=== PATIENT | male | born 1980 | race Caucasian/White ===

== ENCOUNTER 2017-02-09 19:21 | Emergency (ER) | payer SELFPAY ==
[~2017-02-09] VITALS: Ht 175.3 cm; Wt 74.8 kg
[~2017-02-09 19:21] MED LIST: CEPH500C PO; HYDR1TAB PO
[2017-02-09 20:14] LABS: BASOPHILS % (AUTO) 0 % (0-10); EOSINOPHILS % (AUTO) 0 % (0-10); LYMPHOCYTES # (AUTO) 0.7 X 10^3 (1.0-4.0); LYMPHOCYTES % (AUTO) 4 % (12-44); MEAN CORPUSCULAR HEMOGLOBIN 34 PG (25-34); MEAN CORPUSCULAR HGB CONC 36 G/DL (32-36); MEAN CORPUSCULAR VOLUME 96 FL (80-99); MEAN PLATELET VOLUME 9.2 FL (7.4-10.4); MONOCYTES % (AUTO) 6 % (0-12); NEUTROPHILS # (AUTO) 13.9 X 10^3 (1.8-7.8); NEUTROPHILS % (AUTO) 89 % (42-75); PLATELET COUNT 226 10^3/uL (130-400); RED BLOOD COUNT 4.72 10^6/uL (4.35-5.85); RED CELL DISTRIBUTION WIDTH 12.2 % (10.0-14.5); WHITE BLOOD COUNT 15.6 10^3/uL (4.3-11.0)
[2017-02-09 20:15] LABS: BILIRUBIN,URINE NEGATIVE (NEGATIVE); KETONES,URINE NEGATIVE (NEGATIVE); LEUKOCYTE ESTERASE ,URINE NEGATIVE (NEGATIVE); NITRITE,URINE NEGATIVE (NEGATIVE); PH,URINE 7 (5-9); PROTEIN,URINE NEGATIVE (NEGATIVE); UROBILINOGEN,URINE 1 MG/DL (NORMAL)
[2017-02-09] MEDS ORDERED: ONDANSETRON 4 MG/2 ML (SDV) Z0FRAN IVP PRN (20:15)
[2017-02-09] MEDS ORDERED: NS IV 1000 ML 2,000 ML IV PRN (20:15)
[2017-02-09 20:27] LABS: INR 0.9 (0.8-1.4); PROTHROMBIN TIME PATIENT 12.2 SEC (12.2-14.7); SQUAMOUS EPITHELIAL CELL,UR RARE /HPF
[2017-02-09 20:32] LABS: BAND NEUTROPHILS 9 %; BASOPHILS % (MANUAL) 0 %; EOSINOPHILS % (MANUAL) 2 %; LYMPHOCYTES % (MANUAL) 6 %; NEUTROPHILS % (MANUAL) 81 %
[2017-02-09 20:34] LABS: ALANINE AMINOTRANSFERASE 29 U/L (0-55); ANION GAP 12 MMOL/L (5-14); ASPARTATE AMINO TRANSFERASE 26 U/L (5-34); BILIRUBIN,TOTAL 0.7 MG/DL (0.1-1.0); BLOOD UREA NITROGEN 12 MG/DL (7-18); BUN/CREATININE RATIO 12; CALCIUM 9.4 MG/DL (8.5-10.1); CARBON DIOXIDE 22 MMOL/L (21-32); CHLORIDE 103 MMOL/L (98-107); CREATININE SERUM 0.97 MG/DL (0.60-1.30); GFR ESTIMATED > 60; GLUCOSE 115 MG/DL (70-105); POTASSIUM 3.6 MMOL/L (3.6-5.0); SODIUM 137 MMOL/L (135-145); TOTAL PROTEIN 7.4 G/DL (6.4-8.2)
--- NOTE | 2017-02-09 20:39 | Diagnostic Imaging Report ---
INDICATION: Cough, abdominal pain and bloody stools. FINDINGS: The heart size, mediastinal configuration, and pulmonary vascularity are within normal limits. There is no pleural effusion, pneumothorax, or pneumonia. The osseous structures are unremarkable. IMPRESSION: No acute cardiopulmonary abnormality. Dictated by: Dictated on workstation # [id number]
[2017-02-09] MEDS ORDERED: morphine INJ 10 MG/ML 1ML (SYR OR VIAL) IVP STA (21:24)
[2017-02-09] MEDS ORDERED: ONDANSETRON 4 MG/2 ML (SDV) Z0FRAN IVP ONE (21:30)
[2017-02-09] MEDS ORDERED: NS 100 ML (IVPB) BAG IV ONE (21:30)
[2017-02-09] MEDS ORDERED: IOHEXOL 350 MG/ML 100 ML (OMNIPAQUE 350) VIAL IV ONE (21:30)
[2017-02-09] MEDS ORDERED: PIPERACILLIN SODIUM/TAZOBACTAM 4.5 GM in NS (IVPB) 100 ML IV ONE (21:30)
--- NOTE | 2017-02-09 21:30 | ED GU-Male ---
General Chief Complaint: Abdominal/GI Problems Stated Complaint: ABD/INTESTINAL PAIN/BLOOD IN STOOL/FEVER Nursing Triage Note: LOWER ABDOMINAL PAIN, BLOODY STOOL TODAY. Source: patient, spouse Exam Limitations: no limitations History of Present Illness Time seen by provider: 21:00 Initial Comments 36 her old male patient presents to the emergency department complaints of lower abdominal pain and bloody stool beginning today. Patient reports previous episode similar to this over the last 7-8 yrs, but denies seeing a physician/practitioner for the symptoms. Patient reports nausea and low-grade fever 100-101. Denies vomiting, constipation, diarrhea. Denies taking Tylenol or ibuprofen at home. Timing/Duration: this morning Severity/Quality: cramping Location: other (generalized lower abdominal pain) Radiation: none Activities at Onset: none Prior Genitourinary Problems: similar symptoms Sexual Roberts History: less than 2 months ago, single partner Modifying Factors: Worsens With Defecating, Worsens With Movement, Worsens With Palpation Allergies and Home Medications Allergies Coded Allergies: No Known Drug Allergies (Unverified Allergy, Mild, 01/27/09) Home Medications Ciprofloxacin HCl 500 Mg Tablet, 500 MG PO BID, #20 Ref 0 Prescribed by: ANDREA HAMILTON on 02/09/172228 Metronidazole 500 Mg Tablet, 500 MG PO TID, #30 Ref 0 Prescribed by: ANDREA HAMILTON on 02/09/172228 Ondansetron 8 Mg Tab.rapdis, 8 MG PO Q6H PRN for NAUSEA/VOMITING-1ST LINE, #10 Ref 1 Prescribed by: ANDREA HAMILTON on 02/09/172228 Oxycodone HCl/Acetaminophen 1 Each Tablet, 1-2 EACH PO Q4H PRN for PAIN-MODERATE , #30 Ref 0 Prescribed by: ANDREA HAMILTON on 02/09/172228 Constitutional: see HPI, chills, fever, malaise EENTM: no symptoms reported Respiratory: no symptoms reported Cardiovascular: no symptoms reported Gastrointestinal: see HPI, abdominal pain, constipation, No diarrhea, No hematemesis, loss of appetite, No melena, nausea, No vomiting, other ( hematochezia) Genitourinary: denies burning, denies dysuria, denies frequency, denies flank pain, denies hematuria Musculoskeletal: no symptoms reported Skin: no symptoms reported Psychiatric/Neurological: No Symptoms Reported All Other Systemes Reviewed Negative Unless Noted: Yes (Negative excepted noted.) Past Vcraedo-Iyjgyd-Akflhb Hx Patient Social History Alcohol Use: Occasionally Uses Recreational Drug Use: No Smoking Status: Current Everyday Smoker Type Used: Cigarettes 2nd Hand Smoke Exposure: Yes Recent Foreign Travel: No Contact w/Someone Who Travel: No Recent Infectious Disease Expo: No Recent Hopitalizations: No Immunizations Up To Date Tetanus Booster (TDap): Unknown Seasonal Allergies Seasonal Allergies: No Surgeries HX Surgeries: No Surgeries: Orthopedic Respiratory Hx Respiratory Disorders: No Cardiovascular Hx Cardiac Disorders: Yes (HX SINUS TACHYCARDIA) Neurological Hx Neurological Disorders: No Reproductive System Hx Reproductive Disorders: No Sexually Transmitted Disease: No Genitourinary Hx Genitourinary Disorders: No Gastrointestinal Hx Gastrointestinal Disorders: No Musculoskeletal Hx Musculoskeletal Disorders: No Endocrine Hx Endocrine Disorders: No HEENT HX ENT Disorders: No Blood Transfusions Hx Blood Disorders: No Adverse Reaction to a Blood Tr: No Reviewed Nursing Assessment Reviewed/Agree w Nursing PMH: Yes Family Medical History Significant Family History: No Pertinent Family Hx Physical Exam Vital Signs Vital Sign - Last 12Hours 02/09/17 19:47 Temp 99.5 Pulse 125 Resp 18 B/P (MAP) 125/79 Pulse Ox 96 O2 Delivery Room Air Capillary Refill : Less Than 3 Seconds General Appearance: WD/WN, no apparent distress HEENT: PERRL/EOMI, pharynx normal Neck: supple, normal inspection Cardiovascular: normal peripheral pulses, no edema, no murmur, tachycardia Respiratory: lungs clear, normal breath sounds, no respiratory distress Gastrointestinal: soft, abnormal bowel sounds (hypoactive BS), No distended, guarding (suprapubic and LLQ), No rebound, tenderness (BLQ and suprapubic tenderness.), No mass Back: normal inspection, no CVA tenderness Extremities: no pedal edema, normal capillary refill Neurologic/Psychiatric: alert, normal mood/affect, oriented x 3 Skin: normal color, warm/dry Focused Exam Lactic Acid Level Laboratory Tests Test 02/09/17 20:00 Lactic Acid Level 1.12 MMOL/L (0.50-2.00) Progress/Results/Core Measures Results/Orders Lab Results Laboratory Tests Test 02/09/17 20:00 Range/Units White Blood Count 15.6 H 4.3-11.0 10^3/uL Red Blood Count 4.72 4.35-5.85 10^6/uL Hemoglobin 16.1 13.3-17.7 G/DL Hematocrit 45 40-54 % Mean Corpuscular Volume 96 80-99 FL Mean Corpuscular Hemoglobin 34 25-34 PG Mean Corpuscular Hemoglobin Concent 36 32-36 G/DL Red Cell Distribution Width 12.2 10.0-14.5 % Platelet Count 226 130-400 10^3/uL Mean Platelet Volume 9.2 7.4-10.4 FL Neutrophils (%) (Auto) 89 H 42-75 % Lymphocytes (%) (Auto) 4 L 12-44 % Monocytes (%) (Auto) 6 0-12 % Eosinophils (%) (Auto) 0 0-10 % Basophils (%) (Auto) 0 0-10 % Neutrophils # (Auto) 13.9 H 1.8-7.8 X 10^3 Lymphocytes # (Auto) 0.7 L 1.0-4.0 X 10^3 Monocytes # (Auto) 1.0 0.0-1.0 X 10^3 Eosinophils # (Auto) 0.0 0.0-0.3 10^3/uL Basophils # (Auto) 0.0 0.0-0.1 10^3/uL Neutrophils % (Manual) 81 % Lymphocytes % (Manual) 6 % Monocytes % (Manual) 2 % Eosinophils % (Manual) 2 % Basophils % (Manual) 0 % Band Neutrophils 9 % Blood Morphology Comment NORMAL Prothrombin Time 12.2 12.2-14.7 SEC INR Comment 0.9 0.8-1.4 Activated Partial Thromboplast Time 27 24-35 SEC Urine Color YELLOW Urine Clarity CLEAR Urine pH 7 5-9 Urine Specific [place] 1.010 L 1.016-1.022 Urine Protein NEGATIVE NEGATIVE Urine Glucose (UA) NEGATIVE NEGATIVE Urine Ketones NEGATIVE NEGATIVE Urine Nitrite NEGATIVE NEGATIVE Urine Bilirubin NEGATIVE NEGATIVE Urine Urobilinogen 1 NORMAL MG/DL Urine Leukocyte Esterase NEGATIVE NEGATIVE Urine RBC (Auto) NEGATIVE NEGATIVE Urine RBC NONE /HPF Urine WBC NONE /HPF Urine Squamous Epithelial Cells RARE /HPF Urine Crystals NONE /LPF Urine Bacteria NONE /HPF Urine Casts NONE /LPF Urine Mucus NEGATIVE /LPF Urine Culture Indicated NO Sodium Level 137 135-145 MMOL/L Potassium Level 3.6 3.6-5.0 MMOL/L Chloride Level 103 98-107 MMOL/L Carbon Dioxide Level 22 21-32 MMOL/L Anion Gap 12 5-14 MMOL/L Blood Urea Nitrogen 12 7-18 MG/DL Creatinine 0.97 0.60-1.30 MG/DL Estimat Glomerular Filtration Rate > 60 BUN/Creatinine Ratio 12 Glucose Level 115 H 70-105 MG/DL Lactic Acid Level 1.12 0.50-2.00 MMOL/L Calcium Level 9.4 8.5-10.1 MG/DL Total Bilirubin 0.7 0.1-1.0 MG/DL Aspartate Amino Transf (AST/SGOT) 26 5-34 U/L Alanine Aminotransferase (ALT/SGPT) 29 0-55 U/L Alkaline Phosphatase 68 40-136 U/L Total Protein 7.4 6.4-8.2 G/DL Albumin 4.0 3.2-4.5 G/DL Micro Results Microbiology 02/09/17 Blood Culture - Preliminary, Resulted No growth 02/09/17 Blood Culture, Received Pending My Orders Orders - ANDREA HAMILTON Cbc With Automated Diff (02/09/17 20:07) Comprehensive Metabolic Panel (02/09/17 20:07) Lactic Acid Analyzer (02/09/17 20:07) Blood Culture (02/09/17 20:07) Sputum Culture (02/09/17 20:07) Ua Culture If Indicated (02/09/17 20:07) Protime With Inr (02/09/17 20:07) Partial Thromboplastin Time (02/09/17 20:07) Chest 1 View, Ap/Pa Only (02/09/17 20:07) O2 (02/09/17 20:07) Ondansetron Injection (Zofran Injectio (02/09/17 20:15) Saline Lock/Iv-Start (02/09/17 20:07) Ns Iv 1000 Ml (Sodium Chloride 0.9%) (02/09/17 20:15) Vital Signs Adult Sepsis Patie Q1HR (02/09/17 20:07) Remove Rings In Anticipation O (02/09/17 20:07) Manual Differential (02/09/17 20:00) Morphine Injection (Morphine Injection (02/09/17 21:24) Ondansetron Injection (Zofran Injectio (02/09/17 21:30) Ct Abdomen/Pelvis W (02/09/17 21:24) Piperacillin Sodium/Tazobactam (Zosyn Vi (02/09/17 21:30) Iohexol Injection (Omnipaque 350 Mg/Ml 1 (02/09/17 21:30) Ns (Ivpb) (Sodium Chloride 0.9% Ivpb Bag (02/09/17 21:30) Rx-Oxycodone/Apap 5-325 Mg (Rx-Percocet (02/09/17 22:30) Rx-Ondansetron Po (Rx-Zofran Po) (02/09/17 22:21) Medications Given in ED Vital Signs/I&O Vital Sign - Last 12Hours 02/09/17 02/09/17 02/09/17 02/09/17 19:47 20:00 21:41 22:51 Temp 99.5 99.5 98.0 Pulse 125 95 Resp 18 18 B/P (MAP) 125/79 Pulse Ox 96 96 97 O2 Delivery Room Air Room Air Intake and Output 02/10/17 00:00 Intake Total 2100 ml Balance 2100 ml Blood Pressure Mean: 94 Diagnostic Imaging Diagonstic Imaging: CT Plain Films/CT/US/NM/MRI: abdomen, pelvis Comments FINDINGS: The heart size is normal. The lung bases are essentially clear. The liver is normal in size without focal lesions. The gallbladder is contracted. There is no biliary ductal dilatation. The spleen is normal. The pancreas and adrenal glands are unremarkable. The kidneys are normal. There is no evidence of obstructive uropathy. The abdominal aorta is nonaneurysmal. The appendix is normal. The bowel gas pattern is nonspecific. There is some focal diverticulitis of the sigmoid colon without evidence of abscess. There is no pelvic mass or adenopathy. IMPRESSION: Focal diverticulitis of the proximal sigmoid colon. There is no evidence of abscess or ramsey free air. Dictated by: Dictated on workstation # [id number] Reviewed: Reviewed by Me (radiology report reviewed by me. ) Diagonstic Imaging: Xray Plain Films/CT/US/NM/MRI: chest Comments FINDINGS: The heart size, mediastinal configuration, and pulmonary vascularity are within normal limits. There is no pleural effusion, pneumothorax, or pneumonia. The osseous structures are unremarkable. IMPRESSION: No acute cardiopulmonary abnormality. Dictated by: Dictated on workstation # [id number] Reviewed: Reviewed by Me (radiology report reviewed) Departure Communication Progress Notes all laboratory and diagnostic findings were discussed with the patient. 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 I advised the patient that I will contact Dr. Linares for recommendations. 2220 Patient case discussed with Dr. Linares. States a trial of outpatient antibiotics is appropriate as patient is young, otherwise healthy, and does not have an abscess or perforation. Recommends f/u in his office for recheck this week. I discussed Dr. Linares's recommendations with the patient. Patient agrees to return to the ED tomorrow for recheck. All return precautions were discussed with the patient as described in the [facility] instructions of this report. Patient voices understanding and agrees with the treatment plan. Impression Impression: Primary Impression: Diverticulitis of intestine Qualified Codes: K57.33 - Diverticulitis of large intestine without perforation or abscess with bleeding Disposition: HOME, SELF-CARE Condition: Improved Departure-Patient Inst. Decision time for Depature: 22:24 Referrals: NO,LOCAL PHYSICIAN (PCP) Primary Care Physician MANDI LINARES MD Patient Instructions: Diverticulitis (DC) Add. Discharge Instructions: All discharge instructions reviewed with patient and/or family. Voiced understanding. Medications as directed. Motrin 800 mg by mouth every 8 hours as directed. Clear liquid diet until pain resolves, then increase to a diverticular diet (no seeds, nuts, popcorn kernels, etc...). Follow-up with Dr. Linares for recheck and to schedule an outpatient colonoscopy in the next 3- 5 days. Call for appointment time. Return to the emergency department tomorrow for a recheck. Return to the emergency department for worsened pain, fever, vomiting, rectal bleeding, abdominal swelling, or any other concerns. Scripts Ondansetron (Ondansetron Odt) 8 Mg Tab.rapdis 8 MG PO Q6H Y for NAUSEA/VOMITING-1ST LINE, #10 TAB 1 Refill Prov: ANDREA HAMILTON 02/09/17 Oxycodone HCl/Acetaminophen (Percocet 5-325 mg Tablet) 1 Each Tablet 1-2 EACH PO Q4H Y for PAIN-MODERATE, #30 TAB 0 Refills Prov: ANDREA HAMILTON 02/09/17 Metronidazole (Metronidazole) 500 Mg Tablet 500 MG PO TID, #30 TAB 0 Refills Prov: ANDREA HAMILTON 02/09/17 Ciprofloxacin HCl (Ciprofloxacin HCl) 500 Mg Tablet 500 MG PO BID, #20 TAB 0 Refills Prov: ANDREA HAMILTON 02/09/17 ANDREA HAMILTON February 09, 2017 21:30
--- NOTE | 2017-02-09 21:52 | Diagnostic Imaging Report ---
PROCEDURE: CT abdomen and pelvis with contrast. TECHNIQUE: Multiple contiguous axial images were obtained through the abdomen and pelvis after administration of intravenous contrast. INDICATION: Fever and chills with abdominal pain and bloody stools. FINDINGS: The heart size is normal. The lung bases are essentially clear. The liver is normal in size without focal lesions. The gallbladder is contracted. There is no biliary ductal dilatation. The spleen is normal. The pancreas and adrenal glands are unremarkable. The kidneys are normal. There is no evidence of obstructive uropathy. The abdominal aorta is nonaneurysmal. The appendix is normal. The bowel gas pattern is nonspecific. There is some focal diverticulitis of the sigmoid colon without evidence of abscess. There is no pelvic mass or adenopathy. IMPRESSION: Focal diverticulitis of the proximal sigmoid colon. There is no evidence of abscess or ramsey free air. Dictated by: Dictated on workstation # [id number]
[2017-02-09] MEDS ORDERED: RX-ONDANSETRON 4 MG ODT (ZOFRAN) PPK #4 PO STA (22:21)
[2017-02-09] MEDS ORDERED: ONDA8TAB13 PO (22:29)
[2017-02-09] MEDS ORDERED: CIPR500T4 PO (22:29)
[2017-02-09] MEDS ORDERED: OXYC-197 PO (22:29)
[2017-02-09] MEDS ORDERED: METR500T21 PO (22:29)
[2017-02-09] MEDS ORDERED: RX-OXYCODONE/APAP 5-325 MG #4 TAB PK PO PRN (22:30)
[2017-02-09 22:51] VITALS: BP 132/91
== END 2017-02-09 22:48 | disposition home or self-care (01) ==
LOC: EDUNIT# 19:21 → ER 19:24
DX: K57.32 Diverticulitis of large intestine without perforation or abscess without bleeding (principal); F17.210 Nicotine dependence, cigarettes, uncomplicated
CPT/HCPCS: 36415; 71010; 74177; 80053; 81000; 83605; 85007; 85027; 85610; 85730; 87040; 96361; 96365; 96375; 96376

== ENCOUNTER 2017-02-10 16:27 | Emergency (ER) | payer SELFPAY ==
[~2017-02-10] VITALS: Ht 175.3 cm; Wt 74.8 kg
[~2017-02-10 16:27] MED LIST changes: +CIPR500T4 PO; +METR500T21 PO; +ONDA8TAB13 PO; +OXYC-197 PO
--- NOTE | 2017-02-10 17:12 | ED Suture Removal/Wound Check ---
Suture/Wound Re-check Suture Removal/Wound Recheck : Progress patient presents to the ED as instructed by this examiner yesterday. Patient states he is feeling better today and pain is improved. Denies nausea or vomiting today. Denies bloody stools today. Physical Exam Vital Signs Vital Sign - Last 12Hours 02/10/17 02/10/17 17:00 17:15 Temp 99.2 Pulse 103 Resp 20 B/P (MAP) 117/81 Pulse Ox 96 O2 Delivery Room Air Capillary Refill : General Appearance: WD/WN, no apparent distress Cardiovascular: regular rate, rhythm, no murmur Respiratory: lungs clear, normal breath sounds, no respiratory distress Gastrointestinal: normal bowel sounds, soft, no organomegaly, No distended, guarding (LLQ and suprapubic guarding (improved from yesterday's exam)), No rebound, tenderness (BLQ and suprapubic tenderness (improved from yesterday's exam)) Extremities: normal capillary refill Neurologic/Psychiatric: alert, normal mood/affect, oriented x 3 Skin: normal color, warm/dry Departure Communication Progress Notes Patient seen and evaluated. plan for dsch to home with f/u as an outpatient with Dr. Linares as instructed yesterday. Continue current medications. Impression Impression: Primary Impression: Diverticulitis large intestine Qualified Codes: K57.33 - Diverticulitis of large intestine without perforation or abscess with bleeding Disposition: 01 HOME, SELF-CARE Condition: Improved Departure-Patient Inst. Decision time for Depature: 17:10 Referrals: NO,LOCAL PHYSICIAN (PCP) Primary Care Physician MANDI LINARES MD Patient Instructions: NO INSTRUCTIONS GIVEN Add. Discharge Instructions: All discharge instructions reviewed with patient and/or family. Voiced understanding. Continue current medications. Continue instructions as discussed with the last night in the emergency department. Clear liquid diet until pain is improved, then increase diet slowly to a diverticular diet. Follow-up with Dr. Linares as instructed. Return to the emergency department for worsened symptoms or any other concerns. ANDREA HAMILTON February 10, 2017 17:11
[2017-02-10 17:15] VITALS: BP 117/81
== END 2017-02-10 17:15 | disposition home or self-care (01) ==
LOC: EDUNIT# 16:27 → ER 16:29
DX: K57.33 Diverticulitis of large intestine without perforation or abscess with bleeding (principal)

== ENCOUNTER 2017-03-25 14:02 | Emergency (ER) | payer SELFPAY ==
[~2017-03-25] VITALS: Ht 175.3 cm; Wt 74.8 kg
--- NOTE | 2017-03-25 14:32 | ED Lower Extremity ---
General Chief Complaint: Lower Extremity Stated Complaint: R FOOT BIG TOE INJ Source: patient Exam Limitations: no limitations History of Present Illness Time seen by provider: 14:30 Initial Comments To ER with right great toe injury. He states that several years ago while camping he struck this with a hatchet. Since then he's been unable to dorsiflex the toe. He also has a an erythematous nodule over the first MTP joint that developed after that healed. It is not painful. A few days ago he stubbed his toe and has persistent bruising and worsening pain to the great toe. Onset: just prior to arrival Severity: moderate Pain/Injury Location: right 1st toe Modifying Factors: Worse With Movement Allergies and Home Medications Allergies Coded Allergies: No Known Drug Allergies (Unverified , 01/27/09) Home Medications Ciprofloxacin HCl 500 Mg Tablet, 500 MG PO BID, #20 Ref 0 Prescribed by: ANDREA HAMILTON on 02/09/172228 Metronidazole 500 Mg Tablet, 500 MG PO TID, #30 Ref 0 Prescribed by: ANDREA HAMILTON on 02/09/172228 Ondansetron 8 Mg Tab.rapdis, 8 MG PO Q6H PRN for NAUSEA/VOMITING-1ST LINE, #10 Ref 1 Prescribed by: ANDREA HAMILTON on 02/09/172228 Oxycodone HCl/Acetaminophen 1 Each Tablet, 1-2 EACH PO Q4H PRN for PAIN-MODERATE , #30 Ref 0 Prescribed by: ANDREA HAMILTON on 02/09/172228 Constitutional: see HPI, No chills, No fever EENTM: see HPI Respiratory: no symptoms reported Cardiovascular: no symptoms reported Genitourinary: no symptoms reported Musculoskeletal: no symptoms reported Skin: see HPI Psychiatric/Neurological: No Symptoms Reported Past Fxejchz-Armvyi-Uwojon Hx Patient Social History Alcohol Use: Occasionally Uses Recreational Drug Use: No (SMOKES 1 PACK/DAY) Smoking Status: Current Everyday Smoker Type Used: Cigarettes 2nd Hand Smoke Exposure: Yes Recent Foreign Travel: No Contact w/Someone Who Travel: No Recent Hopitalizations: No Immunizations Up To Date Tetanus Booster (TDap): Unknown Seasonal Allergies Seasonal Allergies: No Surgeries Surgeries: Orthopedic Respiratory Hx Respiratory Disorders: No Cardiovascular Hx Cardiac Disorders: Yes (HX SINUS TACHYCARDIA) Neurological Hx Neurological Disorders: No Reproductive System Hx Reproductive Disorders: No Sexually Transmitted Disease: No Genitourinary Hx Genitourinary Disorders: No Gastrointestinal Hx Gastrointestinal Disorders: No Musculoskeletal Hx Musculoskeletal Disorders: No Endocrine Hx Endocrine Disorders: No HEENT HX ENT Disorders: No Blood Transfusions Hx Blood Disorders: No Adverse Reaction to a Blood Tr: No Physical Exam Vital Signs Vital Sign - Last 12Hours 03/25/17 14:19 Temp 98.8 Pulse 108 Resp 18 B/P (MAP) 166/87 Pulse Ox 98 O2 Delivery Room Air Capillary Refill : General Appearance: WD/WN, no apparent distress HEENT: PERRL/EOMI Neck: non-tender, full range of motion Respiratory: no respiratory distress, no accessory muscle use Gastrointestinal: normal bowel sounds, non tender, soft Hips: bilateral hip non-tender, bilateral hip normal inspection, bilateral hip normal range of motion Legs: bilateral leg non-tender, bilateral leg normal inspection, bilateral leg normal range of motion Knees: bilateral knee non-tender, bilateral knee normal inspection, bilateral knee normal range of motion Ankles: bilateral ankle non-tender, bilateral ankle normal inspection, bilateral ankle normal range of motion Feet: right foot other (there is an erythematous nodule over the dorsal aspect of the foot at the first MTP joint. There is bruising around this as well.) Neurologic/Psychiatric: alert, normal mood/affect, oriented x 3 Skin: normal color, warm/dry Progress/Results/Core Measures Results/Orders My Orders Orders - YOVANY RODRIGUEZ APRN Foot, Right, 3 View (03/25/17 14:25) Vital Signs/I&O Vital Sign - Last 12Hours 03/25/17 14:19 Temp 98.8 Pulse 108 Resp 18 B/P (MAP) 166/87 Pulse Ox 98 O2 Delivery Room Air Departure Impression Impression: Primary Impression: Toe sprain Disposition: 01 HOME, SELF-CARE Condition: Stable Departure-Patient Inst. Decision time for Depature: 14:44 Referrals: JAYLEN CEE DPM NO,LOCAL PHYSICIAN (PCP) Primary Care Physician ALEC LOMAX DPM Patient Instructions: Toe Injury Add. Discharge Instructions: 1. Keep the toe taped to the toe next to it 2. Tylenol and Motrin for pain 3. Follow-up with one of the foot specialists listed or All discharge instructions reviewed with patient and/or family. Voiced understanding. YOVANY RODRIGUEZ APRN Mar 25, 2017 14:32
--- NOTE | 2017-03-25 14:41 | Diagnostic Imaging Report ---
INDICATION: Foot pain. Rolled foot. FINDINGS: Alignment of the foot is normal. There are osteoarthritic changes at the first metatarsophalangeal joint. There is no evidence of an acute fracture or of a dislocation. There is no focal soft tissue abnormality. 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 There is no acute fracture or dislocation. Dictated by: Dictated on workstation # [id number]
[2017-03-25 14:55] VITALS: BP 160/87
== END 2017-03-25 14:56 | disposition home or self-care (01) ==
LOC: EDUNIT# 14:02 → ER 14:03
DX: S93.501A Unspecified sprain of right great toe, initial encounter (principal); F17.210 Nicotine dependence, cigarettes, uncomplicated; W22.8XXA Striking against or struck by other objects, initial encounter; Y92.009 Unspecified place in unspecified non-institutional (private) residence as the place of occurrence of the external cause; Y99.8 Other external cause status
CPT/HCPCS: 73630; 99283

== ENCOUNTER 2018-01-01 19:43 | Inpatient (IN) | payer SELFPAY ==
[~2018-01-01] VITALS: Ht 175.3 cm; Wt 85.3 kg
[2018-01-01 20:41] LABS: BILIRUBIN,URINE NEGATIVE (NEGATIVE); CLARITY,URINE SLIGHTLY CLOUDY; COLOR,URINE BROWN; GLUCOSE, URINE (UA) NEGATIVE (NEGATIVE); KETONES,URINE 1+ (NEGATIVE); LEUKOCYTE ESTERASE ,URINE 1+ (NEGATIVE); NITRITE,URINE NEGATIVE (NEGATIVE); PH,URINE 5 (5-9); PROTEIN,URINE 1+ (NEGATIVE); UROBILINOGEN,URINE 1 MG/DL (NORMAL)
[2018-01-01 20:41] LABS: BASOPHILS % (AUTO) 0 % (0-10); EOSINOPHILS % (AUTO) 0 % (0-10); HEMATOCRIT 46 % (40-54); HEMOGLOBIN 16.7 G/DL (13.3-17.7); LYMPHOCYTES # (AUTO) 1.4 X 10^3 (1.0-4.0); LYMPHOCYTES % (AUTO) 8 % (12-44); MEAN CORPUSCULAR HEMOGLOBIN 36 PG (25-34); MEAN CORPUSCULAR HGB CONC 37 G/DL (32-36); MEAN CORPUSCULAR VOLUME 97 FL (80-99); MEAN PLATELET VOLUME 9.6 FL (7.4-10.4); MONOCYTES # (AUTO) 1.2 X 10^3 (0.0-1.0); MONOCYTES % (AUTO) 6 % (0-12); NEUTROPHILS # (AUTO) 16.5 X 10^3 (1.8-7.8); NEUTROPHILS % (AUTO) 86 % (42-75); PLATELET COUNT 258 10^3/uL (130-400); RED BLOOD COUNT 4.71 10^6/uL (4.35-5.85); WHITE BLOOD COUNT 19.2 10^3/uL (4.3-11.0)
[2018-01-01] MEDS ORDERED: fentaNYL INJECTION 100 MCG/2 ML AMP IVP ONE ×2 (20:45→21:45)
[2018-01-01] MEDS ORDERED: IOHEXOL 350 MG/ML 100 ML (OMNIPAQUE 350) VIAL IV ONE (20:45)
[2018-01-01] MEDS ORDERED: LACTATED RINGERS 1,500 ML IV ONE (20:45)
[2018-01-01] MEDS ORDERED: ONDANSETRON 4 MG/2 ML (SDV) Z0FRAN IVP PRN (20:45)
[2018-01-01] MEDS ORDERED: NS 100 ML (IVPB) BAG IV ONE (20:45)
[2018-01-01 20:47] LABS: INR 0.9 (0.8-1.4); PROTHROMBIN TIME PATIENT 12.7 SEC (12.2-14.7)
--- NOTE | 2018-01-01 20:49 | ED GI ---
General Chief Complaint: Abdominal/GI Problems Stated Complaint: LOWER ABD PAIN Nursing Triage Note: PT PRESENTS TO ER WITH COMPLAINT OF ABD PAIN THAT STARTED AROUND 3AM. STATES THE PAIN HAS PROGRESSIVELY WORSENED THROUGHTOUT THE COURSE OF THE DAY. STATES PAIN IS FROM HIP TO HIP UNDER HIS BELLY BUTTON. STATES HE HAS NOT HAD A BM TODAY. ALSO COMPLAINING OF BURNING IN HIS BLADDER AFTER URINATION. Sepsis Screen: No Definite Risk Source of Information: Patient, Other Exam Limitations: No Limitations History of Present Illness Date Seen by Provider: Jan 01, 2018 Time Seen by Provider: 20:36 Initial Comments Patient presents to ER by private conveyance with a chief complaint that for the last day he has began to feel some progressively worsening stabbing turning to a dull achiness suprapubic periumbilical abdominal pain. He says it radiates to either side. He has no history of recent trauma. Within the last year he was diagnosed with diverticulitis and treated outpatient. Patient says this pain is different on the pain he felt the diverticula colitis. He has some burning on urination. He is sexually active and monogamous relationship with his . No discharge. He felt feverish but has not seen a temperature above 100F however he has been using Motrin for his pain and it has given him a modicum of relief. He is having nausea but has not vomited yet. No one else is sick around him with similar symptoms. He has no other surgical or medical history and does not take any meds routinely. Ever since he was diagnosed with diverticulitis he said he's had blood mixed in his stool occasionally. Allergies and Home Medications Allergies Coded Allergies: No Known Drug Allergies (Unverified , 01/27/09) Home Medications Ciprofloxacin HCl 500 Mg Tablet, 500 MG PO BID Prescribed by: ANDREA HAMILTON on 02/09/172228 Metronidazole 500 Mg Tablet, 500 MG PO TID Prescribed by: ANDREA HAMILTON on 02/09/172228 Ondansetron 8 Mg Tab.rapdis, 8 MG PO Q6H PRN for NAUSEA/VOMITING-1ST LINE Prescribed by: ANDREA HAMILTON on 02/09/172228 Oxycodone HCl/Acetaminophen 1 Each Tablet, 1-2 EACH PO Q4H PRN for PAIN-MODERATE Prescribed by: ANDREA HAMILTON on 02/09/172228 Patient Home Medication List Home Medication List Reviewed: Yes Review of Systems Constitutional: chills, No diaphoresis, fever, malaise EENTM: No Blurred Vision, No Double Vision Respiratory: Denies Cough, Denies Shortness of Air Cardiovascular: Denies Chest Pain, Denies Edema, Denies Palpitations Gastrointestinal: Constipated, Denies Diarrhea, Denies Difficulty Swallowing, Nausea, Denies Vomiting Genitourinary: Burning, Denies Discharge, Denies Frequency Musculoskeletal: back pain (low), No joint pain Skin: No pruritus, No rash Psychiatric/Neurological: Denies Headache, Denies Numbness Past Lmzhxdu-Cwfyqq-Edkjys Hx Patient Social History Alcohol Use: Occasionally Uses Number of Drinks Today: AA Alcohol Beverage of Choice: Beer Recreational Drug Use: Yes Drug of Choice: MARIJUANA Type Used: Cigarettes 2nd Hand Smoke Exposure: Yes Recent Foreign Travel: No Contact w/Someone Who Travel: No Recent Infectious Disease Expo: No Recent Hopitalizations: No Immunizations Up To Date Tetanus Booster (TDap): Unknown Seasonal Allergies Seasonal Allergies: No Surgeries History of Surgeries: Yes Surgeries: Orthopedic Respiratory History of Respiratory Disorde: No Cardiovascular History of Cardiac Disorders: Yes (HX SINUS TACHYCARDIA) Neurological History of Neurological Disord: No Reproductive System Hx Reproductive Disorders: No Sexually Transmitted Disease: No Genitourinary History of Genitourinary Disor: No Gastrointestinal History of Gastrointestinal Di: Yes (DIVIERTICULITIS) Musculoskeletal History of Musculoskeletal Dis: No Endocrine History of Endocrine Disorders: No HEENT History of HEENT Disorders: No Cancer History of Cancer: No Psychosocial History of Psychiatric Problem: No Integumentary History of Skin or Integumenta: No Blood Transfusions History of Blood Disorders: No Adverse Reaction to a Blood Tr: No Physical Exam Vital Signs VS - Last 72 Hours, by Label 01/01/18 20:17 Temp 99.1 Pulse 127 Resp 20 B/P (MAP) 120/74 (89) Pulse Ox 96 O2 Delivery Room Air Capillary Refill : Less Than 3 Seconds General Appearance: WD/WN, no apparent distress HEENT: PERRL/EOMI, normal ENT inspection, pharynx normal (oral mucosa is mildly dry) Neck: non-tender, normal inspection Respiratory: chest non-tender, lungs clear, no respiratory distress, no accessory muscle use Cardiovascular: normal peripheral pulses, regular rate, rhythm Peripheral Pulses: 2+ Radial Pulses (R), 2+ Radial Pulses (L) Gastrointestinal: normal bowel sounds, soft, guarding (bilateral lower quadrants), No rebound, tenderness (especially suprapubic but also left lower quadrant and right lower quadrant), other (negative for Jimenez sign or tenderness over McBurney's point) Rectal: normal exam, normal rectal tone, No blood streaked stool Extremities: no pedal edema, normal capillary refill Back: normal inspection, no vertebral tenderness, CVA tenderness (R) Neurologic/Psychiatric: alert, normal mood/affect, oriented x 3 Skin: normal color, warm/dry Focused Exam Evaluation Lactate Level Laboratory Tests 01/01/18 20:38: Lactic Acid Level 1.15 Lactic Acid Level Laboratory Tests Test 01/01/18 20:38 Lactic Acid Level 1.15 MMOL/L (0.50-2.00) Progress/Results/Core Measures Results/Orders Lab Results Laboratory Tests Test 01/01/18 20:05 01/01/18 20:25 01/01/18 20:38 Range/Units Urine Color BROWN H Urine Clarity SLIGHTLY CLOUDY Urine pH 5 5-9 Urine Specific [place] 1.015 L 1.016-1.022 Urine Protein 1+ H NEGATIVE Urine Glucose (UA) NEGATIVE NEGATIVE Urine Ketones 1+ H NEGATIVE Urine Nitrite NEGATIVE NEGATIVE Urine Bilirubin NEGATIVE NEGATIVE Urine Urobilinogen 1 NORMAL MG/DL Urine Leukocyte Esterase 1+ H NEGATIVE Urine RBC (Auto) 2+ H NEGATIVE Urine RBC 0-2 /HPF Urine WBC 0-2 /HPF Urine Squamous Epithelial Cells RARE /HPF Urine Crystals PRESENT H /LPF Urine Amorphous Sediment FEW JEWELL URATES H /LPF Urine Bacteria NONE /HPF Urine Casts NONE /LPF Urine Mucus SMALL H /LPF Urine Culture Indicated NO White Blood Count 19.2 H 4.3-11.0 10^3/uL Red Blood Count 4.71 4.35-5.85 10^6/uL Hemoglobin 16.7 13.3-17.7 G/DL Hematocrit 46 40-54 % Mean Corpuscular Volume 97 80-99 FL Mean Corpuscular Hemoglobin 36 H 25-34 PG Mean Corpuscular Hemoglobin Concent 37 H 32-36 G/DL Red Cell Distribution Width 12.0 10.0-14.5 % Platelet Count 258 130-400 10^3/uL Mean Platelet Volume 9.6 7.4-10.4 FL Neutrophils (%) (Auto) 86 H 42-75 % Lymphocytes (%) (Auto) 8 L 12-44 % Monocytes (%) (Auto) 6 0-12 % Eosinophils (%) (Auto) 0 0-10 % Basophils (%) (Auto) 0 0-10 % Neutrophils # (Auto) 16.5 H 1.8-7.8 X 10^3 Lymphocytes # (Auto) 1.4 1.0-4.0 X 10^3 Monocytes # (Auto) 1.2 H 0.0-1.0 X 10^3 Eosinophils # (Auto) 0.0 0.0-0.3 10^3/uL Basophils # (Auto) 0.0 0.0-0.1 10^3/uL Neutrophils % (Manual) 73 % Lymphocytes % (Manual) 10 % Monocytes % (Manual) 6 % Eosinophils % (Manual) 0 % Basophils % (Manual) 0 % Band Neutrophils 11 % Blood Morphology Comment NORMAL Prothrombin Time 12.7 12.2-14.7 SEC INR Comment 0.9 0.8-1.4 Activated Partial Thromboplast Time 29 24-35 SEC Sodium Level 134 L 135-145 MMOL/L Potassium Level 3.8 3.6-5.0 MMOL/L Chloride Level 103 98-107 MMOL/L Carbon Dioxide Level 17 L 21-32 MMOL/L Anion Gap 14 5-14 MMOL/L Blood Urea Nitrogen 11 7-18 MG/DL Creatinine 0.85 0.60-1.30 MG/DL Estimat Glomerular Filtration Rate > 60 BUN/Creatinine Ratio 13 Glucose Level 105 70-105 MG/DL Calcium Level 9.9 8.5-10.1 MG/DL Total Bilirubin 1.6 H 0.1-1.0 MG/DL Aspartate Amino Transf (AST/SGOT) 19 5-34 U/L Alanine Aminotransferase (ALT/SGPT) 29 0-55 U/L Alkaline Phosphatase 73 40-136 U/L C-Reactive Protein High Sensitivity 11.68 H 0.00-0.50 MG/DL Total Protein 8.3 H 6.4-8.2 GM/DL Albumin 4.4 3.2-4.5 GM/DL Lactic Acid Level 1.15 0.50-2.00 MMOL/L My Orders Orders - MARTINEZ MUÑOZ Occult Blood Stool (01/01/18 20:36) Ct Abd/Pelv W (Appendicitis) (01/01/18 20:36) Lactated Ringers (Lr 1000 Ml Iv Solution (01/01/18 20:45) Lactic Acid Analyzer (01/01/18 20:36) Blood Culture (01/01/18 20:36) Ua Culture If Indicated (01/01/18 20:36) Protime With Inr (01/01/18 20:36) Partial Thromboplastin Time (01/01/18 20:36) Ondansetron Injection (Zofran Injectio (01/01/18 20:45) Saline Lock/Iv-Start (01/01/18 20:36) Vital Signs Adult Sepsis Patie Q1H (01/01/18 20:36) Remove Rings In Anticipation O (01/01/18 20:36) Fentanyl Injection (Sublimaze Injection (01/01/18 20:45) Iohexol Injection (Omnipaque 350 Mg/Ml 1 (01/01/18 20:45) Ns (Ivpb) (Sodium Chloride 0.9% Ivpb Bag (01/01/18 20:45) Fentanyl Injection (Sublimaze Injection (01/01/18 21:45) Piperacillin Sodium/Tazobactam (Zosyn Vi (01/01/18 21:45) Metronidazole 500mg/100ml Ivpb (Flagyl 5 (01/01/18 21:45) Medications Given in ED Current Medications Medications Dose Ordered Sig/Abbie Route Start Time Stop Time Status Last Admin Dose Admin Fentanyl Citrate 50 mcg ONCE ONCE IVP 01/01/18 20:45 01/01/18 20:46 DC 01/01/18 20:49 50 MCG Iohexol 100 ml ONCE ONCE IV 01/01/18 20:45 01/01/18 21:26 DC 01/01/18 20:54 100 ML Lactated Ringer's 1,500 ml @ 1,500 mls/hr ONCE ONCE IV 01/01/18 20:45 01/01/18 21:44 01/01/18 21:09 1,500 MLS/HR Ondansetron HCl 4 mg ONCE PRN IVP 01/01/18 20:45 01/01/18 20:50 DC 01/01/18 20:49 4 MG Sodium Chloride 100 ml ONCE ONCE IV 01/01/18 20:45 01/01/18 21:26 DC 01/01/18 20:54 100 ML Vital Signs/I&O Vital Sign - Last 12Hours 01/01/18 20:17 Temp 99.1 Pulse 127 Resp 20 B/P (MAP) 120/74 (89) Pulse Ox 96 O2 Delivery Room Air Blood Pressure Mean: 89 Progress Note #1: Time: 20:50 Progress Note We will treat his pain and nausea and get a CT scan thinking about diverticulitis and a urinalysis thinking about UTI. Does not seem to be any abdominal wall tenderness and appendicitis would certainly also be in the distant differential. He is afebrile at this time however he takes Profen and said he felt feverish earlier and has some tachycardia so were going to do a septic workup focused on his abdomen. He does have a history of sinus tachycardia and gives some vague history of possible VSD. No murmur heard on auscultation. We would recommend he follow-up with a primary care provider for these issues outpatient. Progress Note #2: Time: 21:43 Progress Note IV Flagyl and Zosyn will be initiated prior to going to the floor. His pain is improved with fentanyl and his nausea is gone with Zofran. We have discussed the case with internal medicine as well as general surgery and the patient is okay to go up to the floor on IV fluids, antibiotics and repeat labs in the morning and surgeon will evaluate him then. Diagnostic Imaging Diagonstic Imaging: CT (with contrast) Plain Films/CT/US/NM/MRI: abdomen, pelvis Comments Sigmoid diverticulitis with a small amount of free air about 1/2 cm long along the sigmoid colon. There is no obvious abscess. No other acute intra-abdominal processes noted. Reviewed: Reviewed by Me Departure Communication (Admissions) Time/Spoke to Admitting Phy: 21:20 Communication Discussed case lab imaging findings and plan with Dr. Caraballo and he agrees. Time/Spoke to Consulting Phy: 21:15 Communication/Consulting Discussed case lab imaging and findings with Dr. Monzon and he recommends IV Zosyn, Flagyl, nothing by mouth status, IV fluids overnight and to get labs in the morning. He will see the patient. Impression Impression: Primary Impression: Diverticulitis of intestine Qualified Codes: K57.20 - Diverticulitis of large intestine with perforation and abscess without bleeding Additional Impression: Sepsis Qualified Codes: A41.9 - Sepsis, unspecified organism Disposition: ADMITTED INPATIENT Condition: Stable Admissions Decision to Admit Reason: Admit from ER (General) Decision to Admit/Date: Jan 01, 2018 Time/Decision to Admit Time: 21:30 Departure-Patient Inst. Referrals: NO,LOCAL PHYSICIAN (PCP/Family) Primary Care Physician Copy Copies To 1: AARTI MONZON TITUS J Jan 01, 2018 20:49
[2018-01-01 20:50] LABS: AMORPHOUS SEDIMENT,UR FEW AMOR URATES /LPF; RBC,URINE 0-2 /HPF; SQUAMOUS EPITHELIAL CELL,UR RARE /HPF; WBC,URINE 0-2 /HPF
[2018-01-01 20:57] LABS: ALANINE AMINOTRANSFERASE 29 U/L (0-55); ALBUMIN 4.4 GM/DL (3.2-4.5); ALKALINE PHOSPHATASE 73 U/L (40-136); BILIRUBIN,TOTAL 1.6 MG/DL (0.1-1.0); BUN/CREATININE RATIO 13; CALCIUM 9.9 MG/DL (8.5-10.1); CARBON DIOXIDE 17 MMOL/L (21-32); CHLORIDE 103 MMOL/L (98-107); CREATININE SERUM 0.85 MG/DL (0.60-1.30); GFR ESTIMATED > 60; GLUCOSE 105 MG/DL (70-105); POTASSIUM 3.8 MMOL/L (3.6-5.0); SODIUM 134 MMOL/L (135-145); TOTAL PROTEIN 8.3 GM/DL (6.4-8.2)
[2018-01-01 20:58] LABS: BAND NEUTROPHILS 11 %; EOSINOPHILS % (MANUAL) 0 %; LYMPHOCYTES % (MANUAL) 10 %; MONOCYTES % (MANUAL) 6 %; NEUTROPHILS % (MANUAL) 73 %
[2018-01-01 20:59] LABS: BASOPHILS % (MANUAL) 0 %; RBC MORPH NORMAL
--- NOTE | 2018-01-01 21:28 | Diagnostic Imaging Report ---
PROCEDURE: CT abdomen and pelvis with contrast, rule out appendicitis. TECHNIQUE: Multiple contiguous axial images were obtained through the abdomen and pelvis after the administration of intravenous contrast. INDICATION: Lower abdominal pain with nausea. Fever. COMPARISON: CT abdomen and pelvis with IV contrast 02/09/2017. FINDINGS: The lung bases are clear. The liver, gallbladder, pancreas, spleen, adrenals, collecting systems and kidneys are negative. Negative appendix. Moderate diverticulosis. There is a focal segment of bowel wall thickening and surrounding inflammatory change in the sigmoid colon. There are also localized locules of gas within the mesenteric inflammatory change measuring up to 1.5 cm. No other free intraperitoneal air. No evidence of bowel obstruction. No lymphadenopathy. IMPRESSION: CT findings of acute diverticulitis and localized perforation in the sigmoid colon. Findings discussed with Dr. Maury Khanna at 9:18 PM on 01/01/2018. Dictated by: Dictated on workstation # [id number]
[2018-01-01] MEDS ORDERED: PIPERACILLIN SODIUM/TAZOBACTAM 4.5 GM in NS (IVPB) 100 ML IV ONE (21:45)
[2018-01-01] MEDS ORDERED: metroNIDAZOLE 500MG/100ML IVPB 100 ML IV ONE (21:45)
[2018-01-01 23:10] VITALS: BP 115/67
[2018-01-01] MEDS: NS W/KCL 20 MEQ/L 1,000 ML IV SCH (23:29)
[2018-01-01] MEDS ORDERED: fentaNYL INJECTION 100 MCG/2 ML AMP IV PRN ×2 (23:30)
[2018-01-01] MEDS ORDERED: CATHETER FLUSH 10 ML SYR IV PRN (23:30)
[2018-01-01] MEDS: NICOTINE 21 MG (NICODERM) PATCH TD SCH (23:38)
[2018-01-02 01:14] VITALS: BP 116/69
[2018-01-02] MEDS: morphine INJ 4 MG/ML 1 ML (VIAL/SYRINGE) IVP PRN ×8 (01:25→20:35)
[2018-01-02 04:00] VITALS: BP 117/71
[2018-01-02] MEDS: PIPERACILLIN SODIUM/TAZOBACTAM 4.5 GM in NS (IVPB) 100 ML IV SCH ×3 (04:11→20:31)
[2018-01-02] MEDS: NS W/KCL 20 MEQ/L 1,000 ML IV SCH (05:48)
[2018-01-02] MEDS: metroNIDAZOLE 500 MG/100 ML IVPB (PRE-MIX) IV SCH ×3 (05:48→17:54)
[2018-01-02] MEDS: CATHETER FLUSH 10 ML SYR IV SCH ×3 (05:48→22:45)
[2018-01-02 06:37] LABS: BASOPHILS % (AUTO) 0 % (0-10); EOSINOPHILS # (AUTO) 0.1 10^3/uL (0.0-0.3); EOSINOPHILS % (AUTO) 0 % (0-10); HEMATOCRIT 42 % (40-54); HEMOGLOBIN 14.9 G/DL (13.3-17.7); LYMPHOCYTES % (AUTO) 6 % (12-44); MEAN CORPUSCULAR HEMOGLOBIN 36 PG (25-34); MEAN CORPUSCULAR HGB CONC 36 G/DL (32-36); MEAN CORPUSCULAR VOLUME 99 FL (80-99); MEAN PLATELET VOLUME 9.7 FL (7.4-10.4); MONOCYTES # (AUTO) 0.8 X 10^3 (0.0-1.0); MONOCYTES % (AUTO) 5 % (0-12); NEUTROPHILS # (AUTO) 14.8 X 10^3 (1.8-7.8); NEUTROPHILS % (AUTO) 89 % (42-75); PLATELET COUNT 198 10^3/uL (130-400); RED BLOOD COUNT 4.19 10^6/uL (4.35-5.85); RED CELL DISTRIBUTION WIDTH 11.8 % (10.0-14.5); WHITE BLOOD COUNT 16.6 10^3/uL (4.3-11.0)
[2018-01-02] MEDS: ONDANSETRON 4 MG/2 ML (SDV) Z0FRAN IV PRN (06:50)
[2018-01-02 07:08] LABS: BUN/CREATININE RATIO 11; CALCIUM 8.8 MG/DL (8.5-10.1); CARBON DIOXIDE 21 MMOL/L (21-32); CHLORIDE 110 MMOL/L (98-107); GFR ESTIMATED > 60; GLUCOSE 97 MG/DL (70-105); SODIUM 138 MMOL/L (135-145)
[2018-01-02 08:00] VITALS: BP 121/79
[2018-01-02] MEDS: NICOTINE 21 MG (NICODERM) PATCH TD SCH (08:32)
--- NOTE | 2018-01-02 09:40 | History & Physical-Hospitalist ---
History of Present Illness HPI/Chief Complaint Pt is a 37yoCM with a PMH of diverticulitis who presented to the ER with CC of abd pain. He states it started yesterday morning and continued to worsen through out the day. It was a sharp pain in his lower abdomen. Yesterday evening the pain dulled but it spread upwards in his abdomen. He was also having fevers and nausea. He denies vomiting. When his pain started spreading he decided to seek evaluation in the ER. He was found to have diverticulitis with a small amount of free air and decision was made to admit. This morning he states his pain is still present but nausea has improved. His pain is improved with pain medications. Source: patient, RN/MD Exam Limitations: no limitations Date Seen 01/02/18 Time Seen by Provider: 09:20 Attending Physician Francis Caraballo MD PCP No,Local Physician Referring Physician Date of Admission Jan 01, 2018 at 9:50 pm Home Medications & Allergies Home Medications Reviewed patient Home Medication Reconciliation performed by pharmacy medication reconciliations microbiology quality control technician and/or nursing. Patients Allergies have been reviewed. Allergies Allergies Coded Allergies No Known Drug Allergies (Unverified01/27/09) Past Xtbltpc-Eiotyy-Hieloa Hx Past Med/Social Hx: Reviewed and Corrections made Patient Social History Marrital Status: Employed/Student: employed Alcohol Use: Occasionally Uses Number of Drinks Today: AA Alcohol Beverage of Choice: Beer Recreational Drug Use: Yes Drug of Choice: MARIJUANA Smoking Status: Current Everyday Smoker Cigaretts per day: 20 Type Used: Cigarettes 2nd Hand Smoke Exposure: Yes Physical Abuse Screen: No Sexual Abuse: No Recent Foreign Travel: No Contact w/other who traveled: No Recent Hopitalizations: No Recent Infectious Disease Expo: No Immunizations Up To Date Tetanus Booster (TDap): Unknown Pediatric: Yes Seasonal Allergies Seasonal Allergies: No Past Medical History Surgeries: Orthopedic Reproductive: No Sexually Transmitted Disease: No HIV/AIDS: No Gastrointestinal: Diverticulosis History of Blood Disorders: No Adverse Reaction to Blood Black: No Family History Myocardial infarction MATERNAL GRANDFATHER ( FROM MASSIVE HEART ATTACK) Neoplasm 19 FATHER ( last year 2017 from colon cancer) Cancer (colon cancer in dad- diagnoses at 61yo) Review of Systems Constitutional: No chills, fever EENTM: No blurred vision, No double vision, No nose congestion, No throat pain Respiratory: No cough, No dyspnea on exertion, No short of breath Cardiovascular: No chest pain, No edema, palpitations (has history of sinus tachycardia) Gastrointestinal: abdominal pain, constipation, No diarrhea, nausea, No vomiting Genitourinary: no symptoms reported Musculoskeletal: No joint pain, No muscle pain Skin: No lesions, No rash Psychiatric/Neurological: Denies Headache, Denies Numbness, Denies Tingling All Other Systems Reviewed Negative Unless Noted: Yes (Negative excepted noted.) Physical Exam Physical Exam Vital Signs Vital Signs - First Documented 01/01/18 20:17 Temp 99.1 Pulse 127 Resp 20 B/P (MAP) 120/74 (89) Pulse Ox 96 O2 Delivery Room Air Capillary Refill : Less Than 3 Seconds General Appearance: No Apparent Distress, WD/WN HEENT: PERRL/EOMI, Moist Mucous Membranes Neck: Non Tender, Supple, No JVD, No Thyromegaly Respiratory: Lungs Clear, No Respiratory Distress Cardiovascular: Regular Rate, Rhythm, No Murmur, Normal Peripheral Pulses Gastrointestinal: Soft, Abnormal Bowel Sounds (quiet), Guarding, No Rebound, Tenderness (diffuse) Extremity: Normal Capillary Refill, Normal Range of Motion, Non Tender, No Calf Tenderness, No Pedal Edema Neurologic/Psychiatric: Alert, Oriented x3, No Motor/Sensory Deficits, Normal Mood/Affect, No Aphasia, No Facial Droop Skin: Normal Color, Warm/Dry, Tattoos/Piercings Results Results/Procedures Labs Laboratory Tests 01/01/18 20:25 01/02/18 06:12 Patient resulted labs reviewed. Imaging: Reviewed Imaging Films, Reviewed Imaging Report Imaging Date of Exam: 01/01/18 CT ABD/PELV W (APPENDICITIS) PROCEDURE: CT abdomen and pelvis with contrast, rule out appendicitis. TECHNIQUE: Multiple contiguous axial images were obtained through the abdomen and pelvis after the administration of intravenous contrast. INDICATION: Lower abdominal pain with nausea. Fever. COMPARISON: CT abdomen and pelvis with IV contrast 02/09/2017. FINDINGS: The lung bases are clear. The liver, gallbladder, pancreas, spleen, adrenals, collecting systems and kidneys are negative. Negative appendix. Moderate diverticulosis. There is a focal segment of bowel wall thickening and surrounding inflammatory change in the sigmoid colon. There are also localized locules of gas within the mesenteric inflammatory change measuring up to 1.5 cm. No other free intraperitoneal air. No evidence of bowel obstruction. No lymphadenopathy. IMPRESSION: CT findings of acute diverticulitis and localized perforation in the sigmoid colon. Assessment/Plan Admission Diagnosis Diverticulitis with sigmoid colon perforation Admission Status: Inpatient Order (span 2 midnights) Reason for Inpatient Admission: IV abx, colon perforation Diagnosis/Problems Diagnosis/Problems (1) Perforation of sigmoid colon due to diverticulitis Assessment & Plan: Surgery consulted, appreciate recs NPO Continue IV abx (Zosyn and Flagyl) (2) Diverticulitis of intestine Status: Acute Assessment & Plan: Management as above Continue Morphine for pain Zofran for Nausea Qualifiers: Diverticulitis site: large intestine Diverticulitis bleeding: unspecified bleeding status Diverticulitis complication: with perforation and without abscess Qualified Codes: K57.20 - Diverticulitis of large intestine with perforation and abscess without bleeding (3) Sepsis Status: Acute Assessment & Plan: Meeting sepsis criteria for tachycardia and leukocytosis Blood cultures drawn in ER Lactic normal IV abx started in ER- will continue No hypotension- no indication for 30cc/kg bolus Await cultures Qualifiers: Sepsis type: sepsis due to unspecified organism Qualified Codes: A41.9 - Sepsis, unspecified organism (4) Prophylactic measure Assessment & Plan: D5 1/2 NS at 100cc/hr Lovenox NPO Clinical Quality Measures DVT/VTE Risk/Contraindication: Risk Factor Score Per Nursin RFS Level Per Nursing on Admit: 1=Low/No VTE PPX JENNY VIRK MD Jan 02, 2018 9:40 am
[2018-01-02] MEDS: ENOXAPARIN 40 MG/0.4 ML (LOVENOX) SYR SC SCH (10:36)
[2018-01-02] MEDS: D5 1/2 NS 1000 ML IV SOLUTION 1,000 ML IV SCH ×2 (10:36→20:30)
--- NOTE | 2018-01-02 11:48 | Consultation ---
History of Present Illness History of Present Illness Patient Consulted On(andrey/time) 01/02/18 11:43 Date Seen by Provider: Jan 02, 2018 Time Seen by Provider: 08:41 History of Present Illness Consult requested by Dr. Caraballo for Perforated diverticulitis. Patient is a 37 year old male who has had several episodes of diverticulitis he states. Yesterday morning began having sharp pain in the lower abdomen and then worsened. Was having pain that was sharp and about 8-9 out of 10. Pain then moved up some and decided to go to ER for further evaluation. Movement was making pain worse, laying still made slightly better. Overall this morning his pain has improved with some pain medication and his wbc slightly decreased from last night. Was having some nausea which has improved this morning. Patient had a ct scan that i reviewed and has sigmoid diverticulitis with perforation of small amount of air near sigmoid colon. His wbc elevated. Allergies and Home Medications Allergies Coded Allergies: No Known Drug Allergies (Unverified , 01/27/09) Home Medications No Active Prescriptions or Reported Meds Patient Home Medication List Home Medication List Reviewed: Yes Past Dqheepv-Zwdvne-Bflzfw Hx Patient Social History Alcohol Use: Occasionally Uses Number of Drinks Today: AA Recreational Drug Use: Yes Drug of Choice: MARIJUANA Smoking Status: Current Everyday Smoker Cigarettes Per Day: 20 Type Used: Cigarettes 2nd Hand Smoke Exposure: Yes Recent Foreign Travel: No Contact w/Someone Who Travel: No Recent Infectious Disease Expo: No Recent Hopitalizations: No Physical Abuse Screen: No Sexual Abuse: No Immunizations Up To Date Tetanus Booster (TDap): Unknown PED Vaccines UTD: Yes Seasonal Allergies Seasonal Allergies: No Surgeries History of Surgeries: Yes (SEVERAL FRACTURES 16 SCREWS AND PLATE IN FACE/HEAD) Surgeries: Orthopedic Respiratory History of Respiratory Disorde: No Cardiovascular History of Cardiac Disorders: Yes (HX SINUS TACHYCARDIA) Neurological History of Neurological Disord: No Reproductive System Hx Reproductive Disorders: No Sexually Transmitted Disease: No HIV/AIDS: No Genitourinary History of Genitourinary Disor: No Gastrointestinal History of Gastrointestinal Di: Yes (DIVIERTICULITIS) Gastrointestinal Disorders: Diverticulosis Musculoskeletal History of Musculoskeletal Dis: No Endocrine History of Endocrine Disorders: No HEENT History of HEENT Disorders: No Cancer History of Cancer: No Psychosocial History of Psychiatric Problem: No Integumentary History of Skin or Integumenta: No Blood Transfusions History of Blood Disorders: No Adverse Reaction to a Blood Tr: No Family Medical History Significant Family History: Cancer Family Medial History: Myocardial infarction MATERNAL GRANDFATHER ( FROM MASSIVE HEART ATTACK) Neoplasm 19 FATHER ( last year 2016 from colon cancer) Review of Systems-General Constitutional: no symptoms reported EENTM: no symptoms reported Respiratory: no symptoms reported Cardiovascular: no symptoms reported Gastrointestinal: see HPI Genitourinary: no symptoms reported Musculoskeletal: no symptoms reported Skin: no symptoms reported Psychiatric/Neurological: No Symptoms Reported Physical Exam-General Problems Physical Exam Vital Signs Vital Signs - First Documented 01/01/18 20:17 Temp 99.1 Pulse 127 Resp 20 B/P (MAP) 120/74 (89) Pulse Ox 96 O2 Delivery Room Air Capillary Refill : Less Than 3 Seconds General Appearance: no apparent distress (laying in bed) HEENT: PERRL/EOMI, normal ENT inspection Neck: non-tender, full range of motion, supple Respiratory: no respiratory distress, no accessory muscle use Cardiovascular: regular rate, rhythm Gastrointestinal: tenderness (lower abdomen, no guarding or rebounding.) Rectal: deferred Back: normal inspection Extremities: non-tender, normal inspection Neurologic/Psychiatric: alert, normal mood/affect, oriented x 3 Data Review Labs Laboratory Tests 01/01/18 20:05: Urine Color BROWNH, Urine Clarity SLIGHTLY CLOUDY, Urine pH 5, Urine Specific [place] 1.015L, Urine Protein 1+H, Urine Glucose (UA) NEGATIVE, Urine Ketones 1+ H, Urine Nitrite NEGATIVE, Urine Bilirubin NEGATIVE, Urine Urobilinogen 1, Urine Leukocyte Esterase 1+H, Urine RBC (Auto) 2+H, Urine RBC 0-2, Urine WBC 0-2 , Urine Squamous Epithelial Cells RARE, Urine Crystals PRESENTH, Urine Amorphous Sediment FEW JEWELL URATESH, Urine Bacteria NONE, Urine Casts NONE, Urine Mucus SMALLH, Urine Culture Indicated NO 01/01/18 20:25: White Blood Count 19.2H, Red Blood Count 4.71, Hemoglobin 16.7, Hematocrit 46, Mean Corpuscular Volume 97, Mean Corpuscular Hemoglobin 36H, Mean Corpuscular Hemoglobin Concent 37H, Red Cell Distribution Width 12.0, Platelet Count 258, Mean Platelet Volume 9.6, Neutrophils (%) (Auto) 86H, Lymphocytes (%) (Auto) 8L , Monocytes (%) (Auto) 6, Eosinophils (%) (Auto) 0, Basophils (%) (Auto) 0, Neutrophils # (Auto) 16.5H, Lymphocytes # (Auto) 1.4, Monocytes # (Auto) 1.2H, Eosinophils # (Auto) 0.0, Basophils # (Auto) 0.0, Neutrophils % (Manual) 73, Lymphocytes % (Manual) 10, Monocytes % (Manual) 6, Eosinophils % (Manual) 0, Basophils % (Manual) 0, Band Neutrophils 11, Blood Morphology Comment NORMAL, Prothrombin Time 12.7, INR Comment 0.9, Activated Partial Thromboplast Time 29, Sodium Level 134L, Potassium Level 3.8, Chloride Level 103, Carbon Dioxide Level 17L, Anion Gap 14, Blood Urea Nitrogen 11, Creatinine 0.85, Estimat Glomerular Filtration Rate > 60, BUN/Creatinine Ratio 13, Glucose Level 105, Calcium Level 9.9, Total Bilirubin 1.6H, Aspartate Amino Transf (AST/SGOT) 19, Alanine Aminotransferase (ALT/SGPT) 29, Alkaline Phosphatase 73, C-Reactive Protein High Sensitivity 11.68H, Total Protein 8.3H, Albumin 4.4 01/01/18 20:38: Lactic Acid Level 1.15 01/02/18 06:12: White Blood Count 16.6H, Red Blood Count 4.19L, Hemoglobin 14.9, Hematocrit 42, Mean Corpuscular Volume 99, Mean Corpuscular Hemoglobin 36H, Mean Corpuscular Hemoglobin Concent 36, Red Cell Distribution Width 11.8, Platelet Count 198, Mean Platelet Volume 9.7, Neutrophils (%) (Auto) 89H, Lymphocytes (%) (Auto) 6L , Monocytes (%) (Auto) 5, Eosinophils (%) (Auto) 0, Basophils (%) (Auto) 0, Neutrophils # (Auto) 14.8H, Lymphocytes # (Auto) 1.0, Monocytes # (Auto) 0.8, Eosinophils # (Auto) 0.1, Basophils # (Auto) 0.0, Sodium Level 138, Potassium Level 4.0, Chloride Level 110H, Carbon Dioxide Level 21, Anion Gap 7, Blood Urea Nitrogen 8, Creatinine 0.70, Estimat Glomerular Filtration Rate > 60, BUN/ Creatinine Ratio 11, Glucose Level 97, Calcium Level 8.8 Assessment/Plan Assessment/Plan Assessment/Plan diverticulitis sigmoid colon with perforation. sepsis secondary to perforated diverticulitis had tachycardia and elevated wbc patient NPO IV hydration Zosyn/Flagyl Try conservative management, if no improvement will need surgical intervention. I discussed this with patient which he understands. Clinical Quality Measures DVT/VTE Risk/Contraindication: Risk Factor Score Per Nursin RFS Level Per Nursing on Admit: 1=Low/No VTE PPX AARTI MONZON DO Jan 02, 2018 11:48
[2018-01-02 15:25] VITALS: BP 114/62
[2018-01-02 20:17] VITALS: BP 120/71
[2018-01-03] VITALS: BP 120/74
[2018-01-03] MEDS: metroNIDAZOLE 500 MG/100 ML IVPB (PRE-MIX) IV SCH ×5 (00:16→23:22)
[2018-01-03] MEDS: morphine INJ 4 MG/ML 1 ML (VIAL/SYRINGE) IVP PRN ×9 (00:16→23:00)
[2018-01-03] MEDS: D5 1/2 NS 1000 ML IV SOLUTION 1,000 ML IV SCH ×2 (02:15→11:18)
[2018-01-03] MEDS: PIPERACILLIN SODIUM/TAZOBACTAM 4.5 GM in NS (IVPB) 100 ML IV SCH ×3 (04:07→18:49)
[2018-01-03 04:25] VITALS: BP 122/76
[2018-01-03] MEDS: CATHETER FLUSH 10 ML SYR IV SCH ×3 (05:20→18:49)
[2018-01-03 06:21] LABS: BASOPHILS % (AUTO) 0 % (0-10); EOSINOPHILS # (AUTO) 0.1 10^3/uL (0.0-0.3); EOSINOPHILS % (AUTO) 1 % (0-10); HEMATOCRIT 39 % (40-54); HEMOGLOBIN 13.8 G/DL (13.3-17.7); LYMPHOCYTES % (AUTO) 7 % (12-44); MEAN CORPUSCULAR HEMOGLOBIN 36 PG (25-34); MEAN CORPUSCULAR HGB CONC 36 G/DL (32-36); MEAN CORPUSCULAR VOLUME 99 FL (80-99); MEAN PLATELET VOLUME 9.5 FL (7.4-10.4); MONOCYTES # (AUTO) 0.8 X 10^3 (0.0-1.0); MONOCYTES % (AUTO) 6 % (0-12); NEUTROPHILS # (AUTO) 12.3 X 10^3 (1.8-7.8); NEUTROPHILS % (AUTO) 86 % (42-75); PLATELET COUNT 205 10^3/uL (130-400); RED BLOOD COUNT 3.88 10^6/uL (4.35-5.85); RED CELL DISTRIBUTION WIDTH 11.7 % (10.0-14.5); WHITE BLOOD COUNT 14.3 10^3/uL (4.3-11.0)
[2018-01-03 06:39] LABS: BUN/CREATININE RATIO 7; CARBON DIOXIDE 19 MMOL/L (21-32); CHLORIDE 104 MMOL/L (98-107); GFR ESTIMATED > 60; GLUCOSE 122 MG/DL (70-105); POTASSIUM 3.7 MMOL/L (3.6-5.0); SODIUM 132 MMOL/L (135-145)
[2018-01-03 08:00] VITALS: BP 124/75
[2018-01-03] MEDS: NICOTINE 21 MG (NICODERM) PATCH TD SCH (08:32)
[2018-01-03] MEDS: ENOXAPARIN 40 MG/0.4 ML (LOVENOX) SYR SC SCH (08:32)
[2018-01-03] MEDS: ONDANSETRON 4 MG/2 ML (SDV) Z0FRAN IV PRN (08:32)
[2018-01-03 12:00] VITALS: BP 119/78
--- NOTE | 2018-01-03 13:29 | Progress Note-Hospitalist ---
Subjective HPI/CC On Admission Date Seen by Provider: Jan 03, 2018 Time Seen by Provider: 12:30 Pt is a 37yoCM with a PMH of diverticulitis who presented to the ER with CC of abd pain. He states it started yesterday morning and continued to worsen through out the day. It was a sharp pain in his lower abdomen. Yesterday evening the pain dulled but it spread upwards in his abdomen. He was also having fevers and nausea. He denies vomiting. When his pain started spreading he decided to seek evaluation in the ER. He was found to have diverticulitis with a small amount of free air and decision was made to admit. This morning he states his pain is still present but nausea has improved. His pain is improved with pain medications. Subjective/Events-last exam Pt reports doing okay. Still having abd pain and pain. Focused Exam Evaluation Lactate Level Laboratory Tests 01/01/18 20:38: Lactic Acid Level 1.15 Objective Exam Vital Signs Vital Signs Date Time Temp Pulse Resp B/P (MAP) Pulse Ox O2 Delivery O2 Flow Rate FiO2 01/01/18 20:17 99.1 127 20 120/74 (89) 96 Room Air Capillary Refill : Less Than 3 Seconds General Appearance: No Apparent Distress, WD/WN Respiratory: Lungs Clear, No Respiratory Distress Cardiovascular: Regular Rate, Rhythm, No Murmur Gastrointestinal: Normal Bowel Sounds, Tenderness (mild, diffuse) Neurologic/Psychiatric: Alert, Oriented x3, Normal Mood/Affect Results/Procedures Lab Laboratory Tests 01/03/18 06:05 Patient resulted labs reviewed. Imaging: Reviewed Imaging Films, Reviewed Imaging Report Assessment/Plan Assessment and Plan Assess & Plan/Chief Complaint Diverticulitis with sigmoid colon perforation Diagnosis/Problems Diagnosis/Problems (1) Perforation of sigmoid colon due to diverticulitis Assessment & Plan: Surgery consulted, appreciate recs NPO again today Continue IV abx (Zosyn and Flagyl) (2) Diverticulitis of intestine Status: Acute Assessment & Plan: Management as above Continue Morphine for pain Zofran for Nausea Qualifiers: Diverticulitis site: large intestine Diverticulitis bleeding: unspecified bleeding status Diverticulitis complication: with perforation and without abscess Qualified Codes: K57.20 - Diverticulitis of large intestine with perforation and abscess without bleeding (3) Sepsis Status: Resolved Assessment & Plan: Sepsis resolved Continue IV Abx Await cultures Qualifiers: Sepsis type: sepsis due to unspecified organism Qualified Codes: A41.9 - Sepsis, unspecified organism (4) Prophylactic measure Assessment & Plan: D5 1/2 NS at 100cc/hr Lovenox NPO Clinical Quality Measures DVT/VTE Risk/Contraindication: Risk Factor Score Per Nursin RFS Level Per Nursing on Admit: 1=Low/No VTE PPX JENNY VIRK MD Jan 03, 2018 13:29
[2018-01-03 16:00] VITALS: BP 116/79
--- NOTE | 2018-01-03 16:29 | Progress Note ---
Subjective Date Seen by Provider: Jan 03, 2018 Time Seen by Provider: 09:29 Subjective/Events-last exam Patient still with abdominal pain but it feels a little bit more dull. Slightly less severity. Patient started to pass some flatus which she was able to do yesterday. Patient without any recent fever. Patient states his pain is about a 5-6 out of 10 His white blood cell count is trending down. Denies any nausea vomiting fever sweats chills shortness of breath or chest pain. Focused Exam Lactate Level Laboratory Tests 01/01/18 20:38: Lactic Acid Level 1.15 Objective Exam Vital Signs Date Time Temp Pulse Resp B/P (MAP) Pulse Ox O2 Delivery O2 Flow Rate FiO2 01/03/18 12:00 97.7 84 18 119/78 (92) 94 Room Air 01/03/18 08:00 98.6 81 20 124/75 (91) 95 Room Air 01/03/18 04:25 98.5 82 17 122/76 (91) 93 Room Air 01/03/18 00:00 99.4 103 18 120/74 (89) 98 Room Air 01/02/18 20:17 99.9 104 18 120/71 (87) 96 Room Air I & O 01/03/18 07:00 Intake Total 2600 ml Output Total 1275 ml Balance 1325 ml Capillary Refill : Less Than 3 Seconds General Appearance: No Apparent Distress, WD/WN HEENT: PERRL/EOMI, Moist Mucous Membranes Neck: Non Tender, Supple, No JVD, No Thyromegaly Respiratory: No Accessory Muscle Use, No Respiratory Distress Cardiovascular: Regular Rate, Rhythm, No Murmur Peripheral Pulses: 2+ Radial Pulses (R), 2+ Radial Pulses (L) Gastrointestinal: tenderness (lower abdomen, no guarding or rebounding.) Extremity: Normal Capillary Refill, Normal Range of Motion, Non Tender, No Calf Tenderness, No Pedal Edema Neurologic/Psychiatric: Alert, Oriented x3, No Motor/Sensory Deficits, Normal Mood/Affect, 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 Norm as Tested Skin: Normal Color, Warm/Dry, Tattoos/Piercings Lymphatic: No Adenopathy Results Lab Laboratory Tests 01/03/18 06:05: White Blood Count 14.3H, Red Blood Count 3.88L, Hemoglobin 13.8, Hematocrit 39L , Mean Corpuscular Volume 99, Mean Corpuscular Hemoglobin 36H, Mean Corpuscular Hemoglobin Concent 36, Red Cell Distribution Width 11.7, Platelet Count 205, Mean Platelet Volume 9.5, Neutrophils (%) (Auto) 86H, Lymphocytes (%) (Auto) 7L , Monocytes (%) (Auto) 6, Eosinophils (%) (Auto) 1, Basophils (%) (Auto) 0, Neutrophils # (Auto) 12.3H, Lymphocytes # (Auto) 1.0, Monocytes # (Auto) 0.8, Eosinophils # (Auto) 0.1, Basophils # (Auto) 0.0, Sodium Level 132L, Potassium Level 3.7, Chloride Level 104, Carbon Dioxide Level 19L, Anion Gap 9, Blood Urea Nitrogen 5L, Creatinine 0.70, Estimat Glomerular Filtration Rate > 60, BUN/ Creatinine Ratio 7, Glucose Level 122H, Calcium Level 9.0 Microbiology 01/01/18 Blood Culture - Preliminary, Resulted No growth Assessment/Plan Assessment/Plan Assessment/Plan diverticulitis sigmoid colon with perforation. sepsis secondary to perforated diverticulitis had tachycardia and elevated wbc patient NPO IV hydration Zosyn/Flagyl Continue to try conservative management, he is having slightly less pain in WBC trending down, if no improvement will need surgical intervention. I discussed this with patient which he understands and agrees with plan. Clinical Quality Measures DVT/VTE Risk/Contraindication: Risk Factor Score Per Nursin RFS Level Per Nursing on Admit: 1=Low/No VTE PPX AARTI MONZON DO Jan 03, 2018 16:29
[2018-01-03 20:00] VITALS: BP 123/82
[2018-01-04 00:16] VITALS: BP 120/72
[2018-01-04] MEDS: D5 1/2 NS 1000 ML IV SOLUTION 1,000 ML IV SCH ×3 (02:09→17:39)
[2018-01-04] MEDS: PIPERACILLIN SODIUM/TAZOBACTAM 4.5 GM in NS (IVPB) 100 ML IV SCH ×3 (03:38→19:38)
[2018-01-04] MEDS: metroNIDAZOLE 500 MG/100 ML IVPB (PRE-MIX) IV SCH ×4 (05:34→23:29)
[2018-01-04] MEDS: morphine INJ 4 MG/ML 1 ML (VIAL/SYRINGE) IVP PRN ×7 (05:43→23:35)
[2018-01-04] MEDS: CATHETER FLUSH 10 ML SYR IV SCH ×3 (05:43→21:28)
[2018-01-04 05:58] LABS: HEMOGLOBIN 14.1 G/DL (13.3-17.7); MEAN PLATELET VOLUME 9.4 FL (7.4-10.4); RED BLOOD COUNT 4.06 10^6/uL (4.35-5.85); RED CELL DISTRIBUTION WIDTH 11.4 % (10.0-14.5); WHITE BLOOD COUNT 9.8 10^3/uL (4.3-11.0)
[2018-01-04 06:18] LABS: BUN/CREATININE RATIO 6; CALCIUM 8.9 MG/DL (8.5-10.1); CARBON DIOXIDE 22 MMOL/L (21-32); CHLORIDE 107 MMOL/L (98-107); CREATININE SERUM 0.66 MG/DL (0.60-1.30); GFR ESTIMATED > 60; GLUCOSE 121 MG/DL (70-105); POTASSIUM 3.7 MMOL/L (3.6-5.0); SODIUM 137 MMOL/L (135-145)
[2018-01-04 08:00] VITALS: BP 126/72
[2018-01-04] MEDS: ONDANSETRON 4 MG/2 ML (SDV) Z0FRAN IV PRN ×2 (09:36→19:42)
[2018-01-04] MEDS: ENOXAPARIN 40 MG/0.4 ML (LOVENOX) SYR SC SCH (09:37)
[2018-01-04] MEDS: NICOTINE 21 MG (NICODERM) PATCH TD SCH (09:37)
--- NOTE | 2018-01-04 10:35 | Progress Note ---
Subjective Date Seen by Provider: Jan 04, 2018 Time Seen by Provider: 10:28 Subjective/Events-last exam Patient's feeling better today. He has less abdominal pain, but feels some pressure. He is passing some flatus. He has been afebrile. His white blood cell count is down within the normal range. He denies any nausea vomiting fever sweats chills shortness of breath or chest pain. Focused Exam Lactate Level Laboratory Tests 01/01/18 20:38: Lactic Acid Level 1.15 Objective Exam Vital Signs Date Time Temp Pulse Resp B/P (MAP) Pulse Ox O2 Delivery O2 Flow Rate FiO2 01/04/18 08:00 98.1 72 16 126/72 (90) 98 Room Air 01/04/18 00:16 98.3 65 18 120/72 (88) 96 Room Air 01/03/18 20:00 98.5 79 20 123/82 (96) 97 Room Air 01/03/18 16:00 98.6 87 20 116/79 (91) 96 Room Air 01/03/18 12:00 97.7 84 18 119/78 (92) 94 Room Air I & O 01/04/18 07:00 Intake Total 1500 ml Output Total 2750 ml Balance -1250 ml Capillary Refill : Less Than 3 Seconds General Appearance: No Apparent Distress, WD/WN HEENT: PERRL/EOMI, Moist Mucous Membranes Neck: Non Tender, Supple, No JVD, No Thyromegaly Respiratory: No Accessory Muscle Use, No Respiratory Distress Cardiovascular: Regular Rate, Rhythm, No Murmur Peripheral Pulses: 2+ Radial Pulses (R), 2+ Radial Pulses (L) Gastrointestinal: tenderness (less tendwer, lower abdomen, no guarding or rebounding.) Extremity: Normal Capillary Refill, Normal Range of Motion, Non Tender, No Calf Tenderness, No Pedal Edema Neurologic/Psychiatric: Alert, Oriented x3, No Motor/Sensory Deficits, Normal Mood/Affect, motel 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 Norm as Tested Skin: Normal Color, Warm/Dry, Tattoos/Piercings Lymphatic: No Adenopathy Results Lab Laboratory Tests 01/04/18 05:40: White Blood Count 9.8, Red Blood Count 4.06L, Hemoglobin 14.1, Hematocrit 40, Mean Corpuscular Volume 98, Mean Corpuscular Hemoglobin 35H, Mean Corpuscular Hemoglobin Concent 36, Red Cell Distribution Width 11.4, Platelet Count 225, Mean Platelet Volume 9.4, Sodium Level 137, Potassium Level 3.7, Chloride Level 107, Carbon Dioxide Level 22, Anion Gap 8, Blood Urea Nitrogen 4L, Creatinine 0.66, Estimat Glomerular Filtration Rate > 60, BUN/Creatinine Ratio 6, Glucose Level 121H, Calcium Level 8.9 Microbiology 01/01/18 Blood Culture - Preliminary, Resulted No growth Assessment/Plan Assessment/Plan Assessment/Plan diverticulitis sigmoid colon with perforation. sepsis secondary to perforated diverticulitis had tachycardia and elevated wbc patient NPO IV hydration Zosyn/Flagyl Continue conservative management, he is having less pain in WBC in normal range. If doing well start clear liquids tomorrow. Patient understands that still could required surgical intervention, but since has had continue improvement will continue conservative plan, which he understands and agrees with. Needs colonoscopy about 6-8 weeks as outpatient. Clinical Quality Measures DVT/VTE Risk/Contraindication: Risk Factor Score Per Nursin RFS Level Per Nursing on Admit: 1=Low/No VTE PPX AARTI MONZON DO Jan 04, 2018 10:35
--- NOTE | 2018-01-04 13:23 | Progress Note-Hospitalist ---
Subjective HPI/CC On Admission Date Seen by Provider: Jan 04, 2018 Time Seen by Provider: 13:19 Pt is a 37yoCM with a PMH of diverticulitis who presented to the ER with CC of abd pain. He states it started yesterday morning and continued to worsen through out the day. It was a sharp pain in his lower abdomen. Yesterday evening the pain dulled but it spread upwards in his abdomen. He was also having fevers and nausea. He denies vomiting. When his pain started spreading he decided to seek evaluation in the ER. He was found to have diverticulitis with a small amount of free air and decision was made to admit. This morning he states his pain is still present but nausea has improved. His pain is improved with pain medications. Subjective/Events-last exam Reports feeling better. Passed a lot of gas overnight and abd pain improved. Still no BM. Did have some nausea this morning but no vomiting. No other complaints. Focused Exam Lactate Level 01/01/18 20:38: Lactic Acid Level 1.15 Objective Exam Vital Signs Vital Signs Date Time Temp Pulse Resp B/P (MAP) Pulse Ox O2 Delivery O2 Flow Rate FiO2 01/01/18 20:17 99.1 127 20 120/74 (89) 96 Room Air Capillary Refill : Less Than 3 Seconds General Appearance: No Apparent Distress, WD/WN Respiratory: Lungs Clear, No Respiratory Distress Cardiovascular: Regular Rate, Rhythm, No Murmur Gastrointestinal: Normal Bowel Sounds, Non Tender, Soft Neurologic/Psychiatric: Alert, Oriented x3, Normal Mood/Affect Skin: Normal Color, Warm/Dry, Tattoos/Piercings Results/Procedures Lab Laboratory Tests 01/04/18 05:40 Patient resulted labs reviewed. Imaging: Reviewed Imaging Films, Reviewed Imaging Report Assessment/Plan Assessment and Plan Assess & Plan/Chief Complaint Diverticulitis with sigmoid colon perforation Diagnosis/Problems Diagnosis/Problems (1) Perforation of sigmoid colon due to diverticulitis Assessment & Plan: Surgery consulted, appreciate recs NPO again today plan to advance to [facility] tomorrow Continue IV abx (Zosyn and Flagyl) Will transition to oral pain medications as well tomorrow (2) Diverticulitis of intestine Status: Acute Assessment & Plan: Management as above Continue Morphine for pain Zofran for Nausea Qualifiers: Diverticulitis site: large intestine Diverticulitis bleeding: unspecified bleeding status Diverticulitis complication: with perforation and without abscess Qualified Codes: K57.20 - Diverticulitis of large intestine with perforation and abscess without bleeding (3) Sepsis Status: Resolved Assessment & Plan: Sepsis resolved Continue IV Abx Blood cultures NGTD Qualifiers: Sepsis type: sepsis due to unspecified organism Qualified Codes: A41.9 - Sepsis, unspecified organism (4) Prophylactic measure Assessment & Plan: D5 1/2 NS at 100cc/hr Lovenox NPO Clinical Quality Measures DVT/VTE Risk/Contraindication: Risk Factor Score Per Nursin RFS Level Per Nursing on Admit: 1=Low/No VTE PPX JENNY VIRK MD Jan 04, 2018 13:23
[2018-01-04 15:30] VITALS: BP 127/82
[2018-01-04 20:31] VITALS: BP 134/84
[2018-01-05] VITALS: BP 120/72
[2018-01-05] MEDS: D5 1/2 NS 1000 ML IV SOLUTION 1,000 ML IV SCH ×2 (02:51→08:32)
[2018-01-05] MEDS: PIPERACILLIN SODIUM/TAZOBACTAM 4.5 GM in NS (IVPB) 100 ML IV SCH ×3 (04:19→19:41)
[2018-01-05] MEDS: morphine INJ 4 MG/ML 1 ML (VIAL/SYRINGE) IVP PRN (04:22)
[2018-01-05 04:38] LABS: HEMOGLOBIN 13.8 G/DL (13.3-17.7); MEAN PLATELET VOLUME 9.4 FL (7.4-10.4); RED BLOOD COUNT 3.96 10^6/uL (4.35-5.85); RED CELL DISTRIBUTION WIDTH 11.6 % (10.0-14.5); WHITE BLOOD COUNT 7.7 10^3/uL (4.3-11.0)
[2018-01-05 04:52] LABS: BUN/CREATININE RATIO 6; CALCIUM 8.9 MG/DL (8.5-10.1); CARBON DIOXIDE 21 MMOL/L (21-32); CHLORIDE 108 MMOL/L (98-107); CREATININE SERUM 0.66 MG/DL (0.60-1.30); GFR ESTIMATED > 60; GLUCOSE 111 MG/DL (70-105); POTASSIUM 3.3 MMOL/L (3.6-5.0); SODIUM 138 MMOL/L (135-145)
[2018-01-05] MEDS: metroNIDAZOLE 500 MG/100 ML IVPB (PRE-MIX) IV SCH ×3 (05:34→16:55)
[2018-01-05] MEDS: CATHETER FLUSH 10 ML SYR IV SCH ×3 (05:35→22:15)
[2018-01-05 08:00] VITALS: BP 121/77
[2018-01-05] MEDS: POTASSIUM CL 10MEQ/50ML IVPB 50 ML IV SCH ×2 (08:30→08:34)
[2018-01-05] MEDS: ENOXAPARIN 40 MG/0.4 ML (LOVENOX) SYR SC SCH (08:33)
[2018-01-05] MEDS: NICOTINE 21 MG (NICODERM) PATCH TD SCH (08:33)
[2018-01-05] MEDS: ONDANSETRON 4 MG/2 ML (SDV) Z0FRAN IV PRN ×2 (08:41→16:56)
--- NOTE | 2018-01-05 08:56 | Progress Note ---
Subjective Date Seen by Provider: Jan 05, 2018 Time Seen by Provider: 08:54 Subjective/Events-last exam feeling better. less pain and not feeling "like an old man". Patient afebrile. WBC down. passing flatus. denies n/v fever sweats chills shortness of breath or chest pain. Objective Exam Vital Signs Date Time Temp Pulse Resp B/P (MAP) Pulse Ox O2 Delivery O2 Flow Rate FiO2 01/05/18 00:00 98.2 67 18 120/72 (88) 98 Room Air 01/04/18 20:31 98.2 72 18 134/84 (101) 96 Room Air 01/04/18 15:30 97.7 67 18 127/82 (97) 96 Room Air 01/04/18 15:20 98.1 I & O 01/05/18 07:00 Intake Total 2600 ml Output Total 2875 ml Balance -275 ml Capillary Refill : Less Than 3 Seconds General Appearance: No Apparent Distress, WD/WN HEENT: PERRL/EOMI, Moist Mucous Membranes Neck: Non Tender, Supple, No JVD, No Thyromegaly Respiratory: Lungs Clear, No Respiratory Distress Cardiovascular: Regular Rate, Rhythm, No Murmur Peripheral Pulses: 2+ Radial Pulses (R), 2+ Radial Pulses (L) Gastrointestinal: tenderness (suprapubic area better than yesterday.) Extremity: Normal Capillary Refill, Normal Range of Motion, Non Tender, No Calf Tenderness, No Pedal Edema Neurologic/Psychiatric: Alert, Oriented x3, Normal Mood/Affect Skin: Normal Color, Warm/Dry, Tattoos/Piercings Lymphatic: No Adenopathy Results Lab Laboratory Tests 01/05/18 04:05: White Blood Count 7.7, Red Blood Count 3.96L, Hemoglobin 13.8, Hematocrit 39L, Mean Corpuscular Volume 99, Mean Corpuscular Hemoglobin 35H, Mean Corpuscular Hemoglobin Concent 35, Red Cell Distribution Width 11.6, Platelet Count 264, Mean Platelet Volume 9.4, Sodium Level 138, Potassium Level 3.3L, Chloride Level 108H, Carbon Dioxide Level 21, Anion Gap 9, Blood Urea Nitrogen 4L, Creatinine 0.66, Estimat Glomerular Filtration Rate > 60, BUN/Creatinine Ratio 6 , Glucose Level 111H, Calcium Level 8.9 Microbiology 01/01/18 Blood Culture - Preliminary, Resulted No growth Assessment/Plan Assessment/Plan Assessment/Plan diverticulitis sigmoid colon with perforation. sepsis secondary to perforated diverticulitis had tachycardia and elevated wbc- improved patient started on clears IV hydration Zosyn/Flagyl Continue conservative management, he is having less pain in WBC in normal range. Patient understands that still could required surgical intervention, but since has had continue improvement will continue conservative plan, which he understands and agrees with. Needs colonoscopy about 6-8 weeks as outpatient. Clinical Quality Measures DVT/VTE Risk/Contraindication: Risk Factor Score Per Nursin RFS Level Per Nursing on Admit: 1=Low/No VTE PPX AARTI MONZON DO Jan 05, 2018 08:56
[2018-01-05] MEDS: FAMOTIDINE 20 MG (PEPCID) TABLET PO SCH ×2 (09:27→20:14)
[2018-01-05] MEDS: HYDROcodone/APAP 7.5 MG/325 MG (LORTAB, LORCET PLUS) TABLET PO PRN ×3 (09:27→21:18)
--- NOTE | 2018-01-05 12:17 | Progress Note-Hospitalist ---
Subjective HPI/CC On Admission Date Seen by Provider: Jan 05, 2018 Time Seen by Provider: 12:15 Pt is a 37yoCM with a PMH of diverticulitis who presented to the ER with CC of abd pain. He states it started yesterday morning and continued to worsen through out the day. It was a sharp pain in his lower abdomen. Yesterday evening the pain dulled but it spread upwards in his abdomen. He was also having fevers and nausea. He denies vomiting. When his pain started spreading he decided to seek evaluation in the ER. He was found to have diverticulitis with a small amount of free air and decision was made to admit. This morning he states his pain is still present but nausea has improved. His pain is improved with pain medications. Subjective/Events-last exam Doing well. Tolerating CLD well. No complaints. Had BM. Requesting DC tomorrow. Objective Exam Vital Signs Vital Signs Date Time Temp Pulse Resp B/P (MAP) Pulse Ox O2 Delivery O2 Flow Rate FiO2 01/01/18 20:17 99.1 127 20 120/74 (89) 96 Room Air Capillary Refill : Less Than 3 Seconds General Appearance: No Apparent Distress, WD/WN Respiratory: Lungs Clear, No Respiratory Distress Cardiovascular: Regular Rate, Rhythm, No Murmur Gastrointestinal: Normal Bowel Sounds, Non Tender, Soft Extremity: No Calf Tenderness, No Pedal Edema Neurologic/Psychiatric: Alert, Oriented x3, Normal Mood/Affect Results/Procedures Lab Laboratory Tests 01/05/18 04:05 Patient resulted labs reviewed. Imaging: Reviewed Imaging Films, Reviewed Imaging Report Assessment/Plan Assessment and Plan Assess & Plan/Chief Complaint Diverticulitis with sigmoid colon perforation Diagnosis/Problems Diagnosis/Problems (1) Perforation of sigmoid colon due to diverticulitis Assessment & Plan: Surgery consulted, appreciate recs CLD Continue IV abx (Zosyn and Flagyl) Start Hydrocodone, limit IV narcotics as able (2) Diverticulitis of intestine Status: Acute Assessment & Plan: Management as above Zofran for Nausea Hydrocodone for pain Qualifiers: Diverticulitis site: large intestine Diverticulitis bleeding: unspecified bleeding status Diverticulitis complication: with perforation and without abscess Qualified Codes: K57.20 - Diverticulitis of large intestine with perforation and abscess without bleeding (3) Sepsis Status: Resolved Assessment & Plan: Sepsis resolved Continue IV Abx Blood cultures NGTD Qualifiers: Sepsis type: sepsis due to unspecified organism Qualified Codes: A41.9 - Sepsis, unspecified organism (4) Hypokalemia Status: Acute Assessment & Plan: IV Supplementation ordered (5) Prophylactic measure Assessment & Plan: Lovenox CLd Saline Lock Clinical Quality Measures DVT/VTE Risk/Contraindication: Risk Factor Score Per Nursin RFS Level Per Nursing on Admit: 1=Low/No VTE PPX JENNY VIRK MD Jan 05, 2018 12:17 pm
[2018-01-05 16:20] VITALS: BP 136/84
[2018-01-06] VITALS: BP 132/83
[2018-01-06] MEDS: metroNIDAZOLE 500 MG/100 ML IVPB (PRE-MIX) IV SCH ×3 (00:33→11:44)
[2018-01-06] MEDS: HYDROcodone/APAP 7.5 MG/325 MG (LORTAB, LORCET PLUS) TABLET PO PRN ×3 (01:36→11:43)
[2018-01-06] MEDS: PIPERACILLIN SODIUM/TAZOBACTAM 4.5 GM in NS (IVPB) 100 ML IV SCH ×2 (03:55→11:44)
[2018-01-06] MEDS: CATHETER FLUSH 10 ML SYR IV SCH ×2 (05:47→11:44)
[2018-01-06 08:00] VITALS: BP 124/71
[2018-01-06] MEDS: FAMOTIDINE 20 MG (PEPCID) TABLET PO SCH (08:36)
[2018-01-06] MEDS: NICOTINE 21 MG (NICODERM) PATCH TD SCH (08:36)
[2018-01-06] MEDS: ENOXAPARIN 40 MG/0.4 ML (LOVENOX) SYR SC SCH (08:36)
[2018-01-06] MEDS ORDERED: CIPR-225 PO (11:52)
[2018-01-06] MEDS ORDERED: METR500T PO (11:52)
[2018-01-06] MEDS ORDERED: HYDR-34 PO (11:52)
[2018-01-06] MEDS ORDERED: FAMO20TA5 PO (11:52)
--- NOTE | 2018-01-06 11:55 | Discharge Inst-Simple/Standard ---
Discharge Inst-Standard Discharge Medications New, Converted or Re-Newed RX: Call to Patients Pharmacy Patient Instructions/Follow Up Plan of Care/Instructions/FU: Please continue to take your medications as written. Please follow up with Dr Saha in 2 weeks. Please continue on a clear diet for the next 2-3 days and then slowing reintroduce solids foods starting with bland foods. Activity as Tolerated: Yes Discharge Diet: Soft Diet Return to The Hospital For: Pain, fever, feeling as if you are getting worse. JENNY VIRK MD Jan 06, 2018 11:55
[2018-01-06] MEDS ORDERED: AMOX-358 PO (12:03)
--- NOTE | 2018-01-06 14:14 | Discharge Summary-Hospitalist ---
Diagnosis/Chief Complaint Date of Admission Jan 01, 2018 at 9:50 pm Date of Discharge Discharge Date: Jan 06, 2018 Admission Diagnosis Diverticulitis with sigmoid colon perforation Discharge Diagnosis Diverticulitis with sigmoid colon perforation (1) Perforation of sigmoid colon due to diverticulitis Assessment & Plan: Surgery consulted, appreciate recs CLD Continue IV abx (Zosyn and Flagyl) Doing well. Will transition to Augmentin and Flagyl at DC Discussed with Dr Saha who will follow up in 2 weeks (2) Diverticulitis of intestine Status: Acute Assessment & Plan: Management as above Zofran for Nausea Hydrocodone for pain (3) Sepsis Status: Resolved Assessment & Plan: Sepsis resolved Continue IV Abx Blood cultures NGTD (4) Hypokalemia Status: Resolved Assessment & Plan: IV Supplementation ordered (5) Prophylactic measure Assessment & Plan: Lovenox CLd Saline Lock Discharge Summary Procedures/Consulations Dr Saha, Surgery Discharge Physical Exam Allergies: Coded Allergies: No Known Drug Allergies (Unverified , 01/27/09) Vitals & I&Os Vital Signs Date Time Temp Pulse Resp B/P (MAP) Pulse Ox O2 Delivery O2 Flow Rate FiO2 01/06/18 08:00 98.9 72 16 124/71 (88) 95 Room Air General Appearance: Alert, Oriented X3 Respiratory: Clear to Auscultation Cardiovascular: Regular Rate Abdominal: Normal Bowel Sounds, Soft, No Tenderness Psych/Mental Status: Mental Status NL Hospital Course Pt is a 37yoCM who presented for abd pain and was found to have diverticulitis with sigmoid colon perforation. He was managed conservatively and improved. He was passing gas and BMs and tolerating a CLD well. He is to complete his antibiotic prescription and follow up with Dr Saha in 2 weeks for further management. Labs (last 24 hrs) Microbiology 01/01/18 Blood Culture - Preliminary, Resulted No growth Patient resulted labs reviewed. Imaging: Reviewed Imaging Films, Reviewed Imaging Report Discussion & Recommendations Discharge Planning: >30 minutes discharge planning Discharge Home Medications: Active Scripts Active Augmentin 875-125 Tablet (Amoxicillin/Potassium Clav) 1 Each Tablet 1 Each PO BID Flagyl (Metronidazole) 500 Mg Tablet 500 Mg PO BID Famotidine 20 Mg Tablet 20 Mg PO BID Lortab 7.5 Mg Tablet (Acetaminophen/Hydrocodone Bitart) 1 Ea Tablet 1 Ea PO Q4H PRN Instructions to patient/family Please see electronic discharge instructions given to patient. Clinical Quality Measures DVT/VTE Risk/Contraindication: Risk Factor Score Per Nursin RFS Level Per Nursing on Admit: 1=Low/No VTE PPX Problem Qualifiers (1) Diverticulitis of intestine: Diverticulitis site: large intestine Diverticulitis bleeding: unspecified bleeding status Diverticulitis complication: with perforation and without abscess Qualified Codes: K57.20 - Diverticulitis of large intestine with perforation and abscess without bleeding (2) Sepsis: Sepsis type: sepsis due to unspecified organism Qualified Codes: A41.9 - Sepsis, unspecified organism JENNY VIRK MD Jan 06, 2018 2:14 pm
== END 2018-01-06 14:31 | disposition home or self-care (01) | DRG 872 ==
LOC: EDUNIT# 19:43 → ER 19:46 → 4TH 21:50
PROVIDERS: ADMIT Internal Medicine; ATTEND Internal Medicine
DX: A41.9 Sepsis, unspecified organism (principal); K57.20 Diverticulitis of large intestine with perforation and abscess without bleeding; F17.210 Nicotine dependence, cigarettes, uncomplicated; E87.6 Hypokalemia
CPT/HCPCS: 36415; 74177; 80048; 80053; 81000; 83605; 85007; 85025; 85027; 85610; 85730; 86141; 87040; 96361; 96365; 96367; 96375; 96376

== ENCOUNTER 2018-01-29 08:34 | Inpatient (IN) | payer MEDICAID, OTHER ==
[~2018-01-29] VITALS: Ht 175.3 cm; Wt 75.7 kg
[~2018-01-29 08:34] MED LIST changes: +AMOX-358 PO; +CIPR-225 PO; +FAMO20TA5 PO; +HYDR-34 PO; +METR500T PO
[2018-01-29] MEDS ORDERED: ONDANSETRON 4 MG/2 ML (SDV) Z0FRAN IVP ONE (08:45)
[2018-01-29] MEDS ORDERED: raNItidine 50 MG/2 ML INJ (ZANTAC) IM/IV ONE (08:45)
[2018-01-29] MEDS ORDERED: morphine INJ 10 MG/ML 1ML (SYR OR VIAL) IVP ONE (08:45)
[2018-01-29 08:46] LABS: BASOPHILS % (AUTO) 0 % (0-10); EOSINOPHILS # (AUTO) 0.1 10^3/uL (0.0-0.3); EOSINOPHILS % (AUTO) 0 % (0-10); HEMATOCRIT 42 % (40-54); HEMOGLOBIN 15.1 G/DL (13.3-17.7); LYMPHOCYTES # (AUTO) 2.3 X 10^3 (1.0-4.0); LYMPHOCYTES % (AUTO) 13 % (12-44); MEAN CORPUSCULAR HEMOGLOBIN 34 PG (25-34); MEAN CORPUSCULAR HGB CONC 36 G/DL (32-36); MEAN CORPUSCULAR VOLUME 96 FL (80-99); MEAN PLATELET VOLUME 9.5 FL (7.4-10.4); MONOCYTES # (AUTO) 1.4 X 10^3 (0.0-1.0); MONOCYTES % (AUTO) 8 % (0-12); NEUTROPHILS % (AUTO) 79 % (42-75); PLATELET COUNT 297 10^3/uL (130-400); RED BLOOD COUNT 4.39 10^6/uL (4.35-5.85); RED CELL DISTRIBUTION WIDTH 12.1 % (10.0-14.5); WHITE BLOOD COUNT 17.8 10^3/uL (4.3-11.0)
--- NOTE | 2018-01-29 08:57 | ED Abdominal Pain ---
General Chief Complaint: Abdominal/GI Problems Stated Complaint: ABD PAIN Nursing Triage Note: PAIN OFF AND ON FOR TWO DAYS THAT IS WORSE THIS AM. WAS HERE SEVERAL WEEKS AGO WITH DIVERTICULITIS AND A PERFED BOWEL AND ADMITTED TO ICU ET NO SURGERY REQUIRED AT THAT TIME. Sepsis Screen: No Definite Risk Source of Information: Patient, EMS, Old Records Exam Limitations: No Limitations History of Present Illness Date Seen by Provider: January 29, 2018 Time Seen by Provider: 08:34 Initial Comments This 37-year-old gentleman presents to the emergency room via EMS with severe acute onset of generalized abdominal pain with associated nausea. He was dismissed from from the hospital January 06 after being treated for diverticulitis with sigmoid perforation. Conservative therapy with antibiotics was pursued and surgery was considered pending patient's progress. Patient states his pain flared up on January 27 and it was fairly constant at a mild to moderate level until this morning around 07:30 when it became very severe. He received morphine 5 mg and Zofran 4 mg by EMS. He is still nauseated and rates his pain still at 10. Allergies and Home Medications Allergies Coded Allergies: No Known Drug Allergies (Unverified , 01/27/09) Home Medications Amoxicillin/Potassium Clav 1 Each Tablet, 1 EACH PO BID Prescribed by: JENNY VIRK on 01/06/18 1203 Famotidine 20 Mg Tablet, 20 MG PO BID Prescribed by: JENNY VIRK on 01/06/18 1152 Hydrocodone Bit/Acetaminophen 1 Ea Tablet, 1 EA PO Q4H PRN for PAIN-MODERATE Prescribed by: JENNY VIRK on 01/06/18 1152 Metronidazole 500 Mg Tablet, 500 MG PO BID Prescribed by: JENNY VIRK on 01/06/18 1152 Patient Home Medication List Home Medication List Reviewed: Yes Review of Systems Constitutional: no symptoms reported EENTM: No Symptoms Reported Respiratory: No Symptoms Reported Cardiovascular: No Symptoms Reported Gastrointestinal: See HPI Genitourinary: No Symptoms Reported Musculoskeletal: no symptoms reported Skin: no symptoms reported Psychiatric/Neurological: No Symptoms Reported Endocrine: No Symptoms Reported Hematologic/Lymphatic: No Symptoms Reported Past Bctxjka-Guojpm-Fbgzrf Hx Patient Social History Alcohol Use: Occasionally Uses Alcohol Beverage of Choice: Beer Recreational Drug Use: Yes Drug of Choice: POT Smoking Status: Current Everyday Smoker Type Used: Cigarettes 2nd Hand Smoke Exposure: Yes Recent Foreign Travel: No Contact w/Someone Who Travel: No Recent Infectious Disease Expo: No Recent Hopitalizations: No Immunizations Up To Date Tetanus Booster (TDap): Unknown PED Vaccines UTD: Yes Seasonal Allergies Seasonal Allergies: No Past Medical History Surgeries: Yes (SEVERAL FRACTURES 16 SCREWS AND PLATE IN FACE/HEAD) Orthopedic Respiratory: No Cardiac: Yes (HX SINUS TACHYCARDIA) Neurological: No Reproductive Disorders: No Sexually Transmitted Disease: No HIV/AIDS: No Genitourinary: No Gastrointestinal: Yes (DIVIERTICULITIS) Diverticulosis Musculoskeletal: No Endocrine: No HEENT: No Cancer: No Psychosocial: No Integumentary: No Blood Disorders: No Adverse Reaction/Blood Tranf: No Family Medical History Myocardial infarction MATERNAL GRANDFATHER ( FROM MASSIVE HEART ATTACK) Neoplasm 19 FATHER ( last year 2016 from colon cancer) Cancer Physical Exam Vital Signs Vital Signs - First Documented 01/29/18 08:36 Temp 97.7 Pulse 91 Resp 18 B/P (MAP) 117/84 (95) Pulse Ox 100 O2 Delivery Room Air Capillary Refill : Less Than 3 Seconds General Appearance: WD/WN, moderate distress HEENT: PERRL/EOMI, normal ENT inspection Neck: normal inspection Respiratory: lungs clear, normal breath sounds, no respiratory distress, no accessory muscle use Cardiovascular: regular rate, rhythm, no edema, no murmur Gastrointestinal: abnormal bowel sounds (decreased), guarding, tenderness, other (patient has guarding and is severe tenderness even to light palpation diffusely throughout the abdomen) Extremities: normal inspection, no pedal edema Neurologic/Psychiatric: terrazzo helper II-XII nml as tested, no motor/sensory deficits, alert, normal mood/affect, oriented x 3 Skin: normal color, warm/dry Focused Exam Lactate Level 01/29/18 09:30: Lactic Acid Level 1.41 Lactic Acid Level Laboratory Tests Test 01/29/18 09:30 Lactic Acid Level 1.41 MMOL/L (0.50-2.00) Progress/Results/Core Measures Lab Results Laboratory Tests Test 01/29/18 08:36 01/29/18 09:30 Range/Units White Blood Count 17.8 H 4.3-11.0 10^3/uL Red Blood Count 4.39 4.35-5.85 10^6/uL Hemoglobin 15.1 13.3-17.7 G/DL Hematocrit 42 40-54 % Mean Corpuscular Volume 96 80-99 FL Mean Corpuscular Hemoglobin 34 25-34 PG Mean Corpuscular Hemoglobin Concent 36 32-36 G/DL Red Cell Distribution Width 12.1 10.0-14.5 % Platelet Count 297 130-400 10^3/uL Mean Platelet Volume 9.5 7.4-10.4 FL Neutrophils (%) (Auto) 79 H 42-75 % Lymphocytes (%) (Auto) 13 12-44 % Monocytes (%) (Auto) 8 0-12 % Eosinophils (%) (Auto) 0 0-10 % Basophils (%) (Auto) 0 0-10 % Neutrophils # (Auto) 14.0 H 1.8-7.8 X 10^3 Lymphocytes # (Auto) 2.3 1.0-4.0 X 10^3 Monocytes # (Auto) 1.4 H 0.0-1.0 X 10^3 Eosinophils # (Auto) 0.1 0.0-0.3 10^3/uL Basophils # (Auto) 0.0 0.0-0.1 10^3/uL Neutrophils % (Manual) 79 % Lymphocytes % (Manual) 12 % Monocytes % (Manual) 5 % Eosinophils % (Manual) 0 % Basophils % (Manual) 0 % Band Neutrophils 4 % Blood Morphology Comment NORMAL Sodium Level 135 135-145 MMOL/L Potassium Level 3.8 3.6-5.0 MMOL/L Chloride Level 103 98-107 MMOL/L Carbon Dioxide Level 16 L 21-32 MMOL/L Anion Gap 16 H 5-14 MMOL/L Blood Urea Nitrogen 8 7-18 MG/DL Creatinine 0.79 0.60-1.30 MG/DL Estimat Glomerular Filtration Rate > 60 BUN/Creatinine Ratio 10 Glucose Level 143 H 70-105 MG/DL Calcium Level 9.7 8.5-10.1 MG/DL Total Bilirubin 1.5 H 0.1-1.0 MG/DL Aspartate Amino Transf (AST/SGOT) 13 5-34 U/L Alanine Aminotransferase (ALT/SGPT) 13 0-55 U/L Alkaline Phosphatase 68 40-136 U/L C-Reactive Protein High Sensitivity 26.58 H 0.00-0.50 MG/DL Total Protein 8.2 6.4-8.2 GM/DL Albumin 3.8 3.2-4.5 GM/DL Lipase 5 L 8-78 U/L Serum Alcohol < 10 <10 MG/DL Lactic Acid Level 1.41 0.50-2.00 MMOL/L My Orders Orders - SHIRLEY MALLORY MD Cbc With Automated Diff (01/29/18 08:40) Comprehensive Metabolic Panel (01/29/18 08:40) Lipase (01/29/18 08:40) Ua Culture If Indicated (01/29/18 08:40) Saline Lock/Iv-Start (01/29/18 08:40) Ondansetron Injection (Zofran Injectio (01/29/18 08:45) Ranitidine Injection (Zantac Injection) (01/29/18 08:45) Morphine Injection (Morphine Injection (01/29/18 08:45) Hs C Reactive Protein (01/29/18 08:41) Manual Differential (01/29/18 08:36) Ct Abd/Pelv W (Appendicitis) (01/29/18 08:47) Alcohol (01/29/18 09:00) Drug Screen Stat (Urine) (01/29/18 09:00) Hydromorphone Injection (Dilaudid Inject (01/29/18 09:21) Blood Culture (01/29/18 09:27) Lactic Acid Analyzer (01/29/18 09:27) Piperacillin Sodium/Tazobactam (Zosyn Vi (01/29/18 09:30) Iohexol Injection (Omnipaque 350 Mg/Ml 1 (01/29/18 09:45) Ns (Ivpb) (Sodium Chloride 0.9%) (01/29/18 09:45) Hydromorphone Injection (Dilaudid Inject (01/29/18 10:21) Medications Given in ED Current Medications Medications Dose Ordered Sig/Abbie Route Start Time Stop Time Status Last Admin Dose Admin Iohexol 100 ml ONCE ONCE IV 01/29/18 09:45 01/29/18 09:46 DC 01/29/18 09:46 100 ML Morphine Sulfate 5 mg ONCE ONCE IVP 01/29/18 08:45 01/29/18 08:46 DC 01/29/18 08:52 5 MG Ondansetron HCl 4 mg ONCE ONCE IVP 01/29/18 08:45 01/29/18 08:46 DC 01/29/18 08:53 4 MG Piperacillin Sod/ Tazobactam Sod 4.5 gm/Sodium Chloride 100 ml @ 200 mls/hr ONCE ONCE IV 01/29/18 09:30 01/29/18 09:59 DC 01/29/18 09:46 200 MLS/HR Ranitidine HCl 50 mg ONCE ONCE IM/IV 01/29/18 08:45 01/29/18 08:46 DC 01/29/18 09:16 50 MG Sodium Chloride 250 ml ONCE ONCE IV 01/29/18 09:45 01/29/18 09:46 DC 01/29/18 09:47 80 ML Vital Signs/I&O 01/29/18 08:36 Temp 97.7 Pulse 91 Resp 18 B/P (MAP) 117/84 (95) Pulse Ox 100 O2 Delivery Room Air Blood Pressure Mean: 95 Progress Note #1: Time: 09:50 Progress Note Patient received morphine 5 mg by EMS and an additional 5 mg of morphine in the ER. Pain was still on tolerable. Dilaudid 1 mg IV was given which improved his pain significantly. CT demonstrated free air scattered throughout the abdomen and marketed inflammatory changes around the sigmoid colon. These findings in the context of having an acute abdomen on exam prompted phone call to Dr. Saha and blood cultures along with administration of Zosyn. Dr. Saha will present to the emergency room shortly to assess the patient in person. A liter of IV fluids started by EMS was infused. Progress Note #2: Time: 10:45 Progress Note Patient has been seen and examined by Dr. Saha who plans to take him directly to surgery from the ER. Patient has received an additional 2 mg of Dilaudid for further pain control. Diagonstic Imaging: CT Plain Films/CT/US/NM/MRI: abdomen, pelvis Comments CT abdomen and pelvis viewed by me and report reviewed. Discussed with the radiologist. See report below: NAME: SHIRLEY AG MED REC#: [id number] PT STATUS: REG ER : 1980 PHYSICIAN: SHIRLEY MALLORY MD ADMIT DATE: 01/29/18/ER Draft Date of Exam:01/29/18 CT ABD/PELV W (APPENDICITIS) PROCEDURE: CT abdomen and pelvis with contrast, rule out appendicitis. TECHNIQUE: Multiple contiguous axial images were obtained through the abdomen and pelvis after the administration of intravenous contrast. INDICATION: Intermittent pain 2 days duration, worsening in severity. The patient has had previous episodes of perforated diverticulitis. COMPARISON: Exam compared with study 01/01/2018. FINDINGS: There has been increased mesenteric extraluminal gas and free intraperitoneal air when compared to the previous study. Perisigmoidal inflammatory changes in the left lower quadrant redemonstrated regional perisigmoidal edema however has improved. Likely secondary enteritis to pelvic small bowel however has progressed and some tethering and distortion of the subtending mesenteric fat has increased. Peritonitis could not be excluded in this patient. There is a tiny interloop fluid collection within the mesenteric sleeves measuring 12 mm x 10 mm. This is not accessible to percutaneous drainage and is believed to reflect a small contained abscess. There is nonloculated free fluid along the mesentery as well. No drainable fluid collection. There is no bowel obstruction. There is a small hiatal hernia. The liver, spleen, adrenals and pancreas unremarkable. The gallbladder unremarkable. IMPRESSION: 1. While the immediate perisigmoidal inflammatory changes have improved from the prior, pneumoperitoneum and extraluminal gas are progressed in the interim and there is the development of likely secondary inflammatory changes to the adjacent pelvic bowel loops and some tethering and distortion of the subtending mesentery and a small interloop fluid collection believed abscess. This collection again would not be amenable to percutaneous drainage given its size and location. 2. Liver, spleen, adrenals, pancreas and unobstructed kidneys as well as urinary bladder remain unremarkable. Pertinent results discussed by phone with the ER physician. Dictated on workstation # [id number] Dict: 01/29/18 0949 Trans: 01/29/18 1009 CV [id number] Interpreted by: MOISES BHAT Departure Communication (Admissions) Time/Spoke to Admitting Phy: 09:45 Dr. Saha Impression Primary Impression: Perforated bowel Additional Impressions: Diverticulitis Sepsis Qualified Codes: A41.9 - Sepsis, unspecified organism Disposition: ADMITTED INPATIENT Condition: Improved Admissions Decision to Admit Reason: Admit from ER (General) Decision to Admit/Date: January 29, 2018 Time/Decision to Admit Time: 09:25 Departure-Patient Inst. Referrals: NO,LOCAL PHYSICIAN (PCP/Family) Primary Care Physician SHIRLEY MALLORY MD January 29, 2018 08:57
[2018-01-29 09:03] LABS: ALANINE AMINOTRANSFERASE 13 U/L (0-55); ALBUMIN 3.8 GM/DL (3.2-4.5); ALKALINE PHOSPHATASE 68 U/L (40-136); BILIRUBIN,TOTAL 1.5 MG/DL (0.1-1.0); BUN/CREATININE RATIO 10; CALCIUM 9.7 MG/DL (8.5-10.1); CARBON DIOXIDE 16 MMOL/L (21-32); CHLORIDE 103 MMOL/L (98-107); CREATININE SERUM 0.79 MG/DL (0.60-1.30); GFR ESTIMATED > 60; GLUCOSE 143 MG/DL (70-105); LIPASE 5 U/L (8-78); POTASSIUM 3.8 MMOL/L (3.6-5.0); SODIUM 135 MMOL/L (135-145); TOTAL PROTEIN 8.2 GM/DL (6.4-8.2)
[2018-01-29 09:09] LABS: BAND NEUTROPHILS 4 %; BASOPHILS % (MANUAL) 0 %; EOSINOPHILS % (MANUAL) 0 %; LYMPHOCYTES % (MANUAL) 12 %; MONOCYTES % (MANUAL) 5 %; NEUTROPHILS % (MANUAL) 79 %; RBC MORPH NORMAL
[2018-01-29] MEDS ORDERED: HYDROmorphone 2 MG/ML VIAL (DILAUDID) IVP STA ×2 (09:21→10:21)
[2018-01-29] MEDS ORDERED: PIPERACILLIN SODIUM/TAZOBACTAM 4.5 GM in NS (IVPB) 100 ML IV ONE (09:30)
[2018-01-29] MEDS ORDERED: IOHEXOL 350 MG/ML 100 ML (OMNIPAQUE 350) VIAL IV ONE (09:45)
[2018-01-29] MEDS ORDERED: NS 250 ML (IVPB) BAG IV ONE (09:45)
--- NOTE | 2018-01-29 10:10 | Diagnostic Imaging Report ---
PROCEDURE: CT abdomen and pelvis with contrast, rule out appendicitis. TECHNIQUE: Multiple contiguous axial images were obtained through the abdomen and pelvis after the administration of intravenous contrast. INDICATION: Intermittent pain 2 days duration, worsening in severity. The patient has had previous episodes of perforated diverticulitis. COMPARISON: Exam compared with study 01/01/2018. FINDINGS: There has been increased mesenteric extraluminal gas and free intraperitoneal air when compared to the previous study. Perisigmoidal inflammatory changes in the left lower quadrant redemonstrated regional perisigmoidal edema however has improved. Likely secondary enteritis to pelvic small bowel however has progressed and some tethering and distortion of the subtending mesenteric fat has increased. Peritonitis could not be excluded in this patient. There is a tiny interloop fluid collection within the mesenteric sleeves measuring 12 mm x 10 mm. This is not accessible to percutaneous drainage and is believed to reflect a small contained abscess. There is nonloculated free fluid along the mesentery as well. No drainable fluid collection. There is no bowel obstruction. There is a small hiatal hernia. The liver, spleen, adrenals and pancreas unremarkable. The gallbladder unremarkable. IMPRESSION: 1. While the immediate perisigmoidal inflammatory changes have improved from the prior, pneumoperitoneum and extraluminal gas are progressed in the interim and there is the development of likely secondary inflammatory changes to the adjacent pelvic bowel loops and some tethering and distortion of the subtending mesentery and a small interloop fluid collection believed abscess. This collection again would not be amenable to percutaneous drainage given its size and location. 2. Liver, spleen, adrenals, pancreas and unobstructed kidneys as well as urinary bladder remain unremarkable. Pertinent results discussed by phone with the ER physician. Dictated by: Dictated on workstation # [id number]
--- NOTE | 2018-01-29 11:35 | History & Physical-Surgical ---
History of Present Illness History of Present Illness Reason for visit/HPI seen and evaluated in emergency dept. CC: severe abdominal pain patient is a 37 year old male recently admitted with micorperforation of sigmoid. Patient was sent home on antibiotics and was improving until Sunday. Patient began having increasing pain since Sunday and having severe sharp pain all over abdomen after bowel movement this morning. Pain all over. Has nausea no emesis. Was brought by ems. Movement makes the pain worse and nothing making it better. He has had 10mg of morphine and 1 mg Dilaudid with no significant improvement of pain. His ct scan i reviewed and had increased free air compared to last CT and changes consistent with diverticulitis. Patient wbc elevated at 17.8. Not having any appetite. Date of Admission Date Seen by Provider: January 29, 2018 Time Seen by Provider: 11:00 I consulted on this patient on 01/29/18 11:28 Attending Physician Aarti Saha DO Admitting Physician No,Local Physician Consult Allergies and Home Medications Allergies Coded Allergies: No Known Drug Allergies (Unverified , 01/27/09) Home Medications Amoxicillin/Potassium Clav 1 Each Tablet, 1 EACH PO BID Prescribed by: JENNY VIRK on 01/06/18 1203 Famotidine 20 Mg Tablet, 20 MG PO BID Prescribed by: JENNY VIRK on 01/06/18 1152 Hydrocodone Bit/Acetaminophen 1 Ea Tablet, 1 EA PO Q4H PRN for PAIN-MODERATE Prescribed by: JENNY VIRK on 01/06/18 1152 Metronidazole 500 Mg Tablet, 500 MG PO BID Prescribed by: JENNY VIRK on 01/06/18 1152 Patient Home Medication List Home Medication List Reviewed: Yes Past Apcryqu-Jowqct-Qorujb Hx Patient Social History Alcohol Use: Occasionally Uses Recreational Drug Use: Yes Drug of Choice: POT Smoking Status: Current Everyday Smoker Type Used: Cigarettes 2nd Hand Smoke Exposure: Yes Recent Foreign Travel: No Contact w/Someone Who Travel: No Recent Infectious Disease Expo: No Recent Hopitalizations: No Immunizations Up To Date Tetanus Booster (TDap): Unknown PED Vaccines UTD: Yes Seasonal Allergies Seasonal Allergies: No Surgeries History of Surgeries: Yes (SEVERAL FRACTURES 16 SCREWS AND PLATE IN FACE/HEAD) Surgeries: Orthopedic Respiratory History of Respiratory Disorde: No Cardiovascular History of Cardiac Disorders: Yes (HX SINUS TACHYCARDIA) Neurological History of Neurological Disord: No Reproductive System Hx Reproductive Disorders: No Sexually Transmitted Disease: No HIV/AIDS: No Genitourinary History of Genitourinary Disor: No Gastrointestinal History of Gastrointestinal Di: Yes (DIVIERTICULITIS) Gastrointestinal Disorders: Diverticulosis Musculoskeletal History of Musculoskeletal Dis: No Endocrine History of Endocrine Disorders: No HEENT History of HEENT Disorders: No Cancer History of Cancer: No Psychosocial History of Psychiatric Problem: No Integumentary History of Skin or Integumenta: No Blood Transfusions History of Blood Disorders: No Adverse Reaction to a Blood Tr: No Family Medical History Significant Family History: Cancer Family Medial History: Myocardial infarction MATERNAL GRANDFATHER ( FROM MASSIVE HEART ATTACK) Neoplasm 19 FATHER ( last year 2016 from colon cancer) Constitutional: see HPI EENTM: no symptoms reported Respiratory: no symptoms reported Cardiovascular: no symptoms reported Gastrointestinal: see HPI Genitourinary: no symptoms reported Musculoskeletal: no symptoms reported Skin: no symptoms reported Psychiatric/Neurological: No Symptoms Reported Physical Exam Vital Signs Vital Signs - First Documented 01/29/18 08:36 Temp 97.7 Pulse 91 Resp 18 B/P (MAP) 117/84 (95) Pulse Ox 100 O2 Delivery Room Air Capillary Refill : Less Than 3 Seconds General Appearance: Mild Distress HEENT: PERRL/EOMI Neck: Non Tender, Supple Respiratory: No Accessory Muscle Use, No Respiratory Distress Cardiovascular: Tachycardia Gastrointestinal: Guarding, Tenderness (peritoneal) Rectal: Deferred Back: Normal Inspection Extremity: Normal Inspection, Normal Range of Motion, Non Tender Neurologic/Psychiatric: Alert, Oriented x3, No Motor/Sensory Deficits, Normal Mood/Affect, macadam raker II-XII Norm as Tested Skin: Normal Color, Warm/Dry Lymphatic: No Adenopathy Data Review Labs Laboratory Tests 01/29/18 08:36: White Blood Count 17.8H, Red Blood Count 4.39, Hemoglobin 15.1, Hematocrit 42, Mean Corpuscular Volume 96, Mean Corpuscular Hemoglobin 34, Mean Corpuscular Hemoglobin Concent 36, Red Cell Distribution Width 12.1, Platelet Count 297, Mean Platelet Volume 9.5, Neutrophils (%) (Auto) 79H, Lymphocytes (%) (Auto) 13 , Monocytes (%) (Auto) 8, Eosinophils (%) (Auto) 0, Basophils (%) (Auto) 0, Neutrophils # (Auto) 14.0H, Lymphocytes # (Auto) 2.3, Monocytes # (Auto) 1.4H, Eosinophils # (Auto) 0.1, Basophils # (Auto) 0.0, Neutrophils % (Manual) 79, Lymphocytes % (Manual) 12, Monocytes % (Manual) 5, Eosinophils % (Manual) 0, Basophils % (Manual) 0, Band Neutrophils 4, Blood Morphology Comment NORMAL, Sodium Level 135, Potassium Level 3.8, Chloride Level 103, Carbon Dioxide Level 16L, Anion Gap 16H, Blood Urea Nitrogen 8, Creatinine 0.79, Estimat Glomerular Filtration Rate > 60, BUN/Creatinine Ratio 10, Glucose Level 143H, Calcium Level 9.7, Total Bilirubin 1.5H, Aspartate Amino Transf (AST/SGOT) 13, Alanine Aminotransferase (ALT/SGPT) 13, Alkaline Phosphatase 68, C-Reactive Protein High Sensitivity 26.58H, Total Protein 8.2, Albumin 3.8, Lipase 5L, Serum Alcohol < 10 01/29/18 09:30: Lactic Acid Level 1.41 Assessment/Plan Assessment/Plan Admission Diagonsis perforated diverticulitis sepsis Admission Status: Inpatient Order (span 2 midnights) Reason for Inpatient Admission: patient will need IV antibiotics and postoperative care Assessment/Plan perforated diverticulitis sepsis secondary to perforated diverticulitis patient is peritoneal on exam and free extraluminal air that has increased since last ct scan, because of this we discussed risks and benefits of exploratory laparotomy possible colon resection , possible colostomy all other indicated procedures he and his understand risks and benefits and wish to proceed. Patient on IV fluids Started on Zosyn by ED. Plan to go to OR AARTI SAHA DO January 29, 2018 11:35
[2018-01-29] MEDS: LACTATED RINGERS 1,000 ML IV SCH ×2 (11:53→19:46)
[2018-01-29] MEDS ORDERED: LIDOCAINE PF 2% 5 ML (XYLOCAINE) VIAL ONE (11:55)
[2018-01-29] MEDS ORDERED: DEXAMETHASONE 10 MG/ML (DECADRON) 1 ML VIAL ONE (11:55)
[2018-01-29] MEDS ORDERED: proPOfol 200 MG/20 ML (DIPRIVAN) VIAL IV ONE (11:55)
[2018-01-29] MEDS ORDERED: ONDANSETRON 4 MG/2 ML (SDV) Z0FRAN ONE (11:55)
[2018-01-29] MEDS ORDERED: ROCURONIUM 10 MG/ML 5 ML SYRINGE IV ONE (11:55)
[2018-01-29] MEDS ORDERED: fentaNYL INJECTION 100 MCG/2 ML AMP ONE ×3 (11:56→13:20)
[2018-01-29] MEDS ORDERED: MIDAZOLAM 2 MG/2 ML (VERSED) VIAL ONE ×2 (11:56)
[2018-01-29] MEDS ORDERED: SEVOFLURANE (ULTANE) 15 ML INHAL SOLN ONE ×6 (12:05→13:41)
[2018-01-29] MEDS ORDERED: ceFAZolin 1,000 MG (ANCEF) VIAL ONE (12:14)
[2018-01-29] MEDS ORDERED: metroNIDAZOLE 500MG/100ML IVPB 100 ML ONE (12:14)
[2018-01-29] MEDS ORDERED: ceFAZolin 1,000 MG (ANCEF) VIAL IV ONE (12:15)
[2018-01-29] MEDS ORDERED: metroNIDAZOLE 500MG/100ML IVPB 100 ML IV ONE (12:15)
[2018-01-29] MEDS ORDERED: NEOSTIGMINE 1 MG/ML 5 ML SYRINGE ONE (14:03)
[2018-01-29] MEDS ORDERED: GLYCOPYRROLATE 0.2 MG/ML (ROBINUL) 2 ML VIAL ONE (14:03)
[2018-01-29] MEDS ORDERED: PHENYLEPHRINE 100 MCG/ML 10 ML (ANESTHESIA) SYR ONE (14:07)
--- NOTE | 2018-01-29 14:08 | Progress Note-Post Operative ---
Post-Operative Progess Note Surgeon (s)/Bone Tender (s) Surgeon AARTI MONZON DO Bone Tender: Dr. Ramsey Pre-Operative Diagnosis perforated diverticulitis Post-Operative Diagnosis same Procedure & Operative Findings Date of Procedure 01/29/18 Procedure Performed/Findings exploratory laparotomy, Larry's procedure Anesthesia Type general Estimated Blood Loss Estimated blood loss (mL): 50 mL Specimens/Packing Specimens Removed sigmoid colon, stitch proximal AARTI MONZON DO January 29, 2018 14:08
[2018-01-29] MEDS ORDERED: ONDANSETRON 4 MG/2 ML (SDV) Z0FRAN IVP PRN ×2 (14:15→14:30)
[2018-01-29] MEDS ORDERED: HYDROmorphone 2 MG/ML VIAL (DILAUDID) ONE (14:29)
[2018-01-29] MEDS ORDERED: morphine INJ 10 MG/ML 1ML (SYR OR VIAL) IVP PRN (14:30)
[2018-01-29] MEDS: HYDROmorphone 2 MG/ML VIAL (DILAUDID) IVP PRN ×2 (14:45→14:55)
[2018-01-29] MEDS: morphine INJ 10 MG/ML 1ML (SYR OR VIAL) IVP PRN ×3 (15:52→19:46)
[2018-01-29] MEDS: PIPERACILLIN SODIUM/TAZOBACTAM 4.5 GM in NS (IVPB) 100 ML IV SCH (15:52)
[2018-01-29 16:05] VITALS: BP 115/79
[2018-01-29] MEDS ORDERED: ACET-168 PO (16:34)
[2018-01-29] MEDS: NICOTINE 21 MG (NICODERM) PATCH TD SCH (18:16)
[2018-01-29 19:20] VITALS: BP 120/66
[2018-01-29] MEDS: metroNIDAZOLE 500MG/100ML IVPB 100 ML IV SCH (21:03)
[2018-01-29] MEDS: morphine PCA 30 MG/30 ML VIAL IV PRN (21:12)
[2018-01-30] MEDS: PIPERACILLIN SODIUM/TAZOBACTAM 4.5 GM in NS (IVPB) 100 ML IV SCH ×3 (00:06→15:25)
[2018-01-30 00:10] VITALS: BP 133/80
--- NOTE | 2018-01-30 03:20 | OPERATIVE REPORT ---
DATE OF SERVICE: 01/29/2018 PREOPERATIVE DIAGNOSIS: Perforated diverticulitis. POSTOPERATIVE DIAGNOSIS: Perforated diverticulitis. PROCEDURE: Exploratory laparotomy with Larry procedure. SURGEON: James Saha DO MANAGER CREATIVE: Dr. Ramsey, assisted in retraction, dissection and closure. ANESTHESIA: General. ESTIMATED BLOOD LOSS: 50 mL. COMPLICATIONS: None. SPECIMEN: Sigmoid colon with a stitch in the proximal portion. INDICATIONS: The patient is a 37-year-old male with recent history of diverticulitis with microperforation. He was conservatively managed. The patient 2 days ago began having increasing pain and then this morning, went to have a bowel movement and then had significant pain that was severe. He was brought by EMS. Further evaluation revealed that he had increasing pneumoperitoneum. His physical exam was demonstrated to the patient to be peritoneal. He was explained risks and benefits of procedure and wished to proceed with procedure. Consent was signed in the chart. DESCRIPTION OF PROCEDURE: The patient was taken to the operating suite, was prepped and draped in sterile fashion. Surgical pause was performed. A midline incision was made and the abdomen was entered. Once entered, a lot of purulent material erupted, culture was obtained. The small bowel was then ran. There was a large portion that had phlegmon within the mesentery and was attached to the left pelvic abdominal wall. This was able to be mobilized without difficulty with blunt finger dissection. At this time, the abdomen was irrigated and suctioned with copious amounts of irrigation. The sigmoid colon perforated and extremely inflamed and distally at the rectosigmoid junction, had normal appearing bowel. Proximally, on the sigmoid, there was normal bowel as well. Using blunt dissection, the sigmoid colon was then dissected around with blunt finger dissection. KAI blue load was then fired across the colon. LigaSure was used to begin dissecting the mesentery to the sigmoid colon. The sigmoid colon was also further mobilized along the white line of Toldt giving more retraction. The distal portion of the sigmoid colon was then dissected around with blunt finger dissection. A contour stapler was then fired across the distal portion at the rectosigmoid junction. LigaSure was used to complete the dissection removing the sigmoid colon from the mesoderm. Copious amounts of irrigation were used to irrigate the abdomen. The colon was further mobilized up the left gutter from the white line of Toldt to assist in creating the colostomy. Again, the abdomen was irrigated with copious amounts of irrigation. In the left lower quadrant, a chilkoot of skin was removed and dissection was taken down to the fascia, which was then scored and the muscle fibers were divided and the posterior sheath was then opened as well and the end-colostomy was grasped with Babcocks and brought out through the incision. At this time, all counts were correct. The fascia was then closed using 1-0 looped PDS at the midline incision. A sterile drape was then placed over the incision for colostomy creation. The staple line was then removed with scissors. The colostomy was then matured using 3-0 Vicryl sutures. Ostomy appliance was applied and the midline wound was packed wet to dry. The patient tolerated the procedure well without any complications. He was taken to the recovery room in stable condition. Job ID: [id number] DocumentID: [id number] Dictated Date: 01/29/2018 16:46:46 Digital Hardware Design Engineer Date: 01/30/2018 03:19:34 Dictated By: DO MANUEL KIRKPATRICK
[2018-01-30] MEDS: morphine PCA 30 MG/30 ML VIAL IV PRN ×2 (03:46→17:10)
[2018-01-30 03:59] VITALS: BP 115/77
[2018-01-30] MEDS: metroNIDAZOLE 500MG/100ML IVPB 100 ML IV SCH ×2 (05:17→13:02)
[2018-01-30 05:21] LABS: HEMOGLOBIN 13.4 G/DL (13.3-17.7); MEAN PLATELET VOLUME 9.1 FL (7.4-10.4); RED BLOOD COUNT 3.94 10^6/uL (4.35-5.85); RED CELL DISTRIBUTION WIDTH 12.4 % (10.0-14.5); WHITE BLOOD COUNT 16.9 10^3/uL (4.3-11.0)
[2018-01-30] MEDS: LACTATED RINGERS 1,000 ML IV SCH (05:25)
[2018-01-30 05:48] LABS: ALANINE AMINOTRANSFERASE 8 U/L (0-55); ALBUMIN 3.1 GM/DL (3.2-4.5); ALKALINE PHOSPHATASE 57 U/L (40-136); BILIRUBIN,TOTAL 0.6 MG/DL (0.1-1.0); BUN/CREATININE RATIO 12; CALCIUM 9.5 MG/DL (8.5-10.1); CARBON DIOXIDE 23 MMOL/L (21-32); CHLORIDE 105 MMOL/L (98-107); CREATININE SERUM 0.68 MG/DL (0.60-1.30); GFR ESTIMATED > 60; GLUCOSE 137 MG/DL (70-105); PHOSPHORUS 3.4 MG/DL (2.3-4.7); POTASSIUM 4.5 MMOL/L (3.6-5.0); SODIUM 136 MMOL/L (135-145); TOTAL PROTEIN 7.3 GM/DL (6.4-8.2)
[2018-01-30 08:00] VITALS: BP 117/73
[2018-01-30] MEDS: NICOTINE PATCH REMOVAL TP SCH (08:10)
[2018-01-30] MEDS: NICOTINE 21 MG (NICODERM) PATCH TD SCH (08:11)
[2018-01-30] MEDS: PANTOPRAZOLE 40 MG/10 ML (PROTONIX) VIAL IVP SCH (08:11)
--- NOTE | 2018-01-30 10:43 | Anesthesia-General Post-Op ---
General Patient Condition Mental Status/LOC: Same as Preop Cardiovascular: Satisfactory Nausea/Vomiting: Absent Respiratory: Satisfactory Pain: Controlled Complications: Absent Post Op Complications Complications None Follow Up Care/Instructions Patient Instructions None needed. Anesthesia/Patient Condition Patient Condition Patient is doing well, no complaints, stable vital signs, no apparent adverse anesthesia problems. No complications reported per nursing. ZITA DE ANDA CRNA January 30, 2018 10:43
--- NOTE | 2018-01-30 11:31 | Physical Therapy Progress Note ---
Therapy Progress Note PT observed patient with nursing performing independent bed mobility, transfers and ambulation in hallway without difficulty. With this observation, no PT indicated indicated at this time. 1 visit TRAE TREVINO PT January 30, 2018 11:31
[2018-01-30 12:00] VITALS: BP 119/86
[2018-01-30] MEDS: NS IV 500 ML 500 ML IV SCH (15:25)
--- NOTE | 2018-01-30 15:37 | Consultation-Hospitalist ---
HPI History of Present Illness: HPI/Chief Complaint The patient is a 37-year-old white male who was admitted by Dr. Saha with recurrent diverticulitis problems. On this occasion it was determined that he had peritonitis and surgery was required. He reports that he is doing relatively well at this time however he has the hiccups at with every hiccup Causing him some discomfort. He reported that he had been hospitalized here last week and discharged in seemingly improved condition. He began to have symptoms began on Sunday. He was somewhat better and worked on Sunday. He also reports that the he reached for a cup in the back corner of a crib for his 1-year-old daughter. This caused him to put pressure on his belly and the pain got much worse at that point. He ultimately called the ambulance yesterday because of the severity of pain. No one was at home to drive him. Source: patient Exam Limitations: no limitations Date Seen 01/30/18 Attending Physician James Saha DO PCP No,Local Physician Referring Physician Date of Admission January 29, 2018 at 14:08 Home Medications & Allergies Home Medications Reviewed patient Home Medication Reconciliation performed by pharmacy medication reconciliations pm technician and/or nursing. Patients Allergies have been reviewed. Allergies Allergies Coded Allergies No Known Drug Allergies (Unverified01/27/09) Past Wygahnh-Dltsut-Trctlv Hx Past Med/Social Hx: Reviewed Nursing Past Med/Soc Hx Patient Social History Alcohol Use: Occasionally Uses Number of Drinks Today: 0 Alcohol Beverage of Choice: Beer Recreational Drug Use: Yes Drug of Choice: POT Smoking Status: Current Everyday Smoker Type Used: Cigarettes 2nd Hand Smoke Exposure: Yes Physical Abuse Screen: No Sexual Abuse: No Recent Foreign Travel: No Contact w/other who traveled: No Recent Hopitalizations: No Recent Infectious Disease Expo: No Immunizations Up To Date Tetanus Booster (TDap): Unknown Pediatric: Yes Seasonal Allergies Seasonal Allergies: No Past Medical History Surgeries: Orthopedic Currently Using CPAP: No Currently Using BIPAP: No Reproductive: No Sexually Transmitted Disease: No HIV/AIDS: No Gastrointestinal: Diverticulosis History of Blood Disorders: No Adverse Reaction to Blood Black: No Family History Myocardial infarction MATERNAL GRANDFATHER ( FROM MASSIVE HEART ATTACK) Neoplasm 19 FATHER ( last year 2017 from colon cancer) Cancer Review of Systems Constitutional: see HPI EENTM: no symptoms reported Respiratory: no symptoms reported Cardiovascular: no symptoms reported Gastrointestinal: see HPI Genitourinary: no symptoms reported Musculoskeletal: no symptoms reported Skin: no symptoms reported Psychiatric/Neurological: No Symptoms Reported Physical Exam Physical Exam Vital Signs Vital Signs - First Documented 01/29/18 01/29/18 08:36 15:25 Temp 97.7 Pulse 91 Resp 18 B/P (MAP) 117/84 (95) Pulse Ox 100 O2 Delivery Room Air O2 Flow Rate 2.00 Capillary Refill : Less Than 3 Seconds General Appearance: Mild Distress Eyes: Bilateral Eye Normal Inspection HEENT: Normal ENT Inspection Neck: Full Range of Motion, Normal Inspection, Non Tender, Supple, Carotid Bruit Respiratory: Chest Non Tender, Lungs Clear, Normal Breath Sounds, No Accessory Muscle Use, No Respiratory Distress Cardiovascular: Regular Rate, Rhythm, No Edema, No Gallop, No JVD, No Murmur, Normal Peripheral Pulses Gastrointestinal: Tenderness, Other (surgical dressing) Extremity: Normal Capillary Refill Neurologic/Psychiatric: Alert, Oriented x3, No Motor/Sensory Deficits, Normal Mood/Affect Skin: Normal Color, Warm/Dry Lymphatic: No Adenopathy Results Results/Procedures Labs Laboratory Tests 01/29/18 08:36 01/30/18 05:07 Patient resulted labs reviewed. Assessment/Plan Assessment and Plan Assess & Plan/Chief Complaint Recurrent diverticulitis with perforation. 2.saman's Clinical Quality Measures DVT/VTE Risk/Contraindication: Risk Factor Score Per Nursin RFS Level Per Nursing on Admit: 4+=Very High RASHIDA NÚÑEZ MD January 30, 2018 15:37
[2018-01-30 15:40] VITALS: BP 124/86
[2018-01-30] MEDS ORDERED: chlorproMAZINE 10 MG (THORAZINE) TAB PO NR (15:45)
[2018-01-30] MEDS ORDERED: chlorproMAZINE 10 MG (THORAZINE) TAB PO ONE (15:45)
--- NOTE | 2018-01-30 16:33 | Progress Note ---
Subjective Date Seen by Provider: January 30, 2018 Time Seen by Provider: 08:42 Subjective/Events-last exam Patient pain control. Patient without any nausea or vomiting. Tolerating some liquids. Denies any fever sweats chills shortness of breath or chest pain. Feeling better than yesterday. Focused Exam Lactate Level 01/29/18 09:30: Lactic Acid Level 1.41 Objective Exam Vital Signs Date Time Temp Pulse Resp B/P (MAP) Pulse Ox O2 Delivery O2 Flow Rate FiO2 01/30/18 15:40 98.2 116 20 124/86 (99) 93 Nasal Cannula 2.00 01/30/18 12:00 98.9 106 20 119/86 (97) 93 Nasal Cannula 2.00 01/30/18 10:00 1.00 01/30/18 08:00 98.5 97 20 117/73 (88) 95 Nasal Cannula 2.00 01/30/18 08:00 98 Nasal Cannula 1.00 01/30/18 03:59 97.9 105 20 115/77 (90) 96 Nasal Cannula 2.00 01/30/18 03:46 19 01/30/18 03:46 18 01/30/18 00:10 97.5 117 19 133/80 (97) 96 Nasal Cannula 2.00 01/29/18 21:12 18 01/29/18 21:12 18 01/29/18 20:50 2.00 01/29/18 20:00 98 Nasal Cannula 2.00 01/29/18 19:20 97.8 119 20 120/66 (84) 98 Nasal Cannula 2.00 I & O 01/30/18 07:00 Intake Total 5900 ml Output Total 2440 ml Balance 3460 ml Capillary Refill : Less Than 3 Seconds General Appearance: No Apparent Distress HEENT: Normal ENT Inspection Neck: Full Range of Motion, Normal Inspection, Non Tender Respiratory: No Accessory Muscle Use, No Respiratory Distress Cardiovascular: Regular Rate, Rhythm Gastrointestinal: tenderness (Incisional tenderness, colostomy no output purplish pink in color), other (patient has guarding and is severe tenderness even to light palpation diffusely throughout the abdomen) Extremity: Normal Capillary Refill Neurologic/Psychiatric: Alert, Oriented x3, No Motor/Sensory Deficits, Normal Mood/Affect Skin: Normal Color, Warm/Dry Lymphatic: No Adenopathy Results Lab Laboratory Tests 01/30/18 05:07: White Blood Count 16.9H, Red Blood Count 3.94L, Hemoglobin 13.4, Hematocrit 39L , Mean Corpuscular Volume 100H, Mean Corpuscular Hemoglobin 34, Mean Corpuscular Hemoglobin Concent 34, Red Cell Distribution Width 12.4, Platelet Count 248, Mean Platelet Volume 9.1, Sodium Level 136, Potassium Level 4.5, Chloride Level 105, Carbon Dioxide Level 23, Anion Gap 8, Blood Urea Nitrogen 8 , Creatinine 0.68, Estimat Glomerular Filtration Rate > 60, BUN/Creatinine Ratio 12, Glucose Level 137H, Calcium Level 9.5, Phosphorus Level 3.4, Magnesium Level 2.0, Total Bilirubin 0.6, Aspartate Amino Transf (AST/SGOT) 13, Alanine Aminotransferase (ALT/SGPT) 8, Alkaline Phosphatase 57, Total Protein 7.3, Albumin 3.1L Microbiology 01/29/18 Blood Culture - Preliminary, Resulted No growth 01/29/18 MRSA Screen - Final, Complete MRSA not isolated 01/29/18 Gram Stain - Final, Resulted 01/29/18 Anaerobic Culture, Resulted Pending 01/29/18 Surgical Culture - Preliminary, Resulted Escherichia coli Assessment/Plan Assessment/Plan Assessment/Plan perforated diverticulitis sepsis secondary to perforated diverticulitis Status post exploratory laparotomy Larry procedure On clear liquids at this time. Wound changes and ostomy care Continue IV antibiotics and IV hydration. Increase activity slowly SCDs and ambulation for DVT prophylaxis at this point Repeat labs in the morning. Clinical Quality Measures DVT/VTE Risk/Contraindication: Risk Factor Score Per Nursin RFS Level Per Nursing on Admit: 4+=Very High AARTI MONZON DO January 30, 2018 16:33
[2018-01-30] MEDS: MEROPENEM 500 MG in NS (IVPB) 100 ML IV SCH ×2 (17:10→23:18)
[2018-01-30 19:35] VITALS: BP 130/84
[2018-01-31 00:10] VITALS: BP 120/80
[2018-01-31] MEDS: MEROPENEM 500 MG in NS (IVPB) 100 ML IV SCH ×4 (05:31→23:39)
[2018-01-31 05:55] VITALS: BP 111/74
[2018-01-31] MEDS: NS IV 500 ML 500 ML IV SCH ×2 (06:00→09:20)
[2018-01-31 06:28] LABS: HEMOGLOBIN 14.3 G/DL (13.3-17.7); MEAN PLATELET VOLUME 9.4 FL (7.4-10.4); RED BLOOD COUNT 4.2 10^6/uL (4.35-5.85); WHITE BLOOD COUNT 15.2 10^3/uL (4.3-11.0)
[2018-01-31] MEDS: PANTOPRAZOLE 40 MG/10 ML (PROTONIX) VIAL IVP SCH (06:44)
[2018-01-31 06:56] LABS: BUN/CREATININE RATIO 13; CALCIUM 9.1 MG/DL (8.5-10.1); CARBON DIOXIDE 21 MMOL/L (21-32); CHLORIDE 101 MMOL/L (98-107); CREATININE SERUM 0.62 MG/DL (0.60-1.30); GFR ESTIMATED > 60; GLUCOSE 111 MG/DL (70-105); POTASSIUM 3.5 MMOL/L (3.6-5.0); SODIUM 136 MMOL/L (135-145)
--- NOTE | 2018-01-31 07:34 | Progress Note-Hospitalist ---
Subjective HPI/CC On Admission Date Seen by Provider: January 31, 2018 Time Seen by Provider: 07:20 The patient is a 37-year-old white male who was admitted by Dr. Saha with recurrent diverticulitis problems. On this occasion it was determined that he had peritonitis and surgery was required. He reports that he is doing relatively well at this time however he has the hiccups at with every hiccup Causing him some discomfort. He reported that he had been hospitalized here last week and discharged in seemingly improved condition. He began to have symptoms began on Sunday. He was somewhat better and worked on Sunday. He also reports that the he reached for a cup in the back corner of a crib for his 1-year-old daughter. This caused him to put pressure on his belly and the pain got much worse at that point. He ultimately called the ambulance yesterday because of the severity of pain. No one was at home to drive him. Subjective/Events-last exam Called to bedside over new onset a-fib. Patient felt heart racing this AM after coughing very hard and was mildly SOB. EKG ordered by electronics technician physician and pt in a-fib. He denies symptoms at this time. Has no known history of a-fib but does feel his heart racing often. Focused Exam Lactate Level 01/29/18 09:30: Lactic Acid Level 1.41 Objective Exam Vital Signs Vital Signs Date Time Temp Pulse Resp B/P (MAP) Pulse Ox O2 Delivery O2 Flow Rate FiO2 01/31/18 06:00 20 01/31/18 05:55 98.3 150 111/74 (86) 91 Nasal Cannula 2.00 Capillary Refill : Less Than 3 Seconds General Appearance: No Apparent Distress, WD/WN Respiratory: Lungs Clear, No Respiratory Distress Cardiovascular: Irregularly Irregular, Tachycardia Gastrointestinal: Soft, Distended (mild), Other (ostomy in place, abd pad over wound) Extremity: No Calf Tenderness, No Pedal Edema Neurologic/Psychiatric: Alert, Oriented x3, Normal Mood/Affect Results/Procedures Lab Laboratory Tests 01/31/18 06:01 Patient resulted labs reviewed. Assessment/Plan Assessment and Plan Assess & Plan/Chief Complaint new on set a-fib Diagnosis/Problems Diagnosis/Problems (1) Atrial fibrillation Assessment & Plan: New onset Will place on tele Rate when I arrived to bedside in the 90s Will start on Metoprolol Discussed with Dr Saha and ok for therapeutic anticoagulation Lovenox ordered Cardiology consulted Echo ordered Qualifiers: Atrial fibrillation type: unspecified Qualified Codes: I48.91 - Unspecified atrial fibrillation (2) Perforation of sigmoid colon due to diverticulitis Assessment & Plan: s/p resection and ostomy Management by primary Dr Saha CLD ESBL in wound (3) Sepsis Status: Acute Assessment & Plan: due to sigmoid perforation Continue on Merrem leukocytosis resolved Qualifiers: Sepsis type: Escherichia coli Qualified Codes: A41.51 - Sepsis due to Escherichia coli [e. coli] (4) Prophylactic measure Assessment & Plan: Therapeutic lovenox CLD NS TKO Clinical Quality Measures DVT/VTE Risk/Contraindication: Risk Factor Score Per Nursin RFS Level Per Nursing on Admit: 4+=Very High JENNY VIRK MD January 31, 2018 7:34 am
[2018-01-31 08:00] VITALS: BP 104/77
[2018-01-31] MEDS ORDERED: PANTOPRAZOLE 40 MG/10 ML (PROTONIX) VIAL IV SCH (09:00)
[2018-01-31] MEDS ORDERED: meTOprolol TARTRATE 25 MG (LOPRESSOR) TABLET PO SCH (09:00)
[2018-01-31] MEDS: NICOTINE PATCH REMOVAL TP SCH (09:19)
[2018-01-31] MEDS: ENOXAPARIN 80 MG/0.8 ML (LOVENOX) SYR SC SCH ×2 (09:19→20:21)
[2018-01-31] MEDS: NICOTINE 21 MG (NICODERM) PATCH TD SCH (09:19)
[2018-01-31] MEDS ORDERED: meTOprolol TARTRATE 50 MG (LOPRESSOR) TAB PO NR (10:38)
[2018-01-31 12:00] VITALS: BP 117/77
--- NOTE | 2018-01-31 12:50 | Consultation-Cardiology ---
HPI-Cardiology Cardiology Consultation: Date of Consultation 01/31/18 Date of Admission Attending Physician James Saha DO Admitting Physician No,Local Physician Consulting Physician Kitty MANZANARES MD HPI: Time Seen by Provider: 10:00 Chief Complaint: Palpitations This is a 37-year-old gentleman who presented with large bowel perforation and underwent abdominal surgery with colostomy couple of days ago. His only cardiac history is history of sinus tachycardia. He complained of palpitation and shortness of breath this morning and was found to be tachycardic. EKG showed atrial fibrillation with RVR. Patient denied previous history of any arrhythmias except sinus tachycardia. He denied significant palpitations, syncope and near syncope. He was given Lovenox and metoprolol. Review of Systems-Cardiology Review of Systems Constitutional: As described under HPI; No As described under HPI, No no symptoms reported, No chills, No fever, No lightheadedness Eyes: No As described under HPI, No no symptoms reported, No blindness, No blurred vision, No contact lenses, No drainage, No decreased acuity, No foreign body sensation, No pain, No vision change Ears/Nose/Throat: No As described under HPI, No no symptoms reported, No chronic hearing loss, No ear discharge, No ear pain, No nasal drainage, No ulcerations Respiratory: No no symptoms reported; As described under HPI; No As described under HPI, No cough, No orthopnea; shortness of breath; No SOB with excertion Cardiovascular: No no symptoms reported; As described under HPI; No As described under HPI, No chest pain, No edema; irregular heart rate; No lightheadedness; palpitations Gastrointestinal: No no symptoms reported, No As described under HPI, No abdomen distended; abdominal pain; No blood streaked bowels, No constipation, No diarrhea, No nausea, No vomiting, No stool coloration changes Genitourinary: No As described under HPI, No burning, No dysuria, No discharge , No frequency, No flank pain, No hematuria, No urgency Musculoskeletal: No no symptoms reported, No As describe under HPI, No back pain, No gout, No joint pain, No joint swelling, No muscle pain, No muscle stiffness, No neck pain, No other Skin: No no symptoms reported, No As described under HPI, No change in color, No change in hair/nails, No dryness, No lesions, No lumps, No rash, No other, No skin related problems, No ulcerations, No rash on exposed areas, No ulcerations on exposed areas Psychiatric/Neurological: No anxiety, No depression, No seizure, No focal weakness, No syncope Hematologic: No bleeding abnormalities GWB-[id number]-Nnbrhr Hx Patient Social History Alcohol Use: Occasionally Uses Recreational Drug Use: Yes Drug of Choice: POT Smoking Status: Current Everyday Smoker Type Used: Cigarettes 2nd Hand Smoke Exposure: Yes Recent Foreign Travel: No Recent Infectious Disease Expo: No Physical Abuse Screen: No Sexual Abuse: No Immunizations Up To Date Tetanus Booster (TDap): Unknown Past Medical History PMH As described under Assessment. Family Medical History Family History: Myocardial infarction MATERNAL GRANDFATHER ( FROM MASSIVE HEART ATTACK) Neoplasm 19 FATHER ( last year 2016 from colon cancer) Allergies and Home Medications Allergies Coded Allergies: No Known Drug Allergies (Unverified , 01/27/09) Home Medications Acetaminophen 500 Mg Tablet, 1,000 MG PO Q4H PRN for PAIN-MILD, (Reported) TAKES 2 (500 MG) TABLETS Patient Home Medication List Home Medication List Reviewed: Yes Physical Exam-Cardiology Physical Exam Vital Signs/I&O 01/31/18 01/31/18 01/31/18 01/31/18 05:55 06:00 08:00 08:00 Temp 98.3 96.9 Pulse 150 134 Resp 20 20 20 B/P (MAP) 111/74 (86) 104/77 (86) Pulse Ox 91 94 92 O2 Delivery Nasal Cannula Nasal Cannula Nasal Cannula O2 Flow Rate 2.00 2.00 2.00 01/31/18 01/31/18 08:31 11:38 Pulse 134 Pulse Ox 94 O2 Delivery Nasal Cannula O2 Flow Rate 2.00 01/31/18 00:00 Intake Total 5970 ml Output Total 2275 ml Balance 3695 ml Capillary Refill : Less Than 3 Seconds Constitutional: appears stated age, AAO x 3; No apparent distress; well- developed, well-nourished HEENT: PERRL; No normal ENT inspection, No TMs normal, No pharynx normal, No scleral icterus (R), No scleral icterus (L), No pale conjunctivae (R), No pale conjunctivae (L), No photophobia, No TM abnormal (R), No TM abnormal (L), No pharyngeal erythema, No tonsillar exudate, No other, No discharge, No EOMI; hearing is well preserved; No hard of hearing; oral hygience is good; No ulceration, No xanthelasmas are seen Neck: No non-tender, No full range of motion, No supple, No normal inspection, No carotid bruit, No limited range of motion, No lymphadenopathy (R), No lymphadenopathy (L), No tender lateral, No tender midline, No thyromegaly, No other; carotid pulses are 2 + bilaterally; No with good upstrokes Respiratory: No accessory muscle use, No respiratory distress, No chest tender , No chest expansion is symmetric; chest is bilaterally symmetric; No lungs clear to percussion; lungs clear to auscultation; No crackles, No rhonchi, No rales, No stridor, No wheezing, No pleural rub, No other Cardiovascular: regular rate-rhythm; No irregularly irregular, No extra beats, No parasternal heave is noted, No JVD, No edema, No bradycardia; tachycardia; No point of maximal impulse, No cardiac thrills are palpable; S1 and S2; No gallop/S3, No gallop/S4, No diastolic murmur, No systolic murmur, No friction rub, No click, No other Gastrointestinal: No tender, No soft, No round, No distended, No pulsatile mass , No organomegaly, No guarding, No rebound; tenderness; No hernia, No mass, No audible bowel sounds, No abnormal bowel sounds, No abdominal bruits, No spleenomegaly, No other Rectal: deferred Extremities: No normal range of motion, No non-tender, No normal inspection, No pedal edema, No calf tenderness, No normal capillary refill, No pelvis stable , No calf tenderness, No inflammation, No pedal edema, No slow capillary refill , No swelling, No other, No abrasion, No clubbing, No cyanosis, No ecchymosis, No laceration, No no lower extremity edema bilateral, No significant edema, No tenderness, No wound Neurologic/Psychiatric: No melangeur operator II-XII nml as tested; no motor/sensory deficits , alert, normal mood/affect, oriented x 3; No abnormal cerebellar tests, No abnormal melangeur operator II-XII, No abnormal gait, No aphasia, No EOM palsy, No facial droop , No motor weakness, No sensory deficit, No depressed affect, No disoriented x 3 , No other, No grossly intact; power is 5/5 both on sides Skin: No normal color, No warm/dry, No cyanosis, No cool, No diaphoresis, No damp, No ecchymosis, No jaundice, No mottled, No pallor, No rash, No tattoos/ piercings, No ulcerations, No rash on exposed areas, No ulcerations on exposed areas, No other Data Review Labs Laboratory Tests 01/31/18 06:01: White Blood Count 15.2H, Red Blood Count 4.20L, Hemoglobin 14.3, Hematocrit 41, Mean Corpuscular Volume 98, Mean Corpuscular Hemoglobin 34, Mean Corpuscular Hemoglobin Concent 35, Red Cell Distribution Width 12.0, Platelet Count 260, Mean Platelet Volume 9.4, Sodium Level 136, Potassium Level 3.5L, Chloride Level 101, Carbon Dioxide Level 21, Anion Gap 14, Blood Urea Nitrogen 8, Creatinine 0.62, Estimat Glomerular Filtration Rate > 60, BUN/Creatinine Ratio 13, Glucose Level 111H, Calcium Level 9.1 Microbiology 01/29/18 Blood Culture - Preliminary, Resulted No growth 01/29/18 MRSA Screen - Final, Complete MRSA not isolated 01/29/18 Gram Stain - Final, Resulted 01/29/18 Anaerobic Culture - Preliminary, Resulted Prob Anaerobic Gram Neg Jake 01/29/18 Surgical Culture - Preliminary, Resulted Escherichia coli ECG Impression ECG Initial ECG Impression: Atrial Fibrillation w/RVR A/P-Cardiology Assessment/Admission Diagnosis Atrial fibrillation with rapid ventricular rate, Sinus tachycardia, Large bowel perforation, status post surgery, Hypokalemia Plan Atrial fibrillation with rapid ventricular rate, telemetry shows sinus tachycardia. Spontaneous cardioversion. Patient was on metoprolol and Lovenox. Continue metoprolol. Lovenox for DVT prophylaxis. CHADSVASC score 0. Therefore full aspirin is recommended as an outpatient. Recommend echocardiogram. Sinus tachycardia, likely secondary to pain. Large bowel perforation, status post surgery, Hypokalemia, replace potassium repletion. Keep potassium over 4.0. Thank you for your consultation. Please call me if you have any questions. Temo Manzanares MD, FACP, FACC, FSCAI, FHRS, CCDS Interventional Cardiology Cardiac Electrophysiology Vascular Medicine and Endovascular Interventions Clinical Quality Measures DVT/VTE Risk/Contraindication: Risk Factor Score Per Nursin RFS Level Per Nursing on Admit: 4+=Very High Kitty MANZANARES MD January 31, 2018 12:50 pm
[2018-01-31 16:05] VITALS: BP 135/90
[2018-01-31 20:10] VITALS: BP 133/83
[2018-01-31] MEDS: meTOprolol TARTRATE 50 MG (LOPRESSOR) TAB PO SCH (20:21)
[2018-01-31] MEDS: morphine PCA 30 MG/30 ML VIAL IV PRN (20:40)
--- NOTE | 2018-01-31 21:15 | Progress Note ---
Subjective Date Seen by Provider: January 31, 2018 Time Seen by Provider: 13:42 Subjective/Events-last exam Patient pain controlled. Tolerating liquids. No flatus or bm yet. WBC trending down. Culture ESBL+ on Meropenem and Sensitive Ambulating. Had AFIB, and started on Lovenox. Denies n/v fever sweats chills shortness of breath or chest pain. Focused Exam Lactate Level 01/29/18 09:30: Lactic Acid Level 1.41 Objective Exam Vital Signs Date Time Temp Pulse Resp B/P (MAP) Pulse Ox O2 Delivery O2 Flow Rate FiO2 01/31/18 20:40 18 01/31/18 20:10 99.5 88 20 133/83 (100) 97 Nasal Cannula 2.00 01/31/18 19:00 88 01/31/18 18:25 20 01/31/18 16:05 97.7 102 20 135/90 (105) 96 Room Air 01/31/18 13:00 109 01/31/18 12:00 98.5 110 18 117/77 (90) 97 Nasal Cannula 2.00 01/31/18 11:38 94 Nasal Cannula 2.00 01/31/18 08:31 134 01/31/18 08:00 92 Nasal Cannula 2.00 01/31/18 08:00 96.9 134 20 104/77 (86) 94 Nasal Cannula 2.00 01/31/18 06:00 20 01/31/18 05:55 98.3 150 20 111/74 (86) 91 Nasal Cannula 2.00 01/31/18 00:10 98.8 119 18 120/80 (93) 92 Room Air I & O 01/31/18 06:59 Intake Total 8320 ml Output Total 2275 ml Balance 6045 ml Capillary Refill : Less Than 3 Seconds General Appearance: No Apparent Distress, WD/WN HEENT: Normal ENT Inspection Neck: Full Range of Motion, Normal Inspection, Non Tender Respiratory: Lungs Clear, No Respiratory Distress Cardiovascular: Irregularly Irregular, Tachycardia Gastrointestinal: tenderness (Incisional tenderness, colostomy no output purplish pink in color, wounds clean dry), other Extremity: No Calf Tenderness, No Pedal Edema Neurologic/Psychiatric: Alert, Oriented x3, Normal Mood/Affect Skin: Normal Color, Warm/Dry Lymphatic: No Adenopathy Results Lab Laboratory Tests 01/31/18 06:01: White Blood Count 15.2H, Red Blood Count 4.20L, Hemoglobin 14.3, Hematocrit 41, Mean Corpuscular Volume 98, Mean Corpuscular Hemoglobin 34, Mean Corpuscular Hemoglobin Concent 35, Red Cell Distribution Width 12.0, Platelet Count 260, Mean Platelet Volume 9.4, Sodium Level 136, Potassium Level 3.5L, Chloride Level 101, Carbon Dioxide Level 21, Anion Gap 14, Blood Urea Nitrogen 8, Creatinine 0.62, Estimat Glomerular Filtration Rate > 60, BUN/Creatinine Ratio 13, Glucose Level 111H, Calcium Level 9.1 Microbiology 01/29/18 Blood Culture - Preliminary, Resulted No growth 01/29/18 MRSA Screen - Final, Complete MRSA not isolated 01/29/18 Gram Stain - Final, Resulted 01/29/18 Anaerobic Culture - Preliminary, Resulted Prob Anaerobic Gram Neg Jake 01/29/18 Surgical Culture - Preliminary, Resulted Escherichia coli Assessment/Plan Assessment/Plan Assessment/Plan perforated diverticulitis sepsis secondary to perforated diverticulitis Status post exploratory laparotomy Larry procedure Afib Hypokalemia ESBL+ sensitive to Meropenem On clear liquids at this time. Wound changes and ostomy care Continue IV antibiotics and IV hydration. Increase activity slowly SCDs and ambulation for DVT prophylaxis on Lovenox Repeat labs in the morning. Replace potassium Clinical Quality Measures DVT/VTE Risk/Contraindication: Risk Factor Score Per Nursin RFS Level Per Nursing on Admit: 4+=Very High AARTI MONZON DO January 31, 2018 21:15
[2018-01-31] MEDS: POTASSIUM CL 10MEQ/50ML IVPB 50 ML IV SCH ×2 (21:44→22:43)
[2018-01-31] MEDS: NS IV 1000 ML 1,000 ML IV SCH (22:43)
[2018-02-01] VITALS: BP 139/84
[2018-02-01 04:00] VITALS: BP 121/81
[2018-02-01] MEDS: MEROPENEM 500 MG in NS (IVPB) 100 ML IV SCH ×4 (05:56→23:34)
[2018-02-01 07:06] LABS: HEMOGLOBIN 12.9 G/DL (13.3-17.7); MEAN PLATELET VOLUME 9.2 FL (7.4-10.4); RED BLOOD COUNT 3.77 10^6/uL (4.35-5.85); RED CELL DISTRIBUTION WIDTH 12.4 % (10.0-14.5); WHITE BLOOD COUNT 10.6 10^3/uL (4.3-11.0)
[2018-02-01 07:18] LABS: BUN/CREATININE RATIO 15; CALCIUM 8.6 MG/DL (8.5-10.1); CARBON DIOXIDE 22 MMOL/L (21-32); CHLORIDE 103 MMOL/L (98-107); CREATININE SERUM 0.54 MG/DL (0.60-1.30); GFR ESTIMATED > 60; GLUCOSE 88 MG/DL (70-105); POTASSIUM 3.8 MMOL/L (3.6-5.0); SODIUM 135 MMOL/L (135-145)
[2018-02-01] MEDS: NS IV 1000 ML 1,000 ML IV SCH ×3 (07:37→23:35)
[2018-02-01 08:00] VITALS: BP 135/86
[2018-02-01] MEDS: ENOXAPARIN 80 MG/0.8 ML (LOVENOX) SYR SC SCH (08:02)
[2018-02-01] MEDS: NICOTINE PATCH REMOVAL TP SCH (08:12)
[2018-02-01] MEDS: PANTOPRAZOLE 40 MG/10 ML (PROTONIX) VIAL IVP SCH (08:12)
[2018-02-01] MEDS: NICOTINE 21 MG (NICODERM) PATCH TD SCH (08:13)
[2018-02-01] MEDS: meTOprolol TARTRATE 50 MG (LOPRESSOR) TAB PO SCH ×2 (08:13→20:59)
--- NOTE | 2018-02-01 10:44 | Progress Note ---
Subjective Date Seen by Provider: February 01, 2018 Time Seen by Provider: 10:42 Subjective/Events-last exam wbc down, hgb stable. no output from colostomy. Pain controlled. Tolerating liquids. Denies n/v fever sweats chills shortness of breath or chest pain. Objective Exam Vital Signs Date Time Temp Pulse Resp B/P (MAP) Pulse Ox O2 Delivery O2 Flow Rate FiO2 02/01/18 08:00 98.9 80 20 135/86 (102) 95 Room Air 02/01/18 05:57 18 02/01/18 04:00 98.8 76 18 121/81 (94) 97 Nasal Cannula 2.00 02/01/18 01:00 82 02/01/18 00:00 99.0 85 17 139/84 (102) 95 Room Air 01/31/18 22:00 99.4 01/31/18 20:40 18 01/31/18 20:10 99.5 88 20 133/83 (100) 97 Nasal Cannula 2.00 01/31/18 19:00 88 01/31/18 18:25 20 01/31/18 16:05 97.7 102 20 135/90 (105) 96 Room Air 01/31/18 13:00 109 01/31/18 12:00 98.5 110 18 117/77 (90) 97 Nasal Cannula 2.00 01/31/18 11:38 94 Nasal Cannula 2.00 I & O 02/01/18 07:00 Intake Total 6020 ml Balance 6020 ml Capillary Refill : Less Than 3 Seconds General Appearance: No Apparent Distress, WD/WN HEENT: Normal ENT Inspection Neck: Full Range of Motion, Normal Inspection, Non Tender Respiratory: Lungs Clear, No Respiratory Distress Cardiovascular: Irregularly Irregular, Tachycardia Gastrointestinal: tenderness (Incisional tenderness, colostomy no output purplish pink in color, wounds clean dry), other Extremity: No Calf Tenderness, No Pedal Edema Neurologic/Psychiatric: Alert, Oriented x3, Normal Mood/Affect Skin: Normal Color, Warm/Dry Lymphatic: No Adenopathy Results Lab Laboratory Tests 02/01/18 06:30: White Blood Count 10.6, Red Blood Count 3.77L, Hemoglobin 12.9L, Hematocrit 37L , Mean Corpuscular Volume 99, Mean Corpuscular Hemoglobin 34, Mean Corpuscular Hemoglobin Concent 35, Red Cell Distribution Width 12.4, Platelet Count 277, Mean Platelet Volume 9.2, Sodium Level 135, Potassium Level 3.8, Chloride Level 103, Carbon Dioxide Level 22, Anion Gap 10, Blood Urea Nitrogen 8, Creatinine 0.54L, Estimat Glomerular Filtration Rate > 60, BUN/Creatinine Ratio 15, Glucose Level 88, Calcium Level 8.6 Microbiology 01/29/18 Blood Culture - Preliminary, Resulted No growth 01/29/18 MRSA Screen - Final, Complete MRSA not isolated 01/29/18 Gram Stain - Final, Resulted 01/29/18 Anaerobic Culture - Preliminary, Resulted Prob Anaerobic Gram Neg Jake 01/29/18 Surgical Culture - Preliminary, Resulted Escherichia coli Assessment/Plan Assessment/Plan Assessment/Plan perforated diverticulitis sepsis secondary to perforated diverticulitis Status post exploratory laparotomy Larry procedure Afib Hypokalemia-improved ESBL+ sensitive to Meropenem On clear liquids at this time. Wound changes and ostomy care Continue IV antibiotics and IV hydration. Increase activity slowly SCDs and ambulation for DVT prophylaxis on Lovenox Repeat labs in the morning. Clinical Quality Measures DVT/VTE Risk/Contraindication: Risk Factor Score Per Nursin RFS Level Per Nursing on Admit: 4+=Very High AARTI MONZON DO February 01, 2018 10:44
--- NOTE | 2018-02-01 10:54 | Cardiology Progress Note ---
Cardiology SOAP Progress Note Subjective: No cardiac complaints. Mild abdominal pain. No tachycardia. Objective: I&O/Vital Signs 02/01/18 02/01/18 02/01/18 02/01/18 00:00 01:00 04:00 05:57 Temp 99.0 98.8 Pulse 85 82 76 Resp 17 18 18 B/P (MAP) 139/84 (102) 121/81 (94) Pulse Ox 95 97 O2 Delivery Room Air Nasal Cannula O2 Flow Rate 2.00 02/01/18 08:00 Temp 98.9 Pulse 80 Resp 20 B/P (MAP) 135/86 (102) Pulse Ox 95 O2 Delivery Room Air 02/01/18 00:00 Intake Total 3020 ml Balance 3020 ml Weight (Pounds): 167 Weight (Ounces): 0.0 Weight (Calculated Kilograms): 75.952400 Constitutional: appears stated age, AAO x 3; No apparent distress; well- developed, well-nourished Respiratory: No accessory muscle use, No respiratory distress, No chest tender , No chest expansion is symmetric; chest is bilaterally symmetric; No lungs clear to percussion; lungs clear to auscultation; No crackles, No rhonchi, No rales, No stridor, No wheezing, No pleural rub, No other Cardiovascular: regular rate-rhythm; No irregularly irregular, No extra beats, No parasternal heave is noted, No JVD, No edema, No bradycardia, No tachycardia , No point of maximal impulse, No cardiac thrills are palpable; S1 and S2; No gallop/S3, No gallop/S4, No diastolic murmur, No systolic murmur, No friction rub, No click, No other Gastrointestional: No tender, No soft, No round, No distended, No pulsatile mass, No organomegaly, No guarding, No rebound; tenderness; No hernia, No mass, No audible bowel sounds, No abnormal bowel sounds, No abdominal bruits, No spleenomegaly, No other Extremities: No normal range of motion, No non-tender, No normal inspection, No pedal edema, No calf tenderness, No normal capillary refill, No pelvis stable , No calf tenderness, No inflammation, No pedal edema, No slow capillary refill , No swelling, No other, No abrasion, No clubbing, No cyanosis, No ecchymosis, No laceration, No no lower extremity edema bilateral, No significant edema, No tenderness, No wound Neurologic/Psychiatric: No medical economics consultant II-XII nml as tested; no motor/sensory deficits , alert, normal mood/affect, oriented x 3; No abnormal cerebellar tests, No abnormal medical economics consultant II-XII, No abnormal gait, No aphasia, No EOM palsy, No facial droop , No motor weakness, No sensory deficit, No depressed affect, No disoriented x 3 , No other, No grossly intact; power is 5/5 both on sides Skin: No normal color, No warm/dry, No cyanosis, No cool, No diaphoresis, No damp, No ecchymosis, No jaundice, No mottled, No pallor, No rash, No tattoos/ piercings, No ulcerations, No rash on exposed areas, No ulcerations on exposed areas, No other Results/Procedures: Labs Laboratory Tests 02/01/18 06:30: White Blood Count 10.6, Red Blood Count 3.77L, Hemoglobin 12.9L, Hematocrit 37L , Mean Corpuscular Volume 99, Mean Corpuscular Hemoglobin 34, Mean Corpuscular Hemoglobin Concent 35, Red Cell Distribution Width 12.4, Platelet Count 277, Mean Platelet Volume 9.2, Sodium Level 135, Potassium Level 3.8, Chloride Level 103, Carbon Dioxide Level 22, Anion Gap 10, Blood Urea Nitrogen 8, Creatinine 0.54L, Estimat Glomerular Filtration Rate > 60, BUN/Creatinine Ratio 15, Glucose Level 88, Calcium Level 8.6 Microbiology 01/29/18 Blood Culture - Preliminary, Resulted No growth 01/29/18 MRSA Screen - Final, Complete MRSA not isolated 01/29/18 Gram Stain - Final, Resulted 01/29/18 Anaerobic Culture - Preliminary, Resulted Prob Anaerobic Gram Neg Jake 01/29/18 Surgical Culture - Preliminary, Resulted Escherichia coli A/P: Assessment/Dx: Atrial fibrillation with rapid ventricular rate, Sinus tachycardia, Large bowel perforation, status post surgery, Hypokalemia Plan: Atrial fibrillation with rapid ventricular rate, telemetry shows sinus rhythm. Spontaneous cardioversion to sinus rhythm.. Patient was on metoprolol and Lovenox. Continue metoprolol. Lovenox for DVT prophylaxis. CHADSVASC score 0. Therefore full aspirin is recommended as an outpatient. Echocardiogram showed normal LVEF with no valvular heart disease. Sinus tachycardia, improved. Large bowel perforation, status post surgery, Hypokalemia, replace potassium repletion. Keep potassium over 4.0. Thank you for your consultation. Please call me if you have any questions. Temo Manzanares MD, FACP, FACC, FSCAI, FHRS, CCDS Interventional Cardiology Cardiac Electrophysiology Vascular Medicine and Endovascular Interventions Kitty MANZANARES MD February 01, 2018 10:54
--- NOTE | 2018-02-01 11:38 | Progress Note-Hospitalist ---
Subjective HPI/CC On Admission Date Seen by Provider: February 01, 2018 Time Seen by Provider: 11:35 The patient is a 37-year-old white male who was admitted by Dr. Saha with recurrent diverticulitis problems. On this occasion it was determined that he had peritonitis and surgery was required. He reports that he is doing relatively well at this time however he has the hiccups at with every hiccup Causing him some discomfort. He reported that he had been hospitalized here last week and discharged in seemingly improved condition. He began to have symptoms began on Sunday. He was somewhat better and worked on Sunday. He also reports that the he reached for a cup in the back corner of a crib for his 1-year-old daughter. This caused him to put pressure on his belly and the pain got much worse at that point. He ultimately called the ambulance yesterday because of the severity of pain. No one was at home to drive him. Subjective/Events-last exam Pt reports feeling better today. But having hiccups. Symptoms improved with Thorazine a few days ago and would like to try it again. Objective Exam Vital Signs Vital Signs Date Time Temp Pulse Resp B/P (MAP) Pulse Ox O2 Delivery O2 Flow Rate FiO2 02/01/18 08:00 98.9 80 20 135/86 (102) 95 Room Air 02/01/18 04:00 2.00 Capillary Refill : Less Than 3 Seconds General Appearance: No Apparent Distress, WD/WN Respiratory: Lungs Clear, No Respiratory Distress Cardiovascular: Regular Rate, Rhythm, No Murmur Gastrointestinal: Normal Bowel Sounds, Soft, Other (ostomy in place) Neurologic/Psychiatric: Alert, Oriented x3, Normal Mood/Affect Results/Procedures Lab Laboratory Tests 02/01/18 06:30 Patient resulted labs reviewed. Assessment/Plan Assessment and Plan Assess & Plan/Chief Complaint new on set a-fib Diagnosis/Problems Diagnosis/Problems (1) Atrial fibrillation Status: Acute Assessment & Plan: Self converted Continue on metoprolol Monitor on telemetry Cardiology consulted, appreciate martha GALINDO 0- will need ASA only at DC Qualifiers: Atrial fibrillation type: unspecified Qualified Codes: I48.91 - Unspecified atrial fibrillation (2) Perforation of sigmoid colon due to diverticulitis Status: Acute Assessment & Plan: s/p resection and ostomy Management by primary Dr Saha CLD ESBL in wound Continue on Merrem (3) Sepsis Status: Resolved Assessment & Plan: due to sigmoid perforation Continue on Merrem leukocytosis resolved Qualifiers: Sepsis type: Escherichia coli Qualified Codes: A41.51 - Sepsis due to Escherichia coli [e. coli] (4) Prophylactic measure Assessment & Plan: Lovenox CLD NS TKO Clinical Quality Measures DVT/VTE Risk/Contraindication: Risk Factor Score Per Nursin RFS Level Per Nursing on Admit: 4+=Very High JENNY VIRK MD February 01, 2018 11:38 am
[2018-02-01 12:00] VITALS: BP 132/85
[2018-02-01] MEDS ORDERED: chlorproMAZINE 10 MG (THORAZINE) TAB PO NR (13:30)
[2018-02-01] MEDS: morphine PCA 30 MG/30 ML VIAL IV PRN (15:33)
[2018-02-01 15:35] VITALS: BP 136/87
[2018-02-01 20:25] VITALS: BP 135/90
[2018-02-02 00:42] VITALS: BP 128/85
[2018-02-02 04:25] VITALS: BP 130/83
[2018-02-02] MEDS: MEROPENEM 500 MG in NS (IVPB) 100 ML IV SCH ×4 (05:52→23:56)
[2018-02-02 06:05] LABS: HEMOGLOBIN 13.3 G/DL (13.3-17.7); MEAN PLATELET VOLUME 8.9 FL (7.4-10.4); RED BLOOD COUNT 3.88 10^6/uL (4.35-5.85); RED CELL DISTRIBUTION WIDTH 11.8 % (10.0-14.5); WHITE BLOOD COUNT 11.1 10^3/uL (4.3-11.0)
[2018-02-02] MEDS: morphine PCA 30 MG/30 ML VIAL IV PRN ×2 (06:27→22:13)
[2018-02-02 06:31] LABS: BUN/CREATININE RATIO 13; CALCIUM 8.6 MG/DL (8.5-10.1); CARBON DIOXIDE 20 MMOL/L (21-32); CHLORIDE 104 MMOL/L (98-107); CREATININE SERUM 0.52 MG/DL (0.60-1.30); GFR ESTIMATED > 60; GLUCOSE 91 MG/DL (70-105); POTASSIUM 3.7 MMOL/L (3.6-5.0); SODIUM 135 MMOL/L (135-145)
[2018-02-02 08:30] VITALS: BP 133/83
[2018-02-02] MEDS: PANTOPRAZOLE 40 MG/10 ML (PROTONIX) VIAL IVP SCH (10:17)
[2018-02-02] MEDS: NICOTINE PATCH REMOVAL TP SCH (10:18)
[2018-02-02] MEDS: NICOTINE 21 MG (NICODERM) PATCH TD SCH (10:18)
[2018-02-02] MEDS: meTOprolol TARTRATE 50 MG (LOPRESSOR) TAB PO SCH ×2 (10:18→20:59)
[2018-02-02] MEDS: NS IV 1000 ML 1,000 ML IV SCH ×2 (10:28→20:59)
--- NOTE | 2018-02-02 10:48 | Progress Note-Hospitalist ---
Subjective HPI/CC On Admission Date Seen by Provider: February 02, 2018 (n) Time Seen by Provider: 09:45 The patient is a 37-year-old white male who was admitted by Dr. Saha with recurrent diverticulitis problems. On this occasion it was determined that he had peritonitis and surgery was required. He reports that he is doing relatively well at this time however he has the hiccups at with every hiccup Causing him some discomfort. He reported that he had been hospitalized here last week and discharged in seemingly improved condition. He began to have symptoms began on Sunday. He was somewhat better and worked on Sunday. He also reports that the he reached for a cup in the back corner of a crib for his 1-year-old daughter. This caused him to put pressure on his belly and the pain got much worse at that point. He ultimately called the ambulance yesterday because of the severity of pain. No one was at home to drive him. Subjective/Events-last exam Pt reports feeling well with the exception of having hiccups. Tried thorazine without relief. No other complaints. Objective Exam Vital Signs Vital Signs Date Time Temp Pulse Resp B/P (MAP) Pulse Ox O2 Delivery O2 Flow Rate FiO2 02/02/18 08:30 97.8 91 20 133/83 (100) 95 Room Air 02/01/18 04:00 2.00 Capillary Refill : Less Than 3 Seconds General Appearance: No Apparent Distress, WD/WN Respiratory: Lungs Clear, No Respiratory Distress Cardiovascular: Regular Rate, Rhythm, No Murmur Gastrointestinal: Soft, Other (ostomy in place) Extremity: No Calf Tenderness, No Pedal Edema Neurologic/Psychiatric: Alert, Oriented x3, Normal Mood/Affect Results/Procedures Lab Laboratory Tests 02/02/18 05:45 Patient resulted labs reviewed. Assessment/Plan Assessment and Plan Assess & Plan/Chief Complaint new on set a-fib Diagnosis/Problems Diagnosis/Problems (1) Atrial fibrillation Status: Acute Assessment & Plan: Self converted Continue on metoprolol Monitor on telemetry Cardiology consulted, appreciate martha GALINDO 0- will need ASA only at DC Qualifiers: Atrial fibrillation type: unspecified Qualified Codes: I48.91 - Unspecified atrial fibrillation (2) Perforation of sigmoid colon due to diverticulitis Status: Acute Assessment & Plan: s/p resection and ostomy Management by primary Dr Saha CLD ESBL in wound Continue on Merrem Will need at least 10 total days of antibiotics, discussed with Dr Saha this AM PICC placed SW consulted for arrangement of outpatient antibiotics, appreciate assistance (3) Sepsis Status: Resolved Assessment & Plan: due to sigmoid perforation Continue on Merrem leukocytosis resolved Qualifiers: Sepsis type: Escherichia coli Qualified Codes: A41.51 - Sepsis due to Escherichia coli [e. coli] (4) Prophylactic measure Assessment & Plan: Lovenox CLD NS 100ml/hr Clinical Quality Measures DVT/VTE Risk/Contraindication: Risk Factor Score Per Nursin RFS Level Per Nursing on Admit: 4+=Very High JENNY VIRK MD February 02, 2018 10:48 am
[2018-02-02 11:43] VITALS: BP 146/96
[2018-02-02] MEDS: ENOXAPARIN 40 MG/0.4 ML (LOVENOX) SYR SC SCH (11:46)
--- NOTE | 2018-02-02 15:08 | Progress Note ---
Subjective Date Seen by Provider: February 02, 2018 Time Seen by Provider: 08:15 Subjective/Events-last exam Patient pain controlled. Tolerating liquids. Denies any nausea or emesis. No bowel function yet. Urinating without difficulty. Denies fever sweats chills shortness of breath or chest pain. Objective Exam Vital Signs Date Time Temp Pulse Resp B/P (MAP) Pulse Ox O2 Delivery O2 Flow Rate FiO2 02/02/18 11:43 98.1 82 20 146/96 (113) 96 Room Air 02/02/18 08:30 97.8 91 20 133/83 (100) 95 Room Air 02/02/18 07:54 Room Air 02/02/18 07:53 20 02/02/18 06:00 20 02/02/18 04:25 98.8 78 20 130/83 (99) 95 Room Air 02/02/18 01:00 85 02/02/18 00:42 99.5 74 20 128/85 (99) 94 Room Air 02/01/18 21:00 Room Air 02/01/18 20:25 99.1 78 18 135/90 (105) 94 Room Air 02/01/18 19:00 95 02/01/18 16:00 20 02/01/18 15:35 97.7 84 18 136/87 (103) 95 Room Air 02/01/18 15:33 20 I & O 02/02/18 07:00 Intake Total 4300 ml Output Total 30 ml Balance 4270 ml Capillary Refill : Less Than 3 Seconds General Appearance: No Apparent Distress, WD/WN HEENT: PERRL/EOMI, Normal ENT Inspection Neck: Full Range of Motion, Normal Inspection, Non Tender Respiratory: Lungs Clear, No Respiratory Distress Cardiovascular: Regular Rate, Rhythm, No Murmur Gastrointestinal: tenderness (Incisional tenderness, colostomy no output purplish pink in color, wounds clean dry) Extremity: No Calf Tenderness, No Pedal Edema Neurologic/Psychiatric: Alert, Oriented x3, Normal Mood/Affect Skin: Normal Color, Warm/Dry Lymphatic: No Adenopathy Results Lab Laboratory Tests 02/02/18 05:45: White Blood Count 11.1H, Red Blood Count 3.88L, Hemoglobin 13.3, Hematocrit 38L , Mean Corpuscular Volume 98, Mean Corpuscular Hemoglobin 34, Mean Corpuscular Hemoglobin Concent 35, Red Cell Distribution Width 11.8, Platelet Count 263, Mean Platelet Volume 8.9, Sodium Level 135, Potassium Level 3.7, Chloride Level 104, Carbon Dioxide Level 20L, Anion Gap 11, Blood Urea Nitrogen 7, Creatinine 0.52L, Estimat Glomerular Filtration Rate > 60, BUN/Creatinine Ratio 13, Glucose Level 91, Calcium Level 8.6 Microbiology 01/29/18 Blood Culture - Preliminary, Resulted No growth 01/29/18 MRSA Screen - Final, Complete MRSA not isolated 01/29/18 Gram Stain - Final, Resulted 01/29/18 Anaerobic Culture - Preliminary, Resulted Bacteroides fragilis group 01/29/18 Surgical Culture - Preliminary, Resulted Escherichia coli Assessment/Plan Assessment/Plan Assessment/Plan perforated diverticulitis sepsis secondary to perforated diverticulitis Status post exploratory laparotomy Larry procedure Afib Hypokalemia-improved ESBL+ sensitive to Meropenem On clear liquids at this time. Wound changes and ostomy care Continue IV antibiotics and IV hydration. Increase activity slowly SCDs and ambulation for DVT prophylaxis on Lovenox Repeat labs in the morning. Clinical Quality Measures DVT/VTE Risk/Contraindication: Risk Factor Score Per Nursin RFS Level Per Nursing on Admit: 4+=Very High AARTI MONZON DO February 02, 2018 15:08
--- NOTE | 2018-02-02 15:44 | Cardiology Progress Note ---
Cardiology SOAP Progress Note Subjective: No palpitations Objective: I&O/Vital Signs 02/02/18 02/02/18 02/02/18 02/02/18 04:25 06:00 07:53 07:54 Temp 98.8 Pulse 78 Resp 20 20 20 B/P (MAP) 130/83 (99) Pulse Ox 95 O2 Delivery Room Air Room Air 02/02/18 02/02/18 08:30 11:43 Temp 97.8 98.1 Pulse 91 82 Resp 20 20 B/P (MAP) 133/83 (100) 146/96 (113) Pulse Ox 95 96 O2 Delivery Room Air Room Air 02/02/18 00:00 Intake Total 2800 ml Balance 2800 ml Weight (Pounds): 167 Weight (Ounces): 0.0 Weight (Calculated Kilograms): 75.304165 Constitutional: appears stated age, AAO x 3; No apparent distress; well- developed, well-nourished Respiratory: No accessory muscle use, No respiratory distress, No chest tender , No chest expansion is symmetric; chest is bilaterally symmetric; No lungs clear to percussion; lungs clear to auscultation; No crackles, No rhonchi, No rales, No stridor, No wheezing, No pleural rub, No other Cardiovascular: regular rate-rhythm; No irregularly irregular, No extra beats, No parasternal heave is noted, No JVD, No edema, No bradycardia, No tachycardia , No point of maximal impulse, No cardiac thrills are palpable; S1 and S2; No gallop/S3, No gallop/S4, No diastolic murmur, No systolic murmur, No friction rub, No click, No other Gastrointestional: No tender, No soft, No round, No distended, No pulsatile mass, No organomegaly, No guarding, No rebound; tenderness; No hernia, No mass, No audible bowel sounds, No abnormal bowel sounds, No abdominal bruits, No spleenomegaly, No other Extremities: No normal range of motion, No non-tender, No normal inspection, No pedal edema, No calf tenderness, No normal capillary refill, No pelvis stable , No calf tenderness, No inflammation, No pedal edema, No slow capillary refill , No swelling, No other, No abrasion, No clubbing, No cyanosis, No ecchymosis, No laceration, No no lower extremity edema bilateral, No significant edema, No tenderness, No wound Neurologic/Psychiatric: No medical legal investigator II-XII nml as tested; no motor/sensory deficits , alert, normal mood/affect, oriented x 3; No abnormal cerebellar tests, No abnormal medical legal investigator II-XII, No abnormal gait, No aphasia, No EOM palsy, No facial droop , No motor weakness, No sensory deficit, No depressed affect, No disoriented x 3 , No other, No grossly intact; power is 5/5 both on sides Skin: No normal color, No warm/dry, No cyanosis, No cool, No diaphoresis, No damp, No ecchymosis, No jaundice, No mottled, No pallor, No rash, No tattoos/ piercings, No ulcerations, No rash on exposed areas, No ulcerations on exposed areas, No other Results/Procedures: Labs Laboratory Tests 02/02/18 05:45: White Blood Count 11.1H, Red Blood Count 3.88L, Hemoglobin 13.3, Hematocrit 38L , Mean Corpuscular Volume 98, Mean Corpuscular Hemoglobin 34, Mean Corpuscular Hemoglobin Concent 35, Red Cell Distribution Width 11.8, Platelet Count 263, Mean Platelet Volume 8.9, Sodium Level 135, Potassium Level 3.7, Chloride Level 104, Carbon Dioxide Level 20L, Anion Gap 11, Blood Urea Nitrogen 7, Creatinine 0.52L, Estimat Glomerular Filtration Rate > 60, BUN/Creatinine Ratio 13, Glucose Level 91, Calcium Level 8.6 Microbiology 01/29/18 Blood Culture - Preliminary, Resulted No growth 01/29/18 MRSA Screen - Final, Complete MRSA not isolated 01/29/18 Gram Stain - Final, Resulted 01/29/18 Anaerobic Culture - Preliminary, Resulted Bacteroides fragilis group 01/29/18 Surgical Culture - Preliminary, Resulted Escherichia coli A/P: Assessment/Dx: Atrial fibrillation with rapid ventricular rate, Sinus tachycardia, Large bowel perforation, status post surgery, Hypokalemia Plan: Atrial fibrillation with rapid ventricular rate, telemetry shows sinus rhythm. Spontaneous cardioversion to sinus rhythm.. Patient was on metoprolol and Lovenox. Continue metoprolol. Lovenox for DVT prophylaxis. CHADSVASC score 0. Therefore full aspirin is recommended as an outpatient. Echocardiogram showed normal LVEF with no valvular heart disease. Discontinue telemetry. Atrial fibrillation likely due to major surgery and abdominal pain. I discussed at length with the patient and educated him that it was likely due to severe systemic stress. However these patients are at increased risk for developing atrial fibrillation in the future. Sinus tachycardia, improved. Large bowel perforation, status post surgery, Hypokalemia, replace potassium repletion. Keep potassium over 4.0. Thank you for your consultation. Please call me if you have any questions. Temo Manzanares MD, FACP, FACC, FSCAI, FHRS, CCDS Interventional Cardiology Cardiac Electrophysiology Vascular Medicine and Endovascular Interventions Kitty MANZANARES MD February 02, 2018 3:44 pm
[2018-02-02 16:00] VITALS: BP 141/91
[2018-02-02 20:00] VITALS: BP 140/82
[2018-02-03] VITALS: BP 123/76
[2018-02-03 04:00] VITALS: BP 118/75
[2018-02-03] MEDS: MEROPENEM 500 MG in NS (IVPB) 100 ML IV SCH ×4 (05:52→23:54)
[2018-02-03 05:58] LABS: HEMOGLOBIN 12.7 G/DL (13.3-17.7); MEAN PLATELET VOLUME 8.6 FL (7.4-10.4); RED BLOOD COUNT 3.73 10^6/uL (4.35-5.85); RED CELL DISTRIBUTION WIDTH 12.3 % (10.0-14.5); WHITE BLOOD COUNT 13.1 10^3/uL (4.3-11.0)
[2018-02-03 06:11] LABS: BUN/CREATININE RATIO 9; CALCIUM 8.3 MG/DL (8.5-10.1); CARBON DIOXIDE 23 MMOL/L (21-32); CHLORIDE 103 MMOL/L (98-107); CREATININE SERUM 0.56 MG/DL (0.60-1.30); GFR ESTIMATED > 60; GLUCOSE 108 MG/DL (70-105); POTASSIUM 3.6 MMOL/L (3.6-5.0); SODIUM 136 MMOL/L (135-145)
--- NOTE | 2018-02-03 07:44 | Progress Note ---
Subjective Date Seen by Provider: February 03, 2018 Time Seen by Provider: 07:40 Subjective/Events-last exam Feeling good. Flatus from ostomy. WBC slightly up. Using incentive spirometry. Tolerating liquids. Denies n/v fever sweats chills shortness of breath or chest pain. Objective Exam Vital Signs Date Time Temp Pulse Resp B/P (MAP) Pulse Ox O2 Delivery O2 Flow Rate FiO2 02/03/18 06:00 18 02/03/18 04:00 98.0 72 18 118/75 (89) 96 Room Air 02/03/18 01:00 79 02/03/18 00:00 97.2 76 18 123/76 (92) 95 Room Air 02/02/18 20:00 99.2 96 20 140/82 (101) 96 Room Air 02/02/18 20:00 Room Air 02/02/18 19:00 95 02/02/18 18:01 20 02/02/18 16:00 99.0 87 20 141/91 (108) 95 Room Air 02/02/18 16:00 Room Air 02/02/18 11:43 98.1 82 20 146/96 (113) 96 Room Air 02/02/18 08:30 97.8 91 20 133/83 (100) 95 Room Air 02/02/18 07:54 Room Air 02/02/18 07:53 20 I & O 02/03/18 07:00 Intake Total 4360 ml Output Total 10 ml Balance 4350 ml Capillary Refill : Less Than 3 Seconds General Appearance: No Apparent Distress, WD/WN HEENT: PERRL/EOMI, Normal ENT Inspection Neck: Full Range of Motion, Normal Inspection, Non Tender Respiratory: Lungs Clear, No Respiratory Distress Cardiovascular: Regular Rate, Rhythm, No Murmur Gastrointestinal: tenderness (midline wound open and clean, ostomy pink/ minimal purple with air coming out) Extremity: No Calf Tenderness, No Pedal Edema Neurologic/Psychiatric: Alert, Oriented x3, Normal Mood/Affect Skin: Normal Color, Warm/Dry Lymphatic: No Adenopathy Results Lab Laboratory Tests 02/03/18 05:30: White Blood Count 13.1H, Red Blood Count 3.73L, Hemoglobin 12.7L, Hematocrit 36L , Mean Corpuscular Volume 97, Mean Corpuscular Hemoglobin 34, Mean Corpuscular Hemoglobin Concent 35, Red Cell Distribution Width 12.3, Platelet Count 299, Mean Platelet Volume 8.6, Sodium Level 136, Potassium Level 3.6, Chloride Level 103, Carbon Dioxide Level 23, Anion Gap 10, Blood Urea Nitrogen 5L, Creatinine 0.56L, Estimat Glomerular Filtration Rate > 60, BUN/Creatinine Ratio 9, Glucose Level 108H, Calcium Level 8.3L Microbiology 01/29/18 Blood Culture - Preliminary, Resulted No growth 01/29/18 MRSA Screen - Final, Complete MRSA not isolated 01/29/18 Gram Stain - Final, Complete 01/29/18 Anaerobic Culture - Final, Complete Bacteroides fragilis group 01/29/18 Surgical Culture - Final, Complete Escherichia coli See Comments Assessment/Plan Assessment/Plan Assessment/Plan perforated diverticulitis sepsis secondary to perforated diverticulitis Status post exploratory laparotomy Larry procedure Afib Hypokalemia-improved ESBL+ sensitive to Meropenem On clear liquids at this time. Wound changes and ostomy care Continue IV antibiotics and IV hydration. Increase activity slowly SCDs and ambulation for DVT prophylaxis on Lovenox Repeat labs in the morning. If wbc continues to increase would consider repeat ct Clinical Quality Measures DVT/VTE Risk/Contraindication: Risk Factor Score Per Nursin RFS Level Per Nursing on Admit: 4+=Very High AARTI MONZON DO February 03, 2018 07:44
[2018-02-03] MEDS: NICOTINE PATCH REMOVAL TP SCH (08:13)
[2018-02-03] MEDS: meTOprolol TARTRATE 50 MG (LOPRESSOR) TAB PO SCH ×2 (08:13→20:27)
[2018-02-03] MEDS: PANTOPRAZOLE 40 MG/10 ML (PROTONIX) VIAL IVP SCH (08:13)
[2018-02-03] MEDS: NICOTINE 21 MG (NICODERM) PATCH TD SCH ×2 (08:14→23:54)
[2018-02-03] MEDS: NS IV 1000 ML 1,000 ML IV SCH ×2 (08:14→20:27)
[2018-02-03 08:30] VITALS: BP 132/85
[2018-02-03] MEDS: POTASSIUM CL 10MEQ/50ML IVPB 50 ML IV SCH ×3 (08:30→10:43)
[2018-02-03] MEDS: ENOXAPARIN 40 MG/0.4 ML (LOVENOX) SYR SC SCH (10:43)
--- NOTE | 2018-02-03 13:56 | Progress Note-Hospitalist ---
Subjective HPI/CC On Admission Date Seen by Provider: February 03, 2018 Time Seen by Provider: 10:30 The patient is a 37-year-old white male who was admitted by Dr. Saha with recurrent diverticulitis problems. On this occasion it was determined that he had peritonitis and surgery was required. He reports that he is doing relatively well at this time however he has the hiccups at with every hiccup Causing him some discomfort. He reported that he had been hospitalized here last week and discharged in seemingly improved condition. He began to have symptoms began on Sunday. He was somewhat better and worked on Sunday. He also reports that the he reached for a cup in the back corner of a crib for his 1-year-old daughter. This caused him to put pressure on his belly and the pain got much worse at that point. He ultimately called the ambulance yesterday because of the severity of pain. No one was at home to drive him. Subjective/Events-last exam pt reports doing well. Hiccups resolved. No other complaints. Objective Exam Vital Signs Vital Signs Date Time Temp Pulse Resp B/P (MAP) Pulse Ox O2 Delivery O2 Flow Rate FiO2 02/03/18 08:30 97.3 86 20 132/85 (101) 97 Room Air 02/01/18 04:00 2.00 Capillary Refill : Less Than 3 Seconds General Appearance: No Apparent Distress, WD/WN Respiratory: Lungs Clear, No Respiratory Distress Cardiovascular: Regular Rate, Rhythm, No Murmur Gastrointestinal: Non Tender, Soft, Other (ostomy) Neurologic/Psychiatric: Alert, Oriented x3, Normal Mood/Affect Results/Procedures Lab Laboratory Tests 02/03/18 05:30 Patient resulted labs reviewed. Assessment/Plan Assessment and Plan Assess & Plan/Chief Complaint new on set a-fib Diagnosis/Problems Diagnosis/Problems (1) Atrial fibrillation Status: Acute Assessment & Plan: Self converted Continue on metoprolol DC telemetry Cardiology consulted, appreciate recmaurice GALINDO 0- will need ASA only at DC Qualifiers: Atrial fibrillation type: unspecified Qualified Codes: I48.91 - Unspecified atrial fibrillation (2) Perforation of sigmoid colon due to diverticulitis Status: Acute Assessment & Plan: s/p resection and ostomy Management by primary Dr Saha CLD ESBL in wound Continue on Merrem Will need at least 10 total days of antibiotics, discussed with Dr Saha this AM PICC ordered SW consulted for arrangement of outpatient antibiotics, appreciate assistance (3) Sepsis Status: Resolved Assessment & Plan: due to sigmoid perforation Continue on Merrem leukocytosis resolved PICC line placement Qualifiers: Sepsis type: Escherichia coli Qualified Codes: A41.51 - Sepsis due to Escherichia coli [e. coli] (4) Prophylactic measure Assessment & Plan: Lovenox CLD NS 100ml/hr Clinical Quality Measures DVT/VTE Risk/Contraindication: Risk Factor Score Per Nursin RFS Level Per Nursing on Admit: 4+=Very High JENNY VIRK MD February 03, 2018 1:56 pm
--- NOTE | 2018-02-03 14:55 | Cardiology Progress Note ---
Cardiology SOAP Progress Note Subjective: Stable. No palpitations. Objective: I&O/Vital Signs 02/03/18 02/03/18 02/03/18 02/03/18 04:00 06:00 07:00 08:00 Temp 98.0 Pulse 72 78 Resp 18 18 B/P (MAP) 118/75 (89) Pulse Ox 96 O2 Delivery Room Air Room Air 02/03/18 08:30 Temp 97.3 Pulse 86 Resp 20 B/P (MAP) 132/85 (101) Pulse Ox 97 O2 Delivery Room Air 02/03/18 00:00 Intake Total 1960 ml Balance 1960 ml Weight (Pounds): 167 Weight (Ounces): 0.0 Weight (Calculated Kilograms): 75.989539 Constitutional: appears stated age, AAO x 3; No apparent distress; well- developed, well-nourished Respiratory: No accessory muscle use, No respiratory distress, No chest tender , No chest expansion is symmetric; chest is bilaterally symmetric; No lungs clear to percussion; lungs clear to auscultation; No crackles, No rhonchi, No rales, No stridor, No wheezing, No pleural rub, No other Cardiovascular: regular rate-rhythm; No irregularly irregular, No extra beats, No parasternal heave is noted, No JVD, No edema, No bradycardia, No tachycardia , No point of maximal impulse, No cardiac thrills are palpable; S1 and S2; No gallop/S3, No gallop/S4, No diastolic murmur, No systolic murmur, No friction rub, No click, No other Gastrointestional: No tender, No soft, No round, No distended, No pulsatile mass, No organomegaly, No guarding, No rebound; tenderness; No hernia, No mass, No audible bowel sounds, No abnormal bowel sounds, No abdominal bruits, No spleenomegaly, No other Extremities: No normal range of motion, No non-tender, No normal inspection, No pedal edema, No calf tenderness, No normal capillary refill, No pelvis stable , No calf tenderness, No inflammation, No pedal edema, No slow capillary refill , No swelling, No other, No abrasion, No clubbing, No cyanosis, No ecchymosis, No laceration, No no lower extremity edema bilateral, No significant edema, No tenderness, No wound Neurologic/Psychiatric: No grain and yeast plants supervisor II-XII nml as tested; no motor/sensory deficits , alert, normal mood/affect, oriented x 3; No abnormal cerebellar tests, No abnormal grain and yeast plants supervisor II-XII, No abnormal gait, No aphasia, No EOM palsy, No facial droop , No motor weakness, No sensory deficit, No depressed affect, No disoriented x 3 , No other, No grossly intact; power is 5/5 both on sides Skin: No normal color, No warm/dry, No cyanosis, No cool, No diaphoresis, No damp, No ecchymosis, No jaundice, No mottled, No pallor, No rash, No tattoos/ piercings, No ulcerations, No rash on exposed areas, No ulcerations on exposed areas, No other Results/Procedures: Labs Laboratory Tests 02/03/18 05:30: White Blood Count 13.1H, Red Blood Count 3.73L, Hemoglobin 12.7L, Hematocrit 36L , Mean Corpuscular Volume 97, Mean Corpuscular Hemoglobin 34, Mean Corpuscular Hemoglobin Concent 35, Red Cell Distribution Width 12.3, Platelet Count 299, Mean Platelet Volume 8.6, Sodium Level 136, Potassium Level 3.6, Chloride Level 103, Carbon Dioxide Level 23, Anion Gap 10, Blood Urea Nitrogen 5L, Creatinine 0.56L, Estimat Glomerular Filtration Rate > 60, BUN/Creatinine Ratio 9, Glucose Level 108H, Calcium Level 8.3L Microbiology 01/29/18 Blood Culture - Preliminary, Resulted No growth 01/29/18 MRSA Screen - Final, Complete MRSA not isolated 01/29/18 Gram Stain - Final, Complete 01/29/18 Anaerobic Culture - Final, Complete Bacteroides fragilis group 01/29/18 Surgical Culture - Final, Complete Escherichia coli See Comments A/P: Assessment/Dx: Atrial fibrillation with rapid ventricular rate, Sinus tachycardia, Large bowel perforation, status post surgery, Hypokalemia Plan: Atrial fibrillation with rapid ventricular rate, telemetry shows sinus rhythm. Spontaneous cardioversion to sinus rhythm.. Patient was on metoprolol and Lovenox. Continue metoprolol. Lovenox for DVT prophylaxis. CHADSVASC score 0. Therefore full aspirin is recommended as an outpatient. Echocardiogram showed normal LVEF with no valvular heart disease. Discontinue telemetry. Atrial fibrillation likely due to major surgery and abdominal pain. I discussed at length with the patient and educated him that it was likely due to severe systemic stress. However these patients are at increased risk for developing atrial fibrillation in the future. Sinus tachycardia, improved. Large bowel perforation, status post surgery, requires IV antibiotics via PICC line. Hypokalemia, replace potassium repletion. Keep potassium over 4.0. Thank you for your consultation. Please call me if you have any questions. Temo Manzanares MD, FACP, FACC, FSCAI, FHRS, CCDS Interventional Cardiology Cardiac Electrophysiology Vascular Medicine and Endovascular Interventions Kitty MANZANARES MD February 03, 2018 2:55 pm
[2018-02-03] MEDS: morphine PCA 30 MG/30 ML VIAL IV PRN (16:02)
[2018-02-03 16:30] VITALS: BP 137/78
[2018-02-03 20:00] VITALS: BP 135/88
[2018-02-04 00:50] VITALS: BP 113/72
[2018-02-04 04:35] VITALS: BP 116/71
[2018-02-04] MEDS: MEROPENEM 500 MG in NS (IVPB) 100 ML IV SCH ×4 (05:36→23:42)
[2018-02-04] MEDS: NS IV 1000 ML 1,000 ML IV SCH ×2 (05:36→17:04)
[2018-02-04 06:05] LABS: HEMOGLOBIN 12.3 G/DL (13.3-17.7); MEAN PLATELET VOLUME 9.2 FL (7.4-10.4); RED BLOOD COUNT 3.6 10^6/uL (4.35-5.85); WHITE BLOOD COUNT 10.9 10^3/uL (4.3-11.0)
[2018-02-04 06:23] LABS: BUN/CREATININE RATIO 9; CALCIUM 8.4 MG/DL (8.5-10.1); CARBON DIOXIDE 25 MMOL/L (21-32); CHLORIDE 104 MMOL/L (98-107); CREATININE SERUM 0.54 MG/DL (0.60-1.30); GFR ESTIMATED > 60; GLUCOSE 105 MG/DL (70-105); POTASSIUM 3.6 MMOL/L (3.6-5.0); SODIUM 137 MMOL/L (135-145)
[2018-02-04 08:30] VITALS: BP 115/83
[2018-02-04] MEDS: meTOprolol TARTRATE 50 MG (LOPRESSOR) TAB PO SCH ×2 (09:05→20:16)
[2018-02-04] MEDS: NICOTINE 21 MG (NICODERM) PATCH TD SCH (09:05)
[2018-02-04] MEDS: NICOTINE PATCH REMOVAL TP SCH (09:05)
[2018-02-04] MEDS: PANTOPRAZOLE 40 MG/10 ML (PROTONIX) VIAL IVP SCH (09:05)
[2018-02-04] MEDS: morphine PCA 30 MG/30 ML VIAL IV PRN (09:24)
--- NOTE | 2018-02-04 10:03 | Progress Note ---
Subjective Time Seen by Provider: 09:46 Subjective/Events-last exam Pt seen and examined. States pain is minimal and he is getting gas out of ostomy. Denies SOB or N/V. Review of Systems General: No Chills, No Night Sweats Pulmonary: No Cough Cardiovascular: No: Chest Pain Objective Exam Vital Signs Date Time Temp Pulse Resp B/P (MAP) Pulse Ox O2 Delivery O2 Flow Rate FiO2 02/04/18 09:24 18 02/04/18 06:00 18 02/04/18 04:35 97.6 70 18 116/71 (86) 97 Room Air 02/04/18 00:50 99.8 67 18 113/72 (86) 98 Room Air 02/03/18 20:00 99.5 98 18 135/88 (104) 96 Room Air 02/03/18 20:00 Room Air 02/03/18 17:29 20 02/03/18 16:30 97.5 80 20 137/78 (97) 96 Room Air 02/03/18 16:02 20 I & O 02/04/18 07:00 Intake Total 5990 ml Output Total 10 ml Balance 5980 ml Capillary Refill : Less Than 3 Seconds General Appearance: No Apparent Distress, WD/WN HEENT: PERRL/EOMI Respiratory: Lungs Clear, No Respiratory Distress Cardiovascular: Regular Rate, Rhythm, No Murmur Gastrointestinal: soft, distended (mild), tenderness (midline wound open and clean, ostomy pink/minimal purple with air coming out) Extremity: No Calf Tenderness, No Pedal Edema Results Lab Laboratory Tests 02/04/18 05:20: White Blood Count 10.9, Red Blood Count 3.60L, Hemoglobin 12.3L, Hematocrit 35L , Mean Corpuscular Volume 98, Mean Corpuscular Hemoglobin 34, Mean Corpuscular Hemoglobin Concent 35, Red Cell Distribution Width 12.0, Platelet Count 327, Mean Platelet Volume 9.2, Sodium Level 137, Potassium Level 3.6, Chloride Level 104, Carbon Dioxide Level 25, Anion Gap 8, Blood Urea Nitrogen 5L, Creatinine 0.54L, Estimat Glomerular Filtration Rate > 60, BUN/Creatinine Ratio 9, Glucose Level 105, Calcium Level 8.4L Microbiology 01/29/18 Blood Culture - Final, Complete No growth 01/29/18 MRSA Screen - Final, Complete MRSA not isolated 01/29/18 Gram Stain - Final, Complete 01/29/18 Anaerobic Culture - Final, Complete Bacteroides fragilis group 01/29/18 Surgical Culture - Final, Complete Escherichia coli See Comments Assessment/Plan Assessment/Plan Assessment/Plan perforated diverticulitis sepsis secondary to perforated diverticulitis Status post exploratory laparotomy Larry procedure Afib Hypokalemia-improved ESBL+ sensitive to Meropenem Increase to clear liquids, wound changes and ostomy care and will attempt to get Wound VAC Continue IV antibiotics and IV hydration. Encourage IS use and ambulation. Will switch to oral pain meds. Clinical Quality Measures DVT/VTE Risk/Contraindication: Risk Factor Score Per Nursin RFS Level Per Nursing on Admit: 4+=Very High LUIS F MCDONALD DO February 04, 2018 10:03
--- NOTE | 2018-02-04 10:05 | Cardiology Progress Note ---
Cardiology SOAP Progress Note Subjective: No palpitations. Objective: I&O/Vital Signs 02/04/18 02/04/18 02/04/18 02/04/18 00:50 04:35 06:00 09:24 Temp 99.8 97.6 Pulse 67 70 Resp B/P (MAP) 113/72 (86) 116/71 (86) Pulse Ox 98 97 O2 Delivery Room Air Room Air 02/04/18 00:00 Intake Total 3540 ml Output Total 10 ml Balance 3530 ml Weight (Pounds): 167 Weight (Ounces): 0.0 Weight (Calculated Kilograms): 75.842258 Constitutional: appears stated age, AAO x 3; No apparent distress; well- developed, well-nourished Respiratory: No accessory muscle use, No respiratory distress, No chest tender , No chest expansion is symmetric; chest is bilaterally symmetric; No lungs clear to percussion; lungs clear to auscultation; No crackles, No rhonchi, No rales, No stridor, No wheezing, No pleural rub, No other Cardiovascular: regular rate-rhythm; No irregularly irregular, No extra beats, No parasternal heave is noted, No JVD, No edema, No bradycardia, No tachycardia , No point of maximal impulse, No cardiac thrills are palpable; S1 and S2; No gallop/S3, No gallop/S4, No diastolic murmur, No systolic murmur, No friction rub, No click, No other Gastrointestional: No tender, No soft, No round, No distended, No pulsatile mass, No organomegaly, No guarding, No rebound; tenderness; No hernia, No mass, No audible bowel sounds, No abnormal bowel sounds, No abdominal bruits, No spleenomegaly, No other Extremities: No normal range of motion, No non-tender, No normal inspection, No pedal edema, No calf tenderness, No normal capillary refill, No pelvis stable , No calf tenderness, No inflammation, No pedal edema, No slow capillary refill , No swelling, No other, No abrasion, No clubbing, No cyanosis, No ecchymosis, No laceration, No no lower extremity edema bilateral, No significant edema, No tenderness, No wound Neurologic/Psychiatric: No pharmacy scheduler II-XII nml as tested; no motor/sensory deficits , alert, normal mood/affect, oriented x 3; No abnormal cerebellar tests, No abnormal pharmacy scheduler II-XII, No abnormal gait, No aphasia, No EOM palsy, No facial droop , No motor weakness, No sensory deficit, No depressed affect, No disoriented x 3 , No other, No grossly intact; power is 5/5 both on sides Skin: No normal color, No warm/dry, No cyanosis, No cool, No diaphoresis, No damp, No ecchymosis, No jaundice, No mottled, No pallor, No rash, No tattoos/ piercings, No ulcerations, No rash on exposed areas, No ulcerations on exposed areas, No other Results/Procedures: Labs Laboratory Tests 02/04/18 05:20: White Blood Count 10.9, Red Blood Count 3.60L, Hemoglobin 12.3L, Hematocrit 35L , Mean Corpuscular Volume 98, Mean Corpuscular Hemoglobin 34, Mean Corpuscular Hemoglobin Concent 35, Red Cell Distribution Width 12.0, Platelet Count 327, Mean Platelet Volume 9.2, Sodium Level 137, Potassium Level 3.6, Chloride Level 104, Carbon Dioxide Level 25, Anion Gap 8, Blood Urea Nitrogen 5L, Creatinine 0.54L, Estimat Glomerular Filtration Rate > 60, BUN/Creatinine Ratio 9, Glucose Level 105, Calcium Level 8.4L Microbiology 01/29/18 Blood Culture - Final, Complete No growth 01/29/18 MRSA Screen - Final, Complete MRSA not isolated 01/29/18 Gram Stain - Final, Complete 01/29/18 Anaerobic Culture - Final, Complete Bacteroides fragilis group 01/29/18 Surgical Culture - Final, Complete Escherichia coli See Comments A/P: Assessment/Dx: Atrial fibrillation with rapid ventricular rate, Sinus tachycardia, Large bowel perforation, status post surgery, Hypokalemia Plan: Atrial fibrillation with rapid ventricular rate, telemetry shows sinus rhythm. Spontaneous cardioversion to sinus rhythm.. Patient was on metoprolol and Lovenox. Continue metoprolol. Lovenox for DVT prophylaxis. CHADSVASC score 0. Therefore full aspirin is recommended as an outpatient. Echocardiogram showed normal LVEF with no valvular heart disease. Discontinue telemetry. Atrial fibrillation likely due to major surgery and abdominal pain. I discussed at length with the patient and educated him that it was likely due to severe systemic stress. However these patients are at increased risk for developing atrial fibrillation in the future. Sinus tachycardia, improved. Large bowel perforation, status post surgery, requires IV antibiotics via PICC line. Hypokalemia, replace potassium repletion. Keep potassium over 4.0. Thank you for your consultation. Please call me if you have any questions. Temo Manzanares MD, FACP, FACC, FSCAI, FHRS, CCDS Interventional Cardiology Cardiac Electrophysiology Vascular Medicine and Endovascular Interventions Kitty MANZANRAES MD February 04, 2018 10:05 am
[2018-02-04] MEDS: ENOXAPARIN 40 MG/0.4 ML (LOVENOX) SYR SC SCH (11:33)
[2018-02-04 12:30] VITALS: BP 120/75
--- NOTE | 2018-02-04 13:43 | Progress Note-Hospitalist ---
Progress Note Progress Notes/Assess & Plan Date Seen 02/04/18 Time Seen by Provider: 13:37 Assessment & Plan The patient is seen walking briskly in the hallways. He reports that he still has some abdominal pain but is passing gas and has been allowed to take simple oral solids. Physical exam: He is alert, upbeat, and lively. Lungs are clear to auscultation. CV is regular without murmur. Abdomen shows a colostomy in the left mid abdomen. There is no guarding or rebound noted to palpation. Bowel sounds are hypoactive. Impression: Perforated diverticulum with intraperitoneal soiling. 2.subsequent laparotomy with placement of DIVERTING colostomy Plan: Continue activity. Goal is discharge soon RASHIDA NÚÑEZ MD February 04, 2018 13:43
--- NOTE | 2018-02-04 15:23 | Diagnostic Imaging Report ---
INDICATION: PICC line placement. Frontal chest obtained at 02:36 p.m. and is compared to 02/09/2017. Heart and mediastinal silhouette are normal in appearance. The lungs are clear. There is no pneumothorax or pleural fluid. New right-sided PICC line tip overlies the mid SVC. IMPRESSION: New right-sided PICC line tip overlies mid SVC. Otherwise negative chest. Dictated by: Dictated on workstation # [id number]
[2018-02-04 16:20] VITALS: BP 128/85
[2018-02-04] MEDS: HYDROcodone/APAP 10 MG/325 MG (LORTAB) TAB PO PRN ×2 (16:59→20:57)
[2018-02-04 19:00] VITALS: BP 127/80
[2018-02-05] VITALS: BP 131/86
[2018-02-05] MEDS: NS IV 1000 ML 1,000 ML IV SCH ×2 (02:04→12:58)
[2018-02-05] MEDS: HYDROcodone/APAP 10 MG/325 MG (LORTAB) TAB PO PRN ×4 (02:04→14:51)
[2018-02-05 04:59] LABS: HEMOGLOBIN 11.8 G/DL (13.3-17.7); MEAN PLATELET VOLUME 8.5 FL (7.4-10.4); RED BLOOD COUNT 3.47 10^6/uL (4.35-5.85); RED CELL DISTRIBUTION WIDTH 12.1 % (10.0-14.5); WHITE BLOOD COUNT 8.9 10^3/uL (4.3-11.0)
[2018-02-05 05:17] LABS: BUN/CREATININE RATIO 8; CALCIUM 8.3 MG/DL (8.5-10.1); CARBON DIOXIDE 24 MMOL/L (21-32); CHLORIDE 104 MMOL/L (98-107); CREATININE SERUM 0.51 MG/DL (0.60-1.30); GFR ESTIMATED > 60; GLUCOSE 109 MG/DL (70-105); POTASSIUM 3.5 MMOL/L (3.6-5.0); SODIUM 136 MMOL/L (135-145)
[2018-02-05] MEDS: MEROPENEM 500 MG in NS (IVPB) 100 ML IV SCH (06:28)
[2018-02-05 08:30] VITALS: BP 130/89
[2018-02-05] MEDS ORDERED: ASPIRIN E.C. 325 MG (ECOTRIN) TABLET PO SCH (09:00)
[2018-02-05] MEDS: PANTOPRAZOLE 40 MG/10 ML (PROTONIX) VIAL IVP SCH (09:11)
[2018-02-05] MEDS: meTOprolol TARTRATE 50 MG (LOPRESSOR) TAB PO SCH (09:11)
[2018-02-05] MEDS: NICOTINE 21 MG (NICODERM) PATCH TD SCH (09:13)
[2018-02-05] MEDS: NICOTINE PATCH REMOVAL TP SCH (09:13)
[2018-02-05] MEDS: ENOXAPARIN 40 MG/0.4 ML (LOVENOX) SYR SC SCH (10:32)
[2018-02-05] MEDS ORDERED: ERTAPENEM 1 GM/NS 100 ML IVPB IV SCH ×2 (12:00)
--- NOTE | 2018-02-05 13:00 | Progress Note-Hospitalist ---
Progress Note Progress Notes/Assess & Plan Date Seen 02/05/18 Time Seen by Provider: 12:56 Assessment & Plan The patient continues to improve. He is up and about. Arrangements have been made for him to be discharged and to complete his IV antibiotics as an outpatient. This will continue through 02/08. A wound VAC has also been arranged for home use. Physical exam: He is alert and lively. He has tolerated oral feedings. Lungs are clear to auscultation. CV is regular. Abdomen is soft to palpation. Impression: 1.diverticulitis. 2.perforation and peritonitis. 3.status postop laparotomy and diverting colostomy. Plan: Discharge with outpatient completion of IV therapy. See discharge sequence for details. Copy Copies To 1: AARTI MONZON RODNEY K MD February 05, 2018 13:00
[2018-02-05] MEDS ORDERED: METO50TA15 PO (13:06)
[2018-02-05] MEDS ORDERED: HYDR-3820 PO (13:06)
[2018-02-05] MEDS ORDERED: ERTA1VIA IJ (13:06)
--- NOTE | 2018-02-05 13:22 | Discharge Instructions ---
Discharge Instructions Patient Instructions Patient Instructions: Report daily@stated time for outpatient antibiotic infusion beginning Sunday and ending Sunday. Advance diet as tolerated Continue walking. Follow-up appointment with Dr. Saha [facility]: Declining condition. Activity & Diet Discharge Diet: Eat Small Frequent Meals Activity as Tolerated: Yes RASHIDA NÚÑEZ MD February 05, 2018 13:21
--- NOTE | 2018-02-05 14:02 | Progress Note ---
Subjective Date Seen by Provider: February 05, 2018 Time Seen by Provider: 13:59 Subjective/Events-last exam patient feeling well. ostomy productive, wound vac in place. set up for outpatient wound care and antibiotics. tolerating diet denies n/v fever sweats chills shortness of breath or chest pain. Objective Exam Vital Signs Date Time Temp Pulse Resp B/P (MAP) Pulse Ox O2 Delivery O2 Flow Rate FiO2 02/05/18 08:30 98.8 80 20 130/89 (103) 98 Room Air 02/05/18 00:00 97.8 76 18 131/86 (101) 98 Room Air 02/04/18 19:00 98.4 93 18 127/80 (96) 95 Room Air 02/04/18 17:45 18 02/04/18 16:20 98.1 82 18 128/85 (99) 95 Room Air I & O 02/05/18 07:00 Intake Total 5140 ml Balance 5140 ml Capillary Refill : Less Than 3 Seconds General Appearance: No Apparent Distress, WD/WN HEENT: PERRL/EOMI Respiratory: Lungs Clear, No Respiratory Distress Cardiovascular: Regular Rate, Rhythm, No Murmur Gastrointestinal: soft, distended (minimal), tenderness (woundvac midline, ostomy pink/minimal purple with stool and flatus) Extremity: No Calf Tenderness, No Pedal Edema Neurologic/Psychiatric: Alert, Oriented x3 Skin: Normal Color, Warm/Dry Results Lab Laboratory Tests 02/05/18 04:50: White Blood Count 8.9, Red Blood Count 3.47L, Hemoglobin 11.8L, Hematocrit 34L, Mean Corpuscular Volume 97, Mean Corpuscular Hemoglobin 34, Mean Corpuscular Hemoglobin Concent 35, Red Cell Distribution Width 12.1, Platelet Count 369, Mean Platelet Volume 8.5, Sodium Level 136, Potassium Level 3.5L, Chloride Level 104, Carbon Dioxide Level 24, Anion Gap 8, Blood Urea Nitrogen 4L, Creatinine 0.51L, Estimat Glomerular Filtration Rate > 60, BUN/Creatinine Ratio 8, Glucose Level 109H, Calcium Level 8.3L Microbiology 01/29/18 Blood Culture - Final, Complete No growth 01/29/18 MRSA Screen - Final, Complete MRSA not isolated 01/29/18 Gram Stain - Final, Complete 01/29/18 Anaerobic Culture - Final, Complete Bacteroides fragilis group 01/29/18 Surgical Culture - Final, Complete Escherichia coli See Comments Assessment/Plan Assessment/Plan Assessment/Plan perforated diverticulitis sepsis secondary to perforated diverticulitis Status post exploratory laparotomy Larry procedure Afib Hypokalemia-improved ESBL+ sensitive to Meropenem wound care for vac [facility]wf home health and ostomy care weekly antibiotics set up for outpatient okay to nc home Clinical Quality Measures DVT/VTE Risk/Contraindication: Risk Factor Score Per Nursin RFS Level Per Nursing on Admit: 4+=Very High AARTI MONZON DO February 05, 2018 14:02
--- NOTE | 2018-02-05 14:34 | Cardiology Progress Note ---
Cardiology SOAP Progress Note Subjective: No cardiac symptoms. Objective: I&O/Vital Signs 02/05/18 02/05/18 08:30 16:10 Temp 98.8 Pulse 80 80 Resp 20 20 B/P (MAP) 130/89 (103) 130/89 Pulse Ox 98 98 O2 Delivery Room Air Room Air 02/05/18 00:00 Intake Total 2640 ml Balance 2640 ml Weight (Pounds): 167 Weight (Ounces): 0.0 Weight (Calculated Kilograms): 75.251027 Constitutional: appears stated age, AAO x 3; No apparent distress; well- developed, well-nourished Respiratory: No accessory muscle use, No respiratory distress, No chest tender , No chest expansion is symmetric; chest is bilaterally symmetric; No lungs clear to percussion; lungs clear to auscultation; No crackles, No rhonchi, No rales, No stridor, No wheezing, No pleural rub, No other Cardiovascular: regular rate-rhythm; No irregularly irregular, No extra beats, No parasternal heave is noted, No JVD, No edema, No bradycardia, No tachycardia , No point of maximal impulse, No cardiac thrills are palpable; S1 and S2; No gallop/S3, No gallop/S4, No diastolic murmur, No systolic murmur, No friction rub, No click, No other Gastrointestional: No tender, No soft, No round, No distended, No pulsatile mass, No organomegaly, No guarding, No rebound, No tenderness, No hernia, No mass, No audible bowel sounds, No abnormal bowel sounds, No abdominal bruits, No spleenomegaly, No other Extremities: No normal range of motion, No non-tender, No normal inspection, No pedal edema, No calf tenderness, No normal capillary refill, No pelvis stable , No calf tenderness, No inflammation, No pedal edema, No slow capillary refill , No swelling, No other, No abrasion, No clubbing, No cyanosis, No ecchymosis, No laceration, No no lower extremity edema bilateral, No significant edema, No tenderness, No wound Neurologic/Psychiatric: No regional sales engineer II-XII nml as tested; no motor/sensory deficits , alert, normal mood/affect, oriented x 3; No abnormal cerebellar tests, No abnormal regional sales engineer II-XII, No abnormal gait, No aphasia, No EOM palsy, No facial droop , No motor weakness, No sensory deficit, No depressed affect, No disoriented x 3 , No other, No grossly intact; power is 5/5 both on sides Skin: No normal color, No warm/dry, No cyanosis, No cool, No diaphoresis, No damp, No ecchymosis, No jaundice, No mottled, No pallor, No rash, No tattoos/ piercings, No ulcerations, No rash on exposed areas, No ulcerations on exposed areas, No other Results/Procedures: Labs Laboratory Tests 02/05/18 04:50: White Blood Count 8.9, Red Blood Count 3.47L, Hemoglobin 11.8L, Hematocrit 34L, Mean Corpuscular Volume 97, Mean Corpuscular Hemoglobin 34, Mean Corpuscular Hemoglobin Concent 35, Red Cell Distribution Width 12.1, Platelet Count 369, Mean Platelet Volume 8.5, Sodium Level 136, Potassium Level 3.5L, Chloride Level 104, Carbon Dioxide Level 24, Anion Gap 8, Blood Urea Nitrogen 4L, Creatinine 0.51L, Estimat Glomerular Filtration Rate > 60, BUN/Creatinine Ratio 8, Glucose Level 109H, Calcium Level 8.3L Microbiology 01/29/18 Blood Culture - Final, Complete No growth 01/29/18 MRSA Screen - Final, Complete MRSA not isolated 01/29/18 Gram Stain - Final, Complete 01/29/18 Anaerobic Culture - Final, Complete Bacteroides fragilis group 01/29/18 Surgical Culture - Final, Complete Escherichia coli See Comments A/P: Assessment/Dx: Atrial fibrillation with rapid ventricular rate, Sinus tachycardia, Large bowel perforation, status post surgery, Hypokalemia Plan: Atrial fibrillation with rapid ventricular rate, telemetry shows sinus rhythm. Spontaneous cardioversion to sinus rhythm. Patient to continue metoprolol as an outpatient. CHADSVASC score 0. Therefore full aspirin is recommended as an outpatient. Echocardiogram showed normal LVEF with no valvular heart disease. Discontinue telemetry. Atrial fibrillation likely due to major surgery and abdominal pain. I discussed at length with the patient and educated him that it was likely due to severe systemic stress. However these patients are at increased risk for developing atrial fibrillation in the future. Sinus tachycardia, improved. Large bowel perforation, status post surgery, requires IV antibiotics via PICC line. Hypokalemia, replaced. Thank you for your consultation. Please call me if you have any questions. Temo Manzanares MD, FACP, FACC, FSCAI, FHRS, CCDS Interventional Cardiology Cardiac Electrophysiology Vascular Medicine and Endovascular Interventions Kitty MANZANARES MD February 05, 2018 14:34
[2018-02-05 16:10] VITALS: BP 130/89
[2018-02-06] MEDS ORDERED: PANTOPRAZOLE 40 MG (PROTONIX) TAB PO SCH (07:00)
--- NOTE | 2018-02-27 00:43 | DISCHARGE SUMMARY ---
DATE OF SERVICE: ADMITTING DIAGNOSES: Perforated diverticulitis, sepsis secondary to perforated diverticulitis. DISCHARGE DIAGNOSES: Perforated diverticulitis, status post exploratory laparotomy with Larry procedure with end colostomy, sepsis secondary to perforated diverticulitis, atrial fibrillation, hypokalemia, extended spectrum beta-lactamases positive Escherichia coli. ADMITTING PHYSICIAN: Aarti Saha DO. CONSULTANTS: 1. Francis Caraballo MD. 2. Юлия Manzanares MD. HOSPITAL COURSE: The patient is a 37-year-old male who had previously had a microperforation of diverticulitis. He is able to be discharged with conservative management. The patient had return of abdominal pain and was reevaluated in the Emergency Department and found to have perforated diverticulitis and was peritoneal. He was taken to the operating room for exploratory laparotomy and Larry's procedure. The patient postoperatively was doing well. He is continued on antibiotics. His cultures grew ESBL positive E. coli. His antibiotics were adjusted appropriately. The patient over the hospital course had return of bowel function, was tolerating diet. He did have a run of AFib, which returned normal by Dr. Manzanares who was consulted and managed. The patient once on oral pain control had bowel function, was able to be discharged and set up for outpatient antibiotics. Please see discharge instructions for further instructions that were provided. Job ID: [id number] DocumentID: [id number] Dictated Date: 02/26/2018 16:37:43 [employer] And [employer] Supervisor Date: 02/27/2018 00:43:25 Dictated By: AARTI SAHA DO MTDD
== END 2018-02-05 16:10 | disposition home health service (06) | DRG 854 ==
LOC: EDUNIT# 08:34 → ER 08:35 → SDC 10:28 → 4TH 14:08
PROVIDERS: ADMIT Surgery; ATTEND Surgery
PROC: 0D1N0Z4 Bypass Sigmoid Colon to Cutaneous, Open Approach (ICD-10-PCS; 2018-01-29)
PROC: 0DBN0ZZ Excision of Sigmoid Colon, Open Approach (ICD-10-PCS; principal; 2018-01-29 12:27)
DX: A41.51 Sepsis due to Escherichia coli [E. coli] (principal); K57.20 Diverticulitis of large intestine with perforation and abscess without bleeding; I48.0 Paroxysmal atrial fibrillation; E87.6 Hypokalemia; R00.0 Tachycardia, unspecified; R06.6 Hiccough; F17.210 Nicotine dependence, cigarettes, uncomplicated
CPT/HCPCS: 36415; 36569; 71045; 74177; 76937; 80048; 80053; 80320; 83605; 83690; 83735; 84100; 85007; 85027; 86141; 86850; 86900; 86901; 87040; 87070; 87075; 87077; 87081; 87186; 87205; 88307; 93005; 93306; 94664; 94760; 96365; 96372; 96375; 96376

== ENCOUNTER 2018-02-08 13:00 | Outpatient (RCR) | payer MEDICAID, OTHER ==
[2018-02-06 14:07] VITALS: BP 129/92
[2018-02-07 13:35] VITALS: BP 119/84
--- NOTE | 2018-02-07 15:38 | Physician Query-Final Dx ---
HOLDNE PUTNAM 02/07/18 1538: Clinic Account Progress/Dx Physician Query: Please give a diagnosis for the Invanz treatment thank you Date of Service February 07, 2018 at 13:06 RASHIDA NÚÑEZ MD 02/20/18 1414: Clinic Account Progress/Dx Physician Query: Please give diagnosis Saha DIAGNOSIS: Diagnosis Perforated diverticulum with peritonitis Progress Note: Review Prescribed in order to complete required days for DX of peritonitis. Ertapenem dosage allowed for this as an outpatient HOLDEN PUTNAM February 07, 2018 15:38 RASHIDA NÚÑEZ MD February 20, 2018 14:14
[~2018-02-08] VITALS: Ht 175.3 cm; Wt 75.7 kg
[~2018-02-08 13:00] MED LIST changes: +ACET-168 PO; +ERTA1VIA IJ; +ERTAPENEM 1 GM/NS 100 ML IVPB IV SCH; +ERTAPENEM 1 GM/NS 50 ML IVPB IV SCH; +HYDR-3820 PO; +METO50TA15 PO
[2018-02-08] MEDS ORDERED: NS (IVPB) 50 ML ONE (13:02)
[2018-02-08] MEDS ORDERED: ERTAPENEM 1000 MG (INVanz) VIAL ONE ×2 (13:02→13:14)
[2018-02-08] MEDS ORDERED: NS (IVPB) 100 ML ONE (13:14)
[2018-02-08 13:26] VITALS: BP 115/82
== END 2018-05-07 | disposition home or self-care (01) ==
LOC: SDC 13:00
PROVIDERS: ATTEND Internal Medicine
DX: K57.80 Diverticulitis of intestine, part unspecified, with perforation and abscess without bleeding (principal)
CPT/HCPCS: 96365; 99212

== ENCOUNTER → 2018-02-11 | Outpatient (CLI) | payer MEDICAID, OTHER ==
[~2018-02-11] MED LIST changes: -ERTAPENEM 1 GM/NS 100 ML IVPB IV SCH; -ERTAPENEM 1 GM/NS 50 ML IVPB IV SCH
== END ==
LOC: WOUNDCARE 13:44
PROVIDERS: ATTEND Surgery
DX: L98.492 Non-pressure chronic ulcer of skin of other sites with fat layer exposed (principal); K57.20 Diverticulitis of large intestine with perforation and abscess without bleeding
CPT/HCPCS: 11042; 11045; 87070; 87075; 87186; 87205; 97606

== ENCOUNTER → 2018-02-18 | Outpatient (CLI) | payer MEDICAID, OTHER | LOC: WOUNDCARE 14:14 | PROVIDERS: ATTEND Surgery | DX: L98.492 Non-pressure chronic ulcer of skin of other sites with fat layer exposed (principal); K57.20 Diverticulitis of large intestine with perforation and abscess without bleeding | CPT/HCPCS: 11042; 11045; 97606 ==

== ENCOUNTER → 2018-02-27 | Outpatient (CLI) | payer MEDICAID, OTHER | LOC: WOUNDCARE 11:16 | PROVIDERS: ATTEND Surgery | DX: T81.89XA Other complications of procedures, not elsewhere classified, initial encounter (principal); L98.492 Non-pressure chronic ulcer of skin of other sites with fat layer exposed; K57.20 Diverticulitis of large intestine with perforation and abscess without bleeding | CPT/HCPCS: 11042; 11045; 97605 ==

== ENCOUNTER → 2018-03-06 | Outpatient (CLI) | payer MEDICAID | LOC: WOUNDCARE 13:03 | PROVIDERS: ATTEND Surgery | DX: L98.492 Non-pressure chronic ulcer of skin of other sites with fat layer exposed (principal); K57.20 Diverticulitis of large intestine with perforation and abscess without bleeding | CPT/HCPCS: 11042; 11045; 97605 ==

== ENCOUNTER → 2018-03-11 | Outpatient (CLI) | payer MEDICAID | LOC: WOUNDCARE 14:06 | PROVIDERS: ATTEND Surgery | DX: L98.492 Non-pressure chronic ulcer of skin of other sites with fat layer exposed (principal); K57.20 Diverticulitis of large intestine with perforation and abscess without bleeding; T65.222A Toxic effect of tobacco cigarettes, intentional self-harm, initial encounter | CPT/HCPCS: 11042; 11045; 97605 ==

== ENCOUNTER → 2018-03-18 | Outpatient (CLI) | payer MEDICAID | LOC: WOUNDCARE 14:07 | PROVIDERS: ATTEND Surgery | DX: L98.492 Non-pressure chronic ulcer of skin of other sites with fat layer exposed (principal); K57.20 Diverticulitis of large intestine with perforation and abscess without bleeding; T65.222A Toxic effect of tobacco cigarettes, intentional self-harm, initial encounter | CPT/HCPCS: 11042 ==

== ENCOUNTER → 2018-04-01 | Outpatient (CLI) | payer MEDICAID | LOC: WOUNDCARE 14:08 | PROVIDERS: ATTEND Surgery | DX: L98.492 Non-pressure chronic ulcer of skin of other sites with fat layer exposed (principal); K57.20 Diverticulitis of large intestine with perforation and abscess without bleeding; T65.222A Toxic effect of tobacco cigarettes, intentional self-harm, initial encounter | CPT/HCPCS: 11042 ==

== ENCOUNTER → 2018-04-08 | Outpatient (CLI) | payer MEDICAID | LOC: WOUNDCARE 14:06 | PROVIDERS: ATTEND Surgery | DX: L98.492 Non-pressure chronic ulcer of skin of other sites with fat layer exposed (principal); K57.20 Diverticulitis of large intestine with perforation and abscess without bleeding; T65.222A Toxic effect of tobacco cigarettes, intentional self-harm, initial encounter | CPT/HCPCS: 99212 ==

== ENCOUNTER 2018-05-14 05:38 | Outpatient (CLI) | payer MEDICAID ==
[~2018-05-14] VITALS: Ht 175.3 cm; Wt 81.6 kg
== END 2018-05-14 11:48 | disposition home or self-care (01) ==
LOC: PREOP 05:38
PROVIDERS: ATTEND Surgery
DX: Z01.818 Encounter for other preprocedural examination (principal)

== ENCOUNTER 2018-06-12 08:00 | Outpatient (CLI) | payer MEDICAID ==
[~2018-06-12] VITALS: Ht 175.3 cm; Wt 81.6 kg
[~2018-06-12 08:00] MED LIST changes: -OXYC-197 PO; +OXYC1TAB87 PO
[2018-06-12] MEDS ORDERED: METO-370 PO (08:54)
== END 2018-06-12 09:08 | disposition home or self-care (01) ==
LOC: PREOP 08:00
PROVIDERS: ATTEND Surgery
DX: Z01.818 Encounter for other preprocedural examination (principal)

== ENCOUNTER 2018-06-13 07:25 | Inpatient (IN) | payer MEDICAID ==
[~2018-06-13] VITALS: Ht 175.3 cm; Wt 81.6 kg
[~2018-06-13 07:25] MED LIST changes: +METO-370 PO
[2018-06-13] MEDS: LACTATED RINGERS 1,000 ML IV PRN ×3 (07:25→11:10)
[2018-06-13] MEDS ORDERED: BUPIVACAINE 0.5% 30 ML (SENSORCAINE) VIAL ONE (07:35)
[2018-06-13] MEDS ORDERED: LIDOCAINE 1% INJ 20 ML 20 ML VIAL ONE (07:35)
[2018-06-13 07:45] VITALS: BP 134/96
[2018-06-13] MEDS ORDERED: metroNIDAZOLE 500MG/100ML IVPB 100 ML IV ONE (07:45)
[2018-06-13] MEDS ORDERED: CATHETER FLUSH 10 ML SYR IV PRN (07:45)
[2018-06-13] MEDS ORDERED: ceFAZolin 2 GM IV Premixed 50 ML IV ONE (07:45)
[2018-06-13 07:59] LABS: BASOPHILS # (AUTO) 0.1 10^3/uL (0.0-0.1); BASOPHILS % (AUTO) 1 % (0-10); EOSINOPHILS # (AUTO) 0.2 10^3/uL (0.0-0.3); EOSINOPHILS % (AUTO) 3 % (0-10); HEMATOCRIT 52 % (40-54); HEMOGLOBIN 19.4 G/DL (13.3-17.7); LYMPHOCYTES # (AUTO) 1.9 X 10^3 (1.0-4.0); LYMPHOCYTES % (AUTO) 25 % (12-44); MEAN CORPUSCULAR HEMOGLOBIN 37 PG (25-34); MEAN CORPUSCULAR HGB CONC 37 G/DL (32-36); MEAN CORPUSCULAR VOLUME 99 FL (80-99); MEAN PLATELET VOLUME 9.1 FL (7.4-10.4); MONOCYTES # (AUTO) 0.8 X 10^3 (0.0-1.0); MONOCYTES % (AUTO) 10 % (0-12); NEUTROPHILS # (AUTO) 4.6 X 10^3 (1.8-7.8); NEUTROPHILS % (AUTO) 61 % (42-75); PLATELET COUNT 275 10^3/uL (130-400); RED BLOOD COUNT 5.28 10^6/uL (4.35-5.85); WHITE BLOOD COUNT 7.5 10^3/uL (4.3-11.0)
--- NOTE | 2018-06-13 09:02 | Progress Note-Pre Operative ---
Pre-Operative Progress Note H&P Reviewed The H&P was reviewed, patient examined and no changes noted. Date Seen by Provider: Jun 13, 2018 Time Seen by Provider: 09:01 Date H&P Reviewed: Jun 13, 2018 Time H&P Reviewed: 09:02 Pre-Operative Diagnosis: HISTORY PERFORATED DIVERTICULITIS, S/P AARTI TAYLOR DO Jun 13, 2018 09:02
[2018-06-13] MEDS ORDERED: MEROPENEM 500 MG in NS (IVPB) 100 ML IV ONE (09:15)
[2018-06-13] MEDS ORDERED: LIDOCAINE PF 2% 2 ML (XYLOCAINE) VIAL ONE (09:20)
[2018-06-13] MEDS ORDERED: ONDANSETRON 4 MG/2 ML (SDV) Z0FRAN ONE (09:20)
[2018-06-13] MEDS ORDERED: ROCURONIUM 10 MG/ML 5 ML SYRINGE IV ONE ×2 (09:20→12:29)
[2018-06-13] MEDS ORDERED: DEXAMETHASONE 10 MG/ML (DECADRON) 1 ML VIAL ONE (09:20)
[2018-06-13] MEDS ORDERED: SEVOFLURANE (ULTANE) 15 ML INHAL SOLN ONE ×10 (09:20→12:50)
[2018-06-13] MEDS ORDERED: proPOfol 200 MG/20 ML (DIPRIVAN) VIAL IV ONE (09:20)
[2018-06-13] MEDS ORDERED: MIDAZOLAM 2 MG/2 ML (VERSED) VIAL ONE (09:21)
[2018-06-13] MEDS ORDERED: fentaNYL INJECTION 100 MCG/2 ML AMP ONE (09:21)
[2018-06-13] MEDS ORDERED: ESMOLOL 100 MG/10 ML (BREVIBLOC) VIAL ONE (10:25)
[2018-06-13] MEDS ORDERED: PHENYLEPHRINE 100 MCG/ML 10 ML (ANESTHESIA) SYR ONE (11:20)
[2018-06-13] MEDS ORDERED: LACTATED RINGERS 2,000 ML IV ONE (11:21)
[2018-06-13] MEDS ORDERED: NEOSTIGMINE 1 MG/ML 5 ML SYRINGE ONE (12:56)
[2018-06-13] MEDS ORDERED: GLYCOPYRROLATE 0.2 MG/ML (ROBINUL) 2 ML VIAL ONE (12:57)
[2018-06-13] MEDS ORDERED: morphine INJ 10 MG/ML 1ML (SYR OR VIAL) ONE (13:14)
[2018-06-13] MEDS ORDERED: HYDROmorphone 2 MG/ML VIAL (DILAUDID) IV ONE (13:30)
[2018-06-13] MEDS ORDERED: ONDANSETRON 4 MG/2 ML (SDV) Z0FRAN IVP PRN ×2 (13:30→14:15)
[2018-06-13] MEDS ORDERED: MEPERIDINE (DEMEROL) INJ 50 MG/ML IVP ONE (13:30)
[2018-06-13] MEDS ORDERED: PROMETHAZINE INJ 25 MG/ML (PHENERGAN) AMP IVP ONE (13:30)
[2018-06-13] MEDS ORDERED: morphine INJ 10 MG/ML 1ML (SYR OR VIAL) IVP ONE (13:30)
--- NOTE | 2018-06-13 14:07 | Progress Note-Post Operative ---
Post-Operative Progess Note Surgeon (s)/Custom Feed Mill Operator (s) Surgeon AARTI MONZON DO Custom Feed Mill Operator: Dr. Ramsey Pre-Operative Diagnosis HISTORY PERFORATED DIVERTICULITIS, S/P MCGOVERN Post-Operative Diagnosis same Procedure & Operative Findings Date of Procedure 06/13/18 Procedure Performed/Findings laparoscopic colostomy reversal Anesthesia Type general Estimated Blood Loss Estimated blood loss (mL): minimal Specimens/Packing Specimens Removed anastomotic rings AARTI MONZON DO Jun 13, 2018 14:07
[2018-06-13 14:10] VITALS: BP 132/83
[2018-06-13] MEDS: morphine INJ 10 MG/ML 1ML (SYR OR VIAL) IVP PRN ×4 (14:42→22:16)
[2018-06-13] MEDS: LACTATED RINGERS 1,000 ML IV SCH ×2 (14:42→22:16)
--- NOTE | 2018-06-13 15:10 | Consultation-Hospitalist ---
KATY RODRIGUEZ MEDICAL STUDENT 06/13/18 1509: HPI History of Present Illness: HPI/Chief Complaint CC: Colostomy reversal HPI: Patient is a 37 year old male with history afib and of diverticulitis with sigmoid perforation s/p colostomy placement in January 2018 that presented for colostomy reversal. He underwent surgery today and is admitted for recovery. He currently has a sore pain, 8/10, at his colostomy site, but his pain medication has been helpful. He is not yet passing any gas. Otherwise, he has no questions or concerns at this time. Source: patient Exam Limitations: no limitations Date Seen 06/13/18 Attending Physician James Saha DO [facility] Referring Physician James Saha DO Date of Admission Jun 13, 2018 at 07:25 Home Medications & Allergies Home Medications Reviewed patient Home Medication Reconciliation performed by pharmacy medication reconciliations photographic technician and/or nursing. Patients Allergies have been reviewed. Allergies Allergies Coded Allergies No Known Drug Allergies (Verified06/13/18) Past Qdtolmh-Dbzzih-Pvcqav Hx Patient Social History Marrital Status: single Employed/Student: employed (Employed by [employer] in [place]) Alcohol Use: Regular Use (15 beers/week) Number of Drinks Today: AA Alcohol Beverage of Choice: Beer Recreational Drug Use: Yes Drug of Choice: POT Smoking Status: Current Everyday Smoker Type Used: Cigarettes 2nd Hand Smoke Exposure: Yes Physical Abuse Screen: No Sexual Abuse: No Recent Foreign Travel: No Contact w/other who traveled: No Recent Hopitalizations: No Recent Infectious Disease Expo: No Immunizations Up To Date Tetanus Booster (TDap): Unknown Pediatric: Yes Seasonal Allergies Seasonal Allergies: Yes Past Medical History Surgeries: Orthopedic (Previous surgery on right fractured metacarpals, surgery on fracture orbit/maxilla) Currently Using CPAP: No Currently Using BIPAP: No Cardiac: Hypertension Reproductive: No Sexually Transmitted Disease: No HIV/AIDS: No Gastrointestinal: Diverticulosis Loss of Vision: Denies Hearing Impairment: Denies History of Blood Disorders: No Adverse Reaction to Blood Black: No (N/A) Family History Myocardial infarction MATERNAL GRANDFATHER ( FROM MASSIVE HEART ATTACK) Neoplasm 19 FATHER ( last year 2017 from colon cancer) Cancer Review of Systems Constitutional: No chills, No fever, No weight loss EENTM: nose congestion; No mouth pain Respiratory: cough; No dyspnea on exertion Cardiovascular: No chest pain Gastrointestinal: abdominal pain; No nausea, No vomiting Genitourinary: no symptoms reported Musculoskeletal: no symptoms reported Skin: no symptoms reported Psychiatric/Neurological: No Symptoms Reported Physical Exam Physical Exam Vital Signs Vital Signs - First Documented 06/13/18 07:45 Temp 97.0 Pulse 112 Resp 16 B/P (MAP) 134/96 (109) Pulse Ox 96 O2 Delivery Room Air Capillary Refill : Height, Weight, BMI Height: 5'9.00" Weight: 180lbs. 0.0oz. 81.978259mq; 26.6 BMI Method:Stated General Appearance: No Apparent Distress, WD/WN HEENT: Pharynx Normal; No Moist Mucous Membranes (Dry pharynx) Respiratory: Normal Breath Sounds, No Accessory Muscle Use, No Respiratory Distress Cardiovascular: Regular Rate, Rhythm, No Edema, No Murmur Gastrointestinal: Soft, Abnormal Bowel Sounds (Hypoactive), Other (Dressing over old ostomy site is clean, dry, intact.) Extremity: No Pedal Edema Neurologic/Psychiatric: Alert, Oriented x3 Skin: Normal Color, Warm/Dry Results Results/Procedures Labs Laboratory Tests 06/13/18 07:48 Patient resulted labs reviewed. Assessment/Plan Assessment and Plan Assess & Plan/Chief Complaint 37 year old with history of Afib and diverticulitis with sigmoid perforation s/ p colostomy placement admitted after colostomy reversal. 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 Polycythemia -Will continue to monitor, though not an acute problem Diagnosis/Problems Diagnosis/Problems (1) Polycythemia Status: Chronic (2) History of colostomy reversal Status: Acute (3) Atrial fibrillation with controlled ventricular rate Status: Chronic (4) Tobacco abuse Status: Chronic Clinical Quality Measures DVT/VTE Risk/Contraindication: Risk Factor Score Per Nursin RFS Level Per Nursing on Admit: 4+=Very High KING ANDRADE DO 06/14/18 1045: HPI History of Present Illness: HPI/Chief Complaint CC: medical management following colostomy take-down POD # 1 HPI: This is a 37yo s/p colostomy take-down yesterday in an uncomplicated manner by Dr Saha. Pt is having some urinary retention so will order Urecholine and overall he has no other issues. AF occurred post op last hospital stay and no evidence of this to have recurred. Source: patient, RN/MD Exam Limitations: no limitations Date Seen 06/14/18 Referring Physician Maria A Home Medications & Allergies Home Medications Reviewed Past Ebzdjld-Csnoqy-Ppobhr Hx Past Med/Social Hx: Reviewed Nursing Past Med/Soc Hx, Reviewed and Corrections made Patient Social History Marrital Status: single Employed/Student: employed (Employed by [employer] in [place]) Alcohol Use: Regular Use (15 beers/week) Alcohol Beverage of Choice: Beer Type Used: Cigarettes Seasonal Allergies Seasonal Allergies: Yes Past Medical History Surgeries: Abdominal, Orthopedic (Previous surgery on right fractured metacarpals, surgery on fracture orbit/maxilla) Cardiac: Hypertension Gastrointestinal: Diverticulosis Hearing Impairment: Denies Family History Myocardial infarction MATERNAL GRANDFATHER ( FROM MASSIVE HEART ATTACK) Neoplasm 19 FATHER ( last year 2016 from colon cancer) Review of Systems Constitutional: no symptoms reported EENTM: no symptoms reported Respiratory: no symptoms reported Cardiovascular: no symptoms reported Gastrointestinal: abdominal pain (RLQ) Genitourinary: hesitancy Musculoskeletal: no symptoms reported Skin: no symptoms reported Psychiatric/Neurological: No Symptoms Reported All Other Systems Reviewed Negative Unless Noted: Yes Physical Exam Physical Exam General Appearance: No Apparent Distress, WD/WN Eyes: Bilateral Eye Normal Inspection, Bilateral Eye PERRL HEENT: PERRL/EOMI, TMs Normal, Normal ENT Inspection, Pharynx Normal Neck: Full Range of Motion, Normal Inspection, Non Tender, Supple, Carotid Bruit Respiratory: Chest Non Tender, Lungs Clear, Normal Breath Sounds, No Accessory Muscle Use, No Respiratory Distress Cardiovascular: Regular Rate, Rhythm, No Edema, No Gallop, No JVD, No Murmur, Normal Peripheral Pulses Gastrointestinal: Normal Bowel Sounds, No Organomegaly, No Pulsatile Mass, Soft , Abnormal Bowel Sounds (Hypoactive), Other (Dressing over old ostomy site is clean, dry, intact.) Back: Normal Inspection, No CVA Tenderness, No Vertebral Tenderness Extremity: Normal Capillary Refill, Normal Inspection, Normal Range of Motion, Non Tender, No Calf Tenderness, No Pedal Edema Neurologic/Psychiatric: Alert, Oriented x3, No Motor/Sensory Deficits, Normal Mood/Affect Skin: Normal Color, Warm/Dry Lymphatic: No Adenopathy Assessment/Plan Assessment and Plan Assess & Plan/Chief Complaint Monitor for AF Ambulate Urecholine for urinary retention Diagnosis/Problems Diagnosis/Problems (1) History of colostomy reversal Status: Acute (2) Polycythemia Status: Chronic (3) Atrial fibrillation with controlled ventricular rate Status: Chronic (4) Tobacco abuse Status: Chronic (5) Urinary retention Status: Acute KATY RODRIGUEZ MEDICAL STUDENT Jun 13, 2018 15:09 KING ANDRADE DO Jun 14, 2018 10:45
--- NOTE | 2018-06-13 15:56 | OPERATIVE REPORT ---
DATE OF SERVICE: 06/13/2018 PREOPERATIVE DIAGNOSIS: History of perforated diverticulitis, status post Larry. POSTOPERATIVE DIAGNOSIS: History of perforated diverticulitis status post Larry. PROCEDURE: Laparoscopic colostomy reversal with end-to-end anastomosis. ANESTHESIA: General. SURGEON: Aarti Saha DO TELEGRAPHIC TYPEWRITER INSTALLER: Dr. Ramsey, assisted in retraction, dissection and closure. ESTIMATED BLOOD LOSS: Minimal. COMPLICATIONS: None. SPECIMENS: Anastomotic rings. INDICATIONS: The patient is a 37-year-old male with history of perforated diverticulitis with Larry procedure. He understands risks and benefits of reversal of colostomy and wishes to proceed. Consent was signed in the chart. PROCEDURE IN DETAIL: The patient was taken to the operating suite, was prepped and draped in sterile fashion. Timeout was performed. Local anesthetic was used to infiltrate the left upper quadrant. A 12 mm incision was made and cautery was used to dissect down the fascia, which was then scored and opened. The muscle was divided and the posterior fascia and peritoneum were entered and a balloon trocar was inserted into the abdomen. Pneumoperitoneum was achieved. There were multiple adhesions and a port was placed. A 5 mm trocar was placed in the right upper quadrant under direct visualization of the laparoscope. A LigaSure was then used to start taking down the adhesions. A second 5 mm trocar was placed in the right lower quadrant. Once all the adhesions were taken down, attention was then placed to the colostomy site. All the adhesions were dissected mobilizing the colostomy. Once no further dissection could be performed, an elliptical incision was made around the colostomy site and cautery was used to dissect down through subcutaneous tissues until the colostomy was completely freed. Once freed, it was brought out through the incision and assured proper length for reanastomosis. A 29 EEA anvil was then inserted into the colon and a KAI 55 blue load was then fired across the distal portion of the colon. The anvil was then brought out through the end of the colostomy in preparation for the end-to-end anastomosis. The distal portion of the colon was a skeletonized for better approximation. This was then dropped down back into the abdomen. The peritoneum was then closed with 0 Vicryl. The muscles were then closed with 3-0 Vicryls. The fascia was then closed using 1-0 looped PDS. The abdomen was then reinsufflated. Dr. Ramsey went down below to help create the EEA. There was a fairly significant amount of fat on the rectal stump, which was removed using the LigaSure. The rectum was dilated serially and the EEA handle was then inserted into the rectum and deployed. Anvil was then brought to the handle and clicked into place. The stapler was then fired. The handle was then removed, which had good rings. The pelvis had lots of irrigation placed in it and air leak test was then performed. No bubbles were present. The pelvis was then irrigated with copious amounts of irrigation and suction. The abdomen was reinspected noting no other pathology. The defect was closed for the colostomy. The abdomen was then desufflated. The trocars were removed. The fascial defect at the 12 mm trocar site was then closed using 0 Vicryl in a [id number] fashion. The skin was then washed and dried. All wounds were irrigated and washed and dried and josh were used to close the skin. The patient tolerated the procedure well without any complications and taken to recovery room in stable condition. Job ID: [id number] DocumentID: [id number] Dictated Date: 06/13/2018 14:43:18 Round Up Ring Hand Date: 06/13/2018 15:55:41 Dictated By: AARTI SAHA DO
[2018-06-13 16:00] VITALS: BP 132/83
[2018-06-13] MEDS: MEROPENEM 500 MG in NS (IVPB) 100 ML IV SCH ×2 (17:08→23:52)
[2018-06-13 19:30] VITALS: BP 124/58
[2018-06-14] MEDS: morphine INJ 10 MG/ML 1ML (SYR OR VIAL) IVP PRN ×9 (00:16→23:52)
[2018-06-14 00:46] VITALS: BP 120/74
[2018-06-14 04:10] VITALS: BP 116/64
[2018-06-14 05:15] LABS: HEMOGLOBIN 16.1 G/DL (13.3-17.7); MEAN PLATELET VOLUME 9.7 FL (7.4-10.4); RED BLOOD COUNT 4.39 10^6/uL (4.35-5.85); RED CELL DISTRIBUTION WIDTH 11.4 % (10.0-14.5); WHITE BLOOD COUNT 17.7 10^3/uL (4.3-11.0)
[2018-06-14] MEDS: MEROPENEM 500 MG in NS (IVPB) 100 ML IV SCH (05:35)
[2018-06-14] MEDS: LACTATED RINGERS 1,000 ML IV SCH ×3 (05:39→22:19)
[2018-06-14 06:12] LABS: BUN/CREATININE RATIO 10; CALCIUM 9.5 MG/DL (8.5-10.1); CARBON DIOXIDE 20 MMOL/L (21-32); CHLORIDE 104 MMOL/L (98-107); CREATININE SERUM 0.73 MG/DL (0.60-1.30); GFR ESTIMATED > 60; GLUCOSE 127 MG/DL (70-105); POTASSIUM 4.3 MMOL/L (3.6-5.0); SODIUM 134 MMOL/L (135-145)
--- NOTE | 2018-06-14 06:51 | Anesthesia-General Post-Op ---
General Patient Condition Mental Status/LOC: Same as Preop Cardiovascular: Satisfactory Nausea/Vomiting: Absent Respiratory: Satisfactory Pain: Controlled Complications: Absent Post Op Complications Complications None Follow Up Care/Instructions Patient Instructions None needed. Anesthesia/Patient Condition Patient Condition Patient is doing well, no complaints, stable vital signs, no apparent adverse anesthesia problems. No complications reported per nursing. SHANE FIGUEROA CRNA Jun 14, 2018 06:51
[2018-06-14 08:08] VITALS: BP 120/76
--- NOTE | 2018-06-14 09:07 | Progress Note-Hospitalist ---
KATY RODRIGUEZ MEDICAL STUDENT 06/14/18 0907: Subjective HPI/CC On Admission Date Seen by Provider: Jun 14, 2018 Time Seen by Provider: 08:15 CC: Colostomy reversal HPI: Patient is a 37 year old male with history afib and of diverticulitis with sigmoid perforation s/p colostomy placement in January 2018 that presented for colostomy reversal. He underwent surgery today and is admitted for recovery. Subjective/Events-last exam Pt did not sleep well overnight due to getting pain meds Q2H. He also had to get up to attempt to urinate overnight, with difficulty going - starting and stopping and incomplete emptying. No burning with urination. He is not yet passing gas. Pain is 6 or 7/10 today at his previous ostomy site. Pt is using IS. Focused Exam Respiratory: Chest Non Tender, Lungs Clear, Normal Breath Sounds Objective Exam Vital Signs Vital Signs Date Time Temp Pulse Resp B/P (MAP) Pulse Ox O2 Delivery O2 Flow Rate FiO2 06/14/18 08:08 98.4 80 18 120/76 (91) 93 Room Air Capillary Refill : Results/Procedures Lab Laboratory Tests 06/14/18 04:30 Patient resulted labs reviewed. Assessment/Plan Assessment and Plan Assess & Plan/Chief Complaint 37 year old with history of Afib and diverticulitis with sigmoid perforation s/ p colostomy placement admitted after colostomy reversal. Colostomy reversal -Will monitor pain control Difficulty urinating -Bladder scan to be obtained. 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 Polycythemia: Resolved Diagnosis/Problems Diagnosis/Problems (1) Polycythemia Status: Chronic (2) History of colostomy reversal Status: Acute (3) Atrial fibrillation with controlled ventricular rate Status: Chronic (4) Tobacco abuse Status: Chronic Clinical Quality Measures DVT/VTE Risk/Contraindication: Risk Factor Score Per Nursin RFS Level Per Nursing on Admit: 4+=Very High KING ANDRADE DO 06/14/18 1048: Subjective Subjective/Events-last exam Patient is ambulating well in the halls Urecholine added for urinary retention Review of Systems Gastrointestinal: Abdominal Pain Genitourinary: Retention Objective Exam General Appearance: No Apparent Distress, WD/WN Respiratory: Chest Non Tender, Lungs Clear, Normal Breath Sounds, No Accessory Muscle Use, No Respiratory Distress Cardiovascular: Regular Rate, Rhythm, No Edema, No Gallop, No JVD, No Murmur, Normal Peripheral Pulses Neurologic/Psychiatric: Alert, Oriented x3, No Motor/Sensory Deficits, Normal Mood/Affect Assessment/Plan Assessment and Plan Assess & Plan/Chief Complaint Urinary retention so start Urecholine Diagnosis/Problems Diagnosis/Problems (1) History of colostomy reversal Status: Acute (2) Urinary retention Status: Acute (3) Atrial fibrillation with controlled ventricular rate Status: Chronic (4) Tobacco abuse Status: Chronic (5) Polycythemia Status: Chronic KATY RODRIGUEZ MEDICAL STUDENT Jun 14, 2018 09:07 KING ANDRADE DO Jun 14, 2018 10:48
[2018-06-14] MEDS: NICOTINE 14 MG (NICODERM) PATCH TD SCH (09:40)
[2018-06-14] MEDS ORDERED: BETHANECHOL 10 MG (URECHOLINE) TAB PO ONE (09:45)
[2018-06-14] MEDS: BETHANECHOL 10 MG (URECHOLINE) TAB PO SCH ×3 (11:08→20:43)
[2018-06-14 12:38] VITALS: BP 128/91
--- NOTE | 2018-06-14 14:27 | Progress Note ---
Subjective Date Seen by Provider: Jun 14, 2018 Time Seen by Provider: 14:24 Subjective/Events-last exam patient pain controlled he states. ambulating. tolerating liquids. no n/v fever sweats chills shortness of breath or chest pain. using IS. no flatus or bm Objective Exam Vital Signs Date Time Temp Pulse Resp B/P (MAP) Pulse Ox O2 Delivery O2 Flow Rate FiO2 06/14/18 12:38 98.4 74 20 128/91 (103) 96 Room Air 06/14/18 08:08 98.4 80 18 120/76 (91) 93 Room Air 06/14/18 08:00 93 Room Air 06/14/18 04:10 97.4 107 16 116/64 (81) 96 Room Air 06/14/18 00:46 98.0 99 18 120/74 (89) 95 Room Air 06/13/18 19:30 98.0 102 18 124/58 (80) 96 Room Air 06/13/18 16:00 73 132/83 (99) 98 Room Air I & O 06/14/18 07:00 Intake Total 6890 ml Output Total 50 ml Balance 6840 ml Capillary Refill : General Appearance: No Apparent Distress, WD/WN HEENT: PERRL/EOMI, TMs Normal, Normal ENT Inspection, Pharynx Normal Neck: Full Range of Motion, Normal Inspection, Non Tender, Supple, Carotid Bruit Respiratory: Chest Non Tender, No Accessory Muscle Use, No Respiratory Distress Cardiovascular: Regular Rate, Rhythm, No Edema Gastrointestinal: soft, tenderness (incisional, no signs of infection) Extremity: Normal Capillary Refill, Normal Inspection, Normal Range of Motion, Non Tender, No Calf Tenderness, No Pedal Edema Neurologic/Psychiatric: Alert, Oriented x3, No Motor/Sensory Deficits, Normal Mood/Affect Skin: Normal Color, Warm/Dry Lymphatic: No Adenopathy Results Lab Laboratory Tests 06/14/18 04:30: White Blood Count 17.7H, Red Blood Count 4.39, Hemoglobin 16.1, Hematocrit 44, Mean Corpuscular Volume 101H, Mean Corpuscular Hemoglobin 37H, Mean Corpuscular Hemoglobin Concent 36, Red Cell Distribution Width 11.4, Platelet Count 228, Mean Platelet Volume 9.7, Sodium Level 134L, Potassium Level 4.3, Chloride Level 104, Carbon Dioxide Level 20L, Anion Gap 10, Blood Urea Nitrogen 7, Creatinine 0.73, Estimat Glomerular Filtration Rate > 60, BUN/Creatinine Ratio 10, Glucose Level 127H, Calcium Level 9.5 Microbiology 06/13/18 MRSA Screen - Final, Complete MRSA not isolated Assessment/Plan Assessment/Plan Assessment/Plan s/p colostomy reversal. pain control liquid diet ambulate scd's repeat labs in am Clinical Quality Measures DVT/VTE Risk/Contraindication: Risk Factor Score Per Nursin RFS Level Per Nursing on Admit: 4+=Very High AARTI MONZON DO Jun 14, 2018 14:27
[2018-06-14] MEDS: HYDROcodone/APAP 5 MG/325 MG (LORTAB) TAB PO PRN ×2 (14:29→20:43)
[2018-06-14 16:30] VITALS: BP 117/75
[2018-06-14 20:00] VITALS: BP 137/93
[2018-06-15] VITALS: BP 147/91
[2018-06-15] MEDS: HYDROcodone/APAP 5 MG/325 MG (LORTAB) TAB PO PRN ×4 (02:35→19:56)
[2018-06-15] MEDS: LACTATED RINGERS 1,000 ML IV SCH ×3 (06:12→22:32)
[2018-06-15] MEDS: BETHANECHOL 10 MG (URECHOLINE) TAB PO SCH ×4 (06:15→19:39)
[2018-06-15 06:58] LABS: HEMOGLOBIN 15.8 G/DL (13.3-17.7); MEAN PLATELET VOLUME 9.1 FL (7.4-10.4); RED BLOOD COUNT 4.34 10^6/uL (4.35-5.85); RED CELL DISTRIBUTION WIDTH 11.7 % (10.0-14.5)
[2018-06-15 07:33] LABS: BUN/CREATININE RATIO 8; CALCIUM 8.9 MG/DL (8.5-10.1); CARBON DIOXIDE 21 MMOL/L (21-32); CHLORIDE 104 MMOL/L (98-107); CREATININE SERUM 0.71 MG/DL (0.60-1.30); GFR ESTIMATED > 60; GLUCOSE 89 MG/DL (70-105); POTASSIUM 3.6 MMOL/L (3.6-5.0); SODIUM 137 MMOL/L (135-145)
[2018-06-15 08:00] VITALS: BP 125/87
[2018-06-15] MEDS: NICOTINE 14 MG (NICODERM) PATCH TD SCH (08:21)
[2018-06-15] MEDS: NICOTINE PATCH REMOVAL TP SCH (08:21)
[2018-06-15] MEDS ORDERED: ENOXAPARIN 40 MG/0.4 ML (LOVENOX) SYR SC SCH (13:30)
--- NOTE | 2018-06-15 14:03 | Progress Note-Hospitalist ---
Subjective HPI/CC On Admission Date Seen by Provider: Jun 15, 2018 Time Seen by Provider: 13:00 CC: medical management following colostomy take-down POD # 1 HPI: This is a 37yo s/p colostomy take-down yesterday in an uncomplicated manner by Dr Saha. Pt is having some urinary retention so will order Urecholine and overall he has no other issues. AF occurred post op last hospital stay and no evidence of this to have recurred. Subjective/Events-last exam patient is doing well and passing flatus. Seems to be urinating as well without a problem. No change in abdominal pain. White count is down to normal. Review of Systems Gastrointestinal: Abdominal Pain Objective Exam Vital Signs Vital Signs Date Time Temp Pulse Resp B/P (MAP) Pulse Ox O2 Delivery O2 Flow Rate FiO2 06/15/18 08:00 96.6 70 20 125/87 (100) 97 Room Air Capillary Refill : General Appearance: No Apparent Distress, WD/WN HEENT: Normal ENT Inspection Neck: Normal Inspection, Non Tender, Supple Respiratory: Lungs Clear, Normal Breath Sounds, No Accessory Muscle Use, No Respiratory Distress Cardiovascular: Regular Rate, Rhythm, No Gallop, No Murmur Gastrointestinal: Normal Bowel Sounds, No Organomegaly, No Pulsatile Mass, Soft , Other (postop) Rectal: Deferred Back: Normal Inspection Extremity: Normal Inspection, Normal Range of Motion, Non Tender, No Calf Tenderness Neurologic/Psychiatric: Alert, Oriented x3, No Motor/Sensory Deficits, Normal Mood/Affect Results/Procedures Lab Laboratory Tests 06/15/18 06:38 Patient resulted labs reviewed. Assessment/Plan Assessment and Plan Assess & Plan/Chief Complaint 1. postop day number 3 status post colostomy reversal doing well 2. Ileus resolving buzz to advance diet as tolerated Clinical Quality Measures DVT/VTE Risk/Contraindication: Risk Factor Score Per Nursin RFS Level Per Nursing on Admit: 4+=Very High CATHIE SHRESTHA MD Jun 15, 2018 14:03
[2018-06-15 17:15] VITALS: BP 130/83
--- NOTE | 2018-06-15 22:08 | Progress Note ---
Subjective Date Seen by Provider: Jun 15, 2018 Time Seen by Provider: 14:07 Subjective/Events-last exam ambulating. passing flatus. tolerating liquids. pain controlled. denies n/v fever sweats chills shortness of breath or chest pain. using IS. Urinating better today without difficulty. Objective Exam Vital Signs Date Time Temp Pulse Resp B/P (MAP) Pulse Ox O2 Delivery O2 Flow Rate FiO2 06/15/18 19:38 Room Air 06/15/18 17:15 98.2 96 20 130/83 (99) 96 Room Air 06/15/18 08:00 96.6 70 20 125/87 (100) 97 Room Air 06/15/18 00:00 98.1 82 20 147/91 (109) 96 Room Air I & O 06/15/18 07:00 Intake Total 4070 ml Output Total 600 ml Balance 3470 ml Capillary Refill : General Appearance: No Apparent Distress, WD/WN HEENT: Normal ENT Inspection Neck: Normal Inspection, Non Tender, Supple Respiratory: Lungs Clear, Normal Breath Sounds, No Accessory Muscle Use, No Respiratory Distress Cardiovascular: Regular Rate, Rhythm, No Gallop, No Murmur Gastrointestinal: soft, tenderness (incisional, no signs of infection) Extremity: Normal Inspection, Normal Range of Motion, Non Tender, No Calf Tenderness Neurologic/Psychiatric: Alert, Oriented x3, No Motor/Sensory Deficits, Normal Mood/Affect Skin: Normal Color, Warm/Dry Lymphatic: No Adenopathy Results Lab Laboratory Tests 06/15/18 06:38: White Blood Count 11.0, Red Blood Count 4.34L, Hemoglobin 15.8, Hematocrit 44, Mean Corpuscular Volume 102H, Mean Corpuscular Hemoglobin 36H, Mean Corpuscular Hemoglobin Concent 36, Red Cell Distribution Width 11.7, Platelet Count 212, Mean Platelet Volume 9.1, Sodium Level 137, Potassium Level 3.6, Chloride Level 104, Carbon Dioxide Level 21, Anion Gap 12, Blood Urea Nitrogen 6L, Creatinine 0.71, Estimat Glomerular Filtration Rate > 60, BUN/Creatinine Ratio 8, Glucose Level 89, Calcium Level 8.9 Microbiology 06/13/18 MRSA Screen - Final, Complete MRSA not isolated Assessment/Plan Assessment/Plan Assessment/Plan s/p colostomy reversal. pain control advance diet ambulate scd's Lovenox/scd's for dvt prophylaxis repeat labs in am Clinical Quality Measures DVT/VTE Risk/Contraindication: Risk Factor Score Per Nursin RFS Level Per Nursing on Admit: 4+=Very High AARTI MONZON DO Jun 15, 2018 22:08
[2018-06-16] VITALS: BP 133/84
[2018-06-16] MEDS: HYDROcodone/APAP 5 MG/325 MG (LORTAB) TAB PO PRN (04:34)
[2018-06-16] MEDS ORDERED: ACHD5005 PO (04:42)
[2018-06-16] MEDS ORDERED: DOCU-143 PO (04:42)
[2018-06-16] MEDS ORDERED: BETH10TA PO (04:42)
--- NOTE | 2018-06-16 04:44 | Discharge Inst-Simple/Standard ---
Discharge Inst-Standard Discharge Medications New, Converted or Re-Newed RX: RX on Chart Patient Instructions/Follow Up Plan of Care/Instructions/FU: 2 weeks Maria A Activity as Tolerated: No Discharge Diet: Soft Diet Other Inst to Patient Follow up Appt: Make appointment for 2 week. Instructions: No lifting greater than 10 pounds. No strenuous activity. May shower in 24 hours, no tub bath or soaking. Use incentive spirometer at home as directed. No Smoking Skin/Wound Care: Keep incisions clean and dry. Symptoms to Report: Appetite Changes, Extremity Discoloration, Numbness/Tingling, Swelling Increased , Bleeding Excessive, Eyesight Changes, Pain Increased, Urine Color Change, Constipation(Persistent), Fever over 101 degree F, Pain/Pressure in chest, Urinating Difficulty, Cough Up/Vomit Blood, Heart Beat Irreg/Pounding, Pain/ Pressure in jaw, Vaginal Bleeding Increase, Cramps in feet or legs, Lightheadedness, Pain/Pressure in shoulder, Diarrhea(Persistent), Memory Changes Suddenly, Questions/Concerns, Weight gain consecutive days, Dizziness/ Fainting, Nausea/Vomiting, Shortness of Breath, Weight gain over 2 pounds If questions or concerns contact your physician Or seek help at emergency department. AARTI MONZON DO Jun 16, 2018 04:44
--- NOTE | 2018-06-16 04:46 | Progress Note ---
Subjective Date Seen by Provider: Jun 16, 2018 Time Seen by Provider: 04:44 Subjective/Events-last exam feeling good. pain controlled. passing flatus. denies fever sweats chills shortness of breath or chest pain. ambulating and using is Objective Exam Vital Signs Date Time Temp Pulse Resp B/P (MAP) Pulse Ox O2 Delivery O2 Flow Rate FiO2 06/16/18 00:00 99.1 88 20 133/84 (100) 97 Room Air 06/15/18 19:38 Room Air 06/15/18 17:15 98.2 96 20 130/83 (99) 96 Room Air 06/15/18 08:00 96.6 70 20 125/87 (100) 97 Room Air I & O 06/16/18 07:00 Intake Total 3010 ml Balance 3010 ml Capillary Refill : General Appearance: No Apparent Distress, WD/WN HEENT: Normal ENT Inspection Neck: Normal Inspection, Non Tender, Supple Respiratory: Lungs Clear, Normal Breath Sounds, No Accessory Muscle Use, No Respiratory Distress Cardiovascular: Regular Rate, Rhythm, No Gallop, No Murmur Gastrointestinal: soft, tenderness (incisional, no signs of infection) Extremity: Normal Inspection, Normal Range of Motion, Non Tender, No Calf Tenderness Neurologic/Psychiatric: Alert, Oriented x3, No Motor/Sensory Deficits, Normal Mood/Affect Skin: Normal Color, Warm/Dry Lymphatic: No Adenopathy Results Lab Laboratory Tests 06/15/18 06:38: White Blood Count 11.0, Red Blood Count 4.34L, Hemoglobin 15.8, Hematocrit 44, Mean Corpuscular Volume 102H, Mean Corpuscular Hemoglobin 36H, Mean Corpuscular Hemoglobin Concent 36, Red Cell Distribution Width 11.7, Platelet Count 212, Mean Platelet Volume 9.1, Sodium Level 137, Potassium Level 3.6, Chloride Level 104, Carbon Dioxide Level 21, Anion Gap 12, Blood Urea Nitrogen 6L, Creatinine 0.71, Estimat Glomerular Filtration Rate > 60, BUN/Creatinine Ratio 8, Glucose Level 89, Calcium Level 8.9 Microbiology 06/13/18 MRSA Screen - Final, Complete MRSA not isolated Assessment/Plan Assessment/Plan Assessment/Plan s/p colostomy reversal. pain control soft diet ambulate scd's Lovenox/scd's for dvt prophylaxis labs pending. has bowel function possible home today/tomorrow Clinical Quality Measures DVT/VTE Risk/Contraindication: Risk Factor Score Per Nursin RFS Level Per Nursing on Admit: 4+=Very High AARTI MONZON DO Jun 16, 2018 04:46
[2018-06-16] MEDS: BETHANECHOL 10 MG (URECHOLINE) TAB PO SCH ×2 (05:50→11:09)
[2018-06-16 06:09] LABS: HEMOGLOBIN 16.2 G/DL (13.3-17.7); MEAN PLATELET VOLUME 9.1 FL (7.4-10.4); RED BLOOD COUNT 4.4 10^6/uL (4.35-5.85); RED CELL DISTRIBUTION WIDTH 11.4 % (10.0-14.5); WHITE BLOOD COUNT 7.8 10^3/uL (4.3-11.0)
[2018-06-16 06:25] LABS: BUN/CREATININE RATIO 9; CALCIUM 9.4 MG/DL (8.5-10.1); CARBON DIOXIDE 19 MMOL/L (21-32); CHLORIDE 102 MMOL/L (98-107); CREATININE SERUM 0.69 MG/DL (0.60-1.30); GFR ESTIMATED > 60; GLUCOSE 95 MG/DL (70-105); POTASSIUM 3.6 MMOL/L (3.6-5.0); SODIUM 133 MMOL/L (135-145)
[2018-06-16] MEDS: LACTATED RINGERS 1,000 ML IV SCH (07:40)
[2018-06-16 08:00] VITALS: BP 112/80
[2018-06-16] MEDS: NICOTINE PATCH REMOVAL TP SCH (09:10)
[2018-06-16] MEDS: NICOTINE 14 MG (NICODERM) PATCH TD SCH (09:10)
--- NOTE | 2018-07-02 00:25 | DISCHARGE SUMMARY ---
DATE OF SERVICE: ADMITTING PHYSICIAN: Aarti Saha DO CONSULTING PHYSICIAN: Alexa Gonzales DO HOSPITAL COURSE: The patient is a 37-year-old male who has history of perforated diverticulitis, status post Larry with end colostomy. He underwent laparoscopic colostomy reversal. The patient was admitted postoperatively and provided pain control. He developed a postoperative ileus which resolved. He began having bowel funtion. He continued to have his diet advanced. The patient was able to be discharged home on 06/16/2018. The patient understands all discharge instructions. Please see computer for further discharge instructions. ADMITTING DIAGNOSIS: History of perforated diverticulitis, status post Larry with end colostomy. DISCHARGE DIAGNOSES: Status post laparoscopic colostomy reversal, status post history of perforated diverticulitis with Larry procedure, end colostomy, ileus. Job ID: [id number] DocumentID: [id number] Dictated Date: 07/01/2018 19:40:34 Petrophysical Engineer Date: 07/02/2018 00:25:16 Dictated By: AARTI SAHA DO MTDD
== END 2018-06-16 11:00 | disposition home or self-care (01) | DRG 346 ==
LOC: 4TH 07:25 → SURG 07:26 → 4TH 14:05
PROVIDERS: ADMIT Surgery; ATTEND Surgery
PROC: 0DSM4ZZ Reposition Descending Colon, Percutaneous Endoscopic Approach (ICD-10-PCS; principal; 2018-06-13 10:10)
DX: Z43.3 Encounter for attention to colostomy (principal); Z87.19 Personal history of other diseases of the digestive system; R33.9 Retention of urine, unspecified; I48.91 Unspecified atrial fibrillation; D75.1 Secondary polycythemia; F17.210 Nicotine dependence, cigarettes, uncomplicated; I10 Essential (primary) hypertension; Z80.0 Family history of malignant neoplasm of digestive organs; Z86.010 Personal history of colon polyps
CPT/HCPCS: 36415; 80048; 85025; 85027; 86850; 86900; 86901; 87081

== ENCOUNTER 2019-05-07 05:36 | Outpatient (CLI) | payer MEDICAID ==
[~2019-05-07] VITALS: Ht 175.3 cm; Wt 81.6 kg
[~2019-05-07 05:36] MED LIST changes: +ACHD5005 PO; +BETH10TA PO; +DOCU-143 PO; +METR-145 PO; -METR500T21 PO
== END 2019-05-07 13:06 | disposition home or self-care (01) ==
LOC: PREOP 05:36
PROVIDERS: ATTEND Surgery
DX: Z01.818 Encounter for other preprocedural examination (principal)

== ENCOUNTER 2019-05-15 09:33 | Day surgery (SDC) | payer MEDICAID ==
[2019-05-15] VITALS (12 sets, daily range): BP systolic 125–143; BP diastolic 83–103
[~2019-05-15] VITALS: Ht 175.3 cm; Wt 81.6 kg
[2019-05-15] MEDS ORDERED: ceFAZolin 2 GM/50 ML NS 50 ML IV ONE (10:15)
--- NOTE | 2019-05-15 10:25 | Progress Note-Pre Operative ---
Pre-Operative Progress Note H&P Reviewed The H&P was reviewed, patient examined and no changes noted. Date Seen by Provider: May 15, 2019 Time Seen by Provider: 10:25 Date H&P Reviewed: May 15, 2019 Time H&P Reviewed: 10:25 Pre-Operative Diagnosis: INCISIONAL HERNIA AARTI MONZON DO May 15, 2019 10:25
[2019-05-15] MEDS: LACTATED RINGERS 1,000 ML IV PRN ×2 (11:18→13:03)
[2019-05-15] MEDS ORDERED: BUP/EPI 0.5% 1:200,000 (MARCAINE) 10ML VIAL IJ ONE (11:19)
[2019-05-15] MEDS ORDERED: fentaNYL INJECTION 100 MCG/2 ML AMP ONE ×2 (11:55→13:43)
[2019-05-15] MEDS ORDERED: MIDAZOLAM 2 MG/2 ML (VERSED) VIAL ONE (11:56)
[2019-05-15] MEDS ORDERED: DEXAMETHASONE 10 MG/ML (DECADRON) 1 ML VIAL ONE (11:58)
[2019-05-15] MEDS ORDERED: ROCURONIUM 10 MG/ML 5 ML SYRINGE IV ONE ×2 (11:58→13:30)
[2019-05-15] MEDS ORDERED: GLYCOPYRROLATE 0.2 MG/ML (ROBINUL) 2 ML VIAL ONE (11:58)
[2019-05-15] MEDS ORDERED: ONDANSETRON 4 MG/2 ML (SDV) Z0FRAN ONE (11:58)
[2019-05-15] MEDS ORDERED: NEOSTIGMINE 3 MG/3 ML VIAL ONE (11:58)
[2019-05-15] MEDS ORDERED: SEVOFLURANE (ULTANE) 15 ML INHAL SOLN ONE ×6 (11:58→13:33)
[2019-05-15] MEDS ORDERED: HYDROmorphone 2 MG/ML VIAL (DILAUDID) ONE (12:21)
[2019-05-15] MEDS ORDERED: LIDOCAINE PF 2% 5 ML (XYLOCAINE) VIAL ONE (13:19)
[2019-05-15] MEDS ORDERED: proPOfol 200 MG/20 ML (DIPRIVAN) VIAL IV ONE (13:19)
[2019-05-15] MEDS ORDERED: KETOROLAC 30 MG/ML VIAL ONE (13:29)
--- NOTE | 2019-05-15 13:57 | Progress Note-Post Operative ---
Post-Operative Progess Note Surgeon (s)/Credit Rating Checker (s) Surgeon AARTI MONZON DO Credit Rating Checker: Dr. Ramsey Pre-Operative Diagnosis INCISIONAL HERNIA Post-Operative Diagnosis incarcerated incisional hernia x2 Procedure & Operative Findings Date of Procedure 05/15/19 Procedure Performed/Findings laparoscopic incarcerated incisional hernia repair x 2 Anesthesia Type general Estimated Blood Loss Estimated blood loss (mL): min Specimens/Packing Specimens Removed na AARTI MONZON DO May 15, 2019 13:57
[2019-05-15] MEDS ORDERED: ACHD5005 PO (13:58)
[2019-05-15] MEDS ORDERED: DOCU-143 PO (13:58)
[2019-05-15] MEDS ORDERED: ONDANSETRON 4 MG/2 ML (SDV) Z0FRAN IVP PRN (14:00)
--- NOTE | 2019-05-15 14:00 | Discharge Inst-Simple/Standard ---
Discharge Inst-Standard Discharge Medications New, Converted or Re-Newed RX: RX on Chart Patient Instructions/Follow Up Plan of Care/Instructions/FU: 3 weeks Maria A Activity as Tolerated: No Discharge Diet: Regular Diet Other Inst to Patient Follow up Appt: Make appointment for 3 weeks. Instructions: No lifting greater than 10 pounds. No strenuous activity. May shower in 24 hours, no tub bath or soaking. Use incentive spirometer at home as directed. No Smoking Skin/Wound Care: You have special glue over incisions it will fall off on its own. Symptoms to Report: Appetite Changes, Extremity Discoloration, Numbness/Tingling, Swelling Increased, Bleeding Excessive, Eyesight Changes, Pain Increased, Urine Color Change, Constipation(Persistent), Fever over 101 degree F, Pain/Pressure in ches t, Urinating Difficulty, Cough Up/Vomit Blood, Heart Beat Irreg/Pounding, Pain/Pressure in jaw, Vaginal Bleeding Increase, Cramps in feet or legs, Lightheadedness, Pain/Pressure in shoulder, Diarrhea(Persistent), Memory Changes Suddenly, Questions/Concerns, Weight gain consecutive days, Dizziness/Fainting, Nausea/Vomiting, Shortness of Breath, Weight gain over 2 pounds If questions or concerns contact your physician Or seek help at emergency department. AARTI MONZON DO May 15, 2019 14:00
--- NOTE | 2019-05-15 14:22 | Anesthesia-General Post-Op ---
General Patient Condition Mental Status/LOC: Same as Preop Cardiovascular: Satisfactory Nausea/Vomiting: Absent Respiratory: Satisfactory Pain: Controlled Complications: Absent Post Op Complications Complications None Follow Up Care/Instructions Patient Instructions None needed. Anesthesia/Patient Condition Patient Condition Patient is doing well, no complaints, stable vital signs, no apparent adverse anesthesia problems. No complications reported per nursing. ZURDO HICKMAN CRNA May 15, 2019 14:22
[2019-05-15] MEDS: HYDROmorphone 2 MG/ML VIAL (DILAUDID) IV ONE (14:30)
[2019-05-15] MEDS ORDERED: HYDROcodone/APAP 5 MG/325 MG (LORTAB) TAB PO ONE (15:15)
--- NOTE | 2019-05-15 22:38 | OPERATIVE REPORT ---
DATE OF SERVICE: 05/15/2019 PREOPERATIVE DIAGNOSIS: Incisional hernia. POSTOPERATIVE DIAGNOSIS: Incarcerated incisional hernia x2. SURGEON: James Saha DO ROUSTABOUT HAND: Dr. Ramsey, assisted in retraction, dissection and closure. ANESTHESIA: General. PROCEDURE: Laparoscopic incarcerated incisional hernia repair x2. ESTIMATED BLOOD LOSS: Minimal. COMPLICATIONS: None. INDICATIONS: The patient is a 38-year-old male, who had previous perforated diverticulitis. He had Larry procedure and has had a colostomy reversal. The patient has developed 2 incisional hernias, one at the colostomy site and then several small incisional hernias at the midline incision. The patient was explained risks and benefits of procedure and wished to proceed with procedure. Consent was signed in the chart. DESCRIPTION OF PROCEDURE: The patient was taken to the operating suite, was prepped and draped in sterile fashion. Surgical pause was performed. Local anesthetic was infiltrated in left upper quadrant. Dissection was taken down to the fascia, which was scored. The muscles were divided bluntly and the posterior fascia was then opened and a balloon trocar was inserted. Pneumoperitoneum was achieved. Under direct visualization of the laparoscope, a 5 mm trocar was placed in the right lower quadrant and a 5 mm trocar was placed in the right upper quadrant. There were multiple small hernias throughout the midline. The incarcerated fat was omentum. This was taken down with LigaSure. After the hernia contents were able to be reduced. The colostomy site hernia was then inspected, which had incarcerated omentum present. This was then taken down also with LigaSure. At this time, a 15 x 20 Echo Ventralight mesh was inserted into the abdomen and grasped through a small incision at the midline. The balloon was insufflated and a SecureStrap Tacker was used to go circumferentially and also made an inner crown covering all the multiple small [place] cheese appearing hernias at the midline with good overlap. An Echo Ventralight 11 cm mesh was then inserted into the abdomen and grasped through a stab incision at the colostomy site. Prior to insertion, a small edge of the mesh was cut to where there was no mesh overlap. A SecureStrap Tacker was used to go circumferentially and also an inner crown as well. The balloons had also been removed previous to the inner crown was being placed. The abdomen was then inspected. No other pathology was present. The 12 mm fascial defect in the left upper quadrant was then closed using 0 Vicryl with a Carlton-Jose Alejandro. A 1-0 Vicryl was then used to close the anterior fascia. The abdomen was then desufflated. The trocars were removed. The skin was then closed using 4-0 Monocryl in a subcuticular fashion. The abdomen was then washed and dried and Skin Affix was placed over the incisions. The patient tolerated procedure well without any complications, taken to recovery room in stable condition. Job ID: [id number] DocumentID: [id number] Dictated Date: 05/15/2019 14:05:00 Cosmetic Sales Date: 05/15/2019 22:37:20 Dictated By: DO MANUEL KIRKPATRICK
== END 2019-05-15 16:05 | disposition home or self-care (01) ==
LOC: SDC 09:33
PROVIDERS: ATTEND Surgery
DX: K43.0 Incisional hernia with obstruction, without gangrene (principal); I10 Essential (primary) hypertension; I48.91 Unspecified atrial fibrillation; F17.210 Nicotine dependence, cigarettes, uncomplicated; F12.90 Cannabis use, unspecified, uncomplicated; Z87.19 Personal history of other diseases of the digestive system; Z93.3 Colostomy status; Z79.899 Other long term (current) drug therapy; Z80.0 Family history of malignant neoplasm of digestive organs; Z82.49 Family history of ischemic heart disease and other diseases of the circulatory system
CPT/HCPCS: 87081

== ENCOUNTER 2019-12-11 10:27 | Emergency (ER) | payer MEDICAID ==
[~2019-12-11] VITALS: Ht 175.3 cm; Wt 81.6 kg
[~2019-12-11 10:27] MED LIST changes: +ACHYD1T PO; -HYDR-3820 PO; -METO-370 PO; +METO50TA7 PO
--- NOTE | 2019-12-11 11:21 | ED Upper Extremity ---
General Chief Complaint: Upper Extremity Stated Complaint: LEFT ARM INJ Nursing Triage Note: Pt amb to triage with c/o L shoulder injury. Pt reports on 12/10/19 he tripped over a log landing on his L shoulder. Denies LOC, head, neck, or back discomfort. Pt reports to have taken 800mg ibuprofen on this day with littel relief. Pt reports increase in discomfort upon ROM. A&OX4. Nursing Sepsis Screen: No Definite Risk History of Present Illness Date Seen by Provider: Dec 11, 2019 Time Seen by Provider: 11:00 Initial Comments 39 year old male reports falling onto left shoulder yesterday evening, his left arm was full elevated when he tripped and fell. No neck or head injuries. Hx of HTN and sinus tachycardia in the past, hasn't taken his Metoprolol in a year or longer. Onset: yesterday Pain/Injury Location: left shoulder Method of Injury: fell Modifying Factors: Improves With Rest Allergies and Home Medications Allergies Coded Allergies: No Known Drug Allergies (Verified , 06/13/18) Home Medications Docusate Sodium 100 Mg Capsule, 100 MG PO BID Prescribed by: AARTI MONZON on 05/15/19 1358 Hydrocodone Bit/Acetaminophen 1 Tab Tab, 1-2 TAB PO Q6H PRN for PAIN-MODERATE Prescribed by: AARTI MONZON on 05/15/19 1358 Metoprolol Succinate 25 Mg Tab.er.24h, 25 MG PO DAILY Prescribed by: ANNETTE LAZO on 12/11/19 1205 Patient Home Medication List Home Medication List Reviewed: Yes Review of Systems Constitutional: no symptoms reported, see HPI Musculoskeletal: see HPI; No back pain; joint pain (left shoulder), muscle p ain; No neck pain All Other Systems Reviewed Negative Unless Noted: Yes Past Dlspffd-Ukahpe-Nbqyhm Hx Past Med/Social Hx: Reviewed Nursing Past Med/Soc Hx Patient Social History Alcohol Use: Rarely Uses Number of Drinks Today: 0 Alcohol Beverage of Choice: Beer Recreational Drug Use: Yes (SMOKES 1 PACK/DAY) Drug of Choice: POT Type Used: Cigarettes 2nd Hand Smoke Exposure: Yes Recent Foreign Travel: No Contact w/Someone Who Travel: No Recent Infectious Disease Expo: No Recent Hopitalizations: No Immunizations Up To Date Tetanus Booster (TDap): Unknown PED Vaccines UTD: Yes Seasonal Allergies Seasonal Allergies: Yes Past Medical History Surgeries: Yes (SEVERAL FRACTURES 16 SCREWS AND PLATE IN FACE/HEAD, COLOECTOMY/COLOSTOMY,) Abdominal, Orthopedic Respiratory: No Currently Using CPAP: No Currently Using BIPAP: No Cardiac: Yes (HX SINUS TACHYCARDIA) Hypertension Neurological: No Reproductive Disorders: No Sexually Transmitted Disease: No HIV/AIDS: No Genitourinary: No Gastrointestinal: Yes (HX RUPTURED DIVERTIC/COLOSTOMY then reversal) Abdominal Hernia, Diverticulosis Musculoskeletal: No Endocrine: No HEENT: No Loss of Vision: Denies Hearing Impairment: Denies Cancer: No Psychosocial: No Integumentary: No Blood Disorders: No Adverse Reaction/Blood Tranf: No (N/A) Family Medical History Myocardial infarction MATERNAL GRANDFATHER ( FROM MASSIVE HEART ATTACK) Neoplasm 19 FATHER ( last year 2016 from colon cancer) Cancer Physical Exam Vital Signs Vital Signs - First Documented 12/11/19 10:47 Temp 36.8 Pulse 100 Resp 17 B/P (MAP) 151/107 (122) Pulse Ox 98 O2 Delivery Room Air Capillary Refill : Less Than 3 Seconds Height, Weight, BMI Height: 5'9.00" Weight: 180lbs. 0.0oz. 81.711245ab; 26.00 BMI Method:Stated General Appearance: WD/WN, no apparent distress Neck: non-tender, full range of motion, supple, normal inspection Cardiovascular: normal peripheral pulses, regular rate, rhythm Respiratory: chest non-tender, lungs clear, normal breath sounds Shoulder: normal inspection, limited ROM, pain, soft tissue tenderness Elbow/Forearm: normal inspection, non-tender, no evidence of injury, normal ROM, Left Wrist: Yes normal inspection, Yes non-tender, Yes no evidence of injury, Yes normal ROM Hand: normal inspection, non-tender, no evidence of injury, normal ROM, Left Neurologic/Psychiatric: no motor/sensory deficits, alert, normal mood/affect, oriented x 3 Skin: normal color, warm/dry Left shoulder ROM to 90 degrees elevation, slight LOM with internal and external ROM. Bicep, Tricep and Ext Rotators V/V. neurovascular status intact left upper extremity symmetric with the right. Progress/Results/Core Measures Results/Orders My Orders Orders - ANNETTE LAZO Shoulder, Left, 3 Views (12/11/19 11:15) Metoprolol Succinate (Xl) Tab (Toprol Xl (12/11/19 12:15) Acetaminophen Tablet (Tylenol Tablet) (12/11/19 12:15) Vital Signs/I&O 12/11/19 10:47 Temp 36.8 Pulse 100 Resp 17 B/P (MAP) 151/107 (122) Pulse Ox 98 O2 Delivery Room Air Blood Pressure Mean: 122 Progress Progress Note : Time: 11:00 Progress Note Patient seen and evaluated, will obtain x-rays of the left shoulder and reevalu ate. 1145 blood pressure continues to be elevated, will give metoprolol 25 mg orally now and resume his home medication with careful follow-up with his primary care provider. 1200 discharge instructions and return precautions reviewed with the patient. Stressed the importance of follow-up regarding his hypertension. Diagnostic Imaging Diagonstic Imaging: Xray Plain Films/CT/US/NM/MRI: other (left shoulder) Comments NAME: SHIRLEY AG MED REC#: [id number] PT STATUS: REG ER : 1980 PHYSICIAN: ANNETTE LAZO ADMIT DATE: 12/11/19/ER Signed Date of Exam:12/11/19 SHOULDER, LEFT, 3 VIEWS Indication: Left shoulder injury from a fall 3 views of the left shoulder show no fracture, dislocation or other acute abnormalities. IMPRESSION: Negative left shoulder Dictated by: Dictated on workstation # [id number] Dict: 12/11/19 1154 Trans: 12/11/19 1155 [id number] Interpreted by: BRIDGETT NEGRO MD Electronically signed by: BRIDGETT NEGRO MD 12/11/19 1155 Reviewed: Reviewed by Me Departure Impression Primary Impression: Contusion of shoulder, left Qualified Codes: S40.012A - Contusion of left shoulder, initial encounter Additional Impression: Hypertension Qualified Codes: I10 - Essential (primary) hypertension Disposition: 01 HOME, SELF-CARE Condition: Improved Departure-Patient Inst. Decision time for Depature: 12:05 Referrals: [facility] (PCP) Primary Care Physician DIANE,LOCAL PHYSICIAN (Family) Primary Care Physician ERICK KRISHNAMURTHY MD Patient Instructions: Shoulder Pain (DC), High Blood Pressure (DC) Add. Discharge Instructions: Ice to left shoulder 20 minutes every 2 hours while awake. Alternate between ibuprofen 600 mg and Tylenol 650 mg every 4 hours for pain or swelling. Progress activity as tolerated to left shoulder. Follow-up with orthopedics if your symptoms are not improving or worsen. Schedule follow up with your primary care provider to discuss sleep apnea and hypertension. Take Metoprolol as prescribed. Return to the emergency department for new, urgent health care problems. All discharge instructions reviewed with patient and/or family. Voiced understanding. Scripts Metoprolol Succinate (Metoprolol Succinate) 25 Mg Tab.er.24h 25 MG PO DAILY for 14 Days, #14 TAB 0 Refills Prov: ANNETTE LAZO 12/11/19 ANNETTE LAZO Dec 11, 2019 11:21
--- NOTE | 2019-12-11 11:56 | Diagnostic Imaging Report ---
Indication: Left shoulder injury from a fall 3 views of the left shoulder show no fracture, dislocation or other acute abnormalities. IMPRESSION: Negative left shoulder Dictated by: Dictated on workstation # [id number]
[2019-12-11] MEDS ORDERED: MTP25TSR PO (12:05)
[2019-12-11 12:13] VITALS: BP 150/102
[2019-12-11] MEDS ORDERED: ACETAMINOPHEN 500 MG TAB (TYLENOL) PO ONE (12:15)
--- OUTSIDE RECORDS SUMMARY | 2019-12-13 08:22 | XMS REPORT ---
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 Name Role Phone NO, LOCAL PHYSICIAN Unavailable Unavailable [facility] Unavailable ANDREA CARTAGENA Unavailable Unavailable SHAWNEE CHASE, SHIRLEY Zhong Unavailable Unavailable YOVANY RODRIGUEZ APRN Unavailable Unavailable [facility] Unavailable [facility] PCP AARTI MONZON DO Unavailable Unavailable Allergies Normalized Allergy Reported Date of Reaction(s) Care Provider Facility Allergy Type classification allergen Allergy Onset DA (5 Unclassified No Known Drug 01-27-2009 - no information ANDREA Not Available sources.) Allergies JUJU HAMILTON ([id number]) Medications Medication Ingredient Drug Dose Dates Status Sig Sig Care Class(es) (Normalized) (Original) Provid er acetaminoph acetaminoph no 500 mg 05-14-20 Complete no A cetaminophe (no en 500 mg en information 18 d information n p adonis) oral tablet (Acetaminoph (5 en Extra sources.) Strength) 500 Mg Tablet, 1000 Mg Oral Every 4HRS as needed for Pain-Mild Discontinued 1000 mg Completed take 2 Acetamin (no tablet ophen phone) s by (Acetami mouth nophen every Extra four Strength hours ) 500 Mg as Tablet needed 1,000 Mg for ORAL pain Every 4HRS as needed for Pain-Mil d TAKES 2 (500 MG) TABLETS no acetaminoph Opioid 05-15-20 Complete take 1 Acetaminophe Aarti information en / Agonist 19 d tablet by n/Hydrocodon D (11 HYDROcodone mouth every e Bitart Monzon sources.) six hours as (Hydrocodone (no needed for /Acetaminoph phone) pain en 5/325MG Tablet) 1 Tab Tab 1-2 Tab ORAL Every 6 Hours as needed for Pain-Moderat e 30 Tab 05/15/19 02-05-2018 Completed no Hydrocod Rashida K - inform one/Acet [place] 05-14-2018 ation aminophe (no n phone) (Hydroco don-Acet aminophn 10-325) 1 Each Tablet, 1 Ea Oral 4 Times A Day as needed for Pain-Mod erate 02/05/18 Disconti nued 01-06-2018 Completed take Acetamin Francoise - 7.5 ophen/Hy M Nubia 01-29-2018 tablet drocodon (no s by e Bitart phone) mouth (Lortab every 7.5 Mg four Tablet) hours 1 Ea as Tablet, needed 1 Ea for Oral pain, Every then 4HRS as take 1 needed tablet for by Pain-Mod mouth erate as 01/06/18 needed Disconti for nued pain acetaminoph acetaminoph Opioid 02-10-20 Complete take 5-325 Oxyc odone Gretch en 325 mg / en / Agonist 17 - d tablets by Hcl/Acetamin en L oxyCODONE oxyCODONE 01-03-20 mouth every ophen Momo hydrochlori 18 four hours (Percocet (no de 5 mg as needed 5-325 Mg phone) oral tablet for pain, Tablet) 1 (5 then take 1 Each Tablet, sources.) tablet by 1-2 Each mouth as Oral Every needed for 4HRS as pain needed for Pain-Moderat e 02/09/17 Discontinued no Acetaminoph no 06-16-20 Complete take 1-2 Acetaminophe Aarti information en/Hydrocod information 18 - d tablets by n/H ydrocodon D (1 source.) one Bitart 05-07-20 mouth every e Bitart Monzon (Hydrocodon 19 six hours as (Hydrocodone (no e/Acetamino needed for /Acetaminoph phone) phen pain en 5/325MG 5/325MG Tablet) 1 Tablet) 1 Tab Tab, 1-2 Tab Tab, Tab Oral 1-2 Tab Every 6 Oral Hours as needed for Pain-Moderat e 06/16/18 Discontinued no Acetaminoph no 12-28-19 Complete take 5-500 Acetaminop he Andrew S information en/Hydrocod information 10 - d tablets by n/H ydrocodon Brent (10 one Bitart 02-10-20 mouth every e Bitart ds (no sources.) (Vicodin 17 four hours (Vicodin phone) 5-500 as needed, 5-500 Tablet) 1 then take Tablet) 1 Each 1-1 tablets Each Tablet, Tablet, 1 - by mouth as 1 - 2 Each 2 Each Oral needed Oral Q4hr Prn 12/27/09 Discontinued 01-27-2009 Completed take Acetamin Andrew S - 5-500 ophen/Hy Gonzalez 02-09-2017 tablet drocodon (no s by e Bitart phone) mouth (Vicodin every 5-500 four Tablet) hours 1 Each as Tablet, needed 1 - 2 , then Each take Oral 1-1 Q4hr Prn tablet 01/27/09 s by Disconti mouth nued as needed amoxicillin amoxicillin Penicillin- 01-07-20 Complete no [place] xicillin/ Kately 875 mg / / class 18 - d information Potassium n M clavulanate clavulanate Antibacteri 01-30-20 Clav Nubia 125 mg oral al 18 (Augmentin (no tablet (5 875-125 phone) sources.) Tablet) 1 Each Tablet, 1 Each Oral Twice A Day 01/06/18 Discontinued no Bethanechol Cholinergic 06-16-20 Complete no Bethanec hol Aarti information Muscarinic 18 - d information Chloride 10 D (1 source.) Agonist 05-07- Mg Tablet, Monzon 19 10 Mg Oral (no Before Meals phone) And At Bedtime 06/16/18 Discontinued no Cephalexin no 12-28-19 Complete take 500 Cephalexin T stanislav S information Monohydrate information 10 - d capsules by Mo nohydrate Brent (5 (Cephalexin 02-10-20 mouth every (Cephalexin) ds ( no sources.) ) 500 Mg 17 six hours 500 Mg phone) Capsule, 1 Capsule, 1 Each Oral Each Oral Every 6 Hours 12/27/09 Discontinued ciprofloxac ciprofloxac Quinolone 500 mg 02-10-20 Complete no Ciprofloxaci Gretch in 500 mg in Antimicrobi 17 - d information n Hcl 500 Mg en L oral tablet al 01-03-20 Tablet, 500 Momo (5 18 Mg Oral (no sources.) Twice A Day phone) 02/09/17 Discontinued docusate Docusate no 100 mg 05-15-20 Complete take 1 Docusat e Aarti sodium 100 information 19 d capsule by Sodium D mg oral mouth twice (Colace) 100 Monzon capsule (2 daily Mg Capsule (no sources.) 100 Mg ORAL phone) Twice A Day 30 Cap 05/15/19 100 mg 06-16-2018 Completed no Docusate Aarti D - inform Sodium Monzon 05-07-2019 ation (Colace) (no 100 Mg phone) Capsule, 100 Mg Oral Twice A Day 06/16/18 Disconti nued ertapenem ertapenem Penem 1000 02-06-20 Complete no Ertap enem Rashida 1000 mg Antibacteri mg 18 - d information (Invanz) K injection al 05-14-20 1,000 Mg Odgers (5 18 Vial, 1000 (no sources.) Mg phone) Intravenous Ddaily 02/05/18 Discontinued famotidine famotidine Histamine-2 20 mg 01-07-20 Complete no Famotidine Kately 20 mg oral Receptor 18 - d information 20 Mg n M tablet (5 Antagonist 01-30-20 Tablet, 20 Nubia sources.) 18 Mg Oral (no Twice A Day phone) 01/06/18 Discontinued metoprolol metoprolol beta-Adrene 50 mg 02-06-20 Complete no Metoprolol Rashida tartrate 50 Translation rgic 18 - d information Tartrate 50 K mg oral s: [ 24 HR Enrico 06-12-20 Mg Tablet, Odgers tablet (7 metoprolol 18 50 Mg Oral (no sources.) succinate Twice A Day phone) 50 MG 02/05/18 Extended Discontinued Release Oral Table] 50 mg 05-07-2019 Completed no Metoprol (no inform ol phone) ation Succinat e 50 Mg Tab.er.2 4h, 50 Mg Oral Daily Disconti nued metroNIDAZO metroNIDAZO Nitroimidaz 500 mg 01-07-20 Complete no Metronidazol Kately LE 500 mg LE ole 18 - d information e (Flagyl) n M oral tablet Translation Antimicrobi 01-30-20 500 Mg Nubia (10 s: [ al 18 Tablet, 500 (no sources.) Metronidazo Mg Oral phone) le 500 MG Twice A Day Oral 01/06/18 Tablet] Discontinued 02-09-2017 Completed no Metronid Andrea - inform azole Jaci Hamilton 01-02-2018 ation 500 Mg (no Tablet, phone) 500 Mg Oral Three Times A Day 02/09/17 Disconti nued 500 mg 02-09-2017 Completed take 1 Metronid Andrea - tablet azole L Momo 01-02-2018 by 500 Mg (no mouth Tablet, phone) three 500 Mg times Oral daily Three Times A Day 02/09/17 Disconti nued ondansetron ondansetron Serotonin-3 8 mg 02-10-20 Complete no Ondansetron Gretch 8 mg Receptor 17 - d information (Ondansetron e n L disintegrat Antagonist 01-03-20 Odt) 8 Mg Momo ing oral 18 Tab.rapdis, (no tablet (5 8 Mg Oral phone) sources.) Every 6 Hours as needed for Nausea/Vomit ing-1ST Line 02/09/17 Discontinued Problems Active Problems Problem Normalized Date of Normalized Normalized Provider Fac ility Classification Problem(s) Problem Problem Problem Sta tus Onset/Resoluti Duration on Cardiac Atrial Chronic Active LOCAL NO Via [facility] dysrhythmias fibrillation [facility] (9 sources.) Translations: [place] [ UNSPECIFIED (21120) ATRIAL FIBRILLATION] Other and Benign Episodic Active no name Not Available unspecified neoplasm of (36278) benign ascending neoplasm (5 colon sources.) Other and Benign Episodic Active no name Not Available unspecified neoplasm of (63014) benign cecum neoplasm (5 sources.) Other Colostomy Chronic Active no name Not Availabl e gastrointestin status (24214) al disorders (5 sources.) Diverticulosis Diverticulitis Chronic Active LOCAL NO Vi a [facility] diverticulitis gastrointestin [place] (21 sources.) al tract (27095) Translations: [ DVTRCLI OF INTEST, PART UNSP, W PERF AND, DVTRCLI OF LG INT W PERFORATION AND ABSC, DVTRCLI OF LG INT W/O PERFORATION OR ABS, DVTRCLI OF LG INT W/O PERFORATION OR ABS] Other Encounter for Chronic Active no name Not Avai lable gastrointestin attention to (96075) al disorders colostomy (4 sources.) Other Encounter for Episodic Active no name Not Avai lable aftercare (5 follow-up (96188) sources.) examination after completed treatment for conditions other than malignant neoplasm Medical Encounter for Episodic Active no name [facility] examination/ev other [facility] - source.) examination [place] ([address]) NEGATED Essential Chronic Active no name Not Availabl e no (primary) (92469) information (9 hypertension sources.) Unclassified Family history Episodic Active no name Not Available (4 sources.) of malignant (74320) neoplasm of digestive organs Other lower Hiccough Episodic Active no name no informat ion respiratory disease (9 sources.) Fluid and Hypokalemia Episodic Active LOCAL NO Via Carlos i electrolyte Translations: Hospital disorders (23 [ HYPOKALEMIA] [place] sources.) (04392) Abdominal Incisional Episodic Active COMMUNITY [place] V ia hernia (1 hernia CENTER/[facility] source.) [address] [place] [address] ([address]) Abdominal pain Lower Episodic Active ANDREA Not Avai lable (7 sources.) abdominal JUJU HAMILTON (02592) pain, unspecified NEGATED Nicotine Chronic Active no name no informatio n no dependence, information cigarettes, (23 sources.) uncomplicated Chronic ulcer Non-pressure Chronic Active ERICK ENMANUEL N ot Available of skin (21 chronic ulcer , (24159) sources.) of skin of other sites with fat layer exposed Complications Other Episodic Active no name no inform ation of surgical complications procedures or of procedures, medical care not elsewhere (4 sources.) classified, initial encounter Cardiac Paroxysmal Chronic Active no name no informat ion dysrhythmias atrial (9 sources.) fibrillation Translations: [ TACHYCARDIA, UNSPECIFIED] Other and Personal Episodic Active no name Not Available unspecified history of (75003) benign colonic polyps neoplasm (4 sources.) NEGATED Personal Episodic Active no name Not Available no history of (03495) information (9 other diseases sources.) of the digestive system Genitourinary Retention of Episodic Active COMMUNITY Ascen pelon Via symptoms and urine, CENTER/[facility] ill-defined unspecified [address] Hospital conditions (5 (43554) sources.) 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 (4 sources.) Septicemia (10 Sepsis Episodic Active LOCAL NO Via Chri sti sources.) Hospital [place] ([address]) Other injuries Unspecified Episodic Active no name no in formation and conditions injury of due to right foot, external initial causes (5 encounter sources.) Sprains and Unspecified Episodic Active no name no infor mation strains (5 sprain of sources.) right great toe, initial encounter Unclassified no information no information Active LOCAL NO Via [facility] (20 sources.) Hospital [place] ([address]) Past or Other Problems Problem Normalized Date of Normalized Normalized Provider Fac ility Classification Problem(s) Problem Problem Problem Sta tus Onset/Resoluti Duration on External Other external no information no information no name no information Injury - cause status Unspecified (5 sources.) NEGATED Peritoneal Episodic Completed no name Not Availab le no abscess (89667) information (6 sources.) NEGATED Sepsis, no information no information no name no information no unspecified information organism (23 sources.) Translations: [ SEPSIS DUE TO ESCHERICHIA COLI [E. COLI], SEPSIS, UNSPECIFIED ORGANISM] External Striking no information no information no name no information Injury - against or Struck by; struck by against (5 other objects, sources.) initial encounter Suicide and Toxic effect no information no information ERICK SINGER Not Available intentional of tobacco MD (96626) self-inflicted cigarettes, injury (10 intentional sources.) self-harm, initial encounter External Unspecified no information no information no name no information Injury - Place place in of occurrence unspecified (5 sources.) [facility] of occurrence of the external cause Procedures Procedure Normalized Procedure Procedure Result Performer Facility Date 05-21-2018 Administration of no information AARTILIZ MONZON Vi a [facility] anesthesia [place] ([address]) NEGATED BYPASS SIGMOID COLON no information no name (no casie ne) no information TO CUTANEOUS, OPEN 05-21-2018 Colonoscopy stoma rmvl no information AARTI Mraia Victoria MARQUEZBA R Via [facility] les by hot biopsy [place] ([address]) forceps NEGATED EXCISION OF SIGMOID no information no name (no phon e) no information COLON, OPEN APPROACH 05-15-2019 Laps rpr incisional no information AARTI D NICOLÁS [place] Via [facility] ([address]) ncrc8/strangulated 05-21-2018 Proctosgmdsc rgd dx no information AARTI D NICOLÁS Via [facility] w/wo collj spec br/wa [place] ([address]608) spx REPOSITION DESCENDING no information no name (no phone) Not Available (03640) COLON, PERC ENDO A Immunizations Normalized Immunization Date Notes Care Provider Facili ty Immunization vaccine no information LOCAL NO Via [facility] Translations: [ [place] () vaccine, vaccine] Results Test Name Value Interpretation Reference Range Date Time Fa cility (Normalized) (Normalized) (Medline Reference) No panel information on null no information no information (no code) Via [facility] ([address]8745) methicillin resistant staphylococcus aureus (mrsa) screening culture on 2019-05-15 MRSA isol Org MRSA not (no code) [place] Via specific cx Ql isolated [facility] (Unsp spec) (06642) Vital Signs The data below is from unstructured sources Vital Response Date/Time Height (Feet) 5 feet 11:40am Height (Inches) 9.00 inches 05/14/2018 11:40am Height (Calculated Centimeters) 175. 874487 cm 05/14/2018 11:40am Weight (Pounds) 180 pounds 05/14/2018 11:40am Weight (Ounces) 0.0 oz 0 05/14/2018 11:40am Weight (Calculated Grams) 83978.63 gm 05/14/2018 11:40am Weight (Calculated Kilograms) 81.646 627 kilograms 05/14/2018 11:40am Calculated BMI 26.6 05/01 11:40am Vital Response Date/Time Temperature (Fahrenheit) 98.3 degree s F (97.6 - 99.5) 05/21/2018 3:35pm Temperature (Calculated Celsius) 36. 78131 degrees C (36.4 - 37.5) 05/21/2018 3:35pm Temperature Source Skin 05/21/2018 3:35pm Pulse Rate (adult) 81 bpm (60 - 90) 05/21/2018 3:35pm Respiratory Rate 18 bpm (12 - 24) 05/21/2018 3:35pm O2 Sat by Pulse Oximetry 97 % (88 - 100) 05/21/2018 3:35pm Blood Pressure 117/84 mm Hg 05/21/2018 3:35pm Blood Pressure Mean 123 mm Hg (65 - 110) 05/21/2018 12:48pm Pain Numeric Pain Scale 0-No Pain 05/21/2018 3:35pm Pain Intensity 0 2017 3:35pm Height (Feet) 5 feet 12:51pm Height (Inches) 9.00 inches 05/21/2018 12:51pm Height (Calculated Centimeters) 175. 730142 cm 05/21/2018 12:51pm Weight (Pounds) 180 pounds 05/21/2018 12:51pm Weight (Ounces) 0.0 oz 0 05/21/2018 12:51pm Weight (Calculated Grams) 68492.63 gm 05/21/2018 12:51pm Weight (Calculated Kilograms) 81.646 627 kilograms 05/21/2018 12:51pm Calculated BMI 26.6 05/02 12:51pm Vital Response Date/Time Temperature (Fahrenheit) 98.3 degree s F (97.6 - 99.5) 05/21/2018 3:35pm Temperature (Calculated Celsius) 36. 05582 degrees C (36.4 - 37.5) 05/21/2018 3:35pm Temperature Source Skin 05/21/2018 3:35pm Pulse Rate (adult) 81 bpm (60 - 90) 05/21/2018 3:35pm Respiratory Rate 18 bpm (12 - 24) 05/21/2018 3:35pm O2 Sat by Pulse Oximetry 97 % (88 - 100) 05/21/2018 3:35pm Blood Pressure 117/84 mm Hg 05/21/2018 3:35pm Blood Pressure Mean 123 mm Hg (65 - 110) 05/21/2018 12:48pm Pain Numeric Pain Scale 0-No Pain 05/21/2018 3:35pm Pain Intensity 0 2017 3:35pm Height (Feet) 5 feet 08/2018 8:51am Height (Inches) 9.00 inches 06/12/2018 8:51am Height (Calculated Centimeters) 175. 978527 cm 06/12/2018 8:51am Weight (Pounds) 180 pounds 06/12/2018 8:51am Weight (Ounces) 0.0 oz 0 06/12/2018 8:51am Weight (Calculated Grams) 53348.63 gm 06/12/2018 8:51am Weight (Calculated Kilograms) 81.646 627 kilograms 06/12/2018 8:51am Calculated BMI 26.6 06/01 8:51am Vital Response Date/Time Temperature (Fahrenheit) 97.2 degree s F (97.6 - 99.5) 05/15/2019 4:05pm Temperature (Calculated Celsius) 36. 03554 degrees C (36.4 - 37.5) 05/15/2019 4:05pm Temperature Source Temporal 05/15/2019 4:05pm Pulse Rate (adult) 93 bpm (60 - 90) 05/15/2019 4:05pm Respiratory Rate 18 bpm (12 - 24) 05/15/2019 4:05pm O2 Sat by Pulse Oximetry 90 % (88 - 100) 05/15/2019 4:05pm Blood Pressure 127/93 mm Hg 05/15/2019 4:05pm Blood Pressure Mean 105 mm Hg (65 - 110) 05/15/2019 3:00pm Pain [place] Opioid-induced Sedation Scale (POSS) Awake and alert 05/15/2019 4:05pm Numeric Pain Scale 8 4:05pm Pain Intensity 8 2018 4:05pm Height (Feet) 5 feet 11:22am Height (Inches) 9.00 inches 05/15/2019 11:22am Height (Calculated Centimeters) 175. 519566 cm 05/15/2019 11:22am Weight (Pounds) 180 pounds 05/15/2019 11:22am Weight (Ounces) 0.0 oz 0 05/15/2019 11:22am Weight (Calculated Grams) 25096.63 gm 05/15/2019 11:22am Weight (Calculated Kilograms) 81.646 627 kilograms 05/15/2019 11:22am Calculated BMI 26.6 05/01 11:22am Weight Measurement Method Standing Scale 05/15/2019 11:22am Vital Response Date/Time Temperature (Fahrenheit) 97.2 degree s F (97.6 - 99.5) 05/15/2019 4:05pm Temperature (Calculated Celsius) 36. 70551 degrees C (36.4 - 37.5) 05/15/2019 4:05pm Temperature Source Temporal 05/15/2019 4:05pm Pulse Rate (adult) 93 bpm (60 - 90) 05/15/2019 4:05pm Respiratory Rate 18 bpm (12 - 24) 05/15/2019 4:05pm O2 Sat by Pulse Oximetry 90 % (88 - 100) 05/15/2019 4:05pm Blood Pressure 127/93 mm Hg 05/15/2019 4:05pm Blood Pressure Mean 105 mm Hg (65 - 110) 05/15/2019 3:00pm Pain [place] Opioid-induced Sedation Scale (POSS) Awake and alert 05/15/2019 4:05pm Numeric Pain Scale 8 4:05pm Pain Intensity 8 2018 4:05pm Height (Feet) 5 feet 11:22am Height (Inches) 9.00 inches 05/15/2019 11:22am Height (Calculated Centimeters) 175. 318610 cm 05/15/2019 11:22am Weight (Pounds) 180 pounds 05/15/2019 11:22am Weight (Ounces) 0.0 oz 0 05/15/2019 11:22am Weight (Calculated Grams) 90499.63 gm 05/15/2019 11:22am Weight (Calculated Kilograms) 81.646 627 kilograms 05/15/2019 11:22am Calculated BMI 26.6 05/01 11:22am Weight Measurement Method Standing Scale 05/15/2019 11:22am Interventions No Information Plan of Treatment The data below is from unstructured sources Discharge Date 05/14/18 11:48am Prescriptions See Medication Section Discharge Date 05/21/18 3:40pm Instructions/Education Provided [place] n Polypectomy Prescriptions See Medication Section Discharge Date 06/12/18 9:08am Prescriptions See Medication Section Discharge Date 05/15/19 4:05pm Instructions/Education Provided ANES THESIA INSTRUCTIONS POSTOP Abdominal Hernia Repair (DC) Prescriptions See Medication Section Discharge Date 05/15/19 4:05pm Instructions/Education Provided ANES THESIA INSTRUCTIONS POSTOP Abdominal Hernia Repair (DC) Prescriptions See Medication Section Goals No Information Social History Normalized Code Original Code Date Value no information no information no information Unknown if ever smoked Functional Status The data below is from unstructured sources Query Response Date Maik rded [place] Opioid-induced Sedation Scale (POSS) Awake and alert May 15, 2019 4:05pm Mental Status No Information Encounters Encounter Normalized Encounter Encounter Diagnosis Care Provi akira Organization Date Type 05-15-2019 Admission to day no information AARTI MONZON Work no organization name - surgery (no phone ) 05-15-2019 05-21-2018 Admission to day no information AARTI MONZON Work no organization name - surgery (no phone ) 05-21-2018 AARTI MONZON 02-08-2018 Discharged Recurring no information RASHIDA NÚÑEZ Work no organization name - (no phone) 05-08-2018 02-06-2018 Discharged Recurring no information RASHIDA NÚÑEZ Work no organization name - (no phone) 05-08-2018 RASHIDA NÚÑEZ 01-29-2018 Emergency department no information no name (no casie ne) no organization name patient visit (no phone) 01-01-2018 Emergency department no information no name (no casie ne) no organization name patient visit (no phone) 03-25-2017 Emergency department no information no name (no casie ne) no organization name - patient visit (no phone) 03-25-2017 02-10-2017 Emergency department no information no name (no casie ne) no organization name - patient visit (no phone) 02-10-2017 02-09-2017 Emergency department no information no name (no casie ne) no organization name - patient visit (no phone) 02-09-2017 NEGATED Evaluation and no information no name (no phone) n o organization name 06-13-2018 management of (no phone) - inpatient 06-16-2018 NEGATED Evaluation and no information no name (no phone) n o organization name 01-29-2018 management of (no phone) - inpatient 02-05-2018 01-01-2018 Evaluation and no information no name (no phone) n o organization name - management of (no phone) 01-06-2018 inpatient 06-13-2018 Patient encounter no information no name (no phone) no organization name - (no phone) 06-16-2018 06-12-2018 Patient encounter no information AARTI MONZON Wor k no organization name - (no phone) 06-12-2018 06-11-2018 Patient encounter no information no name (no phone) no organization name (no phone) 05-21-2018 Patient encounter no information no name (no phone) no organization name - (no phone) 05-21-2018 05-14-2018 Patient encounter no information AARTI MONZON Wor k no organization name - (no phone) 05-14-2018 AARTI MONZON AARTI MONZON NEGATED Patient encounter no information no name (no phone) no organization name 05-08-2018 (no phone) 04-08-2018 Patient encounter no information ERICK White ENMANUEL Wo rk no organization name (no phone) 04-01-2018 Patient encounter no information no name (no phone) no organization name (no phone) NEGATED Patient encounter no information no name (no phone) no organization name 03-25-2018 (no phone) 03-18-2018 Patient encounter no information no name (no phone) no organization name (no phone) NEGATED Patient encounter no information no name (no phone) no organization name 03-11-2018 (no phone) 03-06-2018 Patient encounter no information no name (no phone) no organization name (no phone) 02-27-2018 Patient encounter no information no name (no phone) no organization name (no phone) 02-18-2018 Patient encounter no information no name (no phone) no organization name (no phone) 02-11-2018 Patient encounter no information no name (no phone) no organization name (no phone) NEGATED Patient encounter no information no name (no phone) no organization name 02-08-2018 (no phone) - 05-07-2018 02-07-2018 Patient encounter no information no name (no phone) no organization name (no phone) 02-06-2018 Patient encounter no information no name (no phone) no organization name (no phone) 01-29-2018 Patient encounter no information no name (no phone) no organization name - (no phone) 02-05-2018 01-29-2018 Patient encounter no information no name (no phone) no organization name (no phone) 01-01-2018 Patient encounter no information no name (no phone) no organization name - (no phone) 01-06-2018 05-15-2019 Patient encounter no information no name (no phone) no organization name - procedure (no phone) 05-15-2019 05-07-2019 Patient encounter no information AARTI MONZON Wor k no organization name - procedure (no phone ) 05-07-2019 05-07-2019 Patient encounter no information no name (no phone) no organization name - procedure (no phone) 05-07-2019 02-09-2017 Patient encounter no information no name (no phone) no organization name procedure (no phone) no information Encounter for other no name (no phone) no org anization name preprocedural (no phone) examination Medical Equipment No Information Payers Normalized Payer Value Unknown [id number] [id number]) Advance Directives Directive Response Recor ded Date/Time Advance Directives No 3:25pm Health Care Power of Prep Cook No 01/29/18 3:25pm Organ Donor Yes 01/29/18 3:25pm Directive Response Recor ded Date/Time Advance Directives No 11:41am Health Care Power of Prep Cook No 05/14/18 11:41am Organ Donor Yes 05/14/18 11:41am Resuscitation Status Full Code 05/14/18 11:41am Directive Response Recor ded Date/Time Advance Directives No 12:45pm Health Care Power of Prep Cook No 05/21/18 12:45pm Organ Donor Yes 05/21/18 12:45pm Resuscitation Status Full Code 05/21/18 12:45pm Directive Response Recor ded Date/Time Advance Directives No 8:54am Health Care Power of Prep Cook No 06/12/18 8:54am Organ Donor Yes 06/12/18 8:54am Resuscitation Status Full Code 06/12/18 8:54am Directive Response Recor ded Date/Time Advance Directives No 11:19am Health Care Power of Prep Cook No 05/15/19 11:19am Organ Donor Yes 05/15/19 11:19am Resuscitation Status Full Code 05/15/19 11:19am Discharge Instructions No hospital discharge instruction information available. Additional Source Comments This clinical document has been generated using [employer] software that has been certified by the Office of the National Coordinator for Health Information Technology (ONC 15.99.04.3023.Diam.31.00.0.774361) and the National Committee for Proced Tech (NCQA, as an eMeasure certified technology). FOR RECORDS PERTAINING TO PATIENTS WHO ARE OR HAVE BEEN ENROLLED IN A CHEMICAL D EPENDENCY/SUBSTANCE ABUSE PROGRAM, SOME INFORMATION MAY BE OMITTED. This clinica l summary was aggregated from multiple sources. Caution should be exercised in using it in the provision of clinical care. This summary normalizes information from multiple sources, and as a consequence, information in this document may ma terially change the coding, format and clinical context of patient data. In gloria tion, data may be omitted in some cases. CLINICAL DECISIONS SHOULD BE BASED ON T HE PRIMARY CLINICAL RECORDS. [employer] [facility]. provides no warranty or guara ntee of the accuracy or completeness of information in this document.The followi information is based on time limited clinical information
--- OUTSIDE RECORDS SUMMARY | 2019-12-13 08:22 | XMS REPORT | Continuity of Care Document ---
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 25-34 Automated erythrocyte mean corpuscular h emoglobin concentration measurement (mass/volume) 36 g/dL 32-36 Automated erythrocyte distribution width ratio 11. 8 % 10.0- 14.5 Automated blood platelet count (count/volume) 198 10*3/uL 130-400 Automated blood platelet mean volume measurement 9.7 [foz_us] 7.4-10.4 Automated blood neutrophils/100 leukocytes 89 % 42-75 Automated blood lymphocytes/100 leukocytes 6 % 12-44 Blood monocytes/100 leukocytes 5 % 0-12 Automated blood eosinophils/100 leukocytes 0 % 0-10 Automated blood basophils/100 leukocytes 0 % 0-10 Blood neutrophils automated count (number/volume) 14.8 10*3 1.8-7.8 Blood lymphocytes automated count (number/volume) 1.0 10*3 1.0-4.0 Blood monocytes automated count (number/volume) 0. 8 10*3 0.0-1.0 Automated eosinophil count 0.1 10*3/uL 0 .0-0.3 Automated blood basophil count (count/volume) 0.0 10*3/uL 0.0-0.1 Whole blood basic metabolic panel - 01/16 06:12 Serum or plasma sodium measurement (moles/volume) 138 mmol/L 135-145 Serum or plasma potassium measurement (moles/volume) 4.0 mmol/L 3.6-5.0 Serum or plasma chloride measurement (moles/volume) 110 mmol/L 98-107 Carbon dioxide 21 mmol/L 21-32 Serum or plasma anion gap determination (moles/volume) 7 mmol/L 5-14 Serum or plasma urea nitrogen measurement (mass/volume ) 8 mg/dL 7-18 Serum or plasma creatinine measurement (mass/volume) 0.70 mg/dL 0.60-1.30 Serum or plasma urea nitrogen/creatinine mass ratio 11 NRG Serum or plasma creatinine measurement w ith calculation of estimated glomerular filtration rate > NRG Serum or plasma glucose measurement (mass/volume) 97 mg/dL 70-105 Serum or plasma calcium measurement (mass/volume) 8.8 mg/dL 8.5-10.1 Complete blood count (CBC) with automate d white blood cell (WBC) differential - 01/03/18 06:05 Blood leukocytes automated count (number/volume) 14.3 10*3/uL 4.3-11.0 Blood erythrocytes automated count (number/volume) 3.88 10*6/uL 4.35-5.85 Venous blood hemoglobin measurement (mass/volume) 13.8 g/dL 13.3-17.7 Blood hematocrit (volume fraction) 39 % 40-54 Automated erythrocyte mean corpuscular volume 99 [ foz_us] 80-99 Automated erythrocyte mean corpuscular h emoglobin (mass per erythrocyte) 36 pg 25-34 Automated erythrocyte mean corpuscular h emoglobin concentration measurement (mass/volume) 36 g/dL 32-36 Automated erythrocyte distribution width ratio 11. 7 % 10.0- 14.5 Automated blood platelet count (count/volume) 205 10*3/uL 130-400 Automated blood platelet mean volume measurement 9.5 [foz_us] 7.4-10.4 Automated blood neutrophils/100 leukocytes 86 % 42-75 Automated blood lymphocytes/100 leukocytes 7 % 12-44 Blood monocytes/100 leukocytes 6 % 0-12 Automated blood eosinophils/100 leukocytes 1 % 0-10 Automated blood basophils/100 leukocytes 0 % 0-10 Blood neutrophils automated count (number/volume) 12.3 10*3 1.8-7.8 Blood lymphocytes automated count (number/volume) 1.0 10*3 1.0-4.0 Blood monocytes automated count (number/volume) 0. 8 10*3 0.0-1.0 Automated eosinophil count 0.1 10*3/uL 0 .0-0.3 Automated blood basophil count (count/volume) 0.0 10*3/uL 0.0-0.1 Whole blood basic metabolic panel - 02/15 06:05 Serum or plasma sodium measurement (moles/volume) 132 mmol/L 135-145 Serum or plasma potassium measurement (moles/volume) 3.7 mmol/L 3.6-5.0 Serum or plasma chloride measurement (moles/volume) 104 mmol/L 98-107 Carbon dioxide 19 mmol/L 21-32 Serum or plasma anion gap determination (moles/volume) 9 mmol/L 5-14 Serum or plasma urea nitrogen measurement (mass/volume ) 5 mg/dL 7-18 Serum or plasma creatinine measurement (mass/volume) 0.70 mg/dL 0.60-1.30 Serum or plasma urea nitrogen/creatinine mass ratio 7 NRG Serum or plasma creatinine measurement w ith calculation of estimated glomerular filtration rate > NRG Serum or plasma glucose measurement (mass/volume) 122 mg/dL 70-105 Serum or plasma calcium measurement (mass/volume) 9.0 mg/dL 8.5-10.1 Automated blood complete blood count ( mogram) panel - 01/04/18 05:40 Blood leukocytes automated count (number/volume) 9.8 10*3/uL 4.3-11.0 Blood erythrocytes automated count (number/volume) 4.06 10*6/uL 4.35-5.85 Venous blood hemoglobin measurement (mass/volume) 14.1 g/dL 13.3-17.7 Blood hematocrit (volume fraction) 40 % 40-54 Automated erythrocyte mean corpuscular volume 98 [ foz_us] 80-99 Automated erythrocyte mean corpuscular h emoglobin (mass per erythrocyte) 35 pg 25-34 Automated erythrocyte mean corpuscular h emoglobin concentration measurement (mass/volume) 36 g/dL 32-36 Automated erythrocyte distribution width ratio 11. 4 % 10.0- 14.5 Automated blood platelet count (count/volume) 225 10*3/uL 130-400 Automated blood platelet mean volume measurement 9.4 [foz_us] 7.4-10.4 Whole blood basic metabolic panel - 03/18 05:40 Serum or plasma sodium measurement (moles/volume) 137 mmol/L 135-145 Serum or plasma potassium measurement (moles/volume) 3.7 mmol/L 3.6-5.0 Serum or plasma chloride measurement (moles/volume) 107 mmol/L 98-107 Carbon dioxide 22 mmol/L 21-32 Serum or plasma anion gap determination (moles/volume) 8 mmol/L 5-14 Serum or plasma urea nitrogen measurement (mass/volume ) 4 mg/dL 7-18 Serum or plasma creatinine measurement (mass/volume) 0.66 mg/dL 0.60-1.30 Serum or plasma urea nitrogen/creatinine mass ratio 6 NRG Serum or plasma creatinine measurement w ith calculation of estimated glomerular filtration rate > NRG Serum or plasma glucose measurement (mass/volume) 121 mg/dL 70-105 Serum or plasma calcium measurement (mass/volume) 8.9 mg/dL 8.5-10.1 Automated blood complete blood count ( [facility]) panel - 01/05/18 04:05 Blood leukocytes automated count (number/volume) 7.7 10*3/uL 4.3-11.0 Blood erythrocytes automated count (number/volume) 3.96 10*6/uL 4.35-5.85 Venous blood hemoglobin measurement (mass/volume) 13.8 g/dL 13.3-17.7 Blood hematocrit (volume fraction) 39 % 40-54 Automated erythrocyte mean corpuscular volume 99 [ foz_us] 80-99 Automated erythrocyte mean corpuscular h emoglobin (mass per erythrocyte) 35 pg 25-34 Automated erythrocyte mean corpuscular h emoglobin concentration measurement (mass/volume) 35 g/dL 32-36 Automated erythrocyte distribution width ratio 11. 6 % 10.0- 14.5 Automated blood platelet count (count/volume) 264 10*3/uL 130-400 Automated blood platelet mean volume measurement 9.4 [foz_us] 7.4-10.4 Whole blood basic metabolic panel - 04/17 04:05 Serum or plasma sodium measurement (moles/volume) 138 mmol/L 135-145 Serum or plasma potassium measurement (moles/volume) 3.3 mmol/L 3.6-5.0 Serum or plasma chloride measurement (moles/volume) 108 mmol/L 98-107 Carbon dioxide 21 mmol/L 21-32 Serum or plasma anion gap determination (moles/volume) 9 mmol/L 5-14 Serum or plasma urea nitrogen measurement (mass/volume ) 4 mg/dL 7-18 Serum or plasma creatinine measurement (mass/volume) 0.66 mg/dL 0.60-1.30 Serum or plasma urea nitrogen/creatinine mass ratio 6 NRG Serum or plasma creatinine measurement w ith calculation of estimated glomerular filtration rate > NRG Serum or plasma glucose measurement (mass/volume) 111 mg/dL 70-105 Serum or plasma calcium measurement (mass/volume) 8.9 mg/dL 8.5-10.1 Complete blood count (CBC) with automate d white blood cell (WBC) differential - 01/29/18 08:36 Blood leukocytes automated count (number/volume) 17.8 10*3/uL 4.3-11.0 Blood erythrocytes automated count (number/volume) 4.39 10*6/uL 4.35-5.85 Venous blood hemoglobin measurement (mass/volume) 15.1 g/dL 13.3-17.7 Blood hematocrit (volume fraction) 42 % 40-54 Automated erythrocyte mean corpuscular volume 96 [ foz_us] 80-99 Automated erythrocyte mean corpuscular h emoglobin (mass per erythrocyte) 34 pg 25-34 Automated erythrocyte mean corpuscular h emoglobin concentration measurement (mass/volume) 36 g/dL 32-36 Automated erythrocyte distribution width ratio 12. 1 % 10.0- 14.5 Automated blood platelet count (count/volume) 297 10*3/uL 130-400 Automated blood platelet mean volume measurement 9.5 [foz_us] 7.4-10.4 Automated blood neutrophils/100 leukocytes 79 % 42-75 Automated blood lymphocytes/100 leukocytes 13 % 12-44 Blood monocytes/100 leukocytes 8 % 0-12 Automated blood eosinophils/100 leukocytes 0 % 0-10 Automated blood basophils/100 leukocytes 0 % 0-10 Blood neutrophils automated count (number/volume) 14.0 10*3 1.8-7.8 Blood lymphocytes automated count (number/volume) 2.3 10*3 1.0-4.0 Blood monocytes automated count (number/volume) 1. 4 10*3 0.0-1.0 Automated eosinophil count 0.1 10*3/uL 0 .0-0.3 Automated blood basophil count (count/volume) 0.0 10*3/uL 0.0-0.1 Comprehensive metabolic panel - 01/29/18 08:36 Serum or plasma sodium measurement (moles/volume) 135 mmol/L 135-145 Serum or plasma potassium measurement (moles/volume) 3.8 mmol/L 3.6-5.0 Serum or plasma chloride measurement (moles/volume) 103 mmol/L 98-107 Carbon dioxide 16 mmol/L 21-32 Serum or plasma anion gap determination (moles/volume) 16 mmol/L 5-14 Serum or plasma urea nitrogen measurement (mass/volume ) 8 mg/dL 7-18 Serum or plasma creatinine measurement (mass/volume) 0.79 mg/dL 0.60-1.30 Serum or plasma urea nitrogen/creatinine mass ratio 10 NRG Serum or plasma creatinine measurement w ith calculation of estimated glomerular filtration rate > NRG Serum or plasma glucose measurement (mass/volume) 143 mg/dL 70-105 Serum or plasma calcium measurement (mass/volume) 9.7 mg/dL 8.5-10.1 Serum or plasma total bilirubin measurement (mass/volu me) 1.5 mg/dL 0.1-1.0 Serum or plasma alkaline phosphatase emily surement (enzymatic activity/volume) 68 U/L 40-136 Serum or plasma aspartate aminotransfera se measurement (enzymatic activity/volume) 13 U/L 5-34 Serum or plasma alanine aminotransferase measurement (enzymatic activity/volume) 13 U/L 0-55 Serum or plasma protein measurement (mass/volume) 8.2 g/dL 6.4-8.2 Serum or plasma albumin measurement (mass/volume) 3.8 g/dL 3.2-4.5 Lipase - 01/29/18 08:36 Lipase 5 U/L 8-78 Blood manual differential performed dete ction - 01/29/18 08:36 Blood monocytes/100 leukocytes 5 % NRG Manual blood segmented neutrophils/100 leukocytes 79 % NRG Blood band neutrophils/100 leukocytes 4 % NRG Manual blood lymphocytes/100 leukocytes 12 % NRG Manual eosinophils/100 leukocytes in nose 0 % NRG Manual blood basophils/100 leukocytes 0 % NRG Blood erythrocyte morphology finding identification NORMAL NRG Serum or plasma ethanol measurement (mas s/volume) - 01/29/18 08:36 Serum or plasma ethanol measurement (mass/volume) < mg/dL <10 Serum or plasma C reactive protein measu rement (mass/volume) - 01/29/18 08:36 Serum or plasma C reactive protein measurement (mass/v olume) 26.58 mg/dL 0.00-0.50 Blood lactic acid measurement (moles/vol ume) - 01/29/18 09:30 Blood lactic acid measurement (moles/volume) 1.41 mmol/L 0.50-2.00 Bacterial blood culture - 01/29/18 09:30 QUANTITY OF GROWTH . NRG Bacterial blood culture SEE [facility] [id number] - 01/29/18 09:41 [id number] SPECIMEN AVAILABLE NRG Blood type T Indirect antibody screen pa francis - 01/29/18 09:41 ABO+Rh group ON NRG Transfusion band number [id number] NRG Blood group antibody screen NEGATIVE NR G Bacterial blood culture - 01/29/18 09:41 Bacterial blood culture NG NRG Methicillin resistant Staphylococcus aur eus (MRSA) screening culture - 01/29/18 10:36 Methicillin resistant Staphylococcus aureus (MRSA) scr eening culture NEG NRG Bacteria identification in isolate by an aerobe culture - 01/29/18 12:55 QUANTITY OF GROWTH Moderate Growth NRG Bacteria identification in isolate by anaerobe culture [id number] NR Gram stain microscopy - 01/29/18 12:55 GRAM STAIN RESULT MODERATE # [id number], NO BACTERIA OB SERVED NRG Bacteria identification in wound by cult ure - 01/29/18 12:55 Bacteria identification in wound by culture SEE CO MMEN NRG FREE TEXT EXTERNAL [place]ITIVITY [place]PORTED AT 0738, 5 --18 NRG QUANTITY OF GROWTH . [facility] Bacterial susceptibility panel - 8 12:55 Gentamicin susceptibility test by minimum inhibitory c oncentration <= NRG Trimethoprim/sulfamethoxazole susceptibi lity test by minimum inhibitoryconcentration >= NRG Ampicillin susceptibility test by minimum inhibitory c oncentration >= NRG Tobramycin susceptibility test by minimum inhibitory c oncentration <= NRG Cefazolin susceptibility test by minimum inhibitory co ncentration >= NRG Ceftriaxone susceptibility test by minimum inhibitory concentration R NRG Ampicillin/sulbactam susceptibility test by minimum inhibitory concentration R NRG Piperacillin/tazobactam susceptibility t est by minimum inhibitory concentration R NRG Ciprofloxacin susceptibility test by minimum inhibitor y concentration >= NRG Meropenem susceptibility test by minimum inhibitory co ncentration <= NRG Aztreonam susceptibility test by minimum inhibitory co ncentration R NRG Extended spectrum beta lactamase (ESBL) producing bacteria susceptibility test by minimum inhibitory concentration + NRG Cefepime susceptibility test by minimum inhibitory con centration R NRG Automated blood complete blood count (he mogram) panel - 01/30/18 05:07 Blood leukocytes automated count (number/volume) 16.9 10*3/uL 4.3-11.0 Blood erythrocytes automated count (number/volume) 3.94 10*6/uL 4.35-5.85 Venous blood hemoglobin measurement (mass/volume) 13.4 g/dL 13.3-17.7 Blood hematocrit (volume fraction) 39 % 40-54 Automated erythrocyte mean corpuscular volume 100 [foz_us] 80-99 Automated erythrocyte mean corpuscular h emoglobin (mass per erythrocyte) 34 pg 25-34 Automated erythrocyte mean corpuscular h emoglobin concentration measurement (mass/volume) 34 g/dL 32-36 Automated erythrocyte distribution width ratio 12. 4 % 10.0- 14.5 Automated blood platelet count (count/volume) 248 10*3/uL 130-400 Automated blood platelet mean volume measurement 9.1 [foz_us] 7.4-10.4 Comprehensive metabolic panel - 01/30/18 05:07 Serum or plasma sodium measurement (moles/volume) 136 mmol/L 135-145 Serum or plasma potassium measurement (moles/volume) 4.5 mmol/L 3.6-5.0 Serum or plasma chloride measurement (moles/volume) 105 mmol/L 98-107 Carbon dioxide 23 mmol/L 21-32 Serum or plasma anion gap determination (moles/volume) 8 mmol/L 5-14 Serum or plasma urea nitrogen measurement (mass/volume ) 8 mg/dL 7-18 Serum or plasma creatinine measurement (mass/volume) 0.68 mg/dL 0.60-1.30 Serum or plasma urea nitrogen/creatinine mass ratio 12 NRG Serum or plasma creatinine measurement w ith calculation of estimated glomerular filtration rate > NRG Serum or plasma glucose measurement (mass/volume) 137 mg/dL 70-105 Serum or plasma calcium measurement (mass/volume) 9.5 mg/dL 8.5-10.1 Serum or plasma total bilirubin measurement (mass/volu me) 0.6 mg/dL 0.1-1.0 Serum or plasma alkaline phosphatase emily surement (enzymatic activity/volume) 57 U/L 40-136 Serum or plasma aspartate aminotransfera se measurement (enzymatic activity/volume) 13 U/L 5-34 Serum or plasma alanine aminotransferase measurement (enzymatic activity/volume) 8 U/L 0-55 Serum or plasma protein measurement (mass/volume) 7.3 g/dL 6.4-8.2 Serum or plasma albumin measurement (mass/volume) 3.1 g/dL 3.2-4.5 Serum or plasma phosphate measurement (m ass/volume) - 01/30/18 05:07 Serum or plasma phosphate measurement (mass/volume) 3.4 mg/dL 2.3-4.7 Magnesium - 01/30/18 05:07 Magnesium 2.0 mg/dL 1.8-2.4 Automated blood complete blood count (he mogram) panel - 01/31/18 06:01 Blood leukocytes automated count (number/volume) 15.2 10*3/uL 4.3-11.0 Blood erythrocytes automated count (number/volume) 4.20 10*6/uL 4.35-5.85 Venous blood hemoglobin measurement (mass/volume) 14.3 g/dL 13.3-17.7 Blood hematocrit (volume fraction) 41 % 40-54 Automated erythrocyte mean corpuscular volume 98 [ foz_us] 80-99 Automated erythrocyte mean corpuscular h emoglobin (mass per erythrocyte) 34 pg 25-34 Automated erythrocyte mean corpuscular h emoglobin concentration measurement (mass/volume) 35 g/dL 32-36 Automated erythrocyte distribution width ratio 12. 0 % 10.0- 14.5 Automated blood platelet count (count/volume) 260 10*3/uL 130-400 Automated blood platelet mean volume measurement 9.4 [foz_us] 7.4-10.4 Whole blood basic metabolic panel - 12/16 06:01 Serum or plasma sodium measurement (moles/volume) 136 mmol/L 135-145 Serum or plasma potassium measurement (moles/volume) 3.5 mmol/L 3.6-5.0 Serum or plasma chloride measurement (moles/volume) 101 mmol/L 98-107 Carbon dioxide 21 mmol/L 21-32 Serum or plasma anion gap determination (moles/volume) 14 mmol/L 5-14 Serum or plasma urea nitrogen measurement (mass/volume ) 8 mg/dL 7-18 Serum or plasma creatinine measurement (mass/volume) 0.62 mg/dL 0.60-1.30 Serum or plasma urea nitrogen/creatinine mass ratio 13 NRG Serum or plasma creatinine measurement w ith calculation of estimated glomerular filtration rate > NRG Serum or plasma glucose measurement (mass/volume) 111 mg/dL 70-105 Serum or plasma calcium measurement (mass/volume) 9.1 mg/dL 8.5-10.1 Automated blood complete blood count (he mogram) panel - 02/01/18 06:30 Blood leukocytes automated count (number/volume) 10.6 10*3/uL 4.3-11.0 Blood erythrocytes automated count (number/volume) 3.77 10*6/uL 4.35-5.85 Venous blood hemoglobin measurement (mass/volume) 12.9 g/dL 13.3-17.7 Blood hematocrit (volume fraction) 37 % 40-54 Automated erythrocyte mean corpuscular volume 99 [ foz_us] 80-99 Automated erythrocyte mean corpuscular h emoglobin (mass per erythrocyte) 34 pg 25-34 Automated erythrocyte mean corpuscular h emoglobin concentration measurement (mass/volume) 35 g/dL 32-36 Automated erythrocyte distribution width ratio 12. 4 % 10.0- 14.5 Automated blood platelet count (count/volume) 277 10*3/uL 130-400 Automated blood platelet mean volume measurement 9.2 [foz_us] 7.4-10.4 Whole blood basic metabolic panel - 01/16 06:30 Serum or plasma sodium measurement (moles/volume) 135 mmol/L 135-145 Serum or plasma potassium measurement (moles/volume) 3.8 mmol/L 3.6-5.0 Serum or plasma chloride measurement (moles/volume) 103 mmol/L 98-107 Carbon dioxide 22 mmol/L 21-32 Serum or plasma anion gap determination (moles/volume) 10 mmol/L 5-14 Serum or plasma urea nitrogen measurement (mass/volume ) 8 mg/dL 7-18 Serum or plasma creatinine measurement (mass/volume) 0.54 mg/dL 0.60-1.30 Serum or plasma urea nitrogen/creatinine mass ratio 15 NRG Serum or plasma creatinine measurement w ith calculation of estimated glomerular filtration rate > NRG Serum or plasma glucose measurement (mass/volume) 88 mg/dL 70-105 Serum or plasma calcium measurement (mass/volume) 8.6 mg/dL 8.5-10.1 Automated blood complete blood count ( mogram) panel - 02/02/18 05:45 Blood leukocytes automated count (number/volume) 11.1 10*3/uL 4.3-11.0 Blood erythrocytes automated count (number/volume) 3.88 10*6/uL 4.35-5.85 Venous blood hemoglobin measurement (mass/volume) 13.3 g/dL 13.3-17.7 Blood hematocrit (volume fraction) 38 % 40-54 Automated erythrocyte mean corpuscular volume 98 [ foz_us] 80-99 Automated erythrocyte mean corpuscular h emoglobin (mass per erythrocyte) 34 pg 25-34 Automated erythrocyte mean corpuscular h emoglobin concentration measurement (mass/volume) 35 g/dL 32-36 Automated erythrocyte distribution width ratio 11. 8 % 10.0- 14.5 Automated blood platelet count (count/volume) 263 10*3/uL 130-400 Automated blood platelet mean volume measurement 8.9 [foz_us] 7.4-10.4 Whole blood basic metabolic panel - 02/15 05:45 Serum or plasma sodium measurement (moles/volume) 135 mmol/L 135-145 Serum or plasma potassium measurement (moles/volume) 3.7 mmol/L 3.6-5.0 Serum or plasma chloride measurement (moles/volume) 104 mmol/L 98-107 Carbon dioxide 20 mmol/L 21-32 Serum or plasma anion gap determination (moles/volume) 11 mmol/L 5-14 Serum or plasma urea nitrogen measurement (mass/volume ) 7 mg/dL 7-18 Serum or plasma creatinine measurement (mass/volume) 0.52 mg/dL 0.60-1.30 Serum or plasma urea nitrogen/creatinine mass ratio 13 NRG Serum or plasma creatinine measurement w ith calculation of estimated glomerular filtration rate > NRG Serum or plasma glucose measurement (mass/volume) 91 mg/dL 70-105 Serum or plasma calcium measurement (mass/volume) 8.6 mg/dL 8.5-10.1 Automated blood complete blood count (he mogram) panel - 02/03/18 05:30 Blood leukocytes automated count (number/volume) 13.1 10*3/uL 4.3-11.0 Blood erythrocytes automated count (number/volume) 3.73 10*6/uL 4.35-5.85 Venous blood hemoglobin measurement (mass/volume) 12.7 g/dL 13.3-17.7 Blood hematocrit (volume fraction) 36 % 40-54 Automated erythrocyte mean corpuscular volume 97 [ foz_us] 80-99 Automated erythrocyte mean corpuscular h emoglobin (mass per erythrocyte) 34 pg 25-34 Automated erythrocyte mean corpuscular h emoglobin concentration measurement (mass/volume) 35 g/dL 32-36 Automated erythrocyte distribution width ratio 12. 3 % 10.0- 14.5 Automated blood platelet count (count/volume) 299 10*3/uL 130-400 Automated blood platelet mean volume measurement 8.6 [foz_us] 7.4-10.4 Whole blood basic metabolic panel - 03/18 05:30 Serum or plasma sodium measurement (moles/volume) 136 mmol/L 135-145 Serum or plasma potassium measurement (moles/volume) 3.6 mmol/L 3.6-5.0 Serum or plasma chloride measurement (moles/volume) 103 mmol/L 98-107 Carbon dioxide 23 mmol/L 21-32 Serum or plasma anion gap determination (moles/volume) 10 mmol/L 5-14 Serum or plasma urea nitrogen measurement (mass/volume ) 5 mg/dL 18 Serum or plasma creatinine measurement (mass/volume) 0.56 mg/dL 0.60-1.30 Serum or plasma urea nitrogen/creatinine mass ratio 9 NRG Serum or plasma creatinine measurement w ith calculation of estimated glomerular filtration rate > NRG Serum or plasma glucose measurement (mass/volume) 108 mg/dL 70-105 Serum or plasma calcium measurement (mass/volume) 8.3 mg/dL 8.5-10.1 Automated blood complete blood count (he mogram) panel - 02/04/18 05:20 Blood leukocytes automated count (number/volume) 10.9 10*3/uL 4.3-11.0 Blood erythrocytes automated count (number/volume) 3.60 10*6/uL 4.35-5.85 Venous blood hemoglobin measurement (mass/volume) 12.3 g/dL 13.3-17.7 Blood hematocrit (volume fraction) 35 % 40-54 Automated erythrocyte mean corpuscular volume 98 [ foz_us] 80-99 Automated erythrocyte mean corpuscular h emoglobin (mass per erythrocyte) 34 pg 25-34 Automated erythrocyte mean corpuscular h emoglobin concentration measurement (mass/volume) 35 g/dL 32-36 Automated erythrocyte distribution width ratio 12. 0 % 10.0- 14.5 Automated blood platelet count (count/volume) 327 10*3/uL 130-400 Automated blood platelet mean volume measurement 9.2 [foz_us] 7.4-10.4 Whole blood basic metabolic panel - 04/17 05:20 Serum or plasma sodium measurement (moles/volume) 137 mmol/L 135-145 Serum or plasma potassium measurement (moles/volume) 3.6 mmol/L 3.6-5.0 Serum or plasma chloride measurement (moles/volume) 104 mmol/L 98-107 Carbon dioxide 25 mmol/L 21-32 Serum or plasma anion gap determination (moles/volume) 8 mmol/L 5-14 Serum or plasma urea nitrogen measurement (mass/volume ) 5 mg/dL 7-18 Serum or plasma creatinine measurement (mass/volume) 0.54 mg/dL 0.60-1.30 Serum or plasma urea nitrogen/creatinine mass ratio 9 NRG Serum or plasma creatinine measurement w ith calculation of estimated glomerular filtration rate > NRG Serum or plasma glucose measurement (mass/volume) 105 mg/dL 70-105 Serum or plasma calcium measurement (mass/volume) 8.4 mg/dL 8.5-10.1 Automated blood complete blood count (he mogram) panel - 02/05/18 04:50 Blood leukocytes automated count (number/volume) 8.9 10*3/uL 4.3-11.0 Blood erythrocytes automated count (number/volume) 3.47 10*6/uL 4.35-5.85 Venous blood hemoglobin measurement (mass/volume) 11.8 g/dL 13.3-17.7 Blood hematocrit (volume fraction) 34 % 40-54 Automated erythrocyte mean corpuscular volume 97 [ foz_us] 80-99 Automated erythrocyte mean corpuscular h emoglobin (mass per erythrocyte) 34 pg 25-34 Automated erythrocyte mean corpuscular h emoglobin concentration measurement (mass/volume) 35 g/dL 32-36 Automated erythrocyte distribution width ratio 12. 1 % 10.0- 14.5 Automated blood platelet count (count/volume) 369 10*3/uL 130-400 Automated blood platelet mean volume measurement 8.5 [foz_us] 7.4-10.4 Whole blood basic metabolic panel - 05/18 04:50 Serum or plasma sodium measurement (moles/volume) 136 mmol/L 135-145 Serum or plasma potassium measurement (moles/volume) 3.5 mmol/L 3.6-5.0 Serum or plasma chloride measurement (moles/volume) 104 mmol/L 98-107 Carbon dioxide 24 mmol/L -32 Serum or plasma anion gap determination (moles/volume) 8 mmol/L 5-14 Serum or plasma urea nitrogen measurement (mass/volume ) 4 mg/dL 7-18 Serum or plasma creatinine measurement (mass/volume) 0.51 mg/dL 0.60-1.30 Serum or plasma urea nitrogen/creatinine mass ratio 8 NRG Serum or plasma creatinine measurement w ith calculation of estimated glomerular filtration rate > NRG Serum or plasma glucose measurement (mass/volume) 109 mg/dL 70-105 Serum or plasma calcium measurement (mass/volume) 8.3 mg/dL 8.5-10.1 Bacteria identification in isolate by an aerobe culture - 02/11/18 15:07 Bacteria identification in isolate by anaerobe culture NOANA NRG Gram stain microscopy - 02/11/18 15:07 GRAM STAIN RESULT NO BACTERIA OBSERVED NRG Bacteria identification in wound by cult ure - 02/11/18 15:07 Bacteria identification in wound by culture [id number] NRG FREE TEXT EXTERNAL SENSITIVITY REPORTED AT 0740, NRG QUANTITY OF GROWTH Scant Growth NR Bacterial susceptibility panel - 8 15:07 Oxacillin susceptibility test by minimum inhibitory co ncentration >= NRG Gentamicin susceptibility test by minimum inhibitory c oncentration <= NRG Clindamycin susceptibility test by minimum inhibitory concentration >= NRG Erythromycin susceptibility test by minimum inhibitory concentration >= NRG Trimethoprim/sulfamethoxazole susceptibi lity test by minimum inhibitoryconcentration R NRG Vancomycin susceptibility test by minimum inhibitory c oncentration 1 NRG Levofloxacin susceptibility test by minimum inhibitory concentration <= NRG Rifampin susceptibility test by minimum inhibitory con centration <= NRG Tetracycline susceptibility test by minimum inhibitory concentration 2 NRG Linezolid susceptibility test by minimum inhibitory co ncentration 1 NRG Complete blood count (CBC) with automate d white blood cell (WBC) differential - 06/13/18 07:48 Blood leukocytes automated count (number/volume) 7.5 10*3/uL 4.3-11.0 Blood erythrocytes automated count (number/volume) 5.28 10*6/uL 4.35-5.85 Venous blood hemoglobin measurement (mass/volume) 19.4 g/dL 13.3-17.7 Blood hematocrit (volume fraction) 52 % 40-54 Automated erythrocyte mean corpuscular volume 99 [ foz_us] 80-99 Automated erythrocyte mean corpuscular h emoglobin (mass per erythrocyte) 37 pg 25-34 Automated erythrocyte mean corpuscular h emoglobin concentration measurement (mass/volume) 37 g/dL 32-36 Automated erythrocyte distribution width ratio 12. 0 % 10.0- 14.5 Automated blood platelet count (count/volume) 275 10*3/uL 130-400 Automated blood platelet mean volume measurement 9.1 [foz_us] 7.4-10.4 Automated blood neutrophils/100 leukocytes 61 % 42-75 Automated blood lymphocytes/100 leukocytes 25 % 12-44 Blood monocytes/100 leukocytes 10 % 0-12 Automated blood eosinophils/100 leukocytes 3 % 0-10 Automated blood basophils/100 leukocytes 1 % 0-10 Blood neutrophils automated count (number/volume) 4.6 10*3 1.8-7.8 Blood lymphocytes automated count (number/volume) 1.9 10*3 1.0-4.0 Blood monocytes automated count (number/volume) 0. 8 10*3 0.0-1.0 Automated eosinophil count 0.2 10*3/uL 0 .0-0.3 Automated blood basophil count (count/volume) 0.1 10*3/uL 0.0-0.1 Blood type T Indirect antibody screen pa francis - 06/13/18 07:48 ABO+Rh group ON NRG Transfusion band number [id number] [facility] Blood group antibody screen NEGATIVE NR G Methicillin resistant Staphylococcus aur eus (MRSA) screening culture - 06/13/18 07:52 Methicillin resistant Staphylococcus aureus (MRSA) scr eening culture NEG NRG Automated blood complete blood count (he mogram) panel - 06/14/18 04:30 Blood leukocytes automated count (number/volume) 17.7 10*3/uL 4.3-11.0 Blood erythrocytes automated count (number/volume) 4.39 10*6/uL 4.35-5.85 Venous blood hemoglobin measurement (mass/volume) 16.1 g/dL 13.3-17.7 Blood hematocrit (volume fraction) 44 % 40-54 Automated erythrocyte mean corpuscular volume 101 [foz_us] 80-99 Automated erythrocyte mean corpuscular h emoglobin (mass per erythrocyte) 37 pg 25-34 Automated erythrocyte mean corpuscular h emoglobin concentration measurement (mass/volume) 36 g/dL 32-36 Automated erythrocyte distribution width ratio 11. 4 % 10.0- 14.5 Automated blood platelet count (count/volume) 228 10*3/uL 130-400 Automated blood platelet mean volume measurement 9.7 [foz_us] 7.4-10.4 Whole blood basic metabolic panel - 06/01 01/16 04:30 Serum or plasma sodium measurement (moles/volume) 134 mmol/L 135-145 Serum or plasma potassium measurement (moles/volume) 4.3 mmol/L 3.6-5.0 Serum or plasma chloride measurement (moles/volume) 104 mmol/L 98-107 Carbon dioxide 20 mmol/L 21-32 Serum or plasma anion gap determination (moles/volume) 10 mmol/L 5-14 Serum or plasma urea nitrogen measurement (mass/volume ) 7 mg/dL 7-18 Serum or plasma creatinine measurement (mass/volume) 0.73 mg/dL 0.60-1.30 Serum or plasma urea nitrogen/creatinine mass ratio 10 NRG Serum or plasma creatinine measurement w ith calculation of estimated glomerular filtration rate > NRG Serum or plasma glucose measurement (mass/volume) 127 mg/dL 70-105 Serum or plasma calcium measurement (mass/volume) 9.5 mg/dL 8.5-10.1 Automated blood complete blood count ( mogram) panel - 06/15/18 06:38 Blood leukocytes automated count (number/volume) 11.0 10*3/uL 4.3-11.0 Blood erythrocytes automated count (number/volume) 4.34 10*6/uL 4.35-5.85 Venous blood hemoglobin measurement (mass/volume) 15.8 g/dL 13.3-17.7 Blood hematocrit (volume fraction) 44 % 40-54 Automated erythrocyte mean corpuscular volume 102 [foz_us] 80-99 Automated erythrocyte mean corpuscular h emoglobin (mass per erythrocyte) 36 pg 25-34 Automated erythrocyte mean corpuscular h emoglobin concentration measurement (mass/volume) 36 g/dL 32-36 Automated erythrocyte distribution width ratio 11. 7 % 10.0- 14.5 Automated blood platelet count (count/volume) 212 10*3/uL 130-400 Automated blood platelet mean volume measurement 9.1 [foz_us] 7.4-10.4 Whole blood basic metabolic panel - 06/01 02/15 06:38 Serum or plasma sodium measurement (moles/volume) 137 mmol/L 135-145 Serum or plasma potassium measurement (moles/volume) 3.6 mmol/L 3.6-5.0 Serum or plasma chloride measurement (moles/volume) 104 mmol/L 98-107 Carbon dioxide 21 mmol/L 21-32 Serum or plasma anion gap determination (moles/volume) 12 mmol/L 5-14 Serum or plasma urea nitrogen measurement (mass/volume ) 6 mg/dL 7-18 Serum or plasma creatinine measurement (mass/volume) 0.71 mg/dL 0.60-1.30 Serum or plasma urea nitrogen/creatinine mass ratio 8 NRG Serum or plasma creatinine measurement w ith calculation of estimated glomerular filtration rate > NRG Serum or plasma glucose measurement (mass/volume) 89 mg/dL 70-105 Serum or plasma calcium measurement (mass/volume) 8.9 mg/dL 8.5-10.1 Automated blood complete blood count (he mogram) panel - 06/16/18 06:01 Blood leukocytes automated count (number/volume) 7.8 10*3/uL 4.3-11.0 Blood erythrocytes automated count (number/volume) 4.40 10*6/uL 4.35-5.85 Venous blood hemoglobin measurement (mass/volume) 16.2 g/dL 13.3-17.7 Blood hematocrit (volume fraction) 44 % 40-54 Automated erythrocyte mean corpuscular volume 100 [foz_us] 80-99 Automated erythrocyte mean corpuscular h emoglobin (mass per erythrocyte) 37 pg 25-34 Automated erythrocyte mean corpuscular h emoglobin concentration measurement (mass/volume) 37 g/dL 32-36 Automated erythrocyte distribution width ratio 11. 4 % 10.0- 14.5 Automated blood platelet count (count/volume) 212 10*3/uL 130-400 Automated blood platelet mean volume measurement 9.1 [foz_us] 7.4-10.4 Whole blood basic metabolic panel - 06/01 03/18 06:01 Serum or plasma sodium measurement (moles/volume) 133 mmol/L 135-145 Serum or plasma potassium measurement (moles/volume) 3.6 mmol/L 3.6-5.0 Serum or plasma chloride measurement (moles/volume) 102 mmol/L 98-107 Carbon dioxide 19 mmol/L 21-32 Serum or plasma anion gap determination (moles/volume) 12 mmol/L 5-14 Serum or plasma urea nitrogen measurement (mass/volume ) 6 mg/dL 7-18 Serum or plasma creatinine measurement (mass/volume) 0.69 mg/dL 0.60-1.30 Serum or plasma urea nitrogen/creatinine mass ratio 9 NRG Serum or plasma creatinine measurement w ith calculation of estimated glomerular filtration rate > NRG Serum or plasma glucose measurement (mass/volume) 95 mg/dL 70-105 Serum or plasma calcium measurement (mass/volume) 9.4 mg/dL 8.5-10.1 Methicillin resistant Staphylococcus aur eus (MRSA) screening culture - 05/15/19 10:00 Methicillin resistant Staphylococcus aureus (MRSA) scr eening culture NEG NRG Encounters ACCT No. Visit Date/Time Discharge Status Pt. Type Provider Facility Loc./Unit Complaint [id number] 12/11/2019 10:28:00 020 12:13:00 DIS Emergency VIOLETANNETTE [facility] ER LEFT ARM INJ [id number] 05/15/2019 09:33:00 019 16:05:00 DIS Outpatient AARTI MONZON DO [facility] SDC INCISIONAL HERNIA [id number] 05/07/2019 05:36:00 019 13:06:00 DIS Outpatient MONZON AARTI HAMMER [facility] PREOP INCISIONAL HERNIA [id number] 06/13/2018 07:25:00 018 11:00:00 DIS Inpatient AARTI MONZON DO [facility] 4TH HISTORY PERFORATED DIVE RTICULI [id number] 06/11/2018 06:16:00 018 23:59:59 CLS Outpatient AARTI MONZON DO [facility] PREOP HISTORY PERFORATED DIVE RTICULI [id number] 05/21/2018 12:33:00 018 15:40:00 DIS Outpatient MONZON AARTI HAMMER [facility] ENDO SCREENING/HX PERFORATED DIVERTICULA [id number] 04/08/2018 14:06:00 018 23:59:59 CLS Outpatient ERICK SINGER MD [facility] WOUNDCARE [id number] 04/01/2018 14:08:00 018 23:59:59 CLS Outpatient ERICK SINGER MD [facility] WOUNDCARE [id number] 03/25/2018 14:06:00 018 23:59:59 CLS Outpatient ERICK SINGER MD [facility] [id number] 03/18/2018 14:07:00 018 23:59:59 CLS Outpatient ERICK SINGER MD [facility] [id number] 03/11/2018 14:06:00 018 23:59:59 CLS Outpatient ERICK SINGER MD [facility] [id number] 03/06/2018 13:03:00 23:59:59 CLS Outpatient ERICK SINGER MD [facility] [id number] 02/27/2018 11:16:00 018 23:59:59 CLS Outpatient ERICK SINGER MD [facility] [id number] 02/18/2018 14:14:00 018 23:59:59 CLS Outpatient ERICK SINGER MD [facility] [id number] 02/11/2018 13:44:00 23:59:59 CLS Outpatient ERICK SINGER MD [facility] [id number] 02/08/2018 13:00:00 23:59:59 CLS Outpatient RASHIDA NÚÑEZ MD [facility] INVANZ 1000 MG IJ DAILY [id number] 01/29/2018 14:08:00 16:10:00 DIS Inpatient AARTI MONZON DO [facility] 4TH PERFORATED DIVERTICULTI TIS, S/P EX GABBI GAMINO [id number] 01/01/2018 21:50:00 14:31:00 DIS Inpatient RASHIDA NÚÑEZ MD [facility] 4TH DIVERTICULITIS, SEPSIS [id number] 03/25/2017 14:03:00 017 14:56:00 DIS Emergency YOVANY RODRIGUEZ APRN [facility] ER R FOOT BIG TOE INJ [id number] 02/10/2017 16:29:00 017 17:15:00 DIS Emergency ANDREA CARTAGENA [facility] ER DIVERTICULITIS [id number] 02/09/2017 19:24:00 017 22:48:00 DIS Emergency ANDREA CARTAGENA [facility] ER ABD/INTESTINAL PAIN/BL OOD IN STOOL/FEVER [id number] 05/08/2018 00:00:00 Document Registration
== END 2019-12-11 12:13 | disposition home or self-care (01) ==
LOC: EDUNIT# 10:27 → ER 10:28
DX: S40.012A Contusion of left shoulder, initial encounter (principal); I10 Essential (primary) hypertension; Z77.22 Contact with and (suspected) exposure to environmental tobacco smoke (acute) (chronic); Z80.0 Family history of malignant neoplasm of digestive organs; Z82.49 Family history of ischemic heart disease and other diseases of the circulatory system; W01.0XXA Fall on same level from slipping, tripping and stumbling without subsequent striking against object, initial encounter
CPT/HCPCS: 73030

== ENCOUNTER 2020-09-02 15:19 | Emergency (ER) | payer MEDICAID ==
[~2020-09-02] VITALS: Ht 175 cm; Wt 81.6 kg
[~2020-09-02 15:19] MED LIST changes: +MTP25TSR PO
[2020-09-02] MEDS ORDERED: NAPR-1071 PO (15:55)
--- NOTE | 2020-09-02 15:55 | ED Lower Extremity ---
General Chief Complaint: Lower Extremity Stated Complaint: L KNEE SWELLING/PAIN Nursing Triage Note: PT ARRIVES TO THE ER WITH C/O L KNEE PAIN THAT STARTED ON 09/01 AT WORK. PATIENT IS A [employer]EL [employer] AND CRAWLED OUT FROM UNDER A HOUSE AND ONCE HE STOOD UP THE KNEE POPPED AND BUCKLED. Nursing Sepsis Screen: No Definite Risk Source: patient Exam Limitations: no limitations History of Present Illness Date Seen by Provider: Sep 02, 2020 Time Seen by Provider: 15:49 Initial Comments To ER by private vehicle with reports of left knee pain and swelling. He states that it feels the best and most stable when it is fully extended. This pain began yesterday. 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 Onset: just prior to arrival Severity: moderate Pain/Injury Location: left knee Modifying Factors: Worse With Movement Allergies and Home Medications Allergies Coded Allergies: No Known Drug Allergies (Verified , 06/13/18) Home Medications Docusate Sodium 100 Mg Capsule, 100 MG PO BID Prescribed by: AARTI MONZON on 05/15/19 1358 Hydrocodone Bit/Acetaminophen 1 Tab Tab, 1-2 TAB PO Q6H PRN for PAIN-MODERATE Prescribed by: AARTI MONZON on 05/15/19 1358 Metoprolol Succinate 25 Mg Tab.er.24h, 25 MG PO DAILY Prescribed by: ANNETTE LAZO on 12/11/19 1205 Naproxen 500 Mg Tablet, 500 MG PO BID PRN for PAIN-MODERATE (5-7) Prescribed by: YOVANY RODRIGUEZ on 09/02/20 1555 Patient Home Medication List Home Medication List Reviewed: Yes Review of Systems Constitutional: see HPI EENTM: see HPI Respiratory: no symptoms reported Cardiovascular: no symptoms reported Genitourinary: no symptoms reported Musculoskeletal: see HPI Skin: no symptoms reported Psychiatric/Neurological: No Symptoms Reported Past Qlykjgy-Mlendu-Vfwyjd Hx Patient Social History Alcohol Use: Rarely Uses Number of Drinks Today: AA Alcohol Beverage of Choice: Beer Recreational Drug Use: Yes (SMOKES 1 PACK/DAY) Drug of Choice: THC Type Used: Cigarettes 2nd Hand Smoke Exposure: Yes Recent Foreign Travel: No Contact w/Someone Who Travel: No Recent Infectious Disease Expo: No Recent Hopitalizations: No Immunizations Up To Date Tetanus Booster (TDap): Less than 5yrs PED Vaccines UTD: Yes Date of Influenza Vaccine: Jul 01, 2019 Seasonal Allergies Seasonal Allergies: Yes Past Medical History Surgeries: Yes (SEVERAL FRACTURES 16 SCREWS AND PLATE IN FACE/HEAD, COLOECTOMY/COLOSTOMY,) Abdominal, Orthopedic Respiratory: Yes (UNDIAGNOSED) Sleep Apnea Currently Using CPAP: No Currently Using BIPAP: No Cardiac: Yes (HX SINUS TACHYCARDIA) Hypertension Neurological: No Reproductive Disorders: No Sexually Transmitted Disease: No HIV/AIDS: No Genitourinary: No Gastrointestinal: Yes (HX RUPTURED DIVERTIC/COLOSTOMY then reversal) Abdominal Hernia, Diverticulosis Musculoskeletal: No Endocrine: No HEENT: No Loss of Vision: Denies Hearing Impairment: Denies Cancer: No Psychosocial: No Integumentary: No Blood Disorders: No Adverse Reaction/Blood Tranf: No (N/A) Family Medical History Myocardial infarction MATERNAL GRANDFATHER ( FROM MASSIVE HEART ATTACK) Neoplasm 19 FATHER ( last year 2016 from colon cancer) Cancer Physical Exam Vital Signs Vital Signs - First Documented 09/02/20 15:29 Temp 36.1 Pulse 113 Resp 18 B/P (MAP) 149/114 (126) Pulse Ox 97 Capillary Refill : Less Than 3 Seconds Height, Weight, BMI Height: 5'9.00" Weight: 180lbs. 0.0oz. 81.338615ks; 26.00 BMI Method:Stated General Appearance: WD/WN, no apparent distress Respiratory: no respiratory distress, no accessory muscle use Hips: bilateral hip non-tender, bilateral hip normal inspection, bilateral hip normal range of motion Legs: bilateral leg non-tender, bilateral leg normal inspection, bilateral leg normal range of motion Knees: left knee pain, left knee soft tissue tenderness, left knee swelling Ankles: bilateral ankle non-tender, bilateral ankle normal inspection, bilateral ankle normal range of motion Feet: bilateral foot non-tender, bilateral foot normal inspection, bilateral foot normal range of motion Neurologic/Psychiatric: alert, normal mood/affect, oriented x 3 Skin: normal color, warm/dry Progress/Results/Core Measures Results/Orders My Orders Orders - YOVANY RODRIGUEZ APRN Knee, Left, 3 Views (09/02/20 15:38) Vital Signs/I&O 09/02/20 15:29 Temp 36.1 Pulse 113 Resp 18 B/P (MAP) 149/114 (126) Pulse Ox 97 Blood Pressure Mean: 126 Diagnostic Imaging Diagonstic Imaging: Xray Comments NAME: SHIRLEY AG [facility] REC#: [id number] PT STATUS: REG ER : 1980 PHYSICIAN: YOVANY RODRIGUEZ APRN ADMIT DATE: 09/02/20/ER Draft Date of Exam:09/02/20 KNEE, LEFT, 3 VIEWS EXAMINATION: Left knee radiographs, 3 views. COMPARISON: None. HISTORY: 40-year-old male, left knee pain. FINDINGS: There is no identified acute fracture. The joint spaces are well preserved. There is no knee joint effusion. There is no identified radiopaque foreign body. IMPRESSION: Unremarkable radiographs of the left knee. Dictated on workstation # [id number] Dict: 09/02/20 1554 Trans: 09/02/20 1555 [facility] [id number] Interpreted by: VINITA GREEN MD Electronically signed by: Departure Impression Primary Impression: Internal derangement of left knee Disposition: 01 HOME, SELF-CARE Condition: Stable Departure-Patient Inst. Decision time for Depature: 15:52 Referrals: [facility] (PCP/Family) Primary Care Physician Patient Instructions: Internal Derangement of the Knee Add. Discharge Instructions: 1. Return to ER for any concerns. 2. Wear the immobilizer as directed for the next 3-5 days. If pain persists beyond this timeframe youlll need to follow up with your doctor to schedule an MRI. All discharge instructions reviewed with patient and/or family. Voiced understanding. Scripts Naproxen (Naprosyn) 500 Mg Tablet 500 MG PO BID PRN for PAIN-MODERATE (5-7), #30 TAB 0 Refills Prov: YOVANY RODRIGUEZ APRN 09/02/20 YOVANY RODRIGUEZ APRN Sep 02, 2020 15:55
[2020-09-02 16:05] VITALS: BP 147/115
== END 2020-09-02 16:05 ==
LOC: EDUNIT# 15:19 → ER 15:22
DX: M23.92 Unspecified internal derangement of left knee (principal); I10 Essential (primary) hypertension; Z80.0 Family history of malignant neoplasm of digestive organs; Z82.49 Family history of ischemic heart disease and other diseases of the circulatory system; Z77.22 Contact with and (suspected) exposure to environmental tobacco smoke (acute) (chronic)
CPT/HCPCS: 73562

== ENCOUNTER 2021-11-10 10:00 | Outpatient (RCR) | payer MEDICAID ==
[~2021-11-10] VITALS: Ht 175 cm; Wt 72.0 kg
[~2021-11-10 10:00] MED LIST changes: -CIPR500T4 PO; +CIPR500T5 PO; +NAPR-1071 PO
[2021-11-10] MEDS ORDERED: CATHETER FLUSH 10 ML SYR IV PRN (10:45)
[2021-11-10 13:08] VITALS: BP 107/63
--- NOTE | 2021-11-10 19:01 | NUCLEAR STRESS TEST ---
TREADMILL NUCLEAR STRESS TEST Date of procedure: 11/10/2021. Primary care provider: [facility]. Admitting physician: Jef Danielle Jr., MD. INDICATION: Paroxysmal atrial fibrillation. BASELINE ELECTROCARDIOGRAM: Sinus rhythm with sinus arrhythmia and nonspecific intraventricular conduction delay. STRESS TEST PROCEDURE: The patient was exercised for a total of 11 minutes and 30 seconds of the standard Nawaf protocol achieving a maximum MET level of 12.1. The resting heart rate was 63 bpm and the peak heart rate was 153 bpm, which represents 85% of the maximum predicted heart rate. The resting blood pressure was 107/63 mmHg and the peak blood pressure was 176/76 mmHg. This represents a normal heart rate and a normal blood pressure response to exercise. The test was stopped due to target heart rate attained. There was no chest discomfort during the test. There were no arrhythmias during the test. There were no significant stress induced electrocardiogram changes. The patient exhibited excellent exercise capacity for age. NUCLEAR PROCEDURE: The patient was administered 9.1 mCi of intravenous technetium 99m Tetrofosmin at rest for the rest images. The patient was subsequently administered 25.3 mCi of intravenous technetium 99 M Tetrofosmin at peak stress for the stress images. Following an appropriate wait after each injection, imaging was obtained. The images were subsequently processed and reformatted in the usual views. Gated imaging was obtained. The image quality was adequate with a mild degree of gastrointestinal attenuation artifact. CT attenuation correction was used as a adjunct to standard imaging. Both the corrected and uncorrected images were reviewed for interpretation. NUCLEAR RESULTS: There was normal myocardial perfusion in all segments without evidence of infarction or ischemia. There was normal left ventricular chamber size with an end-diastolic volume of 63 mL and an end-systolic volume of 25 mL. There was no evidence of transient ischemic dilatation. The TID ratio was 0.89. There was normal wall motion in all segments with a calculated ejection fraction of 61%. IMPRESSION: 1. Normal heart rate and blood pressure response to exercise. 2. There was no exercise-induced chest discomfort, arrhythmias, or electrocardiogram changes during the test. 3. The patient exhibited excellent exercise capacity for age at 11 minutes and 30 seconds of the Nawaf protocol. 4. There was normal myocardial perfusion in all segments without evidence of infarction or ischemia. 5. There was normal wall motion in all segments with a calculated ejection fraction of 61%. Certain portions of this document may have been dictated utilizing voice recognition technology. Inherent to this technology, typographical and grammatical errors may exist. As much as I am diligent to identify and correct these mistakes, some errors may remain in the document. JEF DANIELLE JR, MD Nov 10, 2021 19:01
== END 2021-11-28 | disposition home or self-care (01) ==
LOC: CARD 10:00
PROVIDERS: ATTEND Internal Medicine Cardiovascular Disease
DX: I48.0 Paroxysmal atrial fibrillation (principal); R07.9 Chest pain, unspecified; R00.0 Tachycardia, unspecified
CPT/HCPCS: 78452; 93017; 93306; A9502

== ENCOUNTER 2022-03-10 13:18 | Emergency (ER) | payer MEDICAID ==
--- NOTE | 2022-03-10 13:44 | ED Back Pain ---
General Chief Complaint: Back Problems Stated Complaint: BACK PAIN Nursing Triage Note: PT AMB TO [facility] 5 WITH C/O LOW BACK PAIN X 2 WEEKS. PT STATES IT STARTED AROUND HIS WAIST ON THE L SIDE AND HAS NOW RADIATED DOWN HIS LEG Source of Information: Patient Exam Limitations: No Limitations History of Present Illness Date Seen by Provider: Mar 10, 2022 Time Seen by Provider: 13:43 Initial Comments Patient is a 41-year-old male presents ED with low back pain for the past 2 weeks. 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 He reports a pain in his left lower back buttock radiating down to his ankle. This pain has progressed to got worse described as sharp worse with any movement. Reports numbness tingling sensation that is associated with the pain. Denies of any bowel or urine incontinence, saddle paresthesia. Denies fever, chills. Has been taken Tylenol ibuprofen without much improvement. Denies abdominal pain, chest pain, shortness of breath, headache, dizziness, nausea, vomiting, diarrhea Allergies and Home Medications Allergies Coded Allergies: No Known Drug Allergies (Verified , 06/13/18) Patient Home Medication List Home Medication List Reviewed: Yes Cyclobenzaprine HCl (Cyclobenzaprine HCl) 10 Mg Tablet, 10 MG PO TID Prescribed by: JUJU MONTESINOS on 03/10/22 144 Docusate Sodium (Colace) 100 Mg Capsule, 100 MG PO BID Prescribed by: AARTI MONZON on 05/15/19 1358 Hydrocodone Bit/Acetaminophen (Lortab 5 Mg Tablet) 1 Tab Tab, 1-2 TAB PO Q6H PRN for PAIN-MODERATE Prescribed by: AARTI MONZON on 05/15/19 1358 Hydrocodone/Acetaminophen (Hydrocodone-Acetamin 5-325 mg) 5 Mg-325 Mg Tablet, 1 TAB PO Q4H PRN for PAIN-MODERATE (5-7) Prescribed by: JUJU MONTESINOS on 03/10/22 144 Meloxicam (Meloxicam) 15 Mg Tablet, 15 MG PO DAILY Prescribed by: JUJU MONTESINOS on 03/10/22 144 Methylprednisolone (Medrol Dose pack) 4 Mg Tab, 4 MG PO UD Prescribed by: JUJU MONTESINOS on 03/10/22 1446 Metoprolol Succinate (Metoprolol Succinate) 25 Mg Tab.er.24h, 25 MG PO DAILY Prescribed by: ANNETTE LAZO on 12/11/19 1205 Naproxen (Naprosyn) 500 Mg Tablet, 500 MG PO BID PRN for PAIN-MODERATE (5-7) Prescribed by: YOVANY RODRIGUEZ on 09/02/20 1555 Review of Systems Constitutional: No chills, No diaphoresis, No malaise, No weakness EENTM: No hearing loss, No ear pain, No blurred vision, No double vision Respiratory: No cough, No short of breath Cardiovascular: No chest pain, No edema Gastrointestinal: No abdominal pain, No diarrhea, No nausea, No vomiting Genitourinary: No decreased output, No discharge Musculoskeletal: back pain, muscle pain, muscle stiffness Skin: No change in color, No change in hair/nails All Other Systems Reviewed Negative Unless Noted: Yes Past Jzymydb-Lyohin-Vmzyjn Hx Patient Social History Tobacco Use?: Yes Tobacco type used: Cigarettes Smoking Status: Former Smoker Substance use?: Yes Substance type: Marijuana Substance frequency: Several times a month Alcohol Use?: No Pt feels they are or have been: No Immunizations Up To Date Tetanus Booster (TDap): Less than 5yrs PED Vaccines UTD: Yes Influenza Vaccine Up-to-Date: No; Not Current Seasonal Allergies Seasonal Allergies: Yes Past Medical History Surgery/Hospitalization HX: SX: COLON, FACE HTN, GOUT Surgeries: Yes (SEVERAL FRACTURES 16 SCREWS AND PLATE IN FACE/HEAD, COLOECTOMY/COLOSTOMY,) Abdominal, Orthopedic Respiratory: Yes (UNDIAGNOSED) Sleep Apnea Currently Using CPAP: No Currently Using BIPAP: No Cardiac: Yes (HX SINUS TACHYCARDIA) Hypertension Neurological: No Reproductive Disorders: No Sexually Transmitted Disease: No HIV/AIDS: No Genitourinary: No Gastrointestinal: Yes (HX RUPTURED DIVERTIC/COLOSTOMY then reversal) Abdominal Hernia, Diverticulosis Musculoskeletal: No Endocrine: No HEENT: No Loss of Vision: Denies Hearing Impairment: Denies Cancer: No Psychosocial: No Integumentary: No Blood Disorders: No Adverse Reaction/Blood Tranf: No (N/A) Family Medical History Myocardial infarction MATERNAL GRANDFATHER ( FROM MASSIVE HEART ATTACK) Neoplasm 19 FATHER ( last year 2017 from colon cancer) Cancer Physical Exam Vital Signs Vital Signs - First Documented 03/10/22 13:24 Temp 36.8 Pulse 98 Resp 16 B/P (MAP) 126/88 (101) Capillary Refill : Height, Weight, BMI Height: 5'9.00" Weight: 180lbs. 0.0oz. 81.201163uh; 23.51 BMI Method:Stated General Appearance: No Apparent Distress, WD/WN HEENT: PERRL/EOMI, TMs Normal, Normal ENT Inspection, Pharynx Normal Neck: Full Range of Motion, Normal Inspection, Non Tender, Supple Cardiovascular: Regular Rate, Rhythm, No Edema, No Gallop, No JVD Respiratory: Chest Non Tender, Lungs Clear, Normal Breath Sounds, No Accessory Muscle Use Gastrointestinal: Normal Bowel Sounds, No Organomegaly, No Pulsatile Mass, Non Tender, Soft Back: Vertebral Tenderness (Lumbar midline tenderness. Left lumbar paraspinal muscle tenderness, left buttock tenderness. Positive straight leg raise of left leg.) Extremity: Normal Capillary Refill, Normal Inspection, Normal Range of Motion, Non Tender, No Calf Tenderness, No Pedal Edema Neurologic/Psychiatric: Alert, Oriented x3, No Motor/Sensory Deficits, Normal Mood/Affect, regrinder II-XII Norm as Tested Skin: Normal Color, Warm/Dry Progress/Results/Core Measures Results/Orders My Orders Orders - JOHN MARTIN Ct Lumbar Spine Wo (03/10/22 13:41) Ketorolac Injection (Toradol Injection) (03/10/22 13:45) Orphenadrine Inj (Ed Only) (Norflex Inje (03/10/22 13:45) Hydrocodone/Apap 5/325 Tablet (Lortab 5 (03/10/22 13:45) Medications Given in ED Current Medications Medications Dose Ordered Sig/Abbie Route Start Time Stop Time Status Last Admin Dose Admin Acetaminophen/ Hydrocodone Bitart 1 ea ONCE ONCE PO 03/10/22 13:45 03/10/22 13:46 DC 03/10/22 14:06 1 EA Ketorolac Tromethamine 30 mg ONCE ONCE IM 03/10/22 13:45 03/10/22 13:46 DC 03/10/22 14:06 30 MG Orphenadrine Citrate 60 mg ONCE ONCE IM 03/10/22 13:45 03/10/22 13:46 DC 03/10/22 14:06 60 MG Vital Signs/I&O 03/10/22 03/10/22 13:24 14:55 Temp 36.8 36.8 Pulse 98 86 Resp 16 16 B/P (MAP) 126/88 (101) 120/84 Blood Pressure Mean: 101 Departure Communication (PCP) Patient with low back pain with lumbar radiculopathy. No neurological red flag findings such as bowel or urine incontinence, saddle paresthesia. 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 May have injured during work. No left lower leg weakness. No swelling, bruising or redness. Does have positive straight leg raise. Tenderness around the piriformis and lumbar paraspinal muscles and midline. CT scan of the lumbar spine was ordered due to to continue worsening pain which may rule out potential disc bulging. Disc bulging noted to L3-L4, L4-L5, L5-S1 without high-grade spinal stenosis. Left neural foramen stenosis noted. Likely cause of his current pain at this time. Patient was given dose of IM Toradol, Norflex and oral Sibley. Discussed results with patient. Recommend conservative treatment at this time. Would likely benefit with physical therapy and further evaluation with MRI may be needed. Discussed potential of injections in the lower back which would be more localized pain relief. If any worsening symptoms such as bowel or urine incontinence or saddle paresthesia to return back to ED for further evaluation. No evidence of cauda equina syndrome Impression Primary Impression: Back pain Disposition: 01 HOME, SELF-CARE Condition: Stable Departure-Patient Inst. Decision time for Depature: 14:42 Referrals: [facility] (PCP/Family) Primary Care Physician Patient Instructions: Low Back Pain (DC) Scripts Meloxicam (Meloxicam) 15 Mg Tablet 15 MG PO DAILY, #20 TAB Prov: JOHN MARTIN 03/10/22 Methylprednisolone (Medrol Dose pack) 4 Mg Tab 4 MG PO UD for 6 Days, #21 TAB as directed per dose pack Prov: JOHN MARTIN 03/10/22 Cyclobenzaprine HCl (Cyclobenzaprine HCl) 10 Mg Tablet 10 MG PO TID, #16 TAB Prov: JOHN MARTIN 03/10/22 Hydrocodone/Acetaminophen (Hydrocodone-Acetamin 5-325 mg) 5 Mg-325 Mg Tablet 1 TAB PO Q4H PRN for PAIN-MODERATE (5-7), #10 TAB Prov: JOHN MARTIN 03/10/22 JOHN MARTIN Mar 10, 2022 13:44
[2022-03-10] MEDS ORDERED: ORPHENADRINE 60 MG/2 ML (NORFLEX) AMP (ED ONLY) IM ONE (13:45)
[2022-03-10] MEDS ORDERED: HYDROcodone/APAP 5 MG/325 MG (LORTAB) TAB PO ONE (13:45)
[2022-03-10] MEDS ORDERED: KETOROLAC 60 MG/2 ML VIAL IM ONE (13:45)
--- NOTE | 2022-03-10 14:28 | Diagnostic Imaging Report ---
PROCEDURE: CT lumbar spine without contrast. TECHNIQUE: Multiple contiguous axial images were obtained through the lumbar spine without the use of intravenous contrast. Sagittal and coronal reformations were then performed. Auto Exposure Controls were utilized during the CT exam to meet ALARA standards for radiation dose reduction. INDICATION: Low back injury, low back pain with pain radiating down legs. COMPARISON: CT abdomen and pelvis of 01/29/2018. FINDINGS: Mild straightening of the lumbar spine without traumatic subluxation. No fracture. No ankylosis within the lumbar spine. No high-grade spinal canal stenosis. Disc bulging is present at L3-L4, L4-L5, and L5-S1, but there is no high-grade spinal canal stenosis. Disc bulging does result in moderate neural foraminal stenosis at L4-L5. A punctate nonobstructing 2 mm stone is present in the right kidney. Anastomotic staple line is seen within the rectum, but there are no features of stricture. IMPRESSION: 1. No fracture or malalignment of the lumbar spine. 2. Degenerative disc disease does not cause high-grade spinal canal stenosis. It does contribute to moderate left neural foraminal stenosis at L4-L5. Dictated by: Dictated on workstation # [id number]
[2022-03-10] MEDS ORDERED: CYCL10TA25 PO (14:46)
[2022-03-10] MEDS ORDERED: ACHD5005 PO (14:46)
[2022-03-10] MEDS ORDERED: MELO15TA39 PO (14:46)
[2022-03-10] MEDS ORDERED: NF-METHYLP PO (14:46)
[2022-03-10 14:55] VITALS: BP 120/84
== END 2022-03-10 14:56 | disposition home or self-care (01) ==
LOC: EDUNIT# 13:18 → ER 13:19
DX: M54.16 Radiculopathy, lumbar region (principal); Z87.891 Personal history of nicotine dependence
CPT/HCPCS: 72131

== ENCOUNTER → 2022-03-20 | Outpatient (CLI) | payer MEDICAID ==
[~2022-03-20] MED LIST changes: +CYCL10TA25 PO; +MELO15TA39 PO; +NF-METHYLP PO
--- NOTE | 2022-03-20 14:09 | Diagnostic Imaging Report ---
INDICATION: Pre-MRI screening. TIME OF EXAM: 2:04 p.m. FINDINGS: Two views of the orbits demonstrate postop changes of the lateral and inferior wall of the right orbit with multiple plates and screws. There are fixation plates transfixing the right maxillary sinus as well. No intraorbital radiopaque foreign body is seen. IMPRESSION: Postop changes. No radiopaque orbital foreign body is detected. Dictated by: Dictated on workstation # [id number]
--- NOTE | 2022-03-20 15:16 | Diagnostic Imaging Report ---
PROCEDURE: MRI lumbar spine. TECHNIQUE: Multiplanar, multisequence MRI of the lumbar spine was performed without contrast. INDICATION: Low back pain. Acute left-sided back pain. COMPARISON: Correlation made with CT study from March 10, 2022. FINDINGS: Alignment of the lumbar spine is normal. The vertebral body heights are well maintained. There are no marrow signal changes present to suggest acute osseous injury or suspicious marrow-replacing lesion. There are minimal Modic type I endplate changes at L5-S1. There is lower lumbar facet hypertrophy with fluid within the L4-L5 facets. There is no pars defect. The distal thoracic cord demonstrates no cord signal abnormality. The conus terminates at a normal level. Intrathecal nerve roots demonstrate no nerve root thickening or clumping. There are no findings of an abnormal epidural process. L1-L2 demonstrates no significant stenosis. L2-L3 demonstrates no significant stenosis. At L3-L4, there is mild annular disc bulging and minimal facet hypertrophy. There is mild narrowing of the central canal. There is no significant lateral recess or foraminal stenosis. At L4-L5, there is a small focus of low T1 and high T2 signal intensity that appears to be in a subligamentous location along the posterior aspect of the L4 vertebral body that may reflect a tiny extruded disc fragment. This appears to possibly impinge on the left L5 nerve root within the lateral recess. There is mild narrowing of the central canal and of the right lateral recess. There is naesaiix-ej-bbghza left and wpcs-vw-ajedgjrs right foraminal stenosis. At L5-S1, there is disc bulging and facet arthropathy. There is no significant canal or lateral recess stenosis. The paraspinal soft tissues are unremarkable. The aorta is normal in caliber. The kidneys appear nonobstructed. IMPRESSION: 1. Normal height and alignment of the lumbar spine without acute or suspicious osseous abnormality. 2. Degenerative endplate changes, most advanced at L5-S1. Facet arthropathy, most advanced at L4-L5. 3. Variable degrees of stenosis detailed above with findings most significant at the L4-L5 level as described. It appears that there is likely a small extruded disc fragment to the left of midline at the L4-L5 disc space that results in left-sided lateral recess and foraminal stenosis. Dictated by: Dictated on workstation # [id number]
== END ==
LOC: RAD 14:00
PROVIDERS: ATTEND Pediatrics
DX: M47.816 Spondylosis without myelopathy or radiculopathy, lumbar region (principal); M48.061 Spinal stenosis, lumbar region without neurogenic claudication; M51.26 Other intervertebral disc displacement, lumbar region; M51.27 Other intervertebral disc displacement, lumbosacral region
CPT/HCPCS: 72148

== ENCOUNTER 2023-07-03 09:37 | Day surgery (SDC) | payer MEDICAID ==
[~2023-07-03] VITALS: Ht 174 cm; Wt 69.0 kg
[2023-07-03] VITALS (7 sets, daily range): BP systolic 74–130; BP diastolic 51–88
[~2023-07-03 09:37] MED LIST changes: +ALLO100T PO; +COLC0.6C3 PO
[2023-07-03] MEDS ORDERED: LACTATED RINGERS 1,000 ML 1,000 ML IV STA (09:39)
--- NOTE | 2023-07-03 11:40 | Anesthesia-General Post-Op ---
MAC Patient Condition Mental Status/LOC: Same as Preop Cardiovascular: Satisfactory Nausea/Vomiting: Absent Respiratory: Satisfactory Pain: Controlled Complications: Absent Post Op Complications Complications None Follow Up Care/Instructions Patient Instructions None needed. Anesthesiology Discharge Order Discharge Order Patient is doing well, no complaints, stable vital signs, no apparent adverse anesthesia problems. No complications reported per nursing. TEAGAN SCHNEIDER CRNA Jul 03, 2023 11:40
--- NOTE | 2023-07-03 11:42 | Progress Note-Post Operative ---
Post-Operative Progess Note Surgeon (s)/Forge Tender (s) Surgeon AARTI MONZON DO Forge Tender: n/a Pre-Operative Diagnosis family hx of colon cancer Post-Operative Diagnosis diverticulosis, colonic inflammation Procedure & Operative Findings Date of Procedure 07/03/23 Procedure Performed/Findings colonoscopy w/ cold biopsies Anesthesia Type per BLANKET WINDER HELPER Estimated Blood Loss Estimated blood loss (mL): none Specimens/Packing Specimens Removed ileocecal valve sigmoid colon AARTI MONZON DO Jul 03, 2023 11:42
--- NOTE | 2023-07-03 11:44 | Discharge Inst-Simple/Standard ---
Discharge Inst-Standard Patient Instructions/Follow Up Plan of Care/Instructions/FU: 2 weeks joy Activity as Tolerated: Yes Discharge Diet: Regular Diet (high fiber) AARTI MONZON DO Jul 03, 2023 11:44
--- NOTE | 2023-07-03 20:37 | OPERATIVE REPORT ---
DATE OF SERVICE: 07/03/2023 PREOPERATIVE DIAGNOSIS: Family history of colon cancer. POSTOPERATIVE DIAGNOSES: Diverticulosis, colonic inflammation. PROCEDURE: Colonoscopy with cold biopsies. SURGEON: Aarti Saha DO ANESTHESIA: Per IN STORE MARKETING REPRESENTATIVE. ESTIMATED BLOOD LOSS: None. COMPLICATIONS: None. INDICATIONS: The patient is a 42-year-old male with family history of colon cancer. He has had a previous sigmoid resection due to perforated diverticulitis. He understands risks and benefits of procedure and wished to proceed. Consent was signed in chart. DESCRIPTION OF PROCEDURE: The patient was taken to the endoscopy suite, placed in left lateral recumbent position. Timeout was performed. Digital rectal exam was performed. No palpable polyps, masses or ulcerations. Scope was inserted in the rectum, advanced all the way to the cecum with minimal difficulty. Prep was adequate. Scope was slowly retracted back. No polyps, masses or ulcerations in the cecum. At the ileocecal valve, some inflammation present, which cold biopsy was obtained. Scope was then continuously retracted back. No polyps, masses or ulcerations within the ascending, transverse, or descending colon. In sigmoid colon, the anastomosis had some areas of inflammation, which cold biopsies were obtained. The anastomosis had normal appearance. Once in the rectum, scope was retroflexed noting no other pathology. Scope was returned to its normal position, slowly withdrawn until completely removed. The patient tolerated the procedure well without complications, taken to recovery room in stable condition. RECOMMENDATIONS: The patient will follow up on pathology in 2 weeks. I would recommend high fiber diet for the diverticulosis. The patient due to family history of colon cancer would have repeat colonoscopy in 5 years any issues before that, be seen at that time. Job ID: [id number] DocumentID: [id number] Dictated Date: 07/03/2023 11:41:35 Parking Patroller Date: 07/03/2023 20:36:00 Dictated By: AARTI SAHA DO
== END 2023-07-03 12:39 | disposition home or self-care (01) ==
LOC: ENDO 09:37
PROVIDERS: ATTEND Surgery
DX: D12.5 Benign neoplasm of sigmoid colon (principal); K52.9 Noninfective gastroenteritis and colitis, unspecified; K57.30 Diverticulosis of large intestine without perforation or abscess without bleeding; K91.89 Other postprocedural complications and disorders of digestive system; Z90.49 Acquired absence of other specified parts of digestive tract; Z87.19 Personal history of other diseases of the digestive system; Z98.0 Intestinal bypass and anastomosis status; Z80.0 Family history of malignant neoplasm of digestive organs; F17.210 Nicotine dependence, cigarettes, uncomplicated